=== PATIENT | female | born 1960 | race Two or more races ===

== ENCOUNTER 2020-05-30 09:39 | Outpatient (REF) | payer OTHER, SELFPAY | END 2020-05-30 09:40 | disposition home or self-care (01) | LOC: HO.LAB 09:39 | PROVIDERS: PCP Internal Medicine; Visit Provider Internal Medicine | DX: Z20.822 Contact with and (suspected) exposure to COVID-19 (principal) | CPT/HCPCS: 36415; C9803; U0003; U0005 ==

== ENCOUNTER 2020-06-13 09:24 | Outpatient (REF) | payer OTHER, SELFPAY | END 2020-06-13 09:25 | disposition home or self-care (01) | LOC: HO.LAB 09:24 | PROVIDERS: PCP Internal Medicine; Visit Provider Internal Medicine | DX: Z20.822 Contact with and (suspected) exposure to COVID-19 (principal) | CPT/HCPCS: 36415; C9803; U0003; U0005 ==

== ENCOUNTER 2020-07-06 11:38 | Outpatient (REF) | payer OTHER, SELFPAY ==
--- NOTE | ~2020-07-06 | MM_ITS ---
EXAMINATION: MM SCREENING DIGITAL BREAST TOMOSYNTHESIS, BILATERAL CLINICAL INFORMATION: Screening. Asymptomatic. The lifetime risk of breast cancer based on the Tyrer-Cuzick Model is 0.7%. COMPARISON: Mammography: December 30, 2019 and studies dating back to March 11, 2013 TECHNIQUE: Digital breast tomosynthesis is performed in both the craniocaudal and mediolateral oblique views along with computer-aided detection (CAD). Synthesized 2D images are generated from the tomosynthesis. FINDINGS: There are scattered areas of fibroglandular density (ACR BI-RADS breast composition Category b). There are no new significant masses, abnormal calcifications, or other abnormalities. There is again noted to be a prominent right axillary lymph node which is unchanged in size and appearance since study of June 22, 2019 but which did show significant increase in size prior to that. Recommend 6 month follow-up right breast mammogram for continued surveillance. MM/MM tomosynthesis screening BI IMPRESSION: There are no significant changes from prior study. ASSESSMENT: BI-RADS 3: Probably Benign RECOMMENDATION: Six-month follow-up right breast mammogram This patient's information was entered into a reminder system with a target due date for their next mammogram.
== END 2020-07-06 11:39 | disposition home or self-care (01) ==
LOC: HO.MAMMO 11:38
PROVIDERS: PCP Internal Medicine; Visit Provider Internal Medicine
DX: Z12.31 Encounter for screening mammogram for malignant neoplasm of breast (principal)
CPT/HCPCS: 77063; 77067

== ENCOUNTER → 2020-07-19 10:44 | Outpatient (BNVA) | payer OTHER, SELFPAY | PROVIDERS: PCP Internal Medicine; Visit Provider Advanced Practice Midwife ==

== ENCOUNTER → 2020-10-26 09:37 | Outpatient (BNVA) | payer OTHER, SELFPAY | PROVIDERS: PCP Internal Medicine; Visit Provider Internal Medicine Endocrinology, Diabetes & Metabolism | DX: E11.65 Type 2 diabetes mellitus with hyperglycemia (principal); E78.5 Hyperlipidemia, unspecified; E03.8 Other specified hypothyroidism; E06.3 Autoimmune thyroiditis; I10 Essential (primary) hypertension; Z79.4 Long term (current) use of insulin | CPT/HCPCS: 82947; 99212 ==

== ENCOUNTER 2020-10-26 10:40 | Outpatient (REF) | payer OTHER, SELFPAY ==
[2020-10-26 14:02] LABS: Hematocrit 45.1 % (37-47); Hemoglobin 14.7 g/dl (12.0-16.0); Mean Corpuscular HGB Conc 32.6 g/dl (31.0-35.0); Mean Corpuscular Hemoglobin 28.7 pg (27.0-33.0); Mean Corpuscular Volume 87.9 fL (80-98); Mean Platelet Volume 11.1 fL (9.4-12.3); Platelet Count 295 X10*3/uL (160-400); Red Blood Count 5.13 X10*6/uL (4.20-5.50); Red Cell Distribution Width 14.1 % (11.0-16.0)
[2020-10-26 14:12] LABS: Alanine Aminotransferase 47 U/L (0-31); Albumin Level 4.1 g/dL (3.5-5.0); Alkaline Phosphatase 133 U/L (39-117); Anion Gap 10 (12-20); Aspartate Amino Transferase 41 U/L (5-31); Bilirubin Total 0.3 mg/dL (0.0-1.0); Blood Urea Nitrogen 13 mg/dL (9-16); Calcium 9.5 mg/dL (8.4-10.2); Carbon Dioxide 30 mmol/L (22-29); Chloride 104 mmol/L (96-108); Cholesterol 132 mg/dL; Estimated Glomerular Filt Rate > 60; Glucose Fasting 236 mg/dL (60-99); HDL Cholesterol 39 mg/dL; LDL Cholesterol Calculated 74 mg/dl; Potassium 4.2 mmol/L (3.3-5.1); Sodium 140 mmol/L (135-145); Total Protein 7.4 g/dL (6.5-8.0); Triglycerides 98 mg/dL
[2020-10-26 14:23] LABS: Creatinine Urine 65.88 mg/dL; Microalbum/Creatinine Ratio Ur 39.4 ug/mg cr
[2020-10-26 14:23] LABS: Estimated Average Glucose 206 mg/dL; Hemoglobin A1c % 8.8 %
[2020-10-26 14:35] LABS: Free T4 (Free Thyroxine) 0.83 ng/dL (0.71-1.85); Thyroid Stimulating Hormone 3.27 uIU/mL (0.32-4.0)
[2020-10-26 14:43] LABS: Vitamin B12 444 pg/mL (200-900)
[2020-10-27 06:17] LABS: LDL Cholesterol Direct 75 mg/dL (<100)
[2020-10-31 13:11] LABS: Vitamin D 25-OH, D2 <4 ng/mL; Vitamin D 25-OH, D3 26 ng/mL; Vitamin D 25-OH, Total 26 ng/mL (30-100)
== END 2020-10-26 10:41 | disposition home or self-care (01) ==
LOC: HO.10HDL 10:40
PROVIDERS: Internal Medicine; Visit Provider Internal Medicine Endocrinology, Diabetes & Metabolism
DX: E11.65 Type 2 diabetes mellitus with hyperglycemia (principal); E03.9 Hypothyroidism, unspecified; E55.9 Vitamin D deficiency, unspecified; Z79.4 Long term (current) use of insulin
CPT/HCPCS: 36415; 80053; 80061; 82043; 82306; 82607; 83036; 83721; 84439; 84443; 85027

== ENCOUNTER 2020-11-21 06:25 | Outpatient (REF) | payer OTHER, SELFPAY ==
[2020-11-21 07:36] LABS: MANUAL DIFF FLAG NO
[2020-11-21 07:40] LABS: Basophils Absolute Auto 0.1 X10*3/uL (0.0-0.2); Basophils Percent Auto 0.7 % (0-2); Eosinophils Percent Auto 0.1 % (0-4); Hematocrit 43.4 % (37-47); Imm Gran Abs Auto 0.03 X10*3/uL (0.00-0.03); Imm Gran Pct Auto 0.4 % (0.0-0.4); Lymphocytes Absolute Auto 3.4 X10*3/uL (1.2-4.9); Lymphocytes Percent Auto 40.4 % (20-40); Mean Corpuscular HGB Conc 32.3 g/dl (31.0-35.0); Mean Corpuscular Hemoglobin 28.4 pg (27.0-33.0); Mean Platelet Volume 10.6 fL (9.4-12.3); Monocytes Absolute Auto 0.6 X10*3/uL (0.1-1.2); Monocytes Percent Auto 7.1 % (2-11); Neutrophils Absolute Auto 4.4 X10*3/uL (2.0-8.3); Neutrophils Percent Auto 51.3 % (45-73); Platelet Count 313 X10*3/uL (160-400); Red Blood Count 4.93 X10*6/uL (4.20-5.50); Red Cell Distribution Width 14.2 % (11.0-16.0); White Blood Count 8.5 X10*3/uL (4.8-10.8)
[2020-11-21 07:56] LABS: Cholesterol 137 mg/dL; HDL Cholesterol 39 mg/dL; LDL Cholesterol Calculated 82 mg/dl; Triglycerides 80 mg/dL
[2020-11-21 07:58] LABS: Alanine Aminotransferase 35 U/L (0-31); Albumin Level 3.9 g/dL (3.5-5.0); Alkaline Phosphatase 116 U/L (39-117); Anion Gap 12 (12-20); Aspartate Amino Transferase 29 U/L (5-31); Bilirubin Total 0.6 mg/dL (0.0-1.0); Blood Urea Nitrogen 12 mg/dL (9-16); Calcium 9.1 mg/dL (8.4-10.2); Carbon Dioxide 27 mmol/L (22-29); Chloride 109 mmol/L (96-108); Estimated Glomerular Filt Rate > 60; Glucose Fasting 150 mg/dL (60-99); Potassium 4.1 mmol/L (3.3-5.1); Sodium 144 mmol/L (135-145)
[2020-11-21 08:02] LABS: B Type Natriuretic Peptide < 10 pg/mL (<100)
[2020-11-21 08:17] LABS: TSH reflex Free T4 4.98 uIU/mL (0.32-4.0)
[2020-11-21 08:51] LABS: Free T4 (Free Thyroxine) 0.84 ng/dL (0.71-1.85)
[2020-11-21 09:30] LABS: Creatinine Urine 79.13 mg/dL; Microalbum/Creatinine Ratio Ur 12.6 ug/mg cr
== END 2020-11-21 06:26 | disposition home or self-care (01) ==
LOC: HO.LAB 06:25
PROVIDERS: PCP Internal Medicine; Visit Provider Internal Medicine
DX: E78.5 Hyperlipidemia, unspecified (principal); E78.00 Pure hypercholesterolemia, unspecified; E06.3 Autoimmune thyroiditis; E11.43 Type 2 diabetes mellitus with diabetic autonomic (poly)neuropathy; R06.02 Shortness of breath; Z79.4 Long term (current) use of insulin
CPT/HCPCS: 36415; 80053; 80061; 82043; 83880; 84439; 84443; 85025

== ENCOUNTER → 2021-02-08 09:11 | Outpatient (BNVA) | payer OTHER, SELFPAY | PROVIDERS: PCP Internal Medicine; Visit Provider Nurse Practitioner Gerontology | DX: E11.65 Type 2 diabetes mellitus with hyperglycemia (principal); E11.42 Type 2 diabetes mellitus with diabetic polyneuropathy; I10 Essential (primary) hypertension; E78.5 Hyperlipidemia, unspecified; E03.9 Hypothyroidism, unspecified; E06.3 Autoimmune thyroiditis; E55.9 Vitamin D deficiency, unspecified; E66.01 Morbid (severe) obesity due to excess calories; Z68.37 Body mass index [BMI] 37.0-37.9, adult; Z88.8 Allergy status to other drugs, medicaments and biological substances; Z79.4 Long term (current) use of insulin; Z79.84 Long term (current) use of oral hypoglycemic drugs; Z79.899 Other long term (current) drug therapy | CPT/HCPCS: 82947; 83036; 99212 ==

== ENCOUNTER 2021-02-08 10:30 | Outpatient (REF) | payer OTHER, SELFPAY ==
[2021-02-08 14:09] LABS: Free T4 (Free Thyroxine) 0.94 ng/dL (0.71-1.85); Thyroid Stimulating Hormone 2.53 uIU/mL (0.32-4.0); Vitamin D 25-OH Total 36.5 ng/mL (>30)
== END 2021-02-08 10:31 | disposition home or self-care (01) ==
LOC: HO.10HDL 10:30
PROVIDERS: Visit Provider Nurse Practitioner Gerontology
DX: E06.3 Autoimmune thyroiditis (principal); E55.9 Vitamin D deficiency, unspecified
CPT/HCPCS: 36415; 82306; 84439; 84443

== ENCOUNTER → 2021-06-09 10:04 | Outpatient (BNVA) | payer OTHER, SELFPAY | PROVIDERS: PCP Internal Medicine; Visit Provider Registered Nurse Diabetes Educator ==

== ENCOUNTER → 2021-07-21 08:04 | Outpatient (BNVA) | payer OTHER, SELFPAY | PROVIDERS: PCP Internal Medicine; Visit Provider Nurse Practitioner Gerontology | DX: E11.42 Type 2 diabetes mellitus with diabetic polyneuropathy (principal); Z79.899 Other long term (current) drug therapy; Z79.4 Long term (current) use of insulin; I10 Essential (primary) hypertension; E78.5 Hyperlipidemia, unspecified; E03.9 Hypothyroidism, unspecified ==

== ENCOUNTER 2021-08-24 10:29 | Outpatient (REF) | payer OTHER, SELFPAY ==
[2021-08-24 18:30] LABS: CT PCR NOT DETECTED (Not Detect.); NG PCR NOT DETECTED (Not Detect.)
[2021-08-25 13:08] LABS: BV Int Neg Control Negative (Negative); BV Int Pos Control Positive (Positive)
== END 2021-08-24 10:30 | disposition home or self-care (01) ==
LOC: HO.LAB 10:29
PROVIDERS: PCP Internal Medicine; Visit Provider Advanced Practice Midwife
DX: Z01.411 Encounter for gynecological examination (general) (routine) with abnormal findings (principal); N89.8 Other specified noninflammatory disorders of vagina; Z20.2 Contact with and (suspected) exposure to infections with a predominantly sexual mode of transmission
CPT/HCPCS: 87480; 87491; 87510; 87591; 87660

== ENCOUNTER → 2021-08-25 14:44 | Outpatient (BNVA) | payer OTHER, SELFPAY | PROVIDERS: PCP Internal Medicine; Referring Provider Internal Medicine; Visit Provider Nurse Practitioner Family | DX: K21.9 Gastro-esophageal reflux disease without esophagitis (principal); R13.10 Dysphagia, unspecified | CPT/HCPCS: 99202 ==

== ENCOUNTER 2021-08-30 | Outpatient (REF) | payer OTHER, SELFPAY | END 2021-08-30 00:01 | disposition home or self-care (01) | LOC: HO.LNP | PROVIDERS: Visit Provider Nurse Practitioner Family | DX: K21.9 Gastro-esophageal reflux disease without esophagitis (principal) | CPT/HCPCS: 87338 ==

== ENCOUNTER 2021-09-06 14:35 | Outpatient (REF) | payer OTHER, SELFPAY ==
--- NOTE | ~2021-09-06 | MM_ITS ---
EXAMINATION: MM SCREENING DIGITAL BREAST TOMOSYNTHESIS, BILATERAL CLINICAL INFORMATION: Screening. Asymptomatic. The lifetime risk of breast cancer based on the Tyrer-Cuzick Model is 5%. COMPARISON: Mammography: 07/06/2020, 12/30/2019, 06/22/2019, 05/06/2018; ultrasound right breast 06/25/2019 TECHNIQUE: Digital breast tomosynthesis is performed in both the craniocaudal and mediolateral oblique views along with computer-aided detection (CAD). Synthesized 2D images are generated from the tomosynthesis. FINDINGS: There are scattered areas of fibroglandular density (ACR BI-RADS breast composition Category b). Parenchymal pattern is similar to prior studies and there is no developing density or interval significant mass or architectural abnormality. There are no interval abnormal calcifications. The skin contours are smooth. MM/MM tomosynthesis screening BI IMPRESSION: No significant changes from prior exam. ASSESSMENT: BI-RADS 2: Benign RECOMMENDATION: Routine annual mammography screening. This patient's information was entered into a reminder system with a target due date for their next mammogram.
== END 2021-09-06 14:36 | disposition home or self-care (01) ==
LOC: HO.MAMMO 14:35
PROVIDERS: PCP Internal Medicine; Visit Provider Internal Medicine
DX: Z12.31 Encounter for screening mammogram for malignant neoplasm of breast (principal)
CPT/HCPCS: 77063; 77067

== ENCOUNTER 2021-09-08 09:27 | Outpatient (REF) | payer OTHER, SELFPAY ==
[2021-09-08 10:44] LABS: Alanine Aminotransferase 70 U/L (0-31); Albumin Level 3.9 g/dL (3.5-5.0); Alkaline Phosphatase 121 U/L (39-117); Anion Gap 11 (12-20); Aspartate Amino Transferase 68 U/L (5-31); Bilirubin Total 0.6 mg/dL (0.0-1.0); Blood Urea Nitrogen 12 mg/dL (9-16); Calcium 9.6 mg/dL (8.4-10.2); Carbon Dioxide 28 mmol/L (22-29); Chloride 105 mmol/L (96-108); Cholesterol 159 mg/dL; Estimated Average Glucose 214 mg/dL; Estimated Glomerular Filt Rate > 60; Glucose Fasting 161 mg/dL (60-99); HDL Cholesterol 39 mg/dL; Hemoglobin A1c % 9.1 %; LDL Cholesterol Calculated 100 mg/dl; Potassium 4.2 mmol/L (3.3-5.1); Sodium 140 mmol/L (135-145); Total Protein 7.5 g/dL (6.5-8.0); Triglycerides 102 mg/dL
[2021-09-08 11:03] LABS: Creatinine Urine 111.16 mg/dL; Microalbum/Creatinine Ratio Ur 20.6 ug/mg cr
[2021-09-08 11:07] LABS: Free T4 (Free Thyroxine) 0.81 ng/dL (0.71-1.85)
[2021-09-08 11:08] LABS: Thyroid Stimulating Hormone 5.15 uIU/mL (0.32-4.0); Vitamin D 25-OH Total 29.3 ng/mL (>30)
[2021-09-09 12:20] LABS: LDL Cholesterol Direct 99 mg/dL (<100)
== END 2021-09-08 09:28 | disposition home or self-care (01) ==
LOC: HO.LAB 09:27
PROVIDERS: Absent Provider Nurse Practitioner Gerontology; PCP Internal Medicine; Visit Provider Internal Medicine
DX: E11.42 Type 2 diabetes mellitus with diabetic polyneuropathy (principal); E78.5 Hyperlipidemia, unspecified; E55.9 Vitamin D deficiency, unspecified; E03.8 Other specified hypothyroidism; E06.3 Autoimmune thyroiditis; Z79.4 Long term (current) use of insulin
CPT/HCPCS: 36415; 80053; 80061; 82043; 82306; 83036; 83721; 84439; 84443

== ENCOUNTER → 2021-09-20 09:43 | Outpatient (BNVA) | payer OTHER, SELFPAY | PROVIDERS: PCP Internal Medicine; Visit Provider Registered Nurse Diabetes Educator | DX: E11.42 Type 2 diabetes mellitus with diabetic polyneuropathy (principal); Z79.4 Long term (current) use of insulin | CPT/HCPCS: 99211 ==

== ENCOUNTER 2021-09-29 09:09 | Outpatient (REF) | payer OTHER, SELFPAY ==
--- NOTE | ~2021-09-29 | FL_ITS ---
EXAMINATION: FL BARIUM SWALLOW CLINICAL INFORMATION: Dysphagia. COMPARISON: None TECHNIQUE: Barium swallow examination was performed using fluoroscopic evaluation in addition to multiple fluoroscopic spot views. The patient was imaged both upright and prone and using both thick and thin sulfate along with effervescent granules. Fluoroscopy time: 1.2 minutes DAP: 5.337 Gycm2 Images: 37 FINDINGS: There is normal apposition of the vocal cords while saying E . There is normal elevation of the soft palate while saying candy . The patient swallowed thin and thick barium and a 1/2 inch diameter barium tablet without difficulty. No nasopharyngeal reflux or tracheal aspiration. No Zenker's diverticulum or significant cricopharyngeal hypertrophy. There is normal esophageal motility. No persistent stricture or mucosal abnormalities appreciated. There is a very small hiatal hernia with a Schatzki's ring with spontaneous gastroesophageal reflux to the level of the beau which cleared slowly. FL/FL barium swallow IMPRESSION: Small hiatal hernia with gastroesophageal reflux to the level of the beau which clears slowly.
== END 2021-09-29 09:10 | disposition home or self-care (01) ==
LOC: HO.XRAY 09:09
PROVIDERS: PCP Internal Medicine; Visit Provider Internal Medicine
DX: R13.10 Dysphagia, unspecified (principal)
CPT/HCPCS: 74220

== ENCOUNTER → 2021-10-17 14:58 | Outpatient (BNVA) | payer OTHER, SELFPAY | PROVIDERS: PCP Internal Medicine; Visit Provider Nurse Practitioner Family | DX: K21.9 Gastro-esophageal reflux disease without esophagitis (principal); A04.8 Other specified bacterial intestinal infections; R13.10 Dysphagia, unspecified | CPT/HCPCS: 99212 ==

== ENCOUNTER → 2021-10-19 09:34 | Outpatient (BNVA) | payer OTHER, SELFPAY | PROVIDERS: PCP Internal Medicine; Visit Provider Nurse Practitioner Gerontology | DX: E11.65 Type 2 diabetes mellitus with hyperglycemia (principal); E11.42 Type 2 diabetes mellitus with diabetic polyneuropathy; I10 Essential (primary) hypertension; E78.5 Hyperlipidemia, unspecified; E03.8 Other specified hypothyroidism; E06.3 Autoimmune thyroiditis; E66.09 Other obesity due to excess calories; Z68.37 Body mass index [BMI] 37.0-37.9, adult; E55.9 Vitamin D deficiency, unspecified; Z79.4 Long term (current) use of insulin; Z79.899 Other long term (current) drug therapy | CPT/HCPCS: 82947; 99212 ==

== ENCOUNTER 2021-10-24 | Outpatient (REF) | payer OTHER, SELFPAY | END 2021-10-24 00:01 | disposition home or self-care (01) | LOC: HO.LNP | PROVIDERS: Visit Provider Nurse Practitioner Family | DX: K21.9 Gastro-esophageal reflux disease without esophagitis (principal) | CPT/HCPCS: 87338 ==

== ENCOUNTER → 2021-11-21 13:28 | Outpatient (BNVA) | payer OTHER, SELFPAY | PROVIDERS: PCP Internal Medicine; Visit Provider Nurse Practitioner Family | DX: A04.8 Other specified bacterial intestinal infections (principal); K21.9 Gastro-esophageal reflux disease without esophagitis | CPT/HCPCS: 99212 ==

== ENCOUNTER 2022-03-14 10:49 | Day surgery (SDC) | payer OTHER, SELFPAY ==
[2022-03-07 16:06] VITALS: BMI 37.7
--- NOTE | 2022-03-13 13:11 | P.CONAN_ITS ---
Documented by User: Avis Acosta NP 03/13/22 13:12 HPI - Anesthesia Eval Consult details Narrative: 62yo F for Upper Endoscopy PMFSH Active Problems Active Problems: All Active Problems (Updated 03/07/22 @ 16:01 by Maggy Chu RN) Encounter for annual routine gynecological examination (Acute) DM2 (diabetes mellitus, type 2) (Acute) Vaginal itching (Acute) Vaginal odor (Acute) Encounter for screening mammogram for malignant neoplasm of breast (Acute) Helicobacter pylori (H. pylori) (Acute) Severe obesity with body mass index (BMI) of 35.0 to 39.9 with comorbidity (Acute) Dysphagia (Acute) Right knee pain (Acute) Obesity due to excess calories (Acute) Mild depression (Acute) Hypothyroidism (Acute) Hypothyroidism (acquired) (Acute) emt intermediate (current) use of insulin (Acute) Diabetes type 2, uncontrolled (Acute) Hypovitaminosis D (Acute) GERD (gastroesophageal reflux disease) (Acute) Essential hypertension (Acute) Headache (Acute) Dyslipidemia (Acute) Type 2 diabetes mellitus, with long-term current use of insulin (Acute) Autoimmune thyroiditis (Acute) Past Medical History Medical History Autoimmune thyroiditis Chronic pain of both hips Chronic pain of both knees Depression Diabetes type 2, uncontrolled Dyslipidemia Dysphagia Essential hypertension GERD (gastroesophageal reflux disease) Headache Helicobacter pylori (H. pylori) Hypothyroidism Hypothyroidism (acquired) Hypovitaminosis D intermediate (current) use of insulin Mild depression Obesity due to excess calories Right knee pain Severe obesity with body mass index (BMI) of 35.0 to 39.9 with comorbidity Type 2 diabetes mellitus, with long-term current use of insulin Family History Family History Father Diabetes Mother Hypertension Maternal Grandmother Gynecologic cancer Family/Other FH: mental illness Maternal Uncle Chronic mental illness Surgical History Surgical History History of arthroscopy of right knee History of tubal ligation Hx of colonoscopy Social History Social History Housing: Apartment Alcohol intake: never Patient Tobacco Use Status: Never used Tobacco e-Cigarette/Vaping Use: Never Used Second Hand Smoke Exposure: No Advance Directives: No Advance Directives Information Provided: Yes service: No Current occupational status: disabled Cognitive needs: Yes Hearing needs: No Vision needs: No Meds Allergies Allergy/AdvReac Type Severity Reaction Status Date / Time metformin AdvReac Intermediate diarrhea Verified 03/07/22 15:52 Home Medications Medication Instructions Recorded Confirmed Last Taken Type doxepin 50 mg capsule 50 mg PO BEDTIME 05/10/20 03/07/22 Unknown History pen needle, diabetic 31 gauge x #1,200 ea 05/10/20 02/20/22 Unknown History 09/11 Exam Exam Date and Time: March 13, 2022 1311 Height,Weight and Vital Signs: Height 5 ft 3 in Weight 96.615 kg Pertinent Lab Results Pertinent Lab Results: Laboratory Tests 09/08/21 09:52 Sodium 140 Potassium 4.2 Chloride 105 Carbon Dioxide 28 BUN 12 Creatinine 0.82 Assessment and Plan Assessment Anesthesia Assessment: Chart Reviewed Documented by User: Mikayla Stanford MD 03/14/22 11:39 [facility] Past Medical History Medical History Autoimmune thyroiditis Chronic pain of both hips Chronic pain of both knees Depression Diabetes type 2, uncontrolled Dyslipidemia Dysphagia Essential hypertension GERD (gastroesophageal reflux disease) Headache Helicobacter pylori (H. pylori) Hypothyroidism Hypothyroidism (acquired) Hypovitaminosis D emt intermediate (current) use of insulin Mild depression Obesity due to excess calories Right knee pain Severe obesity with body mass index (BMI) of 35.0 to 39.9 with comorbidity Type 2 diabetes mellitus, with long-term current use of insulin Family History Family History Father Diabetes Mother Hypertension Maternal Grandmother Gynecologic cancer Family/Other FH: mental illness Maternal Uncle Chronic mental illness Surgical History Surgical History History of arthroscopy of right knee History of tubal ligation Hx of colonoscopy History of Problems with Anesthesia: No Social History Social History Housing: Apartment Alcohol intake: never Patient Tobacco Use Status: Never used Tobacco e-Cigarette/Vaping Use: Never Used Second Hand Smoke Exposure: No Advance Directives: No Advance Directives Information Provided: Yes service: No Current occupational status: disabled Cognitive needs: Yes Hearing needs: No Vision needs: No Meds Allergies Allergy/AdvReac Type Severity Reaction Status Date / Time metformin AdvReac Intermediate diarrhea Verified 03/07/22 15:52 Home Medications Medication Instructions Recorded Confirmed Last Taken Type doxepin 50 mg capsule 50 mg PO BEDTIME 05/10/20 03/07/22 Unknown History pen needle, diabetic 31 gauge x #1,200 ea 05/10/20 02/20/22 Unknown History 09/11 Exam Airway Mallampati Class: II (Edentulous) TM Dist: >3cm Loose/Missing/Broken Teeth: Yes, Upper and Lower Heart: RRR Lungs: CTA Assessment and Plan Assessment Anesthesia Assessment: Anesthesia Plan Discussed Final Anesthetic Review History of Problems with Anesthesia: No NPO: Yes ASA Class: II and III Final Preanesthetic Review: Meds/Allgs Chart Reviewed, Consent Obtained/Reviewed and Anes Risks/Benef Reviewed Patient Risk: Low Procedure Risk: Intermediate Anesthetic Plan Anesthetic Plan: MAC: Disposition: Standard PACU
--- NOTE | 2022-03-14 10:55 | MHC.SHP ---
Pre-Procedural Eval Section A Date of Service: 03/14/22 Section B Chief Complaint: bacterial intestinal infections,reflux disease Relevant Family History (Specify if Yes): No Relevant Social History: None Present Medications: see Short Stay Collaborative assessment Medical History: Significant History (Autoimmune thyroiditis Chronic pain of both hips Chronic pain of both knees Depression Diabetes type 2, uncontrolled Dyslipidemia Dysphagia Essential hypertension GERD (gastroesophageal reflux disease) Headache Helicobacter pylori (H. pylori) Hypothyroidism Hypothyroidism (acquired) Hypovitaminosis ) History of Previous Operations: Relevant previous surgery/procedure and date(s) (History of arthroscopy of right knee History of tubal ligation Hx of colonoscopy) Allergies: Allergies Allergy/AdvReac Type Severity Reaction Status Date / Time metformin AdvReac Intermediate diarrhea Verified 03/07/22 15:52 Review of Systems Sugical H&P ROS: Negative: Constitution, Cardiovascular, Respiratory, Neurological, Psychiatric, Hem-Onc, Allergic/Immunologic, Gastrointestinal, Genitourinary, Musculoskeletal, Integumentary, Endocrine and Eyes/Ears/Nose/Throat Exam Surgical H&P Exam: Normal: HEENT, Normal: Heart, Normal: Lungs, Normal: Extremities, Normal: Abdomen, Normal: Skin and Normal: Neurological Plan Diagnosis/Plan: Unchanged I have reviewed the history and physical and performed a pertinent physical examination on my patient. No changes have occurred unless specified.
[2022-03-14 11:28] VITALS: BP 122/69; PULSE 92; RESP 16; TEMP 36.6; O2SAT 97
[2022-03-14 11:42] LABS: Glucose, Whole Blood 185 mg/dL (60-115)
[2022-03-14] MEDS: Lactated Ringers 1,000 ML 100 ML IVCONT (11:44)
--- NOTE | 2022-03-14 12:07 | W.PM.OPN ---
Operative Note Operative Note Date of Service: 03/14/22 Narrative: Procedure Description: EGD Indication: recurrent h pylori infection Anesthesia: MAC FLEXIBLE TRANSORAL UPPER GASTROINTESTINAL ENDOSCOPY UPPER ENDOSCOPY Consent: Indications for the procedure and potential complications of bleeding, perforation, reaction to medications and missed diagnosis were discussed with the patient and informed consent was obtained. Instrument: Olympus GIF H 190 J mid size upper endoscope Monitoring: Vital signs and clinical assessment, continuous EKG monitoring, Pulse oximetry, Carbon Dioxide monitoring and blood pressure monitoring were done throughout the procedure. Procedure: The patient was placed in the left lateral decubitis position and pre-procedure medications were administered and a bite block was placed. The endoscope was inserted into the mouth and advanced under direct vision to the third part of duodenum. A careful inspection was made as the upper endoscope was withdrawn including a retroflexed examination of the proximal stomach; Findings and interventions are described below. Findings: Larynx:normal Esophagus: GE junction at 32 cm, diaphragm hiatus at 32 cm, irregular z line, possible short segment barretts with few islands of salmon pink tissue Stomach: Patchy gastric erythema. Biopsies were obtained for pathology and also for culture. Grade 3 flap valve on retroflexed examination of the cardia consistent with lax LES Duodenum: Normal bulb and descending duodenum, Intervention: Biopsies as noted above Impression/Findings: gastritis lax LES possible barretts PLAN: await cultures, if pos for h pylori then recommend checking and if pos treat both together
[2022-03-14 12:10] VITALS: BP 111/65; PULSE 91; RESP 18; TEMP 37.1; O2SAT 95
[2022-03-14 12:25] VITALS: BP 126/71; PULSE 83; RESP 18; TEMP 37; O2SAT 96
== END 2022-03-14 13:23 | disposition home or self-care (01) ==
PROVIDERS: PCP Internal Medicine; Visit Provider Internal Medicine Gastroenterology
PROC: 0DJ08ZZ Inspection of Upper Intestinal Tract, Via Natural or Artificial Opening Endoscopic (ICD-10-PCS; CPT 43235; principal; 2022-03-14 12:20)
DX: K29.50 Unspecified chronic gastritis without bleeding (principal); K21.9 Gastro-esophageal reflux disease without esophagitis; A04.8 Other specified bacterial intestinal infections; K22.4 Dyskinesia of esophagus; I10 Essential (primary) hypertension; E11.9 Type 2 diabetes mellitus without complications; Z79.4 Long term (current) use of insulin; E78.5 Hyperlipidemia, unspecified; E06.3 Autoimmune thyroiditis; E03.9 Hypothyroidism, unspecified; E55.9 Vitamin D deficiency, unspecified; F32.A Depression, unspecified; G89.29 Other chronic pain; M25.552 Pain in left hip; M25.551 Pain in right hip; M25.562 Pain in left knee; M25.561 Pain in right knee
CPT/HCPCS: 43239; 36415; 82947; 87081; 88305; 88342

== ENCOUNTER → 2022-03-28 10:14 | Outpatient (BNVA) | payer OTHER, SELFPAY | PROVIDERS: PCP Internal Medicine; Visit Provider Nurse Practitioner Family | DX: K21.9 Gastro-esophageal reflux disease without esophagitis (principal) | CPT/HCPCS: 99212 ==

== ENCOUNTER → 2022-06-19 10:25 | Outpatient (BNVA) | payer OTHER, SELFPAY | PROVIDERS: PCP Internal Medicine; Visit Provider Nurse Practitioner Family | DX: K21.9 Gastro-esophageal reflux disease without esophagitis (principal); Z79.899 Other long term (current) drug therapy | CPT/HCPCS: 99212 ==

== ENCOUNTER 2022-06-23 07:43 | Outpatient (REF) | payer OTHER, SELFPAY ==
[2022-06-23 09:54] LABS: Thyroid Stimulating Hormone 1.47 uIU/mL (0.32-4.0)
== END 2022-06-23 07:44 | disposition home or self-care (01) ==
LOC: HO.LAB 07:43
PROVIDERS: PCP Internal Medicine; Visit Provider Internal Medicine
DX: E03.9 Hypothyroidism, unspecified (principal)
CPT/HCPCS: 36415; 84443

== ENCOUNTER 2022-07-01 10:12 | Emergency (ER) | payer OTHER, SELFPAY ==
--- NOTE | ~2022-07-01 | XR_ITS ---
EXAMINATION: XR CHEST CLINICAL INFORMATION: SOB COMPARISON: Chest x-ray 01/19/2020 TECHNIQUE: Frontal view of the chest was obtained. FINDINGS: The lungs are well-expanded and clear of acute process. Heart size and and pulmonary vascularity is normal. There is mild spondylosis mid dorsal spine. Otherwise no gross bony abnormality. XR/XR chest 1V IMPRESSION: Unremarkable chest exam. No change from 01/19/2020
[2022-07-01 10:14] VITALS: BP 137/73; PULSE 81; RESP 18; TEMP 36.9; O2SAT 95; BMI 37.2
[2022-07-01 11:07] LABS: Influenza A PCR NEGATIVE (Negative); Influenza B PCR NEGATIVE (Negative); Resp Syncy Virus RNA Qual PCR NEGATIVE (Negative); SARS COV2 PCR INHOUSE NEGATIVE (Negative)
--- NOTE | 2022-07-01 11:35 | ED.GENADULT ---
HPI - General Adult General Chief complaint: General Medical Stated complaint: has cold, SOB, chest tightness Time Seen by Provider: 07/01/22 11:30 Source: patient Mode of arrival: ambulatory Limitations: no limitations History of Present Illness HPI narrative: 62-year-old female history of diabetes hypertension presents to the ED for 2 days of cough, body aches, fever, chills, and wheezing. Patient states yellow sputum when he coughs. patient denies any chest pain, swellng of lower extremities,pleurisy, dizziness, recent long travel, recent surgery, or estrogen hormonal use. Related Data Home Medications Medication Instructions Recorded Confirmed doxepin 50 mg capsule 50 mg PO BEDTIME 05/10/20 06/25/22 pen needle, diabetic 31 gauge x #1,200 ea 05/10/20 06/25/2209/11 Previous Rx's Medication Instructions Recorded blood-glucose meter (FreeStyle #1 ea 02/08/21 Lite Meter kit) alcohol swabs (BD Alcohol Swabs) 1 pad topical BID 30 days #100 caps 03/14/21 acetaminophen 500 mg tablet 500 mg PO Q6H PRN fever 30 days 04/04/21 #120 tabs escitalopram oxalate 20 mg tablet 20 mg PO DAILY 90 days #90 tabs 04/04/21 ezetimibe 10 mg tablet 10 mg PO DAILY 90 days #90 tabs 04/04/21 pen needle, diabetic 32 gauge x #100 ea 04/14/21 (BD Rona 2nd Gen Pen Needle) lancets 28 gauge #100 ea 09/07/21 blood sugar diagnostic (FreeStyle #100 ea 10/19/21 Test strips) cholecalciferol (vitamin D3) 50 50 mcg PO DAILY #90 caps 03/06/22 mcg (2,000 unit) capsule (Vitamin D3) enalapril maleate 5 mg tablet 5 mg PO DAILY 90 days #90 tabs 03/06/22 Shower Chair #1 ea 04/04/22 aspirin 81 mg tablet,delayed 81 mg PO DAILY 90 days #90 tabs 04/04/22 release atorvastatin 80 mg tablet 80 mg PO DAILY #90 tabs 04/04/22 blood pressure monitor #1 ea 04/04/22 levothyroxine 112 mcg tablet 112 mcg PO DAILY 90 days #90 tabs 04/10/22 famotidine 20 mg tablet (Pepcid) 20 mg PO BEDTIME #30 tabs 06/19/22 pantoprazole 40 mg tablet,delayed 40 mg PO DAILY #90 tabs 06/19/22 release hydroxyzine HCl 25 mg tablet 25 mg PO BID 30 days #60 tabs 06/22/22 Lantus Solostar U-100 Insulin 100 28 unit (0.28 mL) subcut BID 90 06/25/22 unit/mL (3 mL) subcutaneous pen days #50.4 mL (insulin glargine) dulaglutide 1.5 mg/0.5 mL 1.5 mg (0.5 mL) subcut QWEEK #2 mL 06/25/22 subcutaneous pen injector (Trulicity) empagliflozin 25 mg tablet 25 mg PO DAILY 90 days #90 tabs 06/25/22 (Jardiance) albuterol sulfate 90 mcg/actuation 2 puff inhalation Q4-6H PRN 07/01/22 aerosol inhaler shortness of breath or wheezing #8.5 grams azithromycin 250 mg tablet See Rx Instructions PO .COMPLEX #6 07/01/22 tabs benzonatate 200 mg capsule 200 mg PO TID PRN cough 5 days #15 07/01/22 caps Allergies Allergy/AdvReac Type Severity Reaction Status Date / Time metformin AdvReac Intermediate diarrhea Verified 06/25/22 07:41 Review of Systems Review of Systems: Coughing, wheezing, fever, chills, and bodyaches Yes all other systems are reviewed and are negative PMFSH Past Medical History Medical History Autoimmune thyroiditis Chronic pain of both hips Chronic pain of both knees Depression Diabetes type 2, uncontrolled Dyslipidemia Dysphagia Essential hypertension GERD (gastroesophageal reflux disease) Headache Helicobacter pylori (H. pylori) Hypothyroidism Hypothyroidism (acquired) Hypovitaminosis D [facility] (current) use of insulin Mild depression Obesity due to excess calories Right knee pain Severe obesity with body mass index (BMI) of 35.0 to 39.9 with comorbidity Type 2 diabetes mellitus, with long-term current use of insulin Surgical History History of arthroscopy of right knee History of esophagogastroduodenoscopy (EGD) History of tubal ligation Hx of colonoscopy Family History Family History Father Diabetes Mother Hypertension Maternal Grandmother Gynecologic cancer Family/Other FH: mental illness Maternal Uncle Chronic mental illness Social History Social History Housing: Apartment Alcohol intake: never Patient Tobacco Use Status: Never used Tobacco e-Cigarette/Vaping Use: Never Used Second Hand Smoke Exposure: No Advance Directives: No Advance Directives Information Provided: Yes service: No Current occupational status: disabled Cognitive needs: Yes Hearing needs: No Vision needs: No Physical Exam ED Vital Signs: Vital Signs - 24 hr 07/01/22 10:14 07/01/22 12:29 Temperature 98.5 F 98.2 F Pulse Rate 81 73 Respiratory Rate 18 16 Blood Pressure 137/73 116/68 Pulse Oximetry 95 98 Oxygen Delivery Method Room Air Room Air BMI result Body Mass Index 37.2 Const General: cooperative, healthy appearing, comfortable, no acute distress, well developed, alert, awake and Physically active Orientation/consciousness: oriented to person, oriented to place, oriented to time and patient oriented x3 HENMT Head: Yes normal to inspection, Yes No palpable skull fracture present, Yes normocephalic, Yes atraumatic and No abrasion Eyes General: appearance normal, both eyes and all related structures Neck Neck: Yes normal visual inspection, Yes full ROM, Yes no lymphadenopathy, Yes no meningeal signs, Yes trachea midline, Yes supple, No anterior neck swelling and No tender Chest Chest palpation & inspection: normal inspection of the chest and normal palpation of entire chest wall Resp Effort & Inspection: normal respiratory effort and able to speak in complete sentences Auscultation: wheezes expiratory wheezes (wheezing) Cardio Jugular venous distension: no JVD Heart sounds: S1 normal heart sound present and S2 normal heart sound present GI Inspection: Yes normal to inspection Palpation (GI): Soft to palpation, not firm, nontender, no guarding and not rigid General: No CVA tenderness and Yes no CVA tenderness Back/Spine/Pelvis Back: no CVA tenderness, No CVA tenderness and No back tenderness Skin General skin exam: no rashes or lesions noted and elasticity normal Neuro General: oriented to person, oriented to place, oriented to time, patient oriented x3, gait normal, tone normal, moves all extremities, Normal light touch and pain sensation, no meningeal signs, no focal motor deficits and CN's II-XI intact bilaterally Extrem Other: bilateral lower extremities negative for swelling, pitting edema, redness or calf tenderness. General: Yes normal to inspection and Yes full ROM Psych Appearance: grossly normal, well kempt and not disheveled Course Course Course Narrative: SARs and chest x-ray ordered. Reevaluation(s) Reevaluation #1: Chest x-ray normal. COVID RSV and influenza negative. Diagnosis bronchitis. Not suspecting CHF or any other cardiac etiology such as WI. not suspecting PE. Patient well-appearing. NO need for cardiac workup Time: 11:52 Medications Administered Discontinued Medications Generic Name Dose Route Start Last Admin Trade Name Freq PRN Reason Stop Dose Admin Albuterol Sulfate 2 puff 07/01/22 12:32 07/01/22 12:42 Albuterol Sulfate 90 Mcg 8 Gm Inhaler INHALE 07/01/22 12:33 2 puff ONCE ONE Administration Medical Decision Making Medical Decision Making [facility] Narrative: 62-year-old female with history of diabetes high blood pressure presents to ED for coughing, wheezing, coughing yellow sputum, fever, chills, body aches. Patient states her grandchildren have similar symptoms. Patient not in distress. Differential Diagnosis Differential Diagnoses: The differential diagnosis associated with the presentation includes (URI, pneumonia, bronchitis, Covid, RSV, influneza) Lab Data [facility] Lab Attestation statement: I reviewed the patient's lab results. Labs: Lab Results 07/01/22 Range/Units 10:26 Influenza Type A (PCR) NEGATIVE (Negative) Influenza Type B (PCR) NEGATIVE (Negative) RSV RNA Qual (PCR) NEGATIVE (Negative) SARS-CoV-2 RNA (RT-PCR) NEGATIVE (Negative) Independent Interpretation I performed an independent interpretation of an: Plain X-Ray Radiology Impression Discussion of test interpretation with radiology: I have reviewed the radiologist's reading. Prescription Management I considered prescription management with: Antibiotic and Other (Albuterol) Chronic Conditions Patient?s care impacted by: Diabetes and Hypertension Discharge Plan Discharge Clinical Impression: Bronchitis Patient Disposition: Home, Self-Care Instructions: How to Use a Metered-Dose Inhaler (ED), Acute Bronchitis (ED) Additional Instructions: La radiograf?a de t?rax result? normal. Los hisopos dieron negativo para influenza RSV y COVID. Regrese al servicio de urgencias de inmediato por cualquier hinchaz?n de las extremidades inferiores, dolor en el pecho, tos con chris, dolor en la pantorrilla, debilidad, mareos, dolor en el pecho/dificultad para respirar por el esfuerzo, fiebre intratable o cualquier otro s?ntoma preocupante. Por favor, deng un seguimiento con el proveedor de atenci?n primaria. Prescriptions: New azithromycin 250 mg tablet See Rx Instructions .ROUTE .COMPLEX Qty: 6 0RF Rx Instructions: For 250 mg dose pack: take 500 mg today (day 1), then 250 mg for 4 days (days 2-5) benzonatate 200 mg capsule 200 mg PO TID PRN (Reason: cough) 5 Days Qty: 15 0RF albuterol sulfate 90 mcg/actuation HFA aerosol inhaler 2 puff inhalation Q4-6H PRN (Reason: shortness of breath or wheezing) Qty: 8.5 0RF No Action alcohol swabs [BD Alcohol Swabs] Pads, Medicated 1 pad topical BID 30 Days Qty: 100 11RF (DME) pen needle, diabetic [BD Rona 2nd Gen Pen Needle] 32 gauge x 5/32 needle See Rx Instructions .MEDSUPPLY Qty: 100 11RF Rx Instructions: once a day (DME) lancets 28 gauge misc See Rx Instructions .ROUTE .MEDSUPPLY Qty: 100 11RF Rx Instructions: As directed cholecalciferol (vitamin D3) [Vitamin D3] 50 mcg (2,000 unit) capsule 50 mcg PO DAILY Qty: 90 1RF enalapril maleate 5 mg tablet 5 mg PO DAILY 90 Days Qty: 90 3RF aspirin 81 mg tablet,delayed release (DR/EC) 81 mg PO DAILY 90 Days Qty: 90 1RF atorvastatin 80 mg tablet 80 mg PO DAILY Qty: 90 3RF (DME) blood pressure monitor Kit See Rx Instructions .Route Qty: 1 0RF Rx Instructions: As directed (DME) Shower Chair Misc See Rx Instructions .Route Qty: 1 0RF Rx Instructions: As directed levothyroxine 112 mcg tablet 112 mcg PO DAILY 90 Days Qty: 90 0RF hydroxyzine HCl 25 mg tablet 25 mg PO BID 30 Days Qty: 60 0RF doxepin 50 mg capsule 50 mg PO BEDTIME (DME) pen needle, diabetic 31 gauge x 5/16 needle See Rx Instructions subcut DAILY Qty: 1200 Rx Instructions: As directed ezetimibe 10 mg tablet 10 mg PO DAILY 90 Days Qty: 90 3RF escitalopram oxalate 20 mg tablet 20 mg PO DAILY 90 Days Qty: 90 3RF acetaminophen 500 mg tablet 500 mg PO Q6H PRN (Reason: fever) 30 Days Qty: 120 6RF Trulicity 1.5 mg/0.5 mL pen injector 1.5 mg subcut QWEEK Qty: 2 6RF Jardiance 25 mg tablet 25 mg PO DAILY 90 Days Qty: 90 1RF insulin glargine [Lantus Solostar U-100 Insulin] 100 unit/mL (3 mL) insulin pen 28 unit subcut BID 90 Days Qty: 50.4 5RF (DME) blood-glucose meter [FreeStyle Lite Meter] Kit See Rx Instructions .ROUTE .MEDSUPPLY Qty: 1 0RF Rx Instructions: As directed (DME) FreeStyle Test Strip See Rx Instructions .ROUTE .MEDSUPPLY Qty: 100 11RF Rx Instructions: Use 1 test strip twice a day pantoprazole 40 mg tablet,delayed release (DR/EC) 40 mg PO DAILY Qty: 90 2RF famotidine [Pepcid] 20 mg tablet 20 mg PO BEDTIME Qty: 30 3RF Referrals: Payal Bolanos MD [Primary Care Provider] - (Bronchitis) Interventions: ED Discharge Assessment Last Done: 07/01/22 12:42 Discharge Date/Time: 07/01/22 12:43 Print Language: Vietnamese
[2022-07-01 12:29] VITALS: BP 116/68; PULSE 73; RESP 16; TEMP 36.8; O2SAT 98
[2022-07-01] MEDS: Albuterol Sulfate 90 MCG 8 GM INHALER 2 PUFF INHALE (12:42)
== END 2022-07-01 12:43 | disposition home or self-care (01) ==
PROVIDERS: Emergency Provider Emergency Medicine; PCP Internal Medicine
DX: J40 Bronchitis, not specified as acute or chronic (principal); R06.02 Shortness of breath; M79.10 Myalgia, unspecified site; R50.9 Fever, unspecified; Z20.822 Contact with and (suspected) exposure to COVID-19; Z20.828 Contact with and (suspected) exposure to other viral communicable diseases; Z79.899 Other long term (current) drug therapy
CPT/HCPCS: 0241U; 71045; 99282; 99283

== ENCOUNTER 2022-08-29 10:43 | Outpatient (REF) | payer OTHER, SELFPAY ==
[2022-08-30 10:53] LABS: BV Int Neg Control Negative (Negative); BV Int Pos Control Positive (Positive)
== END 2022-08-29 10:44 | disposition home or self-care (01) ==
LOC: HO.LAB 10:43
PROVIDERS: PCP Internal Medicine; Visit Provider Advanced Practice Midwife
DX: Z01.419 Encounter for gynecological examination (general) (routine) without abnormal findings (principal); N89.8 Other specified noninflammatory disorders of vagina
CPT/HCPCS: 87480; 87510; 87660

== ENCOUNTER → 2022-09-12 10:05 | Outpatient (BNVA) | payer OTHER, SELFPAY | PROVIDERS: PCP Internal Medicine; Visit Provider Nurse Practitioner Family | DX: K21.9 Gastro-esophageal reflux disease without esophagitis (principal); K59.01 Slow transit constipation | CPT/HCPCS: 99212 ==

== ENCOUNTER 2022-09-21 09:02 | Outpatient (REF) | payer OTHER, SELFPAY ==
--- NOTE | ~2022-09-21 | MM_ITS ---
EXAMINATION: MM SCREENING DIGITAL BREAST TOMOSYNTHESIS, BILATERAL CLINICAL INFORMATION: Screening. Asymptomatic. The lifetime risk of breast cancer based on the Tyrer-Cuzick Model is 3%. COMPARISON: Mammography: 09/06/2021, 07/06/2020, 12/30/2019, 07/21/2019; right breast ultrasound 06/25/2019 TECHNIQUE: Digital breast tomosynthesis is performed in both the craniocaudal and mediolateral oblique views along with computer-aided detection (CAD). Synthesized 2D images are generated from the tomosynthesis. FINDINGS: There are scattered areas of fibroglandular density (ACR BI-RADS breast composition Category b). Parenchymal pattern is similar to prior studies and there is no developing density, significant mass, or architectural abnormality. The axillary nodes are stable. There is a small circumscribed nodule anterior 9:00 left breast with coarse peripheral calcification consistent with degenerating fibroadenoma. Skin contours are smooth. No significant changes. MM/MM tomosynthesis screening BI IMPRESSION: No significant changes from prior exam. ASSESSMENT: BI-RADS 2: Benign RECOMMENDATION: Routine annual mammography screening. This patient's information was entered into a reminder system with a target due date for their next mammogram.
== END 2022-09-21 09:03 | disposition home or self-care (01) ==
LOC: HO.MAMMO 09:02
PROVIDERS: PCP Internal Medicine; Visit Provider Internal Medicine
DX: Z12.31 Encounter for screening mammogram for malignant neoplasm of breast (principal)
CPT/HCPCS: 77063; 77067

== ENCOUNTER 2022-10-02 07:18 | Outpatient (REF) | payer OTHER, SELFPAY ==
[2022-10-02 08:51] LABS: Alanine Aminotransferase 28 U/L (0-31); Albumin Level 3.9 g/dL (3.5-5.0); Alkaline Phosphatase 122 U/L (39-117); Anion Gap 12 (12-20); Aspartate Amino Transferase 19 U/L (5-31); Bilirubin Total 0.6 mg/dL (0.0-1.0); Blood Urea Nitrogen 15 mg/dL (9-16); Calcium 9.3 mg/dL (8.4-10.2); Carbon Dioxide 29 mmol/L (22-29); Chloride 105 mmol/L (96-108); Cholesterol 165 mg/dL; Estimated Glomerular Filt Rate > 60; Glucose Fasting 164 mg/dL (60-99); HDL Cholesterol 44 mg/dL; LDL Cholesterol Calculated 104 mg/dl; Potassium 4.2 mmol/L (3.3-5.1); Sodium 142 mmol/L (135-145); Total Protein 7.5 g/dL (6.5-8.0); Triglycerides 88 mg/dL
[2022-10-02 09:00] LABS: Creatinine Urine 109.82 mg/dL; Microalbum/Creatinine Ratio Ur 17.3 ug/mg cr
== END 2022-10-02 07:19 | disposition home or self-care (01) ==
LOC: HO.LAB 07:18
PROVIDERS: PCP Internal Medicine; Visit Provider Internal Medicine
DX: E11.42 Type 2 diabetes mellitus with diabetic polyneuropathy (principal); E78.5 Hyperlipidemia, unspecified; Z79.4 Long term (current) use of insulin
CPT/HCPCS: 36415; 80053; 80061; 82043

== ENCOUNTER 2023-02-04 07:50 | Outpatient (AMB) | payer MEDICARE, MEDICAID, SELFPAY ==
[2023-02-04 07:57] VITALS: BP 138/78; PULSE 75; BMI 37.2
--- NOTE | 2023-02-04 07:57 | MHC.PC.OV ---
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 Required: No Accompanied by: Daughter/ CLASSROOM PARAPROFESSIONAL Allergies metformin Adverse Reaction (Intermediate, Verified 02/04/23 08:05) diarrhea Medication List - Last Reconciled 02/04/23 by Payal Villanueva MD acetaminophen 500 mg PO Q6H PRN 30 days albuterol sulfate 90 mcg/actuation 2 puffs inhalation Q4-6H PRN alcohol swabs (BD Alcohol Swabs) 1 pad topical BID 30 days aspirin 81 mg PO DAILY 90 days atorvastatin 80 mg PO DAILY blood pressure monitor As directed blood sugar diagnostic (FreeStyle Test strips) Use 1 test strip twice a day blood-glucose meter (FreeStyle Lite Meter kit) As directed cholecalciferol (vitamin D3) (Vitamin D3) 50 mcg PO DAILY clotrimazole-betamethasone 1-0.05 % 1 appl topical BID PRN 7 days doxepin 50 mg PO BEDTIME dulaglutide (Trulicity) 1.5 mg (0.5 mL) subcut QWEEK empagliflozin (Jardiance) 25 mg PO DAILY 90 days enalapril maleate 5 mg PO DAILY 90 days escitalopram oxalate 20 mg PO DAILY 90 days ezetimibe 10 mg PO DAILY 90 days famotidine (Pepcid) 20 mg PO BEDTIME hydroxyzine HCl 25 mg PO BID 30 days lancets As directed Lantus Solostar U-100 Insulin (insulin glargine) 30 units (0.3 mL) subcut BID 90 days NS levothyroxine 112 mcg PO DAILY 90 days metronidazole 0.75%(37.5mg/5gram) 1 appful vaginal BEDTIME 5 days pen needle, diabetic As directed pen needle, diabetic (BD Rona 2nd Gen Pen Needle) once a day polyethylene glycol 3350 (Miralax) 17 grams PO DAILY Shower Chair As directed Tobacco use date assessed: 06/25/22 Fall risk assessment: No Falls in past year Last assessed Fall Risk: 02/04/23 Dental Screening Dental Screen Date: 02/04/23 Did you have a dental visit in the last 12 months?: Yes Did you have a dental problem in the last 6 months where you did not have access to dental care?: No Was dental information given to patient?: Patient has dentist HPI HPI Comments History of Present Illness Details This is a 63-year-old female with diabetes mellitus type 2 on long-term current use of insulin, hypertension, dyslipidemia, mild depression and autoimmune thyroiditis that comes accompanied by daughter which is her CLASSROOM PARAPROFESSIONAL complaining of difficulty maintaining a sleep that has been present for few months. She does feel severely dozed off when watching TV, writing as a passenger in a car for 1 hour without a break, lying down to rest in the afternoon and sitting quietly after lunch without alcohol with an [place] score Scale of 12 and home sleep study will be order. A1c elevated and I will increase insulin from 30 units to 33 units. Blood pressure stable. Last LDL was within goal. Mild depression stable with medications and this is follow by Psychiatry. Last TSH was normal. She lives with her in 1 bedroom apartment and and use CPAP machine which makes it difficult for her to sleep and rest. She will benefit from having a 2 bedroom apartment so that she can have her own bedroom. [facility] Medical History Daytime somnolence Chronic pain of both knees Chronic pain of both hips Helicobacter pylori (H. 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 (acquired) USP (current) use of insulin Diabetes type 2, uncontrolled Hypovitaminosis D Depression GERD (gastroesophageal reflux disease) Essential hypertension Headache Dyslipidemia Type 2 diabetes mellitus, with long-term current use of insulin Autoimmune thyroiditis Surgical History History of esophagogastroduodenoscopy (EGD) Hx of colonoscopy History of arthroscopy of right knee History of tubal ligation Family History Father Diabetes Mother Hypertension Maternal Grandmother Gynecologic cancer Family/Other FH: mental illness Maternal Uncle Chronic mental illness Social History Housing: Apartment Alcohol intake: never Patient Tobacco Use Status: Never used Tobacco e-Cigarette/Vaping Use: Never Used Second Hand Smoke Exposure: No service: No Current occupational status: disabled Cognitive needs: Yes Hearing needs: No Vision needs: No Questionnaire Thrive Questionnaire Date Thrive assessed: 06/25/22 FRANCISCO-7 AMB Questionnaire FRANCISCO-7 Date FRANCISCO - 7 assessed: 06/25/22 Source: Developed by Drs. Liang Gao, Joan Cruz, Chip Aldana and colleagues, with an educational mei from [employer]. Review of Systems Const All systems reviewed & are unremarkable except as noted in HPI and below Eyes Reports no additional complaints, Denies change in vision and Denies other visual disturbances Card Denies chest pain at rest, Denies chest pain with activity, Denies edema, Denies irregular heart rhythm, Denies claudication, Denies dyspnea, Denies dyspnea on exertion, Denies orthopnea, Denies paroxysmal nocturnal dyspnea and Denies slow heart rate Resp Denies cough, Denies dyspnea and Denies dyspnea on exertion GI Denies abdominal pain, Denies change in bowel habits, Denies excessive flatus, Denies nausea and Denies vomiting Denies urinary incontinence, Denies urinary hesitancy and Denies urinary urgency Musc Denies abnormal gait, Denies atrophy, Denies deformity and Denies limited range of motion Skin/Breast Denies bleeding lesions, Denies changing lesions and Denies rash Neuro Denies abnormal gait and Denies lack of coordination Physical exam (Primary Care) Vital Signs: Last Vital Signs Pulse 75 02/04/23 07:57 BP 138/78 02/04/23 07:57 BMI result Body Mass Index 37.2 Tobacco/Smoking Status: Tobacco use Status Tobacco use date assessed 06/25/22 02/04/23 08:00 Patient Tobacco Use Status Never used Tobacco 02/04/23 08:00 e-Cigarette/Vaping Use Never Used 02/04/23 08:00 Thrive Assessment: Date of Thrive Assessment Date Thrive assessed 06/25/22 02/04/23 08:00 Eyes General: appearance normal, both eyes and all related structures Eyelids: Yes eyelids normal Conjunctivae: conjunctivae normal Neck Neck: Yes normal visual inspection and Yes supple Resp Effort & Inspection: normal respiratory effort Auscultation: clear to auscultation bilaterally Cardio Jugular venous distension: no JVD Rate: regular rate Rhythm: regular rhythm Heart sounds: S1 normal heart sound present and S2 normal heart sound present Extrem General: Yes full ROM Office Procedures Flu Questionnaire Does the patient have a severe egg allergy?: No Does the patient have severe life threatening allergies?: No Does the patient have a fever or illness today?: No Has the patient ever had Guillain-[place] Syndrome?: No Has the patient ever had any past reaction to a flu shot?: No Results AMB Hemoglobin A1c AMB Hemoglobin A1c 8.9 % Last Edit by ALEXANDRA Chaves on 02/04/23 08:10 Immunizations flu vacc [id number] 6mos up(PF) 60 mcg(15 mcgx4)/0.5 mL IM syringe Performing Provider: Payal Villanueva MD [facility] Administered by: ALEXANDRA Chaves on 02/04/23 08:23 Dose Route Admin Location Dispensed Lot Number Expiration Date NDC Loading Manager 0.5 mL IM Left Deltoid 0.5 mL [id number] 10/27/23 [id number] [email or web address] VIS Given Date VIS Provided VIS Publication Date 02/04/23 Single Vaccine 20 Eligibility Eligibility Date Funding Source Not VF Eligible 02/04/23 Private Results Reviewed Results Reviewed: Laboratory Last Values Hgb A1c (Clinic) 8.9 % (4.0-6.0) H 02/04/23 07:53 Assessment and Plan Assessment & Plan (1) Daytime somnolence: Code(s): R40.0 - Somnolence Plan: Sleep study ordered. (2) DM2 (diabetes mellitus, type 2): Code(s): E11.9 - Type 2 diabetes mellitus without complications Qualifiers: Diabetes mellitus complication detail: with polyneuropathy Diabetes mellitus complication status: with neurologic complications Diabetes mellitus termite technician insulin use: with termite technician use Qualified Code(s): E11.42 - Type 2 diabetes mellitus with diabetic polyneuropathy; Z79.4 - USP (current) use of insulin Plan: Continue Trulicity. Increase Lantus from 30 units to 33 units once a day. A1c goal is equal or less than 7%. (3) Mild depression: Code(s): F32.0 - Major depressive disorder, single episode, mild Plan: Continue escitalopram. Follow-up with psychiatry. (4) Essential hypertension: Code(s): I10 - Essential (primary) hypertension Plan: Continue enalapril. Blood pressure goal is equal or less than 130/80. (5) Dyslipidemia: Code(s): E78.5 - Hyperlipidemia, unspecified Plan: Continue statins. LDL goal is less than 70. (6) Autoimmune thyroiditis: Code(s): E06.3 - Autoimmune thyroiditis Plan: Continue levothyroxine. Orders: Orders Influenza [id number] Immunization Today Z23 - Encounter for immunization Lipid Panel 4 Months E78.5 - Hyperlipidemia, unspecified Vitamin D 25-OH Total 4 Months E55.9 - Vitamin D deficiency, unspecified Thyroid Stimulating Hormone 4 Months E03.8 - Other specified hypothyroidism, E06.3 - Autoimmune thyroiditis AMB Hemoglobin A1c Today E11.9 - Type 2 diabetes mellitus without complications RT home sleep study Today R40.0 - Somnolence Microalbumin, Random (w Creat) 4 Months E11.9 - Type 2 diabetes mellitus without complications Comprehensive [place]. Panel Fast 4 Months E11.42 - Type 2 diabetes mellitus with diabetic polyneuropathy, Z79.4 - USP (current) use of insulin Medications: Changed From Lantus Solostar U-100 Insulin (insulin glargine) 30 units (0.3 mL) subcut BID 90 days 54 mL 5RF NS E11.9 - Type 2 diabetes mellitus without complications To Lantus Solostar U-100 Insulin (insulin glargine) 33 units (0.33 mL) subcut BID 90 days 59.4 mL 5RF NS E11.9 - Type 2 diabetes mellitus without complications Refilled acetaminophen 500 mg PO Q6H 30 days PRN 120 tabs 6RF fever R51.9 - Headache, unspecified Coding Level of Care Code Est Pt Level 4 (91805) Diagnoses Daytime somnolence R40.0 Type 2 diabetes mellitus with diabetic polyneuropathy, with long-term current use of insulin E11.42; Z79.4 Diabetes mellitus complication detail: with polyneuropathy Diabetes mellitus complication status: with neurologic complications Diabetes mellitus termite technician insulin use: with group home use Mild depression F32.0 Essential hypertension I10 Dyslipidemia E78.5 Autoimmune thyroiditis E06.3 Time Spent (min) 24
== END 2023-02-04 08:17 | disposition home or self-care (01) ==
PROVIDERS: PCP Internal Medicine; Visit Provider Internal Medicine
DX: E11.42 Type 2 diabetes mellitus with diabetic polyneuropathy (principal); Z79.4 Long term (current) use of insulin; F32.0 Major depressive disorder, single episode, mild; Z23 Encounter for immunization; I10 Essential (primary) hypertension; E78.5 Hyperlipidemia, unspecified; E06.3 Autoimmune thyroiditis
CPT/HCPCS: 83036; 90471; 90686; 99214

== ENCOUNTER 2023-03-15 09:55 | Outpatient (AMB) | payer OTHER, SELFPAY ==
--- NOTE | 2023-03-15 10:09 | A.OFFVIS_ITS ---
Intake Vital Signs 03/15/23 10:11 Height 5 ft 3 in Weight 205 lb BMI 36.3 BP 122/58 L Blood Pressure Location Lt brachial Position Sitting Pulse 73 Intake Visit Reasons: 6 month fu Intake Note: Patient 6 month follow up for acid reflex. Patient cc: acid reflex on and off, denies any other GI issues. 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 Discussed with patient avoiding dietary triggers and late night snacking. Staying upright for minimum 3 hours after meals discussed with patient Constipation Reports occasional constipation. Will start patient on MiraLax patient will call the office if she continues to be constipated. I will see her in 6 months, sooner on as needed basis. Patient is agreeable to this plan and verbalizes understanding of instructions. She was given the opportunity to ask questions and all questions answered. ? Thank you for allowing me to participate in her care Plan Medications New famotidine (Pepcid) 20 mg PO BEDTIME 90 tabs 3RF K21.9 - Gastro-esophageal reflux disease without esophagitis polyethylene glycol 3350 (Miralax) 17 grams PO DAILY 510 grams 2RF Discontinued pantoprazole Discontinued Reason: Patient no longer taking 40 mg PO DAILY 90 tabs 2RF K21.9 - Gastro-esophageal reflux disease without esophagitis TODAY'S VISIT: Patient is here today for follow-up. Patient is accompanied by her SPRINKLER INSTALLER. Patient reports to be doing better. Moves her bowels without any issues, uses MiraLax. Patient denies any melena, hematochezia, unintentional weight loss or ribbon like stools. Patient had colonoscopy in 1999 me recommendation was made for her to repeat colonoscopy in 10 years. Patient has no family history of colorectal cancer. The patient reports that her acid reflux is under control. Patient is taking famotidine at bedtime. Patient denies any dyspepsia, dysphagia or odynophagia. Reports to have good appetite. Denies any postprandial abdominal pain, bloating, cramping PFSH Medical History Daytime somnolence Chronic pain of both knees Chronic pain of both hips Helicobacter pylori (H. 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 Diabetes type 2, uncontrolled Hypovitaminosis D Depression GERD (gastroesophageal reflux disease) Essential hypertension Headache Dyslipidemia Type 2 diabetes mellitus, with long-term current use of insulin Autoimmune thyroiditis Surgical History History of esophagogastroduodenoscopy (EGD) Hx of colonoscopy History of arthroscopy of right knee History of tubal ligation Family History Father Diabetes Mother Hypertension Maternal Grandmother Gynecologic cancer Family/Other FH: mental illness Maternal Uncle Chronic mental illness Social History Housing: Apartment Alcohol intake: never Patient Tobacco Use Status: Never used Tobacco e-Cigarette/Vaping Use: Never Used Second Hand Smoke Exposure: No service: No Current occupational status: disabled Cognitive needs: Yes Hearing needs: No Vision needs: No Review of Systems Const Denies weight gain and Denies weight loss ENT Reports no additional complaints, Denies dysphagia and Denies odynophagia Card Reports no additional complaints Resp Reports no additional complaints GI Denies abdominal pain, Denies belching, Denies melena, Denies bloating, Denies change in bowel habits, Denies dysphagia, Denies excessive flatus, Denies dyspepsia, Denies heartburn, Denies diarrhea, Denies loose stools, Denies nausea, Denies odynophagia and Denies vomiting Musc Reports no additional complaints Neuro Reports no additional complaints Psych Reports no additional complaints Endo Reports no additional complaints Physical Exam Vital Signs: Last Vital Signs Pulse 73 03/15/23 10:11 BP 122/58 L 03/15/23 10:11 BMI result Body Mass Index 36.3 Const General: healthy appearing, no acute distress and well developed Nutritional Appearance: obese Orientation/consciousness: patient oriented x3 HEENT Head: Yes normal to inspection, Yes normocephalic and Yes atraumatic Face and sinus: Yes normal facial exam Mouth: Normal oral and palatal mucosa present Throat: Yes posterior oropharynx normal, Yes tonsils normal and Yes uvula midline Eyes General: appearance normal, both eyes and all related structures Neck Neck: Yes normal visual inspection, Yes full ROM and Yes trachea midline Thyroid: Thyroid normal Resp Effort & Inspection: normal respiratory effort, able to speak in complete sentences, no tracheal deviation and symmetric chest movement Auscultation: clear to auscultation bilaterally Cardio Rate: regular rate Heart sounds: S1 normal heart sound present and S2 normal heart sound present GI Inspection: Yes normal to inspection, No distended and Yes obesity Palpation (GI): Soft to palpation, not firm, nontender and No hepatosplenomegaly present Auscultation: normal bowel sounds General: Yes no CVA tenderness Back/Spine/Pelvis Back: no CVA tenderness Skin General skin exam: elasticity normal, turgor normal and dry skin Neuro General: patient oriented x3 Psych Appearance: grossly normal Mental Status: mental status grossly normal Assessment & Plan Assessment & Plan (1) GERD (gastroesophageal reflux disease): Code(s): K21.9 - Gastro-esophageal reflux disease without esophagitis Qualifiers: Esophagitis presence: esophagitis presence not specified Qualified Code(s): K21.9 - Gastro-esophageal reflux disease without esophagitis (2) Constipation: Code(s): K59.00 - Constipation, unspecified Qualifiers: Constipation type: slow transit constipation Qualified Code(s): K59.01 - Slow transit constipation Plan Patient can continue taking famotidine at bedtime. Discussed with patient avoiding dietary triggers and late night snacking. Staying upright for minimal 3 hours after meals discussed with patient. Patient can continue MiraLax. Encouraged to increase fluid intake and activity to promote better bowel motility. I will see her in 6 months, sooner on as needed basis. Patient is agreeable to this plan and verbalizes understanding of instructions. She was given the opportunity to ask questions and all questions answered. Thank you for allowing me to participate in her care Coding Level of Care Code Est Pt Level 3 (76990) Diagnoses Gastroesophageal reflux disease, unspecified whether esophagitis present K21.9 Esophagitis presence: esophagitis presence not specified Slow transit constipation K59.01 Constipation type: slow transit constipation Time Spent (min) 25 Comment 15 minutes spent with patient and additional 10 minutes spent reviewing her records
[2023-03-15 10:11] VITALS: BP 122/58; PULSE 73; BMI 36.3
== END 2023-03-15 10:31 | disposition home or self-care (01) ==
PROVIDERS: PCP Internal Medicine; Visit Provider Nurse Practitioner Family
DX: K21.9 Gastro-esophageal reflux disease without esophagitis (principal); K59.01 Slow transit constipation
CPT/HCPCS: 99213

== ENCOUNTER → 2023-03-15 09:55 | Outpatient (BNVA) | payer OTHER, SELFPAY | PROVIDERS: PCP Internal Medicine; Visit Provider Nurse Practitioner Family | DX: K21.9 Gastro-esophageal reflux disease without esophagitis (principal); K59.01 Slow transit constipation | CPT/HCPCS: 99212 ==

== ENCOUNTER → 2023-03-18 08:44 | Outpatient (REF) | payer OTHER, SELFPAY | LOC: HO.SL 08:44 | PROVIDERS: PCP Internal Medicine; Visit Provider Internal Medicine | DX: R40.0 Somnolence (principal); G47.33 Obstructive sleep apnea (adult) (pediatric) | CPT/HCPCS: 95806 ==

== ENCOUNTER → 2023-03-18 09:08 | Outpatient (BNV) | payer OTHER, SELFPAY | PROVIDERS: PCP Internal Medicine; Visit Provider Psychiatry & Neurology Neurology | DX: G47.33 Obstructive sleep apnea (adult) (pediatric) (principal) | CPT/HCPCS: 95806 ==

== ENCOUNTER 2023-06-10 10:45 | Outpatient (AMB) | payer OTHER, SELFPAY ==
--- NOTE | 2023-06-10 10:48 | A.OFFPC_ITS ---
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 Allergies metformin Adverse Reaction (Intermediate, Verified 06/10/23 11:12) diarrhea Medication List - Last Reconciled 06/10/23 by Payal Villanueva MD acetaminophen 500 mg PO Q6H PRN 30 days albuterol sulfate 90 mcg/actuation 2 puffs inhalation Q4-6H PRN alcohol swabs (BD Alcohol Swabs) 1 pad topical BID 30 days aspirin 81 mg PO DAILY 90 days atorvastatin 80 mg PO DAILY blood pressure monitor As directed blood sugar diagnostic (FreeStyle Test strips) Use 1 test strip twice a day blood-glucose meter (FreeStyle Lite Meter kit) As directed cholecalciferol (vitamin D3) (Vitamin D3) 50 mcg PO DAILY clotrimazole-betamethasone 1-0.05 % 1 appl topical BID PRN 7 days doxepin 50 mg PO BEDTIME dulaglutide (Trulicity) 1.5 mg (0.5 mL) subcut QWEEK empagliflozin (Jardiance) 25 mg PO DAILY 90 days enalapril maleate 5 mg PO DAILY 90 days escitalopram oxalate 20 mg PO DAILY 90 days ezetimibe 10 mg PO DAILY 90 days famotidine (Pepcid) 20 mg PO BEDTIME hydroxyzine HCl 25 mg PO BID 30 days lancets As directed Lantus Solostar U-100 Insulin (insulin glargine) 33 units (0.33 mL) subcut BID 90 days NS levothyroxine 112 mcg PO DAILY 90 days metronidazole 0.75%(37.5mg/5gram) 1 appful vaginal BEDTIME 5 days pen needle, diabetic As directed pen needle, diabetic (BD Rona 2nd Gen Pen Needle) once a day polyethylene glycol 3350 (Miralax) 17 grams PO DAILY Shower Chair As directed Tobacco use date assessed: 06/10/23 Fall risk assessment: 1 Fall in past year Last assessed Fall Risk: 06/10/23 Dental Screening Dental Screen Date: 06/10/23 Did you have a dental visit in the last 12 months?: No Did you have a dental problem in the last 6 months where you did not have access to dental care?: No Was dental information given to patient?: Patient has dentist HPI HPI Comments History of Present Illness Details This is a 63-year-old female with hypertension, autoimmune thyroiditis, diabetes mellitus type 2 on long-term current use of insulin, dyslipidemia, mild major depression and severe obesity with BMI of 37 that comes accompanied by daughter for follow-up on her conditions. Blood pressure stable. TSH and lipid panel will be order. A1c is elevated and she admits that was out of Trulicity for about a month. Depression stable with escitalopram and she follows with psychiatry. She declines weight loss surgery and was advised to do diet and exercise for her obesity. She is compliant with her medications. Complains about some memory loss and I will check vitamin B12 levels due to this matter. [facility] Medical History Daytime somnolence Chronic pain of both knees Chronic pain of both hips Helicobacter pylori (H. 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 Diabetes type 2, uncontrolled Hypovitaminosis D Depression GERD (gastroesophageal reflux disease) Essential hypertension Headache Dyslipidemia Type 2 diabetes mellitus, with long-term current use of insulin Autoimmune thyroiditis Surgical History History of esophagogastroduodenoscopy (EGD) Hx of colonoscopy History of arthroscopy of right knee History of tubal ligation Family History Father Diabetes Mother Hypertension Maternal Grandmother Gynecologic cancer Family/Other FH: mental illness Maternal Uncle Chronic mental illness Social History Housing: Apartment Alcohol intake: never Patient Tobacco Use Status: Never used Tobacco e-Cigarette/Vaping Use: Never Used Second Hand Smoke Exposure: No service: No Current occupational status: disabled Cognitive needs: Yes Hearing needs: No Vision needs: No Questionnaire PHQ-9 Over the last 2 weeks, how often have you been bothered by any of the following problems? 1. Little interest or pleasure in doing things: several days 2. Feeling down, depressed, or hopeless: several days 3. Trouble falling or staying asleep, or sleeping too much: not at all 4. Feeling tired or having little energy: several days 5. Poor appetite or overeating: several days 6. Feeling bad about yourself - or that you are a failure or have let yourself or your family down: not at all 7. Trouble concentrating on things, such as reading the newspaper or watching television: several days 8. Moving or speaking so slowly that other people could have noticed. Or the opposite - being so fidgety or restless that you have been moving around a lot more than usual: several days 9. Thoughts that you would be better off or of hurting yourself in some way: not at all Total score: 6 Depression Screening Interpretation: Positive Depression Screening Follow-up: Existing condition Depression Screening Done: Yes 18338 - PHQ-9 Billing: Yes Source: Developed by Drs. Liang Gao, Joan Cruz, Chip Aldana and colleagues, with an educational mei from [employer]. Thrive Questionnaire Date Thrive assessed: 06/10/23 I am a: Patient What is your living situation today?: I have a steady place to live Within the past 12 months, did the food you bought not last and you didn't have the money to get more?: Never true Within the past 12 months, did you worry whether your food would run out before you got money to buy more?: Never true Do you have trouble paying for medicines?: No Do you have trouble getting transportation to medical appointments?: No Do you have trouble paying your heating and electricity bill?: No Do you have trouble taking care of your child, family member or friend?: No Do you have trouble with day-to-day activities such as bathing, preparing meals, shopping, managing finances, etc.?: No Are you currently unemployed and looking for a job?: No Are you interested in more education?: No Please select the resources that you would like help with: None Currently or been in a relationship where the following occur: no concerns reported THRIVE Score: 0 AUDIT C Alcohol Use Questionnaire (AUDIT-C) 1. How often do you have a drink containing alcohol?: Never Total Score: 0 FRANCISCO-7 AMB Questionnaire FRANCISCO-7 Date FRANCISCO - 7 assessed: 06/10/23 Feeling nervous, anxious, or on edge: 1 = Several days Not being able to stop or control worryin = Not at all Worrying too much about different things: 1 = Several days Trouble relaxin = Not at all Being so restless that it is hard to sit still: 1 = Several days Becoming easily annoyed or irritable: 1 = Several days Feeling afraid as if something awful might happen: 0 = Not at all Total FRANCISCO-7 score (0-4 normal; 5-9 mild; 10-14 moderate; 15-21 severe): 4 Source: Developed by Drs. Liang Gao, Joan Cruz, Chip Aldana and colleagues, with an educational mei from [employer]. FRANCISCO-7 Assessment Billing FRANCISCO-7 Assessment Tool: FRANCISCO-7 Assessment 65505 Review of Systems Const All systems reviewed & are unremarkable except as noted in HPI and below Eyes Reports no additional complaints, Denies change in vision and Denies other visual disturbances Card Denies chest pain at rest, Denies chest pain with activity, Denies edema, Denies irregular heart rhythm, Denies claudication, Denies dyspnea, Denies dyspnea on exertion, Denies orthopnea, Denies paroxysmal nocturnal dyspnea and Denies slow heart rate Resp Denies cough, Denies dyspnea and Denies dyspnea on exertion GI Denies abdominal pain, Denies change in bowel habits, Denies excessive flatus, Denies nausea and Denies vomiting Denies urinary incontinence, Denies urinary hesitancy and Denies urinary urgency Musc Denies abnormal gait, Denies atrophy, Denies deformity and Denies limited range of motion Skin/Breast Denies bleeding lesions, Denies changing lesions and Denies rash Neuro Denies abnormal gait, Denies behavioral changes and Denies lack of coordination Psych Denies behavioral changes Physical exam (Primary Care) Vital Signs: Last Vital Signs BP 120/80 06/10/23 10:50 BMI result Body Mass Index 37.0 Tobacco/Smoking Status: Tobacco use Status Tobacco use date assessed 06/10/23 06/10/23 11:02 Patient Tobacco Use Status Never used Tobacco 06/10/23 10:48 e-Cigarette/Vaping Use Never Used 06/10/23 10:48 PHQ-9: PHQ-9 Score PHQ-9: Total score 6 06/10/23 11:02 Depression Screening Interpretation: Positive Depression Screening Follow-up: Existing condition Thrive Assessment: Date of Thrive Assessment Date Thrive assessed 06/10/23 06/10/23 11:02 Currently or been in a relationship where the following occur: no concerns reported Eyes General: appearance normal, both eyes and all related structures Eyelids: Yes eyelids normal Conjunctivae: conjunctivae normal Neck Neck: Yes normal visual inspection and Yes supple Resp Effort & Inspection: normal respiratory effort Auscultation: clear to auscultation bilaterally Cardio Jugular venous distension: no JVD Rate: regular rate Rhythm: regular rhythm Heart sounds: S1 normal heart sound present and S2 normal heart sound present Extrem General: Yes full ROM Psych Appearance: grossly normal Results AMB Hemoglobin A1c AMB Hemoglobin A1c 8.1 % Last Edit by ALEXANDRA Chaves on 06/10/23 11:0 3 Results Reviewed Results Reviewed: Laboratory Last Values Hgb A1c (Clinic) 8.1 % (4.0-6.0) H 06/10/23 10:49 Assessment and Plan Assessment & Plan (1) Type 2 diabetes mellitus, with long-term current use of insulin: Code(s): E11.9 - Type 2 diabetes mellitus without complications; Z79.4 - nursing home (current) use of insulin Qualifiers: Diabetes mellitus complication status: with hyperglycemia Qualified Code(s): E11.65 - Type 2 diabetes mellitus with hyperglycemia; Z79.4 - nursing home (current) use of insulin Plan: Continue Jardiance, Trulicity and insulin. Increase insulin from 33 units twice a day to 35 units twice a day. A1c goal is equal or less than 7%. (2) Autoimmune thyroiditis: Code(s): E06.3 - Autoimmune thyroiditis Plan: Continue levothyroxine. Monitor TSH. (3) Essential hypertension: Code(s): I10 - Essential (primary) hypertension Plan: Continue enalapril. Blood pressure goal is equal or less than 130/80. (4) Dyslipidemia: Code(s): E78.5 - Hyperlipidemia, unspecified Plan: Continue statins. Repeat lipid panel. LDL goal is less than 70. (5) Mild depression: Code(s): F32.0 - Major depressive disorder, single episode, mild Plan: Continue citalopram. Follow-up with psychiatry. (6) Severe obesity with body mass index (BMI) of 35.0 to 39.9 with comorbidity: Code(s): E66.01 - Morbid (severe) obesity due to excess calories Plan: Start diet and exercise. BMI goal is less than 30. 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 Panel Fast Today E11.9 - Type 2 diabetes mellitus without complications Microalbumin, Random (w Creat) Today E11.9 - Type 2 diabetes mellitus without complications Vitamin D 25-OH Total Today E55.9 - Vitamin D deficiency, unspecified Thyroid Stimulating Hormone Today E03.9 - Hypothyroidism, unspecified Vitamin B12 and Folate Today E53.8 - Deficiency of other specified B group vitamins Medications: Changed From Lantus Solostar U-100 Insulin (insulin glargine) 33 units (0.33 mL) subcut BID 90 days 59.4 mL 5RF NS E11.9 - Type 2 diabetes mellitus without complications To Lantus Solostar U-100 Insulin (insulin glargine) 35 units (0.35 mL) subcut BID 90 days 63 mL 5RF NS E11.9 - Type 2 diabetes mellitus without complications Coding Level of Care Code Est Pt Level 4 (80128) Diagnoses Type 2 diabetes mellitus with hyperglycemia, with long-term current use of insulin E11.65; Z79.4 Diabetes mellitus complication status: with hyperglycemia Autoimmune thyroiditis E06.3 Essential hypertension I10 Dyslipidemia E78.5 Mild depression F32.0 Severe obesity with body mass index (BMI) of 35.0 to 39.9 with comorbidity E66.01 Additional Codes FRANCISCO-7 Assessment Billing - FRANCISCO-7 Assessment Tool: FRANCISCO-7 Assessment [id number] ([id number]) Time Spent (min) 24
[2023-06-10 10:50] VITALS: BP 120/80; BMI 37.0
== END 2023-06-10 11:23 | disposition home or self-care (01) ==
PROVIDERS: PCP Internal Medicine; Visit Provider Internal Medicine
DX: E11.65 Type 2 diabetes mellitus with hyperglycemia (principal); Z79.4 Long term (current) use of insulin; E66.01 Morbid (severe) obesity due to excess calories; Z68.37 Body mass index [BMI] 37.0-37.9, adult; F32.0 Major depressive disorder, single episode, mild; E06.3 Autoimmune thyroiditis; I10 Essential (primary) hypertension; E78.5 Hyperlipidemia, unspecified
CPT/HCPCS: 83036; 99214

== ENCOUNTER 2023-07-31 07:59 | Outpatient (REF) | payer OTHER, SELFPAY ==
[2023-07-31 09:50] LABS: Alanine Aminotransferase 34 U/L (0-31); Alkaline Phosphatase 142 U/L (39-117); Anion Gap 15 (12-20); Aspartate Amino Transferase 24 U/L (5-31); Bilirubin Total 0.6 mg/dL (0.0-1.0); Blood Urea Nitrogen 17 mg/dL (9-16); Calcium 9.8 mg/dL (8.4-10.2); Carbon Dioxide 27 mmol/L (22-29); Chloride 103 mmol/L (96-108); Cholesterol 136 mg/dL (<200); Estimated Glomerular Filt Rate 57; Glucose Fasting 308 mg/dL (60-99); HDL Cholesterol 34 mg/dL (>40); LDL Cholesterol Calculated 60 mg/dL (<100); Potassium 3.9 mmol/L (3.3-5.1); Sodium 141 mmol/L (135-145); Total Protein 7.7 g/dL (6.5-8.0); Triglycerides 212 mg/dL (<150)
[2023-07-31 09:59] LABS: Thyroid Stimulating Hormone 7.58 uIU/mL (0.32-4.0)
[2023-07-31 11:29] LABS: Microalbum/Creatinine Ratio Ur 23.6 ug/mg cr (<30)
[2023-07-31 12:17] LABS: Folate 15.1 ng/mL (> or = 4.0); Vitamin B12 581 pg/mL (200-900)
== END 2023-07-31 08:00 | disposition home or self-care (01) ==
LOC: HO.LAB 07:59
PROVIDERS: PCP Internal Medicine; Visit Provider Internal Medicine
DX: E11.42 Type 2 diabetes mellitus with diabetic polyneuropathy (principal); E53.8 Deficiency of other specified B group vitamins; E11.65 Type 2 diabetes mellitus with hyperglycemia; E78.5 Hyperlipidemia, unspecified; E03.8 Other specified hypothyroidism; E06.3 Autoimmune thyroiditis; E03.9 Hypothyroidism, unspecified; E55.9 Vitamin D deficiency, unspecified; Z79.4 Long term (current) use of insulin
CPT/HCPCS: 36415; 80053; 80061; 82043; 82306; 82570; 82607; 82746; 84443

== ENCOUNTER 2023-09-06 09:23 | Outpatient (AMB) | payer OTHER, SELFPAY ==
[2023-09-06 09:30] VITALS: BP 116/64; BMI 37.4
--- NOTE | 2023-09-06 09:30 | A.OFFVIS_ITS ---
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 She is doing well with concerns: Admits to external itching, uses Vagisil powder, somewhat helpful, no pelvic pain, urine symptoms, or odors. Attempting to eat a healthy diet with calcium and vitamin D and stays active with exercise-walking. Currently not sexually active. STI testing offered; she declines. Last pap smear; 2019. Last mammogram; 2022. Colonoscopy is UTD. Denies any family history of breast, ovarian or colon cancer. [facility] Medical History Daytime somnolence Chronic pain of both knees Chronic pain of both hips Helicobacter pylori (H. 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 (acquired) retirement (current) use of insulin Diabetes type 2, uncontrolled Hypovitaminosis D Depression GERD (gastroesophageal reflux disease) Essential hypertension Headache Dyslipidemia Type 2 diabetes mellitus, with long-term current use of insulin Autoimmune thyroiditis Surgical History History of esophagogastroduodenoscopy (EGD) Hx of colonoscopy History of arthroscopy of right knee History of tubal ligation Family History Father Diabetes Mother Hypertension Maternal Grandmother Gynecologic cancer Family/Other FH: mental illness Maternal Uncle Chronic mental illness Social History Housing: Apartment Alcohol intake: never Patient Tobacco Use Status: Never used Tobacco e-Cigarette/Vaping Use: Never Used Second Hand Smoke Exposure: No service: No Current occupational status: disabled Cognitive needs: Yes Hearing needs: No Vision needs: No Female Reproductive History Menstrual control method: permanent sterilization Total pregnancies: 9 Full term: 9 Number of Living Children: 9 Date of last pap smear: 05/12/19 (negative) Date of Mammogram: 09/21/22 Review of Systems Const All systems reviewed & are unremarkable except as noted in HPI and below Reports as per HPI Eyes Reports no additional complaints ENT Reports no additional complaints Card Reports no additional complaints Resp Reports no additional complaints GI Reports as per HPI and Reports no additional complaints Reports as per HPI Musc Reports no additional complaints Skin/Breast Reports as per HPI Neuro Reports no additional complaints Psych Reports no additional complaints Endo Reports no additional complaints Vincent/Lymph Reports no additional complaints Aller/Immun Reports no additional complaints Physical Exam Vital Signs: Last Vital Signs BP 116/64 09/06/23 09:30 BMI result Body Mass Index 37.4 Const General: cooperative, healthy appearing, no acute distress, well developed and alert Orientation/consciousness: patient oriented x3 HEENT Head: Yes normal to inspection Eyes General: appearance normal, both eyes and all related structures Neck Neck: Yes normal visual inspection Thyroid: Thyroid normal Chest Chest palpation & inspection: normal inspection of the chest and other (no puckering, dimpling, peau de orange, retraction, discharge, masses) Breast/axilla inspection: normal inspection of the breasts Breast/axilla palpation: normal palpation of the breasts Resp Effort & Inspection: normal respiratory effort GI Inspection: Yes normal to inspection and Yes obesity Palpation (GI): Soft to palpation Rectal Exam - Female: deferred Other: Vulvar fungal rash extending to the perianal region General: Yes bladder normal to palpation External Female Exam: normal external appearance and normal appearance of the urethra Speculum Exam - Vagina: normal appearance of the vagina, normal palpation and normal vaginal discharge Speculum Exam - Cervix: normal appearance of the cervix and normal palpation Bimanual exam- vagina & uterus: normal bimanual exam, normal palpation, uterine size normal, bladder normal to palpation, normal palpation and non-tender Bimanual Exam- Adnexa, other: no masses Skin General skin exam: no rashes or lesions noted Rashes: no rashes Neuro General: patient oriented x3 Cognition (Neuro): normal cognition Extrem General: Yes normal to inspection Psych Attitude: cooperative Thought process: Normal thought process present Assessment & Plan Assessment & Plan (1) Encounter for well woman exam with routine gynecological exam: Code(s): Z01.419 - Encounter for gynecological examination (general) (routine) without abnormal findings Plan Discussed: Current recommendations for pap smears per ASCCP guidelines. Breast awareness, periodic self breast exams and yearly mammogram. Maintain a healthy lifestyle, well balanced diet including Calcium 1,200 mg and Vitamin D 600 IU daily, and routine exercise. BV panel obtained, initiate topical fungal cream. Instructions: Clean with warm water, no soaps, scented products. Wear loose, cotton underclothes, avoid tight outer clothing. Air when possible. Complete all medications as prescribed. Await final pending results for any changes in the plan of care. Call the office if there is no improvement in 24-48hrs., or if worsening symptoms. Contact the office with any postmenopausal bleeding. Patient verbalizes understanding and agrees to the plan of care. She was given opportunity to ask questions and all questions were answered to the best of my ability. RTO in 1 year for annual supervisor plate forming exam. This note is constructed using voice recognition software. While every effort has been made to ensure accuracy, chief human resources officer errors may have been included. Medications: New clotrimazole-betamethasone 1-0.05 % 1 appl topical BID 45 grams 1RF fungal rash 7 days Coding Level of Care Code Est Pt Prev Care >65y(77197) Diagnoses Encounter for well woman exam with routine gynecological exam Z01.419
== END 2023-09-06 09:59 | disposition home or self-care (01) ==
PROVIDERS: Visit Provider Advanced Practice Midwife
DX: Z01.419 Encounter for gynecological examination (general) (routine) without abnormal findings (principal)
CPT/HCPCS: 99397

== ENCOUNTER 2023-09-06 09:23 | Outpatient (REF) | payer OTHER, SELFPAY ==
[2023-09-07 14:34] LABS: BV Int Neg Control Negative (Negative); BV Int Pos Control Positive (Positive)
== END 2023-09-06 09:24 | disposition home or self-care (01) ==
LOC: HO.LNP 09:23
PROVIDERS: Visit Provider Advanced Practice Midwife
DX: N89.8 Other specified noninflammatory disorders of vagina (principal)
CPT/HCPCS: 87480; 87510; 87660

== ENCOUNTER 2023-09-13 09:48 | Outpatient (AMB) | payer OTHER, SELFPAY ==
--- NOTE | 2023-09-13 10:02 | MHC.OFFVIS ---
Vital Signs 09/13/23 10:07 Height 5 ft 3 in Weight 208 lb BMI 36.8 BP 116/83 Blood Pressure Location Lt brachial Position Sitting Pulse 83 Intake Visit Reasons: 6 month follow up Intake Note: Patient 6 month follow up for GERD. Patient cc: Abdominal pain with bloating, burping and gassy.Denies any other GI issues. Harness Brusher Required: No Harness Brusher [place]: [place] [facility] [place] Accompanied by: Daughter Allergies metformin Adverse Reaction (Intermediate, Verified 09/13/23 10:01) diarrhea HPI HPI 6 month follow up: Details: LAST VISIT GERD (gastroesophageal reflux disease) Constipation Plan Patient can continue taking famotidine at bedtime. Discussed with patient avoiding dietary triggers and late night snacking. Staying upright for minimal 3 hours after meals discussed with patient. Patient can continue MiraLax. Encouraged to increase fluid intake and activity to promote better bowel motility. I will see her in 6 months, sooner on as needed basis. Patient is agreeable to this plan and verbalizes understanding of instructions. She was given the opportunity to ask questions and all questions answered. TODAY'S VISIT Patient is here today for follow-up. 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 Patient reports postprandial abdominal bloating and epigastric discomfort. Patient states that she ran out of her famotidine about a week ago or so. Patient reports that she is moving her bowels well. Denies any constipation or diarrhea. One set day bowel movements sometimes she will skip a day. Patient states that she feels like she empty her bowels well. Denies any melena, hematochezia, unintentional weight loss or ribbon like stools. Patient reports occasional dyspepsia without dysphagia or odynophagia. Her symptoms of acid reflux are worse in the morning. Patient denies eating late at night. [facility] Medical History Daytime somnolence Chronic pain of both knees Chronic pain of both hips Helicobacter pylori (H. 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 Diabetes type 2, uncontrolled Hypovitaminosis D Depression GERD (gastroesophageal reflux disease) Essential hypertension Headache Dyslipidemia Type 2 diabetes mellitus, with long-term current use of insulin Autoimmune thyroiditis Surgical History History of esophagogastroduodenoscopy (EGD) Hx of colonoscopy History of arthroscopy of right knee History of tubal ligation Family History Father Diabetes Mother Hypertension Maternal Grandmother Gynecologic cancer Family/Other FH: mental illness Maternal Uncle Chronic mental illness Social History Housing: Apartment Alcohol intake: never Patient Tobacco Use Status: Never used Tobacco e-Cigarette/Vaping Use: Never Used Second Hand Smoke Exposure: No service: No Current occupational status: disabled Cognitive needs: Yes Hearing needs: No Vision needs: No Review of Systems Const Denies weight gain and Denies weight loss ENT Reports no additional complaints, Denies dysphagia and Denies odynophagia Card Reports no additional complaints Resp Reports no additional complaints GI Denies abdominal pain, Denies belching, Denies melena, Reports bloating, Denies change in bowel habits, Reports tenesmus, Denies dysphagia, Denies excessive flatus, Denies dyspepsia, Reports heartburn, Denies diarrhea, Denies loose stools, Denies nausea, Denies odynophagia and Denies vomiting Musc Reports no additional complaints Neuro Reports no additional complaints Psych Reports no additional complaints Endo Reports no additional complaints Physical Exam Vital Signs: Last Vital Signs Pulse 83 09/13/23 10:07 BP 116/83 09/13/23 10:07 BMI result Body Mass Index 36.8 Const General: healthy appearing, no acute distress and well developed Nutritional Appearance: obese Orientation/consciousness: patient oriented x3 Resp Effort & Inspection: normal respiratory effort, able to speak in complete sentences, no tracheal deviation and symmetric chest movement Auscultation: clear to auscultation bilaterally Cardio Rate: regular rate GI Inspection: Yes normal to inspection, No distended and Yes obesity Palpation (GI): Soft to palpation, not firm, nontender and No hepatosplenomegaly present Auscultation: normal bowel sounds General: Yes no CVA tenderness Back/Spine/Pelvis Back: no CVA tenderness Skin General skin exam: elasticity normal, turgor normal and dry skin Neuro General: patient oriented x3 Psych Appearance: grossly normal Mental Status: mental status grossly normal Assessment & Plan Assessment & Plan (1) GERD (gastroesophageal reflux disease): Code(s): K21.9 - Gastro-esophageal reflux disease without esophagitis Category: Medical Qualifiers: Esophagitis presence: esophagitis presence not specified Qualified Code(s): K21.9 - Gastro-esophageal reflux disease without esophagitis (2) Constipation: Code(s): K59.00 - Constipation, unspecified Qualifiers: Constipation type: slow transit constipation Qualified Code(s): K59.01 - Slow transit constipation Plan Continue famotidine at bedtime. Continue avoiding dietary triggers late night snacking. Discussed with patient avoiding late night snacking. Staying upright for minimum 3 hours after meals discussed with patient. Patient reports postprandial abdominal bloating. Low FODMAP diet discussed with patient. List of food recommended as well as list of food to avoid given to patient. Increase fluid intake and activity to promote better bowel motility. Follow-up in the office in 3 months, sooner on as needed basis. Patient is agreeable to this plan and verbalizes understanding of instructions she was given the opportunity to ask questions and all questions answered. Thank you for allowing me to participate in Medications: New simethicone (Gas Relief (simethicone)) 125 mg PO TID-QID PRN 120 caps 2RF abdominal distention R14.0 - Abdominal distension (gaseous) Refilled famotidine (Pepcid) 20 mg PO BEDTIME 90 tabs 3RF K21.9 - Gastro-esophageal reflux disease without esophagitis Coding Level of Care Code Est Pt Level 3 (06278) Diagnoses Gastroesophageal reflux disease, unspecified whether esophagitis present K21.9 Esophagitis presence: esophagitis presence not specified Slow transit constipation K59.01 Constipation type: slow transit constipation Time Spent (min) 30 Comment 20 minutes spent with patient and additional 10 minutes spent reviewing her records
[2023-09-13 10:07] VITALS: BP 116/83; PULSE 83; BMI 36.8
== END 2023-09-13 10:15 | disposition home or self-care (01) ==
PROVIDERS: PCP Internal Medicine; Visit Provider Nurse Practitioner Family
DX: K21.9 Gastro-esophageal reflux disease without esophagitis (principal); K59.01 Slow transit constipation
CPT/HCPCS: 99213

== ENCOUNTER → 2023-09-13 09:48 | Outpatient (BNVA) | payer OTHER, SELFPAY | PROVIDERS: PCP Internal Medicine; Visit Provider Nurse Practitioner Family | DX: K21.9 Gastro-esophageal reflux disease without esophagitis (principal); K59.01 Slow transit constipation | CPT/HCPCS: 99212 ==

== ENCOUNTER 2023-10-07 08:07 | Outpatient (AMB) | payer OTHER, SELFPAY ==
[2023-10-07 08:17] VITALS: BP 112/70; BMI 37.9
--- NOTE | 2023-10-07 08:17 | A.OFFPC_ITS ---
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: No Accompanied by: Spouse Allergies metformin Adverse Reaction (Intermediate, Verified 10/07/23 08:32) diarrhea Medication List - Last Reconciled 10/07/23 by Payal Villanueva MD acetaminophen 500 mg PO Q6H PRN 30 days albuterol sulfate 90 mcg/actuation 2 puffs inhalation Q4-6H PRN alcohol swabs (BD Alcohol Swabs) 1 pad topical BID 30 days aspirin 81 mg PO DAILY 90 days atorvastatin 80 mg PO DAILY blood pressure monitor As directed blood sugar diagnostic (FreeStyle Test strips) Use 1 test strip twice a day blood-glucose meter (FreeStyle Lite Meter kit) As directed cholecalciferol (vitamin D3) (Vitamin D3) 50 mcg PO DAILY clotrimazole-betamethasone 1-0.05 % 1 appl topical BID 7 days doxepin 50 mg PO BEDTIME dulaglutide (Trulicity) 1.5 mg (0.5 mL) subcut QWEEK empagliflozin (Jardiance) 25 mg PO DAILY 90 days enalapril maleate 5 mg PO DAILY 90 days escitalopram oxalate 20 mg PO DAILY 90 days ezetimibe 10 mg PO DAILY 90 days famotidine (Pepcid) 20 mg PO BEDTIME hydroxyzine HCl 25 mg PO BID 30 days lancets As directed Lantus Solostar U-100 Insulin (insulin glargine) 40 units (0.4 mL) subcut BID 90 days NS levothyroxine 125 mcg PO DAILY 90 days pen needle, diabetic As directed pen needle, diabetic (BD Rona 2nd Gen Pen Needle) once a day polyethylene glycol 3350 (Miralax) 17 grams PO DAILY Shower Chair As directed simethicone (Gas Relief (simethicone)) 125 mg PO TID-QID PRN Tobacco use date assessed: 06/10/23 Fall risk assessment: 1 Fall in past year Last assessed Fall Risk: 10/07/23 Dental Screening Dental Screen Date: 06/10/23 HPI HPI Comments History of Present Illness Details This is a 63-year-old female with diabetes mellitus type 2 with long- term current use of insulin and mild major depression that comes accompanied by for her physical exam. A1c not on goal and I will increase Lantus from 40 units once a day to 45 units once a day. I will replace Trulicity with Ozempic. LDL within goal. Last diabetic eye exam was 11/15/2022. Last colonoscopy was 2019. Has a mammogram scheduled for this month. No chest pain or shortness on breath. Complains low back pain and walks with a cane for gait stability. Mild major depression stable with medications and follow by Lawrence osman. COUNTS INCLUDE 234 BEDS AT THE [facility] Medical History (Updated 10/07/23 @ 08:52 by Payal Villanueva MD) DM2 (diabetes mellitus, type 2) Daytime somnolence Chronic pain of both knees Chronic pain of both hips Helicobacter pylori (H. 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 Diabetes type 2, uncontrolled Hypovitaminosis D Depression GERD (gastroesophageal reflux disease) Essential hypertension Headache Dyslipidemia Type 2 diabetes mellitus, with long-term current use of insulin Autoimmune thyroiditis Surgical History History of esophagogastroduodenoscopy (EGD) Hx of colonoscopy History of arthroscopy of right knee History of tubal ligation Family History Father Diabetes Mother Hypertension Maternal Grandmother Gynecologic cancer Family/Other FH: mental illness Maternal Uncle Chronic mental illness Social History Housing: Apartment Alcohol intake: never Patient Tobacco Use Status: Never used Tobacco e-Cigarette/Vaping Use: Never Used Second Hand Smoke Exposure: No service: No Current occupational status: disabled Cognitive needs: Yes Hearing needs: No Vision needs: No Questionnaire PHQ-9 Over the last 2 weeks, how often have you been bothered by any of the following problems? 1. Little interest or pleasure in doing things: several days 2. Feeling down, depressed, or hopeless: several days 3. Trouble falling or staying asleep, or sleeping too much: several days 4. Feeling tired or having little energy: several days 5. Poor appetite or overeating: several days 6. Feeling bad about yourself - or that you are a failure or have let yourself or your family down: not at all 7. Trouble concentrating on things, such as reading the newspaper or watching television: several days 8. Moving or speaking so slowly that other people could have noticed. Or the opposite - being so fidgety or restless that you have been moving around a lot more than usual: not at all 9. Thoughts that you would be better off or of hurting yourself in some way: not at all Total score: 6 Depression Screening Interpretation: Positive Depression Screening Follow-up: Existing condition, In treatment, Community Mental Health Worker F/U and Follow- up Visit Requested Depression Screening Done: Yes 32402 - PHQ-9 Billing: Yes Source: Developed by Drs. Liang Gao, Joan Cruz, Chip Aldana and colleagues, with an educational mei from [employer]. Thrive Questionnaire Date Thrive assessed: 06/10/23 Currently or been in a relationship where the following occur: no concerns reported THRIVE Score: 0 FRANCISCO-7 AMB Questionnaire FRANCISCO-7 Date FRANCISCO - 7 assessed: 06/10/23 Source: Developed by Drs. Liang Gao, Joan Cruz, Chip Aldana and colleagues, with an educational mei from [employer]. Review of Systems Const All systems reviewed & are unremarkable except as noted in HPI and below Card Denies chest pain at rest, Denies chest pain with activity, Denies edema, Denies irregular heart rhythm, Denies claudication, Denies dyspnea, Denies dyspnea on exertion, Denies orthopnea, Denies paroxysmal nocturnal dyspnea and Denies slow heart rate Resp Denies cough, Denies dyspnea and Denies dyspnea on exertion Reports urinary incontinence Musc Reports back pain Physical exam (Primary Care) Vital Signs: Last Vital Signs BP 112/70 10/07/23 08:17 BMI result Body Mass Index 37.9 BMI Assessment/Plan discussion: High BMI High, discussed plan: lifestyle, weight reduction, dietary and physical activity Tobacco/Smoking Status: Tobacco use Status Tobacco use date assessed 06/10/23 10/07/23 08:23 Patient Tobacco Use Status Never used Tobacco 10/07/23 08:23 e-Cigarette/Vaping Use Never Used 10/07/23 08:23 Depression Screening Interpretation: Positive Depression Screening Follow-up: Existing condition, In treatment, Community Mental Health Worker F/U and Follow- up Visit Requested Thrive Assessment: Date of Thrive Assessment Date Thrive assessed 06/10/23 10/07/23 08:23 Currently or been in a relationship where the following occur: no concerns reported Const General: cooperative and comfortable Orientation/consciousness: patient oriented x3 Limitations: ambulation with cane HENMT Head: Yes normal to inspection, Yes normocephalic and Yes atraumatic Ears: external ears normal Eyes General: appearance normal, both eyes and all related structures Eyelids: Yes eyelids normal Conjunctivae: conjunctivae normal Neck Neck: Yes normal visual inspection and Yes supple Resp Effort & Inspection: normal respiratory effort Auscultation: clear to auscultation bilaterally Cardio Jugular venous distension: no JVD Rate: regular rate Rhythm: regular rhythm Heart sounds: S1 normal heart sound present and S2 normal heart sound present GI Inspection: Yes normal to inspection Palpation (GI): Soft to palpation and nontender Auscultation: normal bowel sounds Skin General skin exam: no rashes or lesions noted Neuro General: patient oriented x3 and no focal motor deficits Extrem General: Yes full ROM Psych Appearance: grossly normal Results AMB Hemoglobin A1c AMB Hemoglobin A1c 10.3 % Last Edit by ALEXANDRA Chaves on 10/07/23 08: 31 Results Reviewed Results Reviewed: Laboratory Last Values Hgb A1c (Clinic) 10.3 % (4.0-6.0) H 10/07/23 08:17 Assessment and Plan Assessment & Plan (1) Physical exam: Code(s): Z00.00 - Encounter for general adult medical examination without abnormal findings Plan: Repeat in a year. (2) Mild depression: Code(s): F32.0 - Major depressive disorder, single episode, mild Plan: Continue escitalopram. Follow-up visit requested. 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 Continue Jardiance. Di scontinue Trulicity. Start Ozempic. A1c goal is equal or less than 7%. Continue diabetic yearly eye exam. Orders: Orders Thyroid Stimulating Hormone Today E03.8 - Other specified hypothyroidism, E06.3 - Autoimmune thyroiditis AMB Hemoglobin A1c Today E11.42 - Type 2 diabetes mellitus with diabetic polyneuropathy, Z79.4 - senior care (current) use of insulin XR DEXA axial skeleton Today N95.9 - Unspecified menopausal and perimenopausal disorder Medications: New incontinence pad, liner, disp Use 1 pad 6 times a day as needed 180 ea 11RF M51.36 - Other intervertebral disc degeneration, lumbar region, N39.41 - Urge incontinence semaglutide (Ozempic) for 4 weeks 0.25 mg (0.368 mL) subcut QWEEK 4 weeks 1.472 mL 0RF E11.42 - Type 2 diabetes mellitus with diabetic polyneuropathy, Z79.4 - senior care (current) use of insulin Changed From Lantus Solostar U-100 Insulin (insulin glargine) 40 units (0.4 mL) subcut BID 90 days 72 mL 5RF NS E11.9 - Type 2 diabetes mellitus without complications To Lantus Solostar U-100 Insulin (insulin glargine) 45 units (0.45 mL) subcut DAILY 90 days 40.5 mL 3RF NS E11.9 - Type 2 diabetes mellitus without complications Discontinued dulaglutide (Trulicity) Discontinued Reason: Patient Completed Course 1.5 mg (0.5 mL) subcut QWEEK 2 mL 6RF Coding Level of Care Code Est Pt Prev Care >65y(46211) Diagnoses Physical exam Z00.00 Mild depression F32.0 Type 2 diabetes mellitus with hyperglycemia, with long-term current use of insulin E11.65; Z79.4 Diabetes mellitus complication status: with hyperglycemia Time Spent (min) 35
== END 2023-10-07 08:47 | disposition home or self-care (01) ==
PROVIDERS: PCP Internal Medicine; Visit Provider Internal Medicine
DX: Z00.00 Encounter for general adult medical examination without abnormal findings (principal); F32.0 Major depressive disorder, single episode, mild; E11.65 Type 2 diabetes mellitus with hyperglycemia; Z79.4 Long term (current) use of insulin; E11.42 Type 2 diabetes mellitus with diabetic polyneuropathy
CPT/HCPCS: 83036; 99397

== ENCOUNTER 2023-10-07 08:57 | Outpatient (REF) | payer OTHER, SELFPAY ==
[2023-10-07 11:07] LABS: Alanine Aminotransferase 34 U/L (0-31); Albumin Level 3.9 g/dL (3.5-5.0); Alkaline Phosphatase 120 U/L (39-117); Anion Gap 18 (12-20); Aspartate Amino Transferase 22 U/L (5-31); Bilirubin Total 0.4 mg/dL (0.0-1.0); Blood Urea Nitrogen 13 mg/dL (9-16); Calcium 9.6 mg/dL (8.4-10.2); Carbon Dioxide 28 mmol/L (22-29); Chloride 100 mmol/L (96-108); Cholesterol 174 mg/dL (<200); Estimated Glomerular Filt Rate > 60; Glucose Fasting 281 mg/dL (60-99); HDL Cholesterol 40 mg/dL (>40); LDL Cholesterol Calculated 100 mg/dL (<100); Potassium 3.9 mmol/L (3.3-5.1); Sodium 142 mmol/L (135-145); Total Protein 7.3 g/dL (6.5-8.0); Triglycerides 171 mg/dL (<150)
[2023-10-07 11:08] LABS: Thyroid Stimulating Hormone 1.32 uIU/mL (0.32-4.0); Vitamin D 25-OH Total 32.5 ng/mL (>30)
[2023-10-07 12:14] LABS: Creatinine Urine 106.21 mg/dL; Microalbum/Creatinine Ratio Ur 40.4 ug/mg cr (<30)
== END 2023-10-07 08:58 | disposition home or self-care (01) ==
LOC: HO.LAB 08:57
PROVIDERS: PCP Internal Medicine; Visit Provider Internal Medicine
DX: E55.9 Vitamin D deficiency, unspecified (principal); E78.5 Hyperlipidemia, unspecified; E11.9 Type 2 diabetes mellitus without complications; E03.8 Other specified hypothyroidism; E06.3 Autoimmune thyroiditis
CPT/HCPCS: 36415; 80053; 80061; 82043; 82306; 82570; 84443

== ENCOUNTER 2023-11-13 08:51 | Outpatient (REF) | payer OTHER, SELFPAY ==
--- NOTE | ~2023-11-13 | MM_ITS ---
EXAMINATION: BONE DENSITOMETRY CLINICAL INDICATION: Unspecified menopausal and perimenopausal disorder. COMPARISON: This is the patient's baseline examination. TECHNIQUE: Using a [employer] DXA System (software version: 13.1) manufactured by [employer], dual-energy x-ray absorptiometry was performed of the lumbar spine and left hip. The images are of good technical quality. Summary results are attached. FINDINGS: LEFT FEMUR, NECK: BMD 0.813 g/cm2, Z-score -0.8, T-score -1.6, osteopenia. LEFT FEMUR, TOTAL: BMD 0.979 g/cm2, Z-score 0.3, T-score -0.2, normal. AP SPINE L1-L4: BMD 1.291 g/cm2, Z-score 1.5, T-score 0.9, normal. IDENTIFIED RISK FACTORS: Menopause, recurrent falls. HISTORY OF FRACTURE: None listed. MEDICATIONS: Calcium supplements or multivitamin, vitamin D. MM/XR DEXA axial skeleton IMPRESSION: 1. DIAGNOSIS: Osteopenia based on the lowest T-score value of -1.6 in the femoral neck applying World Health Organization criteria. 2. 10-YEAR FRACTURE RISK PREDICTION, FRAX: Major osteoporotic fracture (clinical spine, forearm, hip or shoulder) 4.8%. Hip fracture 0.5%. 3. Treatment Recommendations: NOF guidelines recommend consideration for treatment in postmenopausal women and men age 50 and older presenting with the following: -A hip or vertebral (clinical or morphometric) fracture. -T-score less than or equal to -2.5 at the femoral neck or spine after appropriate evaluation to exclude secondary causes. -Low bone mass at the hip or spine and a 10-year fracture probability by FRAX of greater than or equal to 3% for hip fracture or greater than or equal to 20% for major osteoporotic fracture based on the [place] adapted WHO algorithm. 4. Other Recommendations: All treatment decisions require clinical judgment and consideration of individual patient factors, including patient preferences, comorbidities, previous drug use, risk factors not captured in the FRAX model (e.g. frailty, falls, vitamin D deficiency, increased bone turnover, interval significant decline in bone density) and possible under or overestimation of fracture risk by FRAX. Additional medical evaluation for secondary cause of low bone mineral density may be appropriate. FUTURE SCAN RECOMMENDATION: People with diagnosed cases of osteoporosis or at high risk for fracture should have regular bone mineral density tests. For patients eligible for Medicare, routine testing is allowed once every 2 years. The testing frequency can be increased to one year for patients who have rapidly progressing disease, those who are receiving or discontinuing medical therapy to restore bone mass, or have additional risk factors.
== END 2023-11-13 08:52 | disposition home or self-care (01) ==
LOC: HO.MAMMO 08:51
PROVIDERS: PCP Internal Medicine; Visit Provider Internal Medicine
DX: Z12.31 Encounter for screening mammogram for malignant neoplasm of breast (principal); Z13.820 Encounter for screening for osteoporosis; Z78.0 Asymptomatic menopausal state
CPT/HCPCS: 77063; 77067; 77080

== ENCOUNTER → 2023-11-13 10:30 | Outpatient (BNV) | payer OTHER, SELFPAY | PROVIDERS: PCP Internal Medicine; Visit Provider Radiology Diagnostic Radiology | DX: Z12.31 Encounter for screening mammogram for malignant neoplasm of breast (principal) | CPT/HCPCS: 77063; 77067 ==

== ENCOUNTER 2023-12-20 09:55 | Outpatient (AMB) | payer OTHER, SELFPAY ==
--- NOTE | 2023-12-20 10:10 | MHC.OFFVIS ---
Vital Signs 12/20/23 10:20 Height 5 ft 3 in Weight 209 lb 3.499 oz BMI 37.1 BP 110/60 Blood Pressure Location Rt brachial Position Sitting Pulse 91 Pulse Source Pulse Oximeter Intake Visit Reasons: DM/CONFIRMED Intake Note: New patient present today for Diabetes Mellitus Management. Last Diabetic Eye exam: Due for Exam Last Podiatry Visit: Does not see a Nuclear Medicine Medical Director, requesting referral. Random Glucose: 348 mg/dl HgA1C: 10.3% 10/07/2023 Clinical Nursing Assistant Required: Yes Clinical Nursing Assistant Language: Weatherstrip Machine Operator Services: Clinical Nursing Assistant Present Clinical Nursing Assistant Name: Donavon [id number] Information Interpreted: non-clinical & clinical Accompanied by: Self / Same As Patient Allergies metformin Adverse Reaction (Intermediate, Verified 12/20/23 10:22) diarrhea Medication List - Last Reconciled 12/20/23 by DEBORAH Hodges acetaminophen 500 mg PO Q6H PRN 30 days albuterol sulfate 90 mcg/actuation 2 puffs inhalation Q4-6H PRN alcohol swabs (BD Alcohol Swabs) 1 pad topical BID 30 days aspirin 81 mg PO DAILY 90 days atorvastatin 80 mg PO DAILY blood pressure monitor As directed blood sugar diagnostic (FreeStyle Test strips) Use 1 test strip twice a day blood-glucose meter (FreeStyle Lite Meter kit) As directed blood-glucose meter,continuous (FreeStyle Severino 3 [place]) as directed blood-glucose sensor (FreeStyle Severino 3 Sensor device) apply new sensor every 14 days as directed cholecalciferol (vitamin D3) (Vitamin D3) 50 mcg PO DAILY clotrimazole-betamethasone 1-0.05 % 1 appl topical BID 7 days doxepin 50 mg PO BEDTIME empagliflozin (Jardiance) 25 mg PO DAILY 90 days enalapril maleate 5 mg PO DAILY 90 days escitalopram oxalate 20 mg PO DAILY 90 days ezetimibe 10 mg PO DAILY 90 days famotidine (Pepcid) 20 mg PO BEDTIME hydroxyzine HCl 25 mg PO BID 30 days incontinence pad, liner, disp Use 1 pad 6 times a day as needed insulin glargine (Lantus Solostar U-100 Insulin) 25 units subcut DAILY lancets As directed levothyroxine 125 mcg PO DAILY 90 days pen needle, diabetic As directed pen needle, diabetic (BD Rona 2nd Gen Pen Needle) once a day polyethylene glycol 3350 (Miralax) 17 grams PO DAILY semaglutide (Ozempic) 0.5 mg (0.736 mL) subcut QWEEK Shower Chair As directed simethicone (Gas Relief (simethicone)) 125 mg PO TID-QID PRN HPI Comments Details: This is a 63-year-old Sami speaking female with a past medical history type 2 diabetes, hypothyroidism, dyslipidemia, hypertension, depression and GERD presenting for diabetic management. She was last seen in the endocrinology department on 10/19/2021. She reports feeling like she is choking sometimes when she eats or swallows saliva. If she drinks water it alleviates symptoms. The symptoms started 3 weeks ago. Her next follow up with primary care is in February. She says she tried to call, but she was told the next appointment is available in March. I will reach out to her PCP office on her behalf for appointment request. Hemoglobin a1c 10.3% 10/07/2023. POC 348. She ate sandwich with ham and coffee with milk and sugar before the appointment. Denies symptoms of hyperglycemia today. She checks her blood sugar in the afternoon so she does not have her meter with her today. They have been running in the 200s then. Current medication regimen: Lantus instructed to take 45 units, but she says she is taking 20 units, Jardiance 25 mg and Ozempic 0.25 mg. Intolerant to metformin which caused diarrhea. Her CLINICAL NURSING ASSISTANT administers her Lantus so she called her to check the dose. She is administering 25 mg daily. Diet: Breakfast-sandwich, coffee with cream and sugar Lunch-yogurt Dinner-rice, beef, fish, beans Snacks/desserts: apple, strawberry No alcohol Nonsmoker Hypoglycemia symptoms: Denies Hyperglycemia symptoms: sometimes polyuria, polydipsia, blurry vision Eye exam: 1 year ago, and she has be contacted to schedule by her eye doctor. Microvascular complications: neuropathy in her toes, nephropathy (microalbumin) Macrovascular complications: None Hypertension: treated with Enalapril 5 mg. Hyperlipidemia: treated with Zetia 10 mg and Atorvastatin 80 mg. LDL at goal <100. ROS: Eyes: No vision changes, blurry vision, double vision Respiratory: No shortness of breath Cardiovascular: No chest pain Gastrointestinal: No anorexia, nausea, vomiting or diarrhea. No abdominal pain Neurologic: No headache, dizziness, syncope Endocrine: No cold or heat intolerance. No polyuria or polydipsia. Physical exam: Constitutional: Alert, in no distress. Eyes: Pupils are equal, round and reactive to light. Extraocular muscles intact. Neck: Supple, Full range of motion. No lymphadenopathy. Mouth: no lesions or erythema Abdomen: soft, nontender, no rebound or guarding, no palpable masses, bowel sounds normal in 4 quadrants Respiratory: Clear to auscultation. Cardiovascular: S1 S2 regular. No murmurs Neurologic: No focal neurological deficits. Right foot: Warm and well perfused. No clubbing, cyanosis or edema. DP pulse 2+. Decreased vibratory sensation. Intact sensation to monofilament. Left foot: Warm and well perfused. No clubbing, cyanosis or edema. DP pulse 2+ Decreased vibratory sensation. Intact sensation to monofilament. [facility] Medical History (Updated 10/07/23 @ 08:52 by Payal Villanueva MD) DM2 (diabetes mellitus, type 2) Daytime somnolence Chronic pain of both knees Chronic pain of both hips Helicobacter pylori (H. 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 (acquired) assisted (current) use of insulin Diabetes type 2, uncontrolled Hypovitaminosis D Depression GERD (gastroesophageal reflux disease) Essential hypertension Headache Dyslipidemia Type 2 diabetes mellitus, with long-term current use of insulin Autoimmune thyroiditis Surgical History History of esophagogastroduodenoscopy (EGD) Hx of colonoscopy History of arthroscopy of right knee History of tubal ligation Family History Father Diabetes Mother Hypertension Maternal Grandmother Gynecologic cancer Family/Other FH: mental illness Maternal Uncle Chronic mental illness Social History Housing: Apartment Alcohol intake: never Patient Tobacco Use Status: Never used Tobacco e-Cigarette/Vaping Use: Never Used Second Hand Smoke Exposure: No service: No Current occupational status: disabled Cognitive needs: Yes Hearing needs: No Vision needs: No Physical Exam Vital Signs: Last Vital Signs Pulse 91 12/20/23 10:20 BP 110/60 12/20/23 10:20 BMI result Body Mass Index 37.1 Results Reviewed Results Reviewed: Laboratory Last Values Glucose (Clinic) 348 mg/dL (60-115) H 12/20/23 10:28 Laboratory Tests 10/07/23 10/07/23 10/07/23 08:17 09:10 09:13 Creatinine 0.78 Estimated GFR > 60 Hgb A1c (Clinic) 10.3 H Triglycerides 171 H Cholesterol 174 LDL Cholesterol, Calc 100 H HDL Cholesterol 40 L TSH 1.32 Urine Creatinine 106.21 Urine Microalbumin 43.0 Microalb/Creat Ratio 40.4 H Assessment & Plan Assessment & Plan (1) Type 2 diabetes mellitus, with long-term current use of insulin: Code(s): E11.9 - Type 2 diabetes mellitus without complications; Z79.4 - assisted (current) use of insulin Category: Medical Qualifiers: Diabetes mellitus complication status: with hyperglycemia Qualified Code(s): E11.65 - Type 2 diabetes mellitus with hyperglycemia; Z79.4 - assisted (current) use of insulin Plan In summary this is a 63-year-old female with poorly controlled type 2 diabetes. She will increase her dose of Ozempic to 0.5 mg once weekly. Side effects reviewed. If her blood sugars are still over 200 after 2 weeks on this dosage she will increase Lantus to 30 units. Written instructions reviewed with middleware engineer conducting the visit. Continue Jardiance 25 mg daily. Prescribed freestyle Severino 3. Refer to visual educator. Lifestyle modifications reviewed. A1c goal 7 or less. Reviewed complications of uncontrolled diabetes. Reviewed treatment of hypo/hyperglycemia. Follow up in 6 weeks for diabetes. Orders: Referrals Diabetes Education Referral E11.65 - Type 2 diabetes mellitus with hyperglycemia, Z79.4 - terminal supervisor (current) use of insulin Medications: New semaglutide (Ozempic) 0.5 mg (0.736 mL) subcut QWEEK 3 mL 3RF glucose (Dex4 Glucose) until symptoms of low blood sugar are controlled 16 grams (4 x 4 gram) PO Q15M PRN 60 tabs 1RF hypoglycemia blood-glucose sensor (FreeStyle Severino 3 Sensor device) apply new sensor every 14 days as directed 2 ea 11RF blood-glucose meter,continuous (AutoVirtStyle Severino 3 [place]) as directed 1 ea 0RF Discontinued semaglutide (Ozempic) for 4 weeks Discontinued Reason: Doctor's Order 0.25 mg (0.368 mL) subcut QWEEK 4 weeks 1.472 mL 0RF E11.42 - Type 2 diabetes mellitus with diabetic polyneuropathy, Z79.4 - terminal supervisor (current) use of insulin Patient Instructions: Aumente Ozempic de 0.25 mg a 0.5 mg magalie vez por semana. Si las lecturas de glucosa siguen siendo superiores a 200 despu?s de 2 semanas, aumente Lantus de 25 unidades a 30 unidades diarias. Si experimenta un nivel bajo de az?car en la chris, tr?telo bebiendo 4 onzas (1/2 taza) de jugo de frutas (no diet?kenny), 1 cucharada de miel o 4 tabletas de glucosa. If you experience low blood sugar, treat this by drinking 4 ounces (1/2 cup) of fruit juice (not diet), 1 tablespoon of honey or 4 glucose tablets. If your blood sugar is under 50, take double the amount of one of the above. Recheck your blood sugar in 15 minutes. Coding Level of Care Code Est Pt Level 5 (49833) Complex EM visit Add On G2211 Diagnoses Type 2 diabetes mellitus with hyperglycemia, with long-term current use of insulin E11.65; Z79.4 Diabetes mellitus complication status: with hyperglycemia Time Spent (min) 45 Comment Reviewing chart/labs, direct patient care, completing documentation
[2023-12-20 10:20] VITALS: BP 110/60; PULSE 91; BMI 37.1
[2023-12-20 10:32] LABS: Glucose, Whole Blood 348 mg/dL (60-115)
== END 2023-12-20 11:17 | disposition home or self-care (01) ==
PROVIDERS: PCP Internal Medicine; Visit Provider Physician Assistant Medical
DX: E11.65 Type 2 diabetes mellitus with hyperglycemia (principal); Z79.4 Long term (current) use of insulin
CPT/HCPCS: 99215; G2211

== ENCOUNTER → 2023-12-20 09:55 | Outpatient (BNVA) | payer OTHER, SELFPAY | PROVIDERS: PCP Internal Medicine; Visit Provider Physician Assistant Medical | DX: E11.65 Type 2 diabetes mellitus with hyperglycemia (principal); E03.9 Hypothyroidism, unspecified; E78.5 Hyperlipidemia, unspecified; Z79.4 Long term (current) use of insulin | CPT/HCPCS: 82947; 99212 ==

== ENCOUNTER 2024-01-01 08:46 | Outpatient (AMB) | payer OTHER, SELFPAY ==
[2024-01-01 08:49] VITALS: BP 138/90; PULSE 77; O2SAT 97; BMI 36.7
--- NOTE | 2024-01-01 08:49 | A.OFFPC_ITS ---
Vital Signs 01/01/24 08:49 Height 5 ft 3 in Weight 207 lb BMI 36.7 BP 138/90 H Blood Pressure Location Lt brachial Position Sitting Pulse 77 Pulse Source Pulse Oximeter Pulse Oximetry (%) 97 Oxygen Delivery Method Room Air Intake Visit Reasons: difficulty swallowing Intake Note: pt c/o due to difficulty swallowing X2 weeks Slide Fastener Repairer Required: No Accompanied by: Self / Same As Patient Allergies metformin Adverse Reaction (Intermediate, Verified 01/01/24 09:01) diarrhea Medication List - Last Reconciled 01/01/24 by Payal Villanueva MD acetaminophen 500 mg PO Q6H PRN 30 days albuterol sulfate 90 mcg/actuation 2 puffs inhalation Q4-6H PRN alcohol swabs (BD Alcohol Swabs) 1 pad topical BID 30 days aspirin 81 mg PO DAILY 90 days atorvastatin 80 mg PO DAILY blood pressure monitor As directed blood sugar diagnostic (FreeStyle Test strips) Use 1 test strip twice a day blood-glucose meter (FreeStyle Lite Meter kit) As directed blood-glucose meter,continuous (FreeStyle Severino 3 [place]) as directed blood-glucose sensor (FreeStyle Severino 3 Sensor device) apply new sensor every 14 days as directed cholecalciferol (vitamin D3) (Vitamin D3) 50 mcg PO DAILY clotrimazole-betamethasone 1-0.05 % 1 appl topical BID 7 days doxepin 50 mg PO BEDTIME empagliflozin (Jardiance) 25 mg PO DAILY 90 days enalapril maleate 5 mg PO DAILY 90 days escitalopram oxalate 20 mg PO DAILY 90 days ezetimibe 10 mg PO DAILY 90 days famotidine (Pepcid) 20 mg PO BEDTIME glucose (Dex4 Glucose) 16 grams (4 x 4 gram) PO Q15M PRN hydroxyzine HCl 25 mg PO BID 30 days incontinence pad, liner, disp Use 1 pad 6 times a day as needed insulin glargine (Lantus Solostar U-100 Insulin) 25 units subcut DAILY lancets As directed levothyroxine 125 mcg PO DAILY 90 days pen needle, diabetic As directed pen needle, diabetic (BD Rona 2nd Gen Pen Needle) once a day polyethylene glycol 3350 (Miralax) 17 grams PO DAILY semaglutide (Ozempic) 0.5 mg (0.736 mL) subcut QWEEK Shower Chair As directed simethicone (Gas Relief (simethicone)) 125 mg PO TID-QID PRN Tobacco use date assessed: 06/10/23 Fall risk assessment: No Falls in past year Last assessed Fall Risk: 01/01/24 Dental Screening Dental Screen Date: 06/10/23 HPI HPI Comments History of Present Illness Details This is a 63-year-old female with diabetes mellitus type 2 on long-term current use of insulin, hypertension, dyslipidemia and mild major depression that comes accompanied by daughter complaining of difficulty swallowing saliva that happened about a week ago. She has had dysphagia for few years on and off. Had an episode in 2021 in which had a barium swallow study and an endoscopy showing no significant abnormality. I will reorder a barium swallow study. Last A1c was not on goal and she is complaining that Ozempic gives her dizziness therefore I will discontinue it. I will increase Lantus from 25 units to 28 units. She will see endocrinology soon for this matter. Blood pressure borderline normal to elevated. LDL was also not on goal and lipid panel will be repeated. Dietary changes were advised. Mild major depression stable with escitalopram. [facility] Medical History (Updated 01/01/24 @ 09:07 by Payal Villanueva MD) DM2 (diabetes mellitus, type 2) Daytime somnolence Chronic pain of both knees Chronic pain of both hips Helicobacter pylori (H. 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 (acquired) USP (current) use of insulin Diabetes type 2, uncontrolled Hypovitaminosis D Depression GERD (gastroesophageal reflux disease) Essential hypertension Headache Dyslipidemia Type 2 diabetes mellitus, with long-term current use of insulin Autoimmune thyroiditis Surgical History History of esophagogastroduodenoscopy (EGD) Hx of colonoscopy History of arthroscopy of right knee History of tubal ligation Family History Father Diabetes Mother Hypertension Maternal Grandmother Gynecologic cancer Family/Other FH: mental illness Maternal Uncle Chronic mental illness Social History Housing: Apartment Alcohol intake: never Patient Tobacco Use Status: Never used Tobacco e-Cigarette/Vaping Use: Never Used Second Hand Smoke Exposure: No service: No Current occupational status: disabled Cognitive needs: Yes Hearing needs: No Vision needs: No Questionnaire Thrive Questionnaire Date Thrive assessed: 06/10/23 AUDIT C Alcohol Use Questionnaire (AUDIT-C) 1. How often do you have a drink containing alcohol?: Never Total Score: 0 Score Reviewed/Action Taken: No FRANCISCO-7 AMB Questionnaire FRANCISCO-7 Date FRANCISCO - 7 assessed: 06/10/23 Source: Developed by Drs. Liang Gao, Joan Cruz, Chip Aldana and colleagues, with an educational mei from [email or web address]. Review of Systems Const All systems reviewed & are unremarkable except as noted in HPI and below ENT Reports dysphagia Card Denies chest pain at rest, Denies chest pain with activity, Denies edema, Denies irregular heart rhythm, Denies claudication, Denies dyspnea, Denies dyspnea on exertion, Denies orthopnea, Denies paroxysmal nocturnal dyspnea and Denies slow heart rate Resp Denies cough, Denies dyspnea and Denies dyspnea on exertion GI Denies abdominal pain, Denies change in bowel habits, Reports dysphagia, Denies excessive flatus, Denies nausea and Denies vomiting Denies urinary incontinence, Denies urinary hesitancy and Denies urinary urgency Musc Denies atrophy, Denies deformity and Denies limited range of motion Physical exam (Primary Care) Vital Signs: Last Vital Signs Pulse 77 01/01/24 08:49 BP 138/90 H 01/01/24 08:49 Pulse Ox 97 01/01/24 08:49 Oxygen Delivery Method Room Air 01/01/24 08:49 BMI result Body Mass Index 36.7 BMI Assessment/Plan discussion: High BMI High, discussed plan: lifestyle, weight reduction, dietary and physical activity Tobacco/Smoking Status: Tobacco use Status Tobacco use date assessed 06/10/23 01/01/24 08:49 Patient Tobacco Use Status Never used Tobacco 01/01/24 08:49 e-Cigarette/Vaping Use Never Used 01/01/24 08:49 Thrive Assessment: Date of Thrive Assessment Date Thrive assessed 06/10/23 01/01/24 08:49 Resp Effort & Inspection: normal respiratory effort Auscultation: clear to auscultation bilaterally Cardio Jugular venous distension: no JVD Rate: regular rate Rhythm: regular rhythm Heart sounds: S1 normal heart sound present and S2 normal heart sound present Extrem General: Yes full ROM Assessment and Plan Assessment & Plan (1) Dysphagia: Code(s): R13.10 - Dysphagia, unspecified Plan: Barium swallow ordered. (2) Mild depression: Code(s): F32.0 - Major depressive disorder, single episode, mild Plan: Continue escitalopram. (3) Essential hypertension: Code(s): I10 - Essential (primary) hypertension Plan: Continue enalapril. Blood pressure goal is equal or less than 130/80. (4) Type 2 diabetes mellitus, with long-term current use of insulin: Code(s): E11.9 - Type 2 diabetes mellitus without complications; Z79.4 - USP (current) use of insulin Qualifiers: Diabetes mellitus complication status: with hyperglycemia Qualified Code(s): E11.65 - Type 2 diabetes mellitus with hyperglycemia; Z79.4 - USP (current) use of insulin Plan: Continue Jardiance. Increase insulin from 25 units to 28 units. A1c goal is equal or less than 7%. Follow-up with endocrinology. (5) Dyslipidemia: Code(s): E78.5 - Hyperlipidemia, unspecified Plan: Continue statins. LDL goal is less than 70. Start low-cholesterol diet. Orders: Orders Vitamin B12 and Folate Today E53.8 - Deficiency of other specified B group vitamins Comprehensive [place]. Panel Fast Today I10 - Essential (primary) hypertension [place] barium swallow Today R13.10 - Dysphagia, unspecified Lipid Panel Today E78.5 - Hyperlipidemia, unspecified Vitamin D 25-OH Total Today E55.9 - Vitamin D deficiency, unspecified Thyroid Stimulating Hormone Today E03.9 - Hypothyroidism, unspecified Medications: New guaifenesin ER (Mucinex) 600 mg PO Q12H PRN 10 tabs 0RF congestion 5 days Changed From insulin glargine (Lantus Solostar U-100 Insulin) 25 units subcut DAILY E11.9 - Type 2 diabetes mellitus without complications To insulin glargine (Lantus Solostar U-100 Insulin) 28 units (0.28 mL) subcut DAILY 25.2 mL 1RF 90 days E11.9 - Type 2 diabetes mellitus without complications Discontinued semaglutide (Ozempic) Discontinued Reason: Patient Refused 0.5 mg (0.736 mL) subcut QWEEK 3 mL 3RF Coding Level of Care Code Est Pt Level 4 (96839) Complex EM visit Add On G2211 Diagnoses Dysphagia R13.10 Mild depression F32.0 Essential hypertension I10 Type 2 diabetes mellitus with hyperglycemia, with long-term current use of insulin E11.65; Z79.4 Diabetes mellitus complication status: with hyperglycemia Dyslipidemia E78.5 Time Spent (min) 23
== END 2024-01-01 09:13 | disposition home or self-care (01) ==
PROVIDERS: PCP Internal Medicine; Visit Provider Internal Medicine
DX: R13.10 Dysphagia, unspecified (principal); F32.0 Major depressive disorder, single episode, mild; E11.65 Type 2 diabetes mellitus with hyperglycemia; Z79.4 Long term (current) use of insulin; I10 Essential (primary) hypertension; E78.5 Hyperlipidemia, unspecified
CPT/HCPCS: 99214; G2211

== ENCOUNTER 2024-01-09 10:43 | Outpatient (AMB) | payer OTHER, SELFPAY ==
--- NOTE | 2024-01-09 11:08 | A.OFFVIS_ITS ---
Intake Intake Visit Reasons: DM/CONFIRMED Alcohol Still Operator Required: Yes Alcohol Still Operator Name: Paulina Yara Accompanied by: Daughter Allergies metformin Adverse Reaction (Intermediate, Verified 01/01/24 09:01) diarrhea HPI Comprehensive Diabetes Asmnt Most Recent Diabetes Results: Microalb/Creat Ratio 40.4 ug/mg cr (<30) H 10/07/23 Cholesterol 174 mg/dL (<200) 10/07/23 HDL Cholesterol 40 mg/dL (>40) L 10/07/23 Triglycerides 171 mg/dL (<150) H 10/07/23 Creatinine 0.78 mg/dL (0.5-1.4) 10/07/23 Blood Urea Nitrogen 13 mg/dL (9-16) 10/07/23 Sodium 142 mmol/L (135-145) 10/07/23 Potassium 3.9 mmol/L (3.3-5.1) 10/07/23 Chloride 100 mmol/L (96-108) 10/07/23 Carbon Dioxide 28 mmol/L (22-29) 10/07/23 Calcium 9.6 mg/dL (8.4-10.2) 10/07/23 AST 22 U/L (5-31) 10/07/23 ALT 34 U/L (0-31) H 10/07/23 Total Protein 7.3 g/dL (6.5-8.0) 10/07/23 Albumin 3.9 g/dL (3.5-5.0) 10/07/23 [facility] Medical History (Updated 01/01/24 @ 09:07 by Payal Villanueva MD) DM2 (diabetes mellitus, type 2) Daytime somnolence Chronic pain of both knees Chronic pain of both hips Helicobacter pylori (H. 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 (acquired) shelter (current) use of insulin Diabetes type 2, uncontrolled Hypovitaminosis D Depression GERD (gastroesophageal reflux disease) Essential hypertension Headache Dyslipidemia Type 2 diabetes mellitus, with long-term current use of insulin Autoimmune thyroiditis Surgical History History of esophagogastroduodenoscopy (EGD) Hx of colonoscopy History of arthroscopy of right knee History of tubal ligation Family History Father Diabetes Mother Hypertension Maternal Grandmother Gynecologic cancer Family/Other FH: mental illness Maternal Uncle Chronic mental illness Social History Housing: Apartment Alcohol intake: never Patient Tobacco Use Status: Never used Tobacco e-Cigarette/Vaping Use: Never Used Second Hand Smoke Exposure: No service: No Current occupational status: disabled Cognitive needs: Yes Hearing needs: No Vision needs: No Assessment & Plan Assessment & Plan (1) Type 2 diabetes mellitus, with long-term current use of insulin: Code(s): E11.9 - Type 2 diabetes mellitus without complications; Z79.4 - shelter (current) use of insulin Qualifiers: Diabetes mellitus complication status: with hyperglycemia Qualified Code(s): E11.65 - Type 2 diabetes mellitus with hyperglycemia; Z79.4 - terminal supervisor (current) use of insulin Plan: Diabetes self-management education and support participation record Assessment/scale: 1= needs instructed? 2= needs review? 3= comprehend keep point? 4= demonstrates understanding/ competent? NC= Not Covered Topics Learning Objective: Initial visit Initial or post srvc Initial or post srvc Initial or post srvc Initial or post srvc Initial or post srvc Post srvc Comments Pre Edu-assessment/plan Outcome or reassess Outcome or reassess Outcome or reassess Outcome or reassess Outcome or reassess Outcome or reassess Diabetes pathophysiology 1 Healthy eating 2 Being active 1 Taking medication 1 Monitoring glucose 1 Acute complication 1 Chronic complicated 1 Lifestyle and healthy coping 1 Diabetes distress in support 1 ?Diabetes pathophysiology: ?Defined diabetes med identify own type of diabetes; list 3 options for treating diabetes Healthy eating: ?Described effect of type, amount and ?timing of food on blood glucose; list 3 methods for planning meal Being active: ?State effect of exercise on blood glucose level Taking medication: ?State effect of diabetes medications on diabetes; name diabetes medications taking, action and side effects Monitoring glucose: ?Identify recommended blood glucose targets and personal target Acute complication: ?List symptoms and treatment of hyper and hypoglycemia, DKA, sick day guidelines and guidelines for severe weather or situations of crisis and diabetes supply manage Chronic complication: ?To find the relationship of blood glucose levels to long- term complications of diabetes in screening and preventative measures Lifestyle and healthy coping: ?Described lifestyle and healthy coping strategies to rule out diabetes self-management Diabetes to stress and support: ?Recognize Diabetes to stress and be able to identified support options Learning objectives: The patient was provided with verbal and written education on the following topics as outlined below. The patient met all learning objectives and was able to verbalize understanding and provide teach back of education topics discussed . The patient was provided with the opportunity to ask questions and all questions were answered. Patient Assessment Assess patient education level/literacy/barriers, patient could identify foods from carb list that she is currently doing Patient questions/concerns, patient's A1c 10.3% on September 2023. Patient was diagnosed in 2010, reports she has had Diabetes Education but could not recall when stated it could has been a long time since. Patient is currently taking Lantus 40 units daily Jardiance 25 daily Patient states that she does frequently forgets to take medication What is Diabetes? Pathophysiology How the body produces and uses insulin Identify type of DM Risk factors Signs of Diabetes Brief overview of Diabetes Management Monitoring blood sugar Following a meal plan Regular exercise Maintaining a healthy weight Taking medication as needed Members of the care team (PCP, RN, MA, RD, CDE, manufacturing technician) Blood glucose monitoring When/how often to test Target blood sugar ranges Patient brought meter to today's visit, only 3 readings in the last 14 days. Average glucose on meter 190 mg/dL Patient has been prescribed Severino 3 but has been unable to pick it up for pharmacy, PA for Severino 3 submitted today Introduction to Nutrition Importance of healthy diet in managing DM Diet is personalized to individual preference Review patient?s regular diet/food preferences Who prepares meals/does food shopping/ Dining out?/ Barriers? How diet effects glucose Eating 3 balanced meals a day with small, healthy snacks between meals Review food groups Carbohydrates: What is a carbohydrate/Which food/food groups are considered carbohydrates Effect of carbohydrates on blood glucose Portion sizes Reading food labels Basic carb counting (if applicable per nursing assessment) Plate method Meal planning Recommendations: Follow plate method, consistent carbs and read nutritional labels. Smart Goal: Patient will identify foods that she is currently eating that contain carbohydrates before next visit Educational Materials: The patient was provided with the following written educational materials: Planning Healthy Meals Handout Patient Response to instructions: Comprehension of Instructions: Fair Readiness to make changes: Contemplation How confident they feel about making changes: Fair Portions of this note were created using voice recognition software, please excuse any words or phrases that may have been misinterpreted. Patient Instructions: Incluir actividad diaria regular. ADA recomienda 30 minutos de ejercicio 5 d?as a la semana. P?rdida de peso, hable con el PCP o el cardi?logo antes de comenzar un nuevo plan. Mida el nivel de az?car en la chris seg?n las indicaciones; Ayuno y comida m?s graham de 2hpp. Observe las tendencias en los resultados. Utilice los resultados y eval?e c?mo los alimentos, la actividad f?perry y los medicamentos afectan los resultados de az?car en la chris. Lleve el gluc?metro o CGM a la pr?xima visita. Conocer los medicamentos para la diabetes, guevara acci?n, los efectos secundarios, la eficacia, la toxicidad, la dosis prescrita, el momento y la frecuencia de administraci?n apropiados, el efecto de las dosis olvidadas y retrasadas y las instrucciones de almacenamiento, viaje y seguridad. T?cnicas de resoluci?n de problemas para el seguimiento de episodios de hipo/hiperglucemia y tratamientos. Reducir los comportamientos de reducci?n de riesgos, dejar de fumar, ex?menes regulares de ojos, pies y dentales. Coding Level of Care Code Est Pt Level 1 (61017) Diagnoses Type 2 diabetes mellitus with hyperglycemia, with long-term current use of insulin E11.65; Z79.4 Diabetes mellitus complication status: with hyperglycemia
== END 2024-01-09 11:35 | disposition home or self-care (01) ==
PROVIDERS: PCP Internal Medicine; Visit Provider Registered Nurse Diabetes Educator
DX: E11.65 Type 2 diabetes mellitus with hyperglycemia (principal); Z79.4 Long term (current) use of insulin

== ENCOUNTER → 2024-01-09 10:43 | Outpatient (BNVA) | payer OTHER, SELFPAY | PROVIDERS: PCP Internal Medicine; Visit Provider Registered Nurse Diabetes Educator | DX: E11.65 Type 2 diabetes mellitus with hyperglycemia (principal); Z79.4 Long term (current) use of insulin | CPT/HCPCS: 99211 ==

== ENCOUNTER 2024-02-11 08:54 | Outpatient (AMB) | payer OTHER, SELFPAY ==
[2024-02-11 08:56] VITALS: BP 120/62; PULSE 83; O2SAT 96; BMI 36.2
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
== END 2024-02-11 10:01 | disposition home or self-care (01) ==
PROVIDERS: PCP Internal Medicine; Visit Provider Internal Medicine
DX: Z09 Encounter for follow-up examination after completed treatment for conditions other than malignant neoplasm (principal); I60.9 Nontraumatic subarachnoid hemorrhage, unspecified; S49.91XA Unspecified injury of right shoulder and upper arm, initial encounter; S89.91XA Unspecified injury of right lower leg, initial encounter; S69.91XA Unspecified injury of right wrist, hand and finger(s), initial encounter; S59.901A Unspecified injury of right elbow, initial encounter

== ENCOUNTER → 2024-02-11 08:54 | Outpatient (BNVA) | payer OTHER, SELFPAY | PROVIDERS: PCP Internal Medicine; Visit Provider Internal Medicine ==

== ENCOUNTER 2024-02-18 13:08 | Outpatient (AMB) | payer OTHER, SELFPAY ==
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
[2024-02-18 13:12] VITALS: BP 116/72; PULSE 67; BMI 35.9
[2024-02-18 13:23] LABS: Glucose, Whole Blood 167 mg/dL (60-115)
== END 2024-02-18 13:58 | disposition home or self-care (01) ==
PROVIDERS: PCP Internal Medicine; Visit Provider Physician Assistant Medical
DX: E11.65 Type 2 diabetes mellitus with hyperglycemia (principal); Z79.4 Long term (current) use of insulin

== ENCOUNTER → 2024-02-18 13:08 | Outpatient (BNVA) | payer OTHER, SELFPAY | PROVIDERS: PCP Internal Medicine; Visit Provider Physician Assistant Medical | DX: E11.65 Type 2 diabetes mellitus with hyperglycemia (principal); I10 Essential (primary) hypertension; E78.5 Hyperlipidemia, unspecified; Z79.4 Long term (current) use of insulin; Z79.84 Long term (current) use of oral hypoglycemic drugs | CPT/HCPCS: 82947; 83036; 99212 ==

== ENCOUNTER 2024-02-24 08:00 | Outpatient (REF) | payer OTHER, SELFPAY ==
--- NOTE | ~2024-02-24 | XR_ITS ---
EXAMINATION: XR SHOULDER, RIGHT CLINICAL INFORMATION: Pain COMPARISON: None available. TECHNIQUE: AP external rotation, Grashey, scapular Y, and axillary views of the right shoulder. FINDINGS: Degenerative changes in the acromioclavicular joint and glenohumeral joint. Joint space narrowing. No acute cortical disruption or malalignment. No lytic or blastic lesions. Multilevel thoracic spondylosis. XR/XR shoulder RT min 2V IMPRESSION: Osteoarthrosis without acute fracture or dislocation. Electronically signed by: Jonah Dobson MD 03/03/2024 09:30 AM ABBIE
--- NOTE | ~2024-02-24 | XR_ITS ---
EXAMINATION: XR HAND, RIGHT CLINICAL INFORMATION: Pain COMPARISON: None available. TECHNIQUE: PA, lateral, and oblique views of the right hand. FINDINGS: No acute cortical disruption or malalignment. Joint space narrowing, radiocarpal and first and second carpometacarpal joints. No lytic or blastic lesions. XR/XR hand RT 2V IMPRESSION: Osteoarthrosis without acute fracture or dislocation. Electronically signed by: Jonah Dobson MD 03/03/2024 09:32 AM ABBIE
--- NOTE | ~2024-02-24 | XR_ITS ---
EXAMINATION: XR ELBOW, RIGHT CLINICAL INFORMATION: Pain COMPARISON: None available. TECHNIQUE: AP, lateral, and oblique views of the right elbow. FINDINGS: No acute cortical disruption or malalignment. Small focal exostosis and the medial epicondyles. No joint effusion. No metallic or radiopaque foreign body. No lytic or blastic lesions. XR/XR elbow RT 2V IMPRESSION: No acute fracture or dislocation. Electronically signed by: Jonah Dobson MD 03/03/2024 09:29 AM ABBIE NEELY
--- NOTE | ~2024-02-24 | XR_ITS ---
EXAMINATION: XR KNEE, RIGHT CLINICAL INFORMATION: Pain COMPARISON: None available. TECHNIQUE: Four views of the right knee. FINDINGS: Joint space narrowing involving the medial and lateral compartment with marginal osteophyte formation in the femoral condyles and tibial plateau. No acute cortical disruption or malalignment. Osteopenia versus osteoporosis. Exostosis of the patella tendon and quadriceps tendon insertion. No lytic or blastic lesions. No joint effusion, suprapatellar bursa. XR/XR knee RT 2V IMPRESSION: Tricompartmental osteoarthrosis without acute fracture or dislocation. Electronically signed by: Jonah Dobson MD 03/03/2024 09:34 AM EST
[2024-02-24 08:11] LABS: MANUAL DIFF FLAG NO
[2024-02-24 08:43] LABS: Basophils Absolute Auto 0.1 X10*3/uL (0.0-0.2); Basophils Percent Auto 0.7 % (0-2); Eosinophils Percent Auto 0.2 % (0-4); Hematocrit 45.6 % (37.0-47.0); Hemoglobin 14.7 g/dl (12.0-16.0); Imm Gran Abs Auto 0.05 X10*3/uL (0.00-0.03); Imm Gran Pct Auto 0.5 % (0.0-0.4); Lymphocytes Absolute Auto 3.2 X10*3/uL (1.2-4.9); Mean Corpuscular HGB Conc 32.2 g/dl (31.0-35.0); Mean Corpuscular Hemoglobin 28.8 pg (27.0-33.0); Mean Corpuscular Volume 89.2 fL (80.0-98.0); Mean Platelet Volume 10.9 fL (9.4-12.3); Monocytes Absolute Auto 0.6 X10*3/uL (0.1-1.2); Monocytes Percent Auto 6.5 % (2-11); Neutrophils Absolute Auto 5.5 x10*3/uL (2.0-8.3); Neutrophils Percent Auto 58.1 % (45-73); Platelet Count 312 X10*3/uL (160-400); Red Blood Count 5.11 X10*6/uL (4.20-5.50); Red Cell Distribution Width 13.5 % (11.0-16.0); White Blood Count 9.4 X10*3/uL (4.8-10.8)
[2024-02-24 08:57] LABS: Microalbum/Creatinine Ratio Ur 38.8 ug/mg cr (<30)
[2024-02-24 09:03] LABS: Alanine Aminotransferase 26 U/L (0-31); Albumin Level 4.1 g/dL (3.5-5.0); Alkaline Phosphatase 119 U/L (39-117); Anion Gap 10 (12-20); Aspartate Amino Transferase 28 U/L (5-31); Bilirubin Total 0.5 mg/dL (0.0-1.0); Blood Urea Nitrogen 12 mg/dL (9-16); Calcium 9.5 mg/dL (8.4-10.2); Carbon Dioxide 30 mmol/L (22-29); Chloride 105 mmol/L (96-108); Cholesterol 127 mg/dL (<200); Estimated Glomerular Filt Rate > 60; Glucose Fasting 209 mg/dL (60-99); HDL Cholesterol 46 mg/dL (>40); Iron 64 mcg/dL (30-160); LDL Cholesterol Calculated 67 mg/dL (<100); Percent Iron Saturation 23 % (15-50); Potassium 4.1 mmol/L (3.3-5.1); Sodium 141 mmol/L (135-145); Total Iron Binding Capacity 277 mcg/dL (228-428); Total Protein 7.5 g/dL (6.5-8.0); Triglycerides 74 mg/dL (<150); Unsaturated Iron Binding 213 ug/dL
[2024-02-24 09:18] LABS: Thyroid Stimulating Hormone 6.63 uIU/mL (0.32-4.0); Vitamin D 25-OH Total 37.1 ng/mL (>30)
[2024-02-24 09:33] LABS: Folate 15.7 ng/mL (> or = 4.0); Vitamin B12 555 pg/mL (200-900)
== END 2024-02-24 08:01 | disposition home or self-care (01) ==
LOC: HO.XRAY 08:00
PROVIDERS: PCP Internal Medicine; Visit Provider Internal Medicine
DX: E11.65 Type 2 diabetes mellitus with hyperglycemia (principal); M17.11 Unilateral primary osteoarthritis, right knee; M19.041 Primary osteoarthritis, right hand; M24.111 Other articular cartilage disorders, right shoulder; M25.521 Pain in right elbow; D64.9 Anemia, unspecified; E78.5 Hyperlipidemia, unspecified; E03.8 Other specified hypothyroidism; E06.3 Autoimmune thyroiditis; E53.8 Deficiency of other specified B group vitamins; E55.9 Vitamin D deficiency, unspecified
CPT/HCPCS: 36415; 73030; 73070; 73120; 73560; 80053; 80061; 82043; 82306; 82570; 82607; 82746; 83540; 84443; 85025

== ENCOUNTER → 2024-02-24 13:27 | Outpatient (BNV) | payer OTHER, SELFPAY | PROVIDERS: PCP Internal Medicine; Visit Provider Radiology Diagnostic Radiology | DX: M25.511 Pain in right shoulder (principal); M25.561 Pain in right knee; M25.521 Pain in right elbow; M79.641 Pain in right hand | CPT/HCPCS: 73030; 73070; 73120; 73560 ==

== ENCOUNTER 2024-02-26 08:48 | Outpatient (AMB) | payer OTHER, SELFPAY ==
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
[2024-02-26 08:53] VITALS: BMI 35.8
== END 2024-02-26 09:25 | disposition home or self-care (01) ==
LOC: HO.HOS 08:49
PROVIDERS: PCP Internal Medicine
DX: M75.101 Unspecified rotator cuff tear or rupture of right shoulder, not specified as traumatic (principal)
CPT/HCPCS: 99203

== ENCOUNTER → 2024-02-26 08:48 | Outpatient (BNVA) | payer OTHER, SELFPAY | PROVIDERS: PCP Internal Medicine | DX: E11.65 Type 2 diabetes mellitus with hyperglycemia (principal); Z79.4 Long term (current) use of insulin; M75.101 Unspecified rotator cuff tear or rupture of right shoulder, not specified as traumatic | CPT/HCPCS: 99211 ==

== ENCOUNTER 2024-02-26 10:53 | Outpatient (AMB) | payer OTHER, SELFPAY ==
--- NOTE | 2024-02-26 11:07 | A.OFFVIS_ITS ---
Intake Intake Visit Reasons: 60 min-lvm Automatic Lathe Operator Required: Yes Automatic Lathe Operator Name: John [facility] Information Interpreted: non-clinical & clinical Accompanied by: Self / Same As Patient Allergies metformin Adverse Reaction (Intermediate, Verified 02/26/24 08:59) diarrhea HPI Comprehensive Diabetes Asmnt Most Recent Diabetes Results: Microalb/Creat Ratio 38.8 ug/mg cr (<30) H 02/24/24 Cholesterol 127 mg/dL (<200) 02/24/24 HDL Cholesterol 46 mg/dL (>40) 02/24/24 Triglycerides 74 mg/dL (<150) 02/24/24 Creatinine 0.76 mg/dL (0.5-1.4) 02/24/24 Blood Urea Nitrogen 12 mg/dL (9-16) 02/24/24 Sodium 141 mmol/L (135-145) 02/24/24 Potassium 4.1 mmol/L (3.3-5.1) 02/24/24 Chloride 105 mmol/L (96-108) 02/24/24 Carbon Dioxide 30 mmol/L (22-29) H 02/24/24 Calcium 9.5 mg/dL (8.4-10.2) 02/24/24 AST 28 U/L (5-31) 02/24/24 ALT 26 U/L (0-31) 02/24/24 Total Protein 7.5 g/dL (6.5-8.0) 02/24/24 Albumin 4.1 g/dL (3.5-5.0) 02/24/24 [facility] Medical History DM2 (diabetes mellitus, type 2) Daytime somnolence Chronic pain of both knees Chronic pain of both hips Helicobacter pylori (H. 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 Diabetes type 2, uncontrolled Hypovitaminosis D Depression GERD (gastroesophageal reflux disease) Essential hypertension Headache Dyslipidemia Type 2 diabetes mellitus, with long-term current use of insulin Autoimmune thyroiditis Surgical History History of esophagogastroduodenoscopy (EGD) Hx of colonoscopy History of arthroscopy of right knee History of tubal ligation Family History Father Diabetes Mother Hypertension Maternal Grandmother Gynecologic cancer Family/Other FH: mental illness Maternal Uncle Chronic mental illness Social History (Updated 02/26/24 @ 08:54 by ALEXANDRA Hua) Housing: Apartment Alcohol intake: never Patient Tobacco Use Status: Never used Tobacco e-Cigarette/Vaping Use: Never Used Second Hand Smoke Exposure: No service: No Current occupational status: disabled Current occupation: rt handed Cognitive needs: Yes Hearing needs: No Vision needs: No Assessment & Plan Assessment & Plan (1) Type 2 diabetes mellitus, with long-term current use of insulin: Code(s): E11.9 - Type 2 diabetes mellitus without complications; Z79.4 - assisted (current) use of insulin Qualifiers: Diabetes mellitus complication status: with hyperglycemia Qualified Code(s): E11.65 - Type 2 diabetes mellitus with hyperglycemia; Z79.4 - assisted (current) use of insulin Plan: Diabetes self-management education and support participation record Assessment/scale: 1= needs instructed? 2= needs review? 3= comprehend keep point? 4= demonstrates understanding/ competent? NC= Not Covered Topics Learning Objective: Initial visit Initial or post srvc Initial or post srvc Initial or post srvc Initial or post srvc Initial or post srvc Post srvc Comments Pre Edu-assessment/plan Outcome or reassess Outcome or reassess Outcome or reassess Outcome or reassess Outcome or reassess Outcome or reassess Diabetes pathophysiology 1 3 Healthy eating 2 3 A Being active 1 3 Taking medication 1 3 Monitoring glucose 1 A Acute complication 1 Chronic complicated 1 3 Lifestyle and healthy coping 1 Diabetes distress in support 1 ?Diabetes pathophysiology: ?Defined diabetes med identify own type of diabetes; list 3 options for treating diabetes Healthy eating: ?Described effect of type, amount and ?timing of food on blood glucose; list 3 methods for planning meal Being active: ?State effect of exercise on blood glucose level Taking medication: ?State effect of diabetes medications on diabetes; name diabetes medications taking, action and side effects Monitoring glucose: ?Identify recommended blood glucose targets and personal target Acute complication: ?List symptoms and treatment of hyper and hypoglycemia, DKA, sick day guidelines and guidelines for severe weather or situations of crisis and diabetes supply manage Chronic complication: ?To find the relationship of blood glucose levels to long- term complications of diabetes in screening and preventative measures Lifestyle and healthy coping: ?Described lifestyle and healthy coping strategies to rule out diabetes self-management Diabetes to stress and support: ?Recognize Diabetes to stress and be able to identified support options Learning objectives: The patient was provided with verbal and written education on the following topics as outlined below. Patient questions/concerns Patient has started on Mounjaro 2.5 mg weekly, patient denies GI symptoms or nausea Patient is also taking Jardiance 25 mg daily Lantus 48 units daily, patient denies missing any medication doses Patient has not received Severino 3 sensors from pharmacy, recommended to patient she continued to contact pharmacy several times a week until they are back in stock Instructed patient to make appointment for Severino 3 setup The patient met all learning objectives and was able to verbalize understanding and provide teach back of education topics discussed . The patient was provided with the opportunity to ask questions and all questions were answered. Topics covered in today?s session included: Medications (If applicable) * Name of medication? * Dosing/administration instructions? * Mechanism of action? * Potential side effects? * Potential adverse reaction and appropriate treatment? * Review onset, peak, duration Assess for concerns re: insurance coverage, cost, barriers to compliance Insulin/Injectables (If applicable) * Storage/care of insulin?? * Injection sites? * Site rotation? * Onset, peak, duration * Drawing up insulin? * Injecting insulin/other injectables? * Sharps disposal Continuous blood glucose monitoring (if applicable) Hypoglycemia and Hyperglycemia * Signs and symptoms? * Causes?? * Treatment? * Preventing hypoglycemia? * When to seek medical attention Target Goals: * Blood glucose targets and how you feel when your blood glucose is in and out of your target ranges. * Monitoring and knowing your A1C. * What can make blood glucose go up and down and preventing high and low blood glucose. * Review of blood sugar targets in expected goal range and outside of expected goal range. * Problem solving and preventing hyper/hypoglycemia. * Sick day management of diabetes. * Using blood sugar results in decision making process in managing diabetes. ?Patient was receptive to information provided and participated in the discussion. Asked?appropriate questions and demonstrated good understanding of the topics discussed.? ? Educational Materials: The patient was provided with the following written educational materials: Target Goal handout Smart Goal Assessment:? Patient will identify foods that she is currently eating that contain carbohydrates by today's visit. Pt met goal 50% New Smart Goal: Patient will increase testing of glucose levels to once a day Patient Response to instructions: Comprehension of Instructions: fair Readiness to make changes:? Contemplation How confident they feel about making changes: Fair Portions of this note were created using voice recognition software, please excuse any words or phrases that may have been misinterpreted. Patient Instructions: Contact special education paraeducator when you receive [employer] 3 sensors and reader for training appointment Follow-up with special education paraeducator in 1 month Coding Level of Care Code Est Pt Level 1 (40295) Diagnoses Type 2 diabetes mellitus with hyperglycemia, with long-term current use of insulin E11.65; Z79.4 Diabetes mellitus complication status: with hyperglycemia
== END 2024-02-26 11:43 | disposition home or self-care (01) ==
LOC: HO.ENCR 10:53
PROVIDERS: PCP Internal Medicine; Visit Provider Registered Nurse Diabetes Educator
DX: E11.65 Type 2 diabetes mellitus with hyperglycemia (principal); Z79.4 Long term (current) use of insulin

== ENCOUNTER 2024-03-03 07:45 | Outpatient (AMB) | payer OTHER, SELFPAY ==
[2024-03-03 08:07] VITALS: BP 130/82; BMI 35.6
--- NOTE | 2024-03-03 08:07 | MHC.PC.OV ---
Vital Signs 03/03/24 08:07 Height 5 ft 3 in Weight 201 lb BMI 35.6 BP 130/82 Blood Pressure Location Lt brachial Position Sitting Intake Visit Reasons: DM Intake Note: Patient here for a follow up DM Weight Calculator Required: No Accompanied by: Daughter Allergies metformin Adverse Reaction (Intermediate, Verified 03/03/24 08:36) diarrhea Medication List - Last Reconciled 03/03/24 by Payal Villanueva MD acetaminophen 500 mg PO Q6H PRN 30 days albuterol sulfate 90 mcg/actuation 2 puffs inhalation Q4-6H PRN alcohol swabs (BD Alcohol Swabs) 1 pad topical BID 30 days aspirin 81 mg PO DAILY 90 days atorvastatin 80 mg PO DAILY blood pressure monitor As directed blood sugar diagnostic (FreeStyle Test strips) Use 1 test strip twice a day blood-glucose meter (FreeStyle Lite Meter kit) As directed blood-glucose meter,continuous (FreeStyle Severino 3 [place]) Use daily to monitor blood glucose continuously blood-glucose sensor (FreeStyle Severino 3 Sensor device) apply new sensor every 14 days to monitor blood glucose continuously cholecalciferol (vitamin D3) (Vitamin D3) 50 mcg PO DAILY clotrimazole-betamethasone 1-0.05 % 1 appl topical BID 7 days doxepin 50 mg PO BEDTIME empagliflozin (Jardiance) 25 mg PO DAILY 90 days enalapril maleate 5 mg PO DAILY 90 days escitalopram oxalate 20 mg PO DAILY 90 days ezetimibe 10 mg PO DAILY 90 days famotidine (Pepcid) 20 mg PO BEDTIME glucose (Dex4 Glucose) 16 grams (4 x 4 gram) PO Q15M PRN hydroxyzine HCl 25 mg PO BID 30 days incontinence pad, liner, disp Use 1 pad 6 times a day as needed insulin glargine (Lantus Solostar U-100 Insulin) 40 units subcut DAILY lancets As directed levothyroxine 125 mcg PO DAILY 90 days pen needle, diabetic As directed pen needle, diabetic (BD Rona 2nd Gen Pen Needle) once a day polyethylene glycol 3350 (Miralax) 17 grams PO DAILY [right arm sling As directed] Shower Chair As directed simethicone (Gas Relief (simethicone)) 125 mg PO TID-QID PRN tirzepatide (Mounjaro) 2.5 mg (0.5 mL) subcut QWEEK walker rollator walker- use as directed Tobacco use date assessed: 06/10/23 Fall risk assessment: No Falls in past year Last assessed Fall Risk: 03/03/24 Dental Screening Dental Screen Date: 03/03/24 Did you have a dental visit in the last 12 months?: No Did you have a dental problem in the last 6 months where you did not have access to dental care?: No Was dental information given to patient?: Patient has dentist HPI HPI Comments History of Present Illness Details This is a 64-year-old female with diabetes mellitus type 2 on long-term current use of insulin, hypertension, dyslipidemia, hypothyroidism and microalbuminuria that comes today accompanied by daughter for follow-up on her conditions. Last A1c was elevated and this is follow by Endocrinology which added Marimar recently. Blood pressure stable. LDL within goal. TSH elevated and I will increase levothyroxine from 125 mcg to 137 mcg and thyroid function test will be repeated in 6 weeks. Has elevated microalbumin and will be referred to Nephrology for that matter. She is obese with a BMI of 35.6 and was advised to do diet and exercise to reach BMI goal less than 30. Walks with a walker for gait stability. Patient has mild major depression stable with escitalopram. [facility] Medical History (Updated 03/03/24 @ 08:42 by Payal Villanueva MD) DM2 (diabetes mellitus, type 2) Daytime somnolence Chronic pain of both knees Chronic pain of both hips Helicobacter pylori (H. 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 Diabetes type 2, uncontrolled Hypovitaminosis D Depression GERD (gastroesophageal reflux disease) Essential hypertension Headache Dyslipidemia Type 2 diabetes mellitus, with long-term current use of insulin Autoimmune thyroiditis Surgical History History of esophagogastroduodenoscopy (EGD) Hx of colonoscopy History of arthroscopy of right knee History of tubal ligation Family History Father Diabetes Mother Hypertension Maternal Grandmother Gynecologic cancer Family/Other FH: mental illness Maternal Uncle Chronic mental illness Social History Housing: Apartment Alcohol intake: never Patient Tobacco Use Status: Never used Tobacco e-Cigarette/Vaping Use: Never Used Second Hand Smoke Exposure: No service: No Current occupational status: disabled Current occupation: rt handed Cognitive needs: Yes Hearing needs: No Vision needs: No Questionnaire Thrive Questionnaire Date Thrive assessed: 06/10/23 Are you currently unemployed and looking for a job?: No FRANCISCO-7 AMB Questionnaire FRANCISCO-7 Date FRANCISCO - 7 assessed: 06/10/23 Source: Developed by Drs. Liang Gao, Joan Cruz, Chip Aldana and colleagues, with an educational mei from [employer]. Review of Systems Const All systems reviewed & are unremarkable except as noted in HPI and below Card Denies chest pain at rest, Denies chest pain with activity, Denies edema, Denies irregular heart rhythm, Denies claudication, Denies dyspnea, Denies dyspnea on exertion, Denies orthopnea, Denies paroxysmal nocturnal dyspnea and Denies slow heart rate Resp Denies cough, Denies dyspnea and Denies dyspnea on exertion GI Denies abdominal pain, Denies change in bowel habits, Denies excessive flatus, Denies nausea and Denies vomiting Denies urinary incontinence, Denies urinary hesitancy and Denies urinary urgency Musc Reports limited range of motion Neuro Denies behavioral changes and Denies lack of coordination Psych Denies behavioral changes Physical exam (Primary Care) Vital Signs: Last Vital Signs BP 130/82 03/03/24 08:07 BMI result Body Mass Index 35.6 BMI Assessment/Plan discussion: High BMI High, discussed plan: lifestyle, weight reduction, dietary and physical activity Tobacco/Smoking Status: Tobacco use Status Tobacco use date assessed 06/10/23 03/03/24 08:07 Patient Tobacco Use Status Never used Tobacco 03/03/24 08:07 e-Cigarette/Vaping Use Never Used 03/03/24 08:07 Thrive Assessment: Date of Thrive Assessment Date Thrive assessed 06/10/23 03/03/24 08:07 Const Nutritional Appearance: obese Orientation/consciousness: patient oriented x3 Limitations: ambulation with walker Resp Effort & Inspection: normal respiratory effort Auscultation: clear to auscultation bilaterally Cardio Jugular venous distension: no JVD Rate: regular rate Rhythm: regular rhythm Heart sounds: S1 normal heart sound present and S2 normal heart sound present Neuro General: patient oriented x3 and no focal motor deficits Office Procedures Flu Questionnaire Does the patient have a severe egg allergy?: No Does the patient have severe life threatening allergies?: No Does the patient have a fever or illness today?: No Has the patient ever had Guillain-Fertile Syndrome?: No Has the patient ever had any past reaction to a flu shot?: No Immunizations Fluarix Triv [id number] (PF) 45 mcg (15 mcg x 3)/0.5 mL IM syringe Performing Provider: Payal Villanueva MD [facility] Administered by: ALEXANDRA Chaves on 03/03/24 08:51 Dose Route Admin Location Dispensed Lot Number Expiration Date NDC Veneer Drier Tailer 0.5 mL IM Left Deltoid 0.5 mL [id number] 10/26/24 [id number] LTG Federal VIS Given Date VIS Provided VIS Publication Date 03/03/24 Single Vaccine 20 Eligibility Eligibility Date Funding Source Not [facility] Eligible 03/03/24 Private Coding Level of Care Code Est Pt Level 4 (82312) Complex EM visit Add On G2211 Diagnoses Microalbuminuria R80.9 Mild depression F32.0 Type 2 diabetes mellitus with hyperglycemia, with long-term current use of insulin E11.65; Z79.4 Diabetes mellitus complication status: with hyperglycemia Essential hypertension I10 Dyslipidemia E78.5 Hypothyroidism (acquired) E03.9 Time Spent (min) 24 Assessment & Plan Assessment & Plan (1) Microalbuminuria: Code(s): R80.9 - Proteinuria, unspecified Category: Medical Plan: Referred to nephrology. (2) Mild depression: Code(s): F32.0 - Major depressive disorder, single episode, mild Category: Medical Plan: Continue escitalopram. (3) Type 2 diabetes mellitus, with long-term current use of insulin: Code(s): E11.9 - Type 2 diabetes mellitus without complications; Z79.4 - nursing home (current) use of insulin Category: Medical Qualifiers: Diabetes mellitus complication status: with hyperglycemia Qualified Code(s): E11.65 - Type 2 diabetes mellitus with hyperglycemia; Z79.4 - long term care phlebotomist (current) use of insulin Plan: Continue insulin, Jardiance and Mounjaro. A1c goal is equal or less than 7%. Follow-up with endocrinology. (4) Essential hypertension: Code(s): I10 - Essential (primary) hypertension Category: Medical Plan: Continue enalapril. Blood pressure goal is equal or less than 130/80. (5) Dyslipidemia: Code(s): E78.5 - Hyperlipidemia, unspecified Category: Medical Plan: Continue statins. LDL goal is less than 70. (6) Hypothyroidism (acquired): Code(s): E03.9 - Hypothyroidism, unspecified Category: Medical Plan: Increase levothyroxine to 137 mcg. Repeat nonfasting thyroid function test in 6 weeks. Orders: Orders Thyroid Stimulating Hormone 6 Weeks E03.9 - Hypothyroidism, unspecified Influenza [id number] Immunization Today Z23 - Encounter for immunization Referrals Nephrology Referral R80.9 - Proteinuria, unspecified Medications: New levothyroxine 137 mcg PO DAILY 90 tabs 0RF 90 days Discontinued levothyroxine Discontinued Reason: Patient Completed Course 125 mcg PO DAILY 90 days 90 tabs 0RF
== END 2024-03-03 08:49 | disposition home or self-care (01) ==
LOC: HO.HMCH 07:46
PROVIDERS: PCP Internal Medicine; Visit Provider Internal Medicine
DX: R80.9 Proteinuria, unspecified (principal); F32.0 Major depressive disorder, single episode, mild; E11.65 Type 2 diabetes mellitus with hyperglycemia; Z79.4 Long term (current) use of insulin; I10 Essential (primary) hypertension; E78.5 Hyperlipidemia, unspecified; E03.9 Hypothyroidism, unspecified; Z23 Encounter for immunization

== ENCOUNTER → 2024-03-03 07:45 | Outpatient (BNVA) | payer OTHER, SELFPAY | PROVIDERS: PCP Internal Medicine; Visit Provider Internal Medicine | DX: Z23 Encounter for immunization (principal); R80.9 Proteinuria, unspecified; F32.0 Major depressive disorder, single episode, mild; E11.65 Type 2 diabetes mellitus with hyperglycemia; Z79.4 Long term (current) use of insulin; I10 Essential (primary) hypertension; E78.5 Hyperlipidemia, unspecified; E03.9 Hypothyroidism, unspecified | CPT/HCPCS: 90471; 90656; 99212 ==

== ENCOUNTER 2024-03-12 08:14 | Outpatient (REF) | payer OTHER, SELFPAY ==
--- NOTE | ~2024-03-12 | FL_ITS ---
EXAMINATION: XR FLUOROSCOPY UPPER GI WITH AIR CLINICAL INFORMATION: Dysphagia COMPARISON: None TECHNIQUE: Fluoroscopic air contrast upper GI examination was performed utilizing standard techniques with thin and thick barium and effervescent granules. Numerous spot images were obtained. FINDINGS: Lateral cine images of the oropharynx and hypopharynx demonstrate normal swallow mechanism with normal epiglottic inversion and soft palate elevation. There is trace laryngeal penetration with thick barium. No tracheal penetration, glottic or subglottic aspiration identified. No nasopharyngeal reflux present. Hypopharyngeal structures appear normal without evidence of mass or diverticulum. There was no significant cricopharyngeal achalasia. There is mild posterior compression of the cervical esophagus due to an anterior bridging osteophyte at C5-C6. Dual and single contrast images of the esophagus demonstrate normal caliber, contour, and mucosal pattern. No evidence of stricture, mass, or ulcerations identified. Esophageal peristalsis is mildly disorganized. A small type I hiatal hernia is present. No significant gastroesophageal reflux was seen during the course of the examination and on reflux views. Dual contrast and single contrast images of the stomach demonstrated a normal contour. There are multiple small foci of contrast pooling throughout the stomach that likely represent small mucosal ulcerations. No masses are present. Contrast freely passed into the gastric antrum and duodenal bulb without delay. Single and air-contrast images of the duodenal bulb demonstrate no abnormality. The duodenal sweep has a normal appearance, course, and mucosal fold appearance. The imaged proximal jejunum has a normal fold pattern and caliber. FLUOROSCOPY TIME: 5 minutes 6 seconds Number of Spot Images: 8 Number of Cine: 17 DOSE AREA PRODUCT: 3724 uGy-m2 (microgray-meter squared) FL/FL barium swallow IMPRESSION: 1. Trace laryngeal penetration with thick barium. 2. Mild posterior compression of the cervical esophagus due to anterior bridging osteophyte at C5-C6. 3. Mildly disorganized esophageal peristalsis. 4. Small type I hiatal hernia. 5. Multiple small foci of contrast pooling throughout the stomach that likely represent small mucosal ulcerations. Recommend correlation with EGD. This procedure was performed by Vik Damon PA-C, and supervised by Dr. Carrington Electronically signed by: Cesario Carrignton MD 03/12/2024 04:47 PM [facility] [place]
== END 2024-03-12 08:15 | disposition home or self-care (01) ==
LOC: HO.XRAY 08:14
PROVIDERS: PCP Internal Medicine; Visit Provider Internal Medicine
DX: R13.10 Dysphagia, unspecified (principal)
CPT/HCPCS: 74220

== ENCOUNTER → 2024-03-12 08:15 | Outpatient (BNV) | payer OTHER, SELFPAY | PROVIDERS: PCP Internal Medicine; Visit Provider Physician Assistant Surgical | DX: R13.10 Dysphagia, unspecified (principal) | CPT/HCPCS: 74246 ==

== ENCOUNTER 2024-03-17 12:38 | Outpatient (AMB) | payer OTHER, SELFPAY ==
--- NOTE | 2024-03-17 12:47 | A.OFFVIS_ITS ---
Vital Signs 03/17/24 12:52 Height 5 ft 3 in Weight 203 lb 0.732 oz BMI 36.0 BP 126/62 Blood Pressure Location Lt brachial Position Sitting Pulse 82 Pulse Source Pulse Oximeter Intake Visit Reasons: review CGM and Mounjaro/LVM Intake Note: Patient present today to follow up on Type 2 Diabetes Mellitus. Last Diabetic Eye exam: Due, has an upcoming appt this month Last Podiatry Visit: Does not see a Monument Installer Random Glucose: 153 mg/dl HgA1C: 10.3% 02/18/2024 Digital Content Coordinator Required: Yes Digital Content Coordinator Language: Special Projects Coordinator Services: Digital Content Coordinator Present Digital Content Coordinator Name: Hailey Information Interpreted: non-clinical & clinical Accompanied by: Self / Same As Patient Allergies metformin Adverse Reaction (Intermediate, Verified 03/17/24 12:53) diarrhea HPI Comments Details: This is a 64-year-old Syriac speaking female with a past medical history type 2 diabetes, hypothyroidism, dyslipidemia, hypertension, depression and GERD presenting for diabetic management. Hemoglobin a1c 10.3% 02/18/24. She forgot her glucometer today. 130-150 AM fasting readings reported by patient. 160-180s later in the day. Denies glucose >200 since starting Mounjaro. Denies hypoglycemia. Current medication regimen: Lantus 40 units daily and Jardiance 25 mg daily and Mounjaro 2.5 mg weekly. Ozempic stopped in December due to dizziness reported by the patient. Intolerant to metformin which caused diarrhea. Severino 3 was approved, and we confirmed that she can pick it up with the pharmacy tomorrow. Diet: Breakfast-sandwich, coffee with cream and sugar Lunch-yogurt Dinner-rice, beef, fish, beans Snacks/desserts: apple, strawberry No alcohol Nonsmoker Hypoglycemia symptoms: Denies. Hyperglycemia symptoms: none Eye exam: Overdue, she has an appointment this month Microvascular complications: neuropathy in her toes and fingers, nephropathy (microalbumin) Macrovascular complications: None Hypertension: treated with Enalapril 5 mg. Hyperlipidemia: treated with Zetia 10 mg and Atorvastatin 80 mg. LDL at goal <100. ROS: Eyes: No vision changes, blurry vision, double vision Respiratory: No shortness of breath Cardiovascular: No chest pain Gastrointestinal: No anorexia, nausea, vomiting or diarrhea. No abdominal pain Endocrine: No cold or heat intolerance. No polyuria or polydipsia. Physical exam: Constitutional: Alert, in no distress. Neck: Supple, Full range of motion. No lymphadenopathy. Respiratory: Clear to auscultation. Cardiovascular: S1 S2 regular. No murmurs PFSH Medical History DM2 (diabetes mellitus, type 2) Daytime somnolence Chronic pain of both knees Chronic pain of both hips Helicobacter pylori (H. 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 Diabetes type 2, uncontrolled Hypovitaminosis D Depression GERD (gastroesophageal reflux disease) Essential hypertension Headache Dyslipidemia Type 2 diabetes mellitus, with long-term current use of insulin Autoimmune thyroiditis Surgical History History of esophagogastroduodenoscopy (EGD) Hx of colonoscopy History of arthroscopy of right knee History of tubal ligation Family History Father Diabetes Mother Hypertension Maternal Grandmother Gynecologic cancer Family/Other FH: mental illness Maternal Uncle Chronic mental illness Social History Housing: Apartment Alcohol intake: never Patient Tobacco Use Status: Never used Tobacco e-Cigarette/Vaping Use: Never Used Second Hand Smoke Exposure: No service: No Current occupational status: disabled Current occupation: rt handed Cognitive needs: Yes Hearing needs: No Vision needs: No Physical Exam Vital Signs: Last Vital Signs Pulse 82 03/17/24 12:52 BP 126/62 03/17/24 12:52 BMI result Body Mass Index 36.0 Results Reviewed Results Reviewed: Laboratory Tests 10/07/23 10/07/23 10/07/23 08:17 09:10 09:13 Creatinine 0.78 Estimated GFR > 60 Hgb A1c (Clinic) 10.3 H Triglycerides 171 H Cholesterol 174 LDL Cholesterol, Calc 100 H HDL Cholesterol 40 L TSH 1.32 Urine Creatinine 106.21 Urine Microalbumin 43.0 Microalb/Creat Ratio 40.4 H Assessment & Plan Assessment & Plan (1) Type 2 diabetes mellitus, with long-term current use of insulin: Code(s): E11.9 - Type 2 diabetes mellitus without complications; Z79.4 - terminologist (current) use of insulin Category: Medical Qualifiers: Diabetes mellitus complication status: with hyperglycemia Qualified Code(s): E11.65 - Type 2 diabetes mellitus with hyperglycemia; Z79.4 - terminologist (current) use of insulin Plan In summary this is a 63-year-old female with uncontrolled type 2 diabetes with microvascular complications. I reviewed the importance of checking blood glucose consistently so we can review data at the appointments and make adjustments to her medication plan. The pharmacy confirmed she can supervisor opening and picking Severino 3 tomorrow, and she will contact us when she has it to set up an appointment for placement/Education. Added BNP to lab orders per ADA guidelines. Increase Mounjaro to 5 mg weekly. Continue Lantus 40 units daily. Continue Jardiance 25 mg daily. Follow up in 4 weeks for type 2 diabetes. Orders: Orders B Type Natriuretic Peptide Today E11.9 - Type 2 diabetes mellitus without complications Medications: New blood-glucose sensor (FreeStyle Severino 3 Plus Sensor device) Apply 1 new sensor every 14 days as directed to monitor blood glucose continuously. 2 ea 11RF blood-glucose sensor (FreeStyle Severino 3 Plus Sensor device) Apply 1 new sensor every 14 days as directed to monitor blood glucose continuously. 2 ea 11RF tirzepatide (Mounjaro) 5 mg (0.5 mL) subcut QWEEK 2 mL 0RF Discontinued tirzepatide (Mounjaro) for 4 weeks Discontinued Reason: Doctor's Order 2.5 mg (0.5 mL) subcut QWEEK 2 mL 0RF Coding Level of Care Code Est Pt Level 4 (18422) Complex EM visit Add On G2211 Diagnoses Type 2 diabetes mellitus with hyperglycemia, with long-term current use of insulin E11.65; Z79.4 Diabetes mellitus complication status: with hyperglycemia
[2024-03-17 12:52] VITALS: BP 126/62; PULSE 82; BMI 36.0
[2024-03-17 13:04] LABS: Glucose, Whole Blood 153 mg/dL (60-115)
== END 2024-03-17 13:22 | disposition home or self-care (01) ==
PROVIDERS: PCP Internal Medicine; Visit Provider Physician Assistant Medical
DX: E11.65 Type 2 diabetes mellitus with hyperglycemia (principal); Z79.4 Long term (current) use of insulin

== ENCOUNTER → 2024-03-17 12:38 | Outpatient (BNVA) | payer OTHER, SELFPAY | PROVIDERS: PCP Internal Medicine; Visit Provider Physician Assistant Medical | DX: E11.65 Type 2 diabetes mellitus with hyperglycemia (principal); Z79.4 Long term (current) use of insulin | CPT/HCPCS: 82947; 99212 ==

== ENCOUNTER 2024-03-20 10:51 | Outpatient (AMB) | payer OTHER, SELFPAY ==
--- NOTE | 2024-03-20 10:59 | HO.NEPHOV ---
Vital Signs 03/20/24 11:02 Height 5 ft 3 in Weight 201 lb BMI 35.6 BP 100/70 Blood Pressure Location Rt brachial Position Sitting Pulse 75 Pulse Source Pulse Oximeter Pulse Oximetry (%) 98 Oxygen Delivery Method Room Air Intake Visit Reasons: Proteinuria/ Conf Industrial Engineering Technician Required: Yes Industrial Engineering Technician Language: Planisher Services: Industrial Engineering Technician Present Industrial Engineering Technician Name: Anurdaha [id number] Accompanied by: Daughter Allergies metformin Adverse Reaction (Intermediate, Verified 03/20/24 11:01) diarrhea HPI Comments Details: I had the pleasure of seeing Cara in consultation for proteinuria. She is 64 years of age with DM and hypertension among other medical issues. Her blood sugars are controlled with her last A1c over 10.0. She denies retinopathy, neuropathy, PAD, LISA, carotid stenosis, CHF, CAD but had SAH. She has high BMI. She denies bone pain, high calcium, edema, any bisphosphonate intake, epistaxis, new skin rashes, photosensitivity, hematuria, renal calculus. Her renal functions are normal. She does not take excess NSAID's. She denies any new systemic complaints. [facility] Medical History DM2 (diabetes mellitus, type 2) Daytime somnolence Chronic pain of both knees Chronic pain of both hips Helicobacter pylori (H. 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 (acquired) care home (current) use of insulin Diabetes type 2, uncontrolled Hypovitaminosis D Depression GERD (gastroesophageal reflux disease) Essential hypertension Headache Dyslipidemia Type 2 diabetes mellitus, with long-term current use of insulin Autoimmune thyroiditis Surgical History History of esophagogastroduodenoscopy (EGD) Hx of colonoscopy History of arthroscopy of right knee History of tubal ligation Family History Father Diabetes Mother Hypertension Maternal Grandmother Gynecologic cancer Family/Other FH: mental illness Maternal Uncle Chronic mental illness Social History Housing: Apartment Alcohol intake: never Patient Tobacco Use Status: Never used Tobacco e-Cigarette/Vaping Use: Never Used Second Hand Smoke Exposure: No service: No Current occupational status: disabled Current occupation: rt handed Cognitive needs: Yes Hearing needs: No Vision needs: No Physical Exam Vital Signs: Last Vital Signs Pulse 75 03/20/24 11:02 BP 100/70 03/20/24 11:02 Pulse Ox 98 03/20/24 11:02 Oxygen Delivery Method Room Air 03/20/24 11:02 BMI result Body Mass Index 35.6 Const General: comfortable and no acute distress Orientation/consciousness: patient oriented x3 HEENT Head: Yes normocephalic Mouth: Normal oral and palatal mucosa present Eyes EOM: EOMs intact bilaterally Neck Neck: Yes supple Resp Auscultation: clear to auscultation bilaterally Cardio Jugular venous distension: no JVD Rate: regular rate GI Palpation (GI): Soft to palpation Auscultation: normal bowel sounds General: Yes no CVA tenderness Back/Spine/Pelvis Back: no CVA tenderness Skin General skin exam: no rashes or lesions noted Neuro General: patient oriented x3 and moves all extremities Extrem General: Yes no pedal edema Results Reviewed Nephrology Results: No Data to Display Assessment & Plan Assessment & Plan (1) Diabetic nephropathy associated with type 2 diabetes mellitus: Code(s): E11.21 - Type 2 diabetes mellitus with diabetic nephropathy Category: Medical Plan Cara has proteinuria likely from Diabetic nephropathy. She has high BMI. She is on ACEI as well as Jardiance. She avoids NSAID's. Her renal functions are normal. I ordered W/U. There is no indication for renal biopsy now. I shall continue to work her up & optimize her medications based on evolving data. She should lose weight and minimize NSAID's. Answered all questions Orders: Orders Protein Creatinine Ratio, Ur 2 Months R80.9 - Proteinuria, unspecified Immunofixation, Random Urine 2 Months R80.9 - Proteinuria, unspecified Immunofixation Pnl, Serum 2 Months R80.9 - Proteinuria, unspecified Coding Level of Care Code New Pt Level 4 (22125) Diagnoses Diabetic nephropathy associated with type 2 diabetes mellitus E11.21
[2024-03-20 11:02] VITALS: BP 100/70; PULSE 75; O2SAT 98; BMI 35.6
== END 2024-03-20 11:33 | disposition home or self-care (01) ==
PROVIDERS: PCP Internal Medicine; Referring Provider Internal Medicine; Visit Provider Internal Medicine Nephrology
DX: E11.21 Type 2 diabetes mellitus with diabetic nephropathy (principal)
CPT/HCPCS: 99204

== ENCOUNTER → 2024-03-20 10:51 | Outpatient (BNVA) | payer OTHER, SELFPAY | PROVIDERS: PCP Internal Medicine; Referring Provider Internal Medicine; Visit Provider Internal Medicine Nephrology | DX: E11.21 Type 2 diabetes mellitus with diabetic nephropathy (principal) | CPT/HCPCS: 99202 ==

== ENCOUNTER 2024-03-21 08:53 | Outpatient (REF) | payer OTHER, SELFPAY ==
--- NOTE | ~2024-03-21 | MR_ITS ---
EXAMINATION: MR BRAIN WITHOUT CONTRAST CLINICAL INFORMATION: Concussion with loss of consciousness. COMPARISON: None available. TECHNIQUE: MRI of the brain was obtained using routine sequences without contrast. FINDINGS: No focal restricted diffusion is demonstrated to suggest acute or subacute cerebral ischemia. No evidence of acute or chronic hemorrhagic products on heme-sensitive imaging. Scattered periventricular and deep white matter T2 FLAIR hyperintensities consistent with mild underlying microangiopathy. Proportional prominence of the ventricles and sulcal spaces without evidence of obstructive hydrocephalus. No abnormal mass effect. No midline shift. Normal appearance of the pituitary gland. Normal positioning of the cerebellar tonsils. Normal arterial and venous vascular flow voids are present. Normal, homogeneous marrow signal. Mild mucosal thickening of the paranasal sinuses. No signal abnormalities within the mastoids. The patient is edentulous. MR/MR head/brain wo con IMPRESSION: 1. No acute intracranial abnormalities. 2. Mild underlying microangiopathy and generalized cerebral volume loss. Electronically signed by: Rickie Hughes DO 04/08/2024 01:24 PM ABBIE
== END 2024-03-21 08:54 | disposition home or self-care (01) ==
LOC: HO.MRI 08:53
PROVIDERS: PCP Internal Medicine; Visit Provider Internal Medicine
DX: I60.9 Nontraumatic subarachnoid hemorrhage, unspecified (principal); R51.9 Headache, unspecified
CPT/HCPCS: 70551

== ENCOUNTER 2024-03-30 09:10 | Outpatient (AMB) | payer OTHER, SELFPAY ==
[2024-03-30 09:18] VITALS: BP 132/60; PULSE 80; O2SAT 97; BMI 36.0
--- NOTE | 2024-03-30 09:18 | A.OFFVIS_ITS ---
Vital Signs 03/30/24 09:18 Height 5 ft 3 in Weight 203 lb 4.259 oz BMI 36.0 BP 132/60 Blood Pressure Location Lt brachial Position Sitting Pulse 80 Pulse Source Pulse Oximeter Pulse Oximetry (%) 97 Oxygen Delivery Method Room Air Intake Visit Reasons: 3 month follow up Constipation PT N/S last appt Intake Note: simethicone 125 mg capsule (Gas Relief (simethicone)) 125 mg PO TID-QID PRN 120 caps 2RF Derrick,Janae D 09/13/23 10:11 (Transmitted) famotidine 20 mg tablet (Pepcid) 20 mg PO BEDTIME 90 tabs 3RF Derrick,Janae D 09/13/23 10:11 (Transmitted) Relevant Flags or Indicators ? Requires Certified Pesticide Applicator? Katarina Marroquin presents in office today for a scheduled 6 mos FUV. CC; No recent labs, diagnostics. Pt reports that she had an MRI performed since last visit. Relevant GI Sx as reported per pt? ?Abdominal Pain - B/L LQ Pain. ?Hx of any recent surgeries? None Pt would like clarification on previous dx of ulceration? Certified Pesticide Applicator Required: Yes Certified Pesticide Applicator Services: Certified Pesticide Applicator Present Certified Pesticide Applicator Name: [id number] - Delia Information Interpreted: non-clinical & clinical Accompanied by: Family/Other Allergies metformin Adverse Reaction (Intermediate, Verified 03/30/24 09:19) diarrhea HPI HPI 3 month follow up Constipation PT N/S last appt: Details: LAST VISIT: GERD (gastroesophageal reflux disease) Constipation Plan Continue famotidine at bedtime. Continue avoiding dietary triggers late night snacking. Discussed with patient avoiding late night snacking. Staying upright for minimum 3 hours after meals discussed with patient. Patient reports postprandial abdominal bloating. Low FODMAP diet discussed with patient. List of food recommended as well as list of food to avoid given to patient. Increase fluid intake and activity to promote better bowel motility. Follow-up in the office in 3 months, sooner on as needed basis. Patient is agreeable to this plan and verbalizes understanding of instructions she was given the opportunity to ask questions and all questions answered. ? Thank you for allowing me to participate in Medications New simethicone (Gas Relief (simethicone)) 125 mg PO TID-QID PRN 120 caps 2RF abdominal distention R14.0 Refilled famotidine (Pepcid) 20 mg PO BEDTIME 90 tabs 3RF K21.9 TODAY'S VISIT: Patient is here today for follow-up. Patient is accompanied by her SENIOR HR GENERALIST who is also her daughter. meter tester polyphase used during the visit. Patient reports left lower quadrant pain occasionally. Patient does not feel like she is constipated. She feels like she moves her bowels. Does report significant blo ating. Her left lower quadrant pain feels like cramping. Patient denies any diarrhea. Denies melena, hematochezia, unintentional weight loss or ribbon like stools. Patient had colonoscopy in 2019 that showed no polyps, however suboptimal prep to right side of her colon. Mild diverticulosis in sigmoid colon seen at that time. Currently patient is not taking any additional fiber. Her diet for the most part is consistent with [place] food, rice and beans, not much vegetables in her diet. Patient is not drinking enough water. Patient denies any dyspepsia, dysphagia or odynophagia. Denies any acid reflux. Currently patient is taking famotidine at bedtime. [facility] Medical History DM2 (diabetes mellitus, type 2) Daytime somnolence Chronic pain of both knees Chronic pain of both hips Helicobacter pylori (H. 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 Diabetes type 2, uncontrolled Hypovitaminosis D Depression GERD (gastroesophageal reflux disease) Essential hypertension Headache Dyslipidemia Type 2 diabetes mellitus, with long-term current use of insulin Autoimmune thyroiditis Surgical History History of esophagogastroduodenoscopy (EGD) Hx of colonoscopy History of arthroscopy of right knee History of tubal ligation Family History Father Diabetes Mother Hypertension Maternal Grandmother Gynecologic cancer Family/Other FH: mental illness Maternal Uncle Chronic mental illness Social History Housing: Apartment Alcohol intake: never Patient Tobacco Use Status: Never used Tobacco e-Cigarette/Vaping Use: Never Used Second Hand Smoke Exposure: No service: No Current occupational status: disabled Current occupation: rt handed Cognitive needs: Yes Hearing needs: No Vision needs: No Review of Systems Const Denies weight gain and Denies weight loss ENT Reports no additional complaints, Denies dysphagia and Denies odynophagia Card Reports no additional complaints Resp Reports no additional complaints GI Reports abdominal pain (LLQ), Denies belching, Denies melena, Reports bloating, Denies change in bowel habits, Denies dysphagia, Denies excessive flatus, Denies dyspepsia, Denies heartburn, Denies diarrhea, Denies loose stools, Denies nausea, Denies odynophagia and Denies vomiting Reports no additional complaints Musc Reports no additional complaints Neuro Reports no additional complaints Psych Reports no additional complaints Endo Reports no additional complaints Physical Exam Vital Signs: Last Vital Signs Pulse 80 03/30/24 09:18 BP 132/60 03/30/24 09:18 Pulse Ox 97 03/30/24 09:18 Oxygen Delivery Method Room Air 03/30/24 09:18 BMI result Body Mass Index 36.0 Const General: healthy appearing, no acute distress and well developed Nutritional Appearance: obese Orientation/consciousness: patient oriented x3 Resp Effort & Inspection: normal respiratory effort, able to speak in complete sentences, no tracheal deviation and symmetric chest movement Auscultation: clear to auscultation bilaterally Cardio Rate: regular rate GI Inspection: Yes normal to inspection, No distended and Yes obesity Palpation (GI): Soft to palpation, not firm, nontender and No hepatosplenomegaly present Auscultation: normal bowel sounds General: Yes no CVA tenderness Back/Spine/Pelvis Back: no CVA tenderness Skin General skin exam: elasticity normal, turgor normal and dry skin Neuro General: patient oriented x3 Psych Appearance: grossly normal Mental Status: mental status grossly normal Assessment & Plan Assessment & Plan (1) GERD (gastroesophageal reflux disease): Code(s): K21.9 - Gastro-esophageal reflux disease without esophagitis Category: Medical Qualifiers: Esophagitis presence: esophagitis presence not specified Qualified Code(s): K21.9 - Gastro-esophageal reflux disease without esophagitis (2) Constipation: Code(s): K59.00 - Constipation, unspecified Qualifiers: Constipation type: slow transit constipation Qualified Code(s): K59.01 - Slow transit constipation Plan Patient will continue taking famotidine at bedtime. Avoid dietary triggers and late night snacking. Staying upright for minimum 3 hours after meals discussed with patient. Patient will increase fluid intake and activity to promote better bowel motility. Increase fiber intake. Patient will start taking Senokot daily. Left lower quadrant pain most likely related to her constipation mild diverticulosis seen on colonoscopy in 2019. If patient continues to have pain we will send her for colonoscopy earlier. Continue simethicone on as needed basis. Patient denies any melena, hematochezia, unintentional weight loss or ribbon like stools. Patient denies any family history of CRC. Follow-up in 4 months, sooner on as needed basis. She is agreeable to this plan and verbalizes understanding of instructions. She was given the opportunity to ask questions and all questions answered. Thank you for allowing me to participate in her care Medications: New sennosides (Natural Senna Laxative) 17.2 mg (2 x 8.6 mg) PO BEDTIME 60 tabs 3RF constipation K59.00 - Constipation, unspecified Coding Level of Care Code Est Pt Level 3 (02673) Diagnoses Gastroesophageal reflux disease, unspecified whether esophagitis present K21.9 Esophagitis presence: esophagitis presence not specified Slow transit constipation K59.01 Constipation type: slow transit constipation Time Spent (min) 30 Comment 20 minutes spent with patient and additional 10 minutes spent reviewing her records
== END 2024-03-30 10:03 | disposition home or self-care (01) ==
PROVIDERS: PCP Internal Medicine; Visit Provider Nurse Practitioner Family
DX: K21.9 Gastro-esophageal reflux disease without esophagitis (principal); K59.01 Slow transit constipation
CPT/HCPCS: 99213

== ENCOUNTER → 2024-03-30 09:10 | Outpatient (BNVA) | payer OTHER, SELFPAY | PROVIDERS: PCP Internal Medicine; Visit Provider Nurse Practitioner Family | DX: E11.65 Type 2 diabetes mellitus with hyperglycemia (principal); K21.9 Gastro-esophageal reflux disease without esophagitis; K59.01 Slow transit constipation; Z79.4 Long term (current) use of insulin | CPT/HCPCS: 99211; 99212 ==

== ENCOUNTER 2024-03-30 10:50 | Outpatient (AMB) | payer OTHER, SELFPAY ==
--- NOTE | 2024-03-30 11:49 | MHC.AMDMED ---
Intake Intake Visit Reasons: 60 min Allergies metformin Adverse Reaction (Intermediate, Verified 03/30/24 09:19) diarrhea HPI Comprehensive Diabetes Asmnt Most Recent Diabetes Results: Microalb/Creat Ratio 38.8 ug/mg cr (<30) H 02/24/24 Cholesterol 127 mg/dL (<200) 02/24/24 HDL Cholesterol 46 mg/dL (>40) 02/24/24 Triglycerides 74 mg/dL (<150) 02/24/24 Creatinine 0.76 mg/dL (0.5-1.4) 02/24/24 Blood Urea Nitrogen 12 mg/dL (9-16) 02/24/24 Sodium 141 mmol/L (135-145) 02/24/24 Potassium 4.1 mmol/L (3.3-5.1) 02/24/24 Chloride 105 mmol/L (96-108) 02/24/24 Carbon Dioxide 30 mmol/L (22-29) H 02/24/24 Calcium 9.5 mg/dL (8.4-10.2) 02/24/24 AST 28 U/L (5-31) 02/24/24 ALT 26 U/L (0-31) 02/24/24 Total Protein 7.5 g/dL (6.5-8.0) 02/24/24 Albumin 4.1 g/dL (3.5-5.0) 02/24/24 [facility] Medical History DM2 (diabetes mellitus, type 2) Daytime somnolence Chronic pain of both knees Chronic pain of both hips Helicobacter pylori (H. 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 (acquired) FDC (current) use of insulin Diabetes type 2, uncontrolled Hypovitaminosis D Depression GERD (gastroesophageal reflux disease) Essential hypertension Headache Dyslipidemia Type 2 diabetes mellitus, with long-term current use of insulin Autoimmune thyroiditis Surgical History History of esophagogastroduodenoscopy (EGD) Hx of colonoscopy History of arthroscopy of right knee History of tubal ligation Family History Father Diabetes Mother Hypertension Maternal Grandmother Gynecologic cancer Family/Other FH: mental illness Maternal Uncle Chronic mental illness Social History Housing: Apartment Alcohol intake: never Patient Tobacco Use Status: Never used Tobacco e-Cigarette/Vaping Use: Never Used Second Hand Smoke Exposure: No service: No Current occupational status: disabled Current occupation: rt handed Cognitive needs: Yes Hearing needs: No Vision needs: No Assessment & Plan Assessment & Plan (1) Type 2 diabetes mellitus, with long-term current use of insulin: Code(s): E11.9 - Type 2 diabetes mellitus without complications; Z79.4 - FDC (current) use of insulin Qualifiers: Diabetes mellitus complication status: with hyperglycemia Qualified Code(s): E11.65 - Type 2 diabetes mellitus with hyperglycemia; Z79.4 - FDC (current) use of insulin Plan: Patient at visit to set up an insert Severino 3 sensor Instructed patient sensors water proof you can shower, or swim do not submerge sensor in water for over 30 minutes Is sensor falls off cannot put back in you need to replace sensor, customer service number given to patient for sensor replacement Sensor placed on the back of left arm Patient left visit with sensor in warmup Severino 3 timoteo setup on Pt's Smart phone Reviewed how to interpret trend arrows Reminded patient that to check finger sticks if symptoms do not match sensor reading. Discussed lag time between finger stick and sensor data.? Instructed patient she should always keep blood glucometer for backup testing if needed Reviewed delay of CGM from fingersticks Reminded pt that if symptoms do not match sensor still needs to check fingersticks. Portions of this note were created using voice recognition software, please excuse any words or phrases that may have been misinterpreted. Patient Instructions: Instrucciones para el paciente: CGM proporciona informaci?n sobre el control de la glucosa en chris a lo yanira del d?a, incluidas la hiperglucemia y la hipoglucemia. Contin?e controlando la glucosa en chris seg?n las instrucciones. Siga las pautas de nutrici?n proporcionadas. Informe cualquier molestia de inmediato al proveedor de atenci?n m?dica. Mantente alma hidratado. Puede ba?arse, ducharse, nadar y hacer ejercicio mientras usa el sensor de glucosa. No sumerja el sensor de glucosa en agua maynor m?s de 30 minutos. Retire el sensor para magalie resonancia magn?chris o magalie tomograf?a computarizada. Evite la m?quina de angel X en los aeropuertos: retire el sensor o solicite la varita Coding Level of Care Code Est Pt Level 1 (02744) Diagnoses Type 2 diabetes mellitus with hyperglycemia, with long-term current use of insulin E11.65; Z79.4 Diabetes mellitus complication status: with hyperglycemia
== END 2024-03-30 11:51 | disposition home or self-care (01) ==
PROVIDERS: PCP Internal Medicine; Visit Provider Registered Nurse Diabetes Educator
DX: E11.65 Type 2 diabetes mellitus with hyperglycemia (principal); Z79.4 Long term (current) use of insulin

== ENCOUNTER 2024-04-24 08:40 | Outpatient (AMB) | payer OTHER, SELFPAY ==
[2024-04-24 08:49] VITALS: BMI 36.0
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
== END 2024-04-24 09:16 | disposition home or self-care (01) ==
PROVIDERS: PCP Internal Medicine
DX: M75.101 Unspecified rotator cuff tear or rupture of right shoulder, not specified as traumatic (principal)
CPT/HCPCS: 99213

== ENCOUNTER → 2024-04-24 08:40 | Outpatient (BNVA) | payer OTHER, SELFPAY | PROVIDERS: PCP Internal Medicine | DX: E11.65 Type 2 diabetes mellitus with hyperglycemia (principal); E11.29 Type 2 diabetes mellitus with other diabetic kidney complication; R80.9 Proteinuria, unspecified; I10 Essential (primary) hypertension; E78.5 Hyperlipidemia, unspecified; Z79.84 Long term (current) use of oral hypoglycemic drugs; Z79.4 Long term (current) use of insulin; M75.101 Unspecified rotator cuff tear or rupture of right shoulder, not specified as traumatic | CPT/HCPCS: 82947; 99212 ==

== ENCOUNTER 2024-04-24 12:44 | Outpatient (AMB) | payer OTHER, SELFPAY ==
[2024-04-24 12:46] VITALS: BP 110/76; PULSE 79; BMI 36.0
--- NOTE | 2024-04-24 12:46 | MHC.OFFVIS ---
Vital Signs 04/24/24 12:46 Height 5 ft 3 in Weight 203 lb BMI 36.0 BP 110/76 Blood Pressure Location Lt brachial Position Sitting Pulse 79 Pulse Source Pulse Oximeter Intake Visit Reasons: T2DM Intake Note: Patient present today to follow up on Type 2 Diabetes Mellitus. Last Diabetic Eye exam: 03/23/24 Last Podiatry Visit: Does not see a Commissions Coordinator Random Glucose: 167 mg/dl HgA1C: 10.3% 02/18/2024 Tube Machine Operator Required: Yes Tube Machine Operator Language: Accounts Receivable Administrator Services: Tube Machine Operator Present Tube Machine Operator Name: Surjit Information Interpreted: non-clinical & clinical Accompanied by: Daughter Allergies metformin Adverse Reaction (Intermediate, Verified 04/24/24 12:51) diarrhea HPI Comments Details: This is a 64-year-old Armenian speaking female with a past medical history type 2 diabetes, hypothyroidism, dyslipidemia, hypertension, depression and GERD presenting for diabetic management. convalescent sitter present for visit. Hemoglobin a1c 10.3% 02/18/24. Severino 3 download reviewed from April 11 2024 through 04/24/2024: CGM active 72% Average glucose 170 GMI 7.4% Glucose variability 21% 0% very high 39% high 61% target range 0% hypoglycemia She has hyperglycemia between 8 and 11:00 and later in the evening between 9 p.m. and 00:00. Current medication regimen: Lantus 40 units daily and Jardiance 25 mg daily and Mounjaro 5 mg weekly. Ozempic stopped in December due to dizziness reported by the patient. Intolerant to metformin which caused diarrhea. Diet: Breakfast-sandwich, coffee with cream and sugar Lunch-yogurt Dinner-rice, beef, fish, beans Snacks/desserts: apple, strawberry No alcohol Nonsmoker Hypoglycemia symptoms: Denies. Hyperglycemia symptoms: none Eye exam: 03/23/24 Microvascular complications: neuropathy in her toes and fingers, nephropathy (microalbumin) Macrovascular complications: None Hypertension: treated with Enalapril 5 mg. Hyperlipidemia: treated with Zetia 10 mg and Atorvastatin 80 mg. LDL at goal <100. ROS: Eyes: No vision changes, blurry vision, double vision Respiratory: No shortness of breath Cardiovascular: No chest pain Gastrointestinal: No anorexia, nausea, vomiting or diarrhea. No abdominal pain Endocrine: No cold or heat intolerance. No polyuria or polydipsia. Physical exam: Constitutional: Alert, in no distress. Neck: Supple, Full range of motion. No lymphadenopathy. Respiratory: Clear to auscultation. Cardiovascular: S1 S2 regular. No murmurs Feet: dry skin and calluses on the plantar surface of the great toes, no open wonds [facility] Medical History DM2 (diabetes mellitus, type 2) Daytime somnolence Chronic pain of both knees Chronic pain of both hips Helicobacter pylori (H. 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 Diabetes type 2, uncontrolled Hypovitaminosis D Depression GERD (gastroesophageal reflux disease) Essential hypertension Headache Dyslipidemia Type 2 diabetes mellitus, with long-term current use of insulin Autoimmune thyroiditis Surgical History History of esophagogastroduodenoscopy (EGD) Hx of colonoscopy History of arthroscopy of right knee History of tubal ligation Family History Father Diabetes Mother Hypertension Maternal Grandmother Gynecologic cancer Family/Other FH: mental illness Maternal Uncle Chronic mental illness Social History Housing: Apartment Alcohol intake: never Patient Tobacco Use Status: Never used Tobacco e-Cigarette/Vaping Use: Never Used Second Hand Smoke Exposure: No service: No Current occupational status: disabled Current occupation: rt handed Cognitive needs: Yes Hearing needs: No Vision needs: No Physical Exam Vital Signs: Last Vital Signs Pulse 79 04/24/24 12:46 BP 110/76 04/24/24 12:46 BMI result Body Mass Index 36.0 Office Procedures Glucose Monitoring Details Details: see [facility] [address] - Glucose monitoring, continuous-physician I&R Procedure code (CPT) selection complete Results Reviewed Results Reviewed: Laboratory Last Values Glucose (Clinic) 167 mg/dL (60-115) H 04/24/24 12:53 Laboratory Tests 10/07/23 10/07/23 10/07/23 08:17 09:10 09:13 Creatinine 0.78 Estimated GFR > 60 Hgb A1c (Clinic) 10.3 H Triglycerides 171 H Cholesterol 174 LDL Cholesterol, Calc 100 H HDL Cholesterol 40 L TSH 1.32 Urine Creatinine 106.21 Urine Microalbumin 43.0 Microalb/Creat Ratio 40.4 H Assessment & Plan Assessment & Plan (1) Type 2 diabetes mellitus, with long-term current use of insulin: Code(s): E11.9 - Type 2 diabetes mellitus without complications; Z79.4 - retirement (current) use of insulin Category: Medical Qualifiers: Diabetes mellitus complication status: with hyperglycemia Qualified Code(s): E11.65 - Type 2 diabetes mellitus with hyperglycemia; Z79.4 - retirement (current) use of insulin Plan In summary this is a 63-year-old female with uncontrolled type 2 diabetes with microvascular complications with improving glycemic control. Complications of type 2 diabetes and dietary modifications reviewed with the patient. Increase Mounjaro to 7.5 mg weekly. Continue Lantus 40 units daily. Continue Jardiance 25 mg daily. Referred to podiatry. Follow up in 6 weeks for type 2 diabetes. Orders: Orders AMB Glucose Monitoring Today E11.9 - Type 2 diabetes mellitus without complications Referrals Podiatry Referral E11.42 - Type 2 diabetes mellitus with diabetic polyneuropathy, Z91.89 - Other specified personal risk factors, not elsewhere classified Medications: New tirzepatide (Mounjaro) 7.5 mg (0.5 mL) subcut QWEEK 2 mL 1RF Discontinued tirzepatide (Mounjaro) Discontinued Reason: Doctor's Order 5 mg (0.5 mL) subcut QWEEK 2 mL 0RF Coding Level of Care Code Est Pt Level 4 (48800) Diagnoses Type 2 diabetes mellitus with hyperglycemia, with long-term current use of insulin E11.65; Z79.4 Diabetes mellitus complication status: with hyperglycemia CPT Codes Details - CPT: 96290 - Glucose monitoring, continuous-physician I&R ([id number])
[2024-04-24 12:56] LABS: Glucose, Whole Blood 167 mg/dL (60-115)
== END 2024-04-24 13:17 | disposition home or self-care (01) ==
PROVIDERS: PCP Internal Medicine; Visit Provider Physician Assistant Medical
DX: E11.65 Type 2 diabetes mellitus with hyperglycemia (principal); Z79.4 Long term (current) use of insulin

== ENCOUNTER 2024-05-04 13:10 | Outpatient (AMB) | payer OTHER, SELFPAY ==
--- NOTE | 2024-05-04 13:38 | HO.NEPHOV_ITS ---
Vital Signs 05/04/24 13:40 Height 5 ft 3 in Weight 201 lb 8 oz BMI 35.7 BP 100/54 L Blood Pressure Location Rt brachial Position Sitting Pulse 80 Pulse Source Pulse Oximeter Pulse Oximetry (%) 96 Oxygen Delivery Method Room Air Intake Visit Reasons: Proteinuria/ Conf Film Coater Required: Yes Film Coater Language: Electrical Maintenance Supervisor Services: Film Coater Present Film Coater Name: Jacquelin [id number] Accompanied by: Daughter Allergies metformin Adverse Reaction (Intermediate, Verified 05/04/24 13:39) diarrhea HPI Comments Details: Cara was seen today in follow up for proteinuria. She is 64 years of age with DM and hypertension among other medical issues. Her blood sugars are controlled with her last A1c over 10.0. She denies retinopathy, neuropathy, PAD, LISA, carotid stenosis, CHF, CAD but had SAH. She has high BMI. She denies bone pain, high calcium, edema, any bisphosphonate intake, epistaxis, new skin rashes, photosensitivity, hematuria, renal calculus. Her renal functions are normal. She does not take excess NSAID's. She denies any new systemic complaints [facility] Medical History (Updated 04/24/24 @ 13:19 by DEBORAH Hodges) Diabetic polyneuropathy DM2 (diabetes mellitus, type 2) Daytime somnolence Chronic pain of both knees Chronic pain of both hips Helicobacter pylori (H. 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 (acquired) correction (current) use of insulin Diabetes type 2, uncontrolled Hypovitaminosis D Depression GERD (gastroesophageal reflux disease) Essential hypertension Headache Dyslipidemia Type 2 diabetes mellitus, with long-term current use of insulin Autoimmune thyroiditis Surgical History History of esophagogastroduodenoscopy (EGD) Hx of colonoscopy History of arthroscopy of right knee History of tubal ligation Family History Father Diabetes Mother Hypertension Maternal Grandmother Gynecologic cancer Family/Other FH: mental illness Maternal Uncle Chronic mental illness Social History Housing: Apartment Alcohol intake: never Patient Tobacco Use Status: Never used Tobacco e-Cigarette/Vaping Use: Never Used Second Hand Smoke Exposure: No service: No Current occupational status: disabled Current occupation: rt handed Cognitive needs: Yes Hearing needs: No Vision needs: No Review of Systems Const All systems reviewed & are unremarkable except as noted in HPI and below Physical Exam Const General: comfortable and no acute distress Orientation/consciousness: patient oriented x3 HEENT Head: Yes normocephalic Mouth: Normal oral and palatal mucosa present Eyes EOM: EOMs intact bilaterally Neck Neck: Yes supple Resp Auscultation: clear to auscultation bilaterally Cardio Jugular venous distension: no JVD Rate: regular rate GI Palpation (GI): Soft to palpation Auscultation: normal bowel sounds General: Yes no CVA tenderness Back/Spine/Pelvis Back: no CVA tenderness Skin General skin exam: no rashes or lesions noted Neuro General: patient oriented x3 and moves all extremities Extrem General: Yes no pedal edema Results Reviewed Nephrology Results: Sodium 140 mmol/L (135-145) 04/23/24 Potassium 3.6 mmol/L (3.3-5.1) 04/23/24 Chloride 107 mmol/L (96-108) 04/23/24 Carbon Dioxide 26 mmol/L (22-29) 04/23/24 BUN 11 mg/dL (9-16) 04/23/24 Creatinine 0.63 mg/dL (0.5-1.4) 04/23/24 Calcium 9.1 mg/dL (8.4-10.2) 04/23/24 Urine Creatinine 87.02 mg/dL 04/23/24 Protein/Creatinin Ratio 0.13 (<0.2) 04/23/24 Assessment & Plan Assessment & Plan (1) Microalbuminuria: Code(s): R80.9 - Proteinuria, unspecified Category: Medical (2) Essential hypertension: Code(s): I10 - Essential (primary) hypertension Category: Medical Plan Cara had proteinuria likely from Diabetic nephropathy. She has high BMI. She is on ACEI as well as Jardiance. She has high IgA levels. She avoids NSAID's. Her renal functions are normal.There is no indic ation for renal biopsy now. I shall F/U IgA levels. She should lose weight and minimize NSAID's. Answered all questions Orders: Orders Creatinine 6 Months I10 - Essential (primary) hypertension, R80.9 - Proteinuria, unspecified Blood Urea Nitrogen 6 Months I10 - Essential (primary) hypertension, R80.9 - Proteinuria, unspecified Electrolytes 6 Months I10 - Essential (primary) hypertension, R80.9 - Proteinuria, unspecified Protein Creatinine Ratio, Ur 6 Months I10 - Essential (primary) hypertension, R80.9 - Proteinuria, unspecified Coding Level of Care Code Est Pt Level 4 (71464) Diagnoses Microalbuminuria R80.9 Essential hypertension I10
[2024-05-04 13:40] VITALS: BP 100/54; PULSE 80; O2SAT 96; BMI 35.7
== END 2024-05-04 13:51 | disposition home or self-care (01) ==
PROVIDERS: PCP Internal Medicine; Visit Provider Internal Medicine Nephrology
DX: R80.9 Proteinuria, unspecified (principal); I10 Essential (primary) hypertension
CPT/HCPCS: 99214

== ENCOUNTER → 2024-05-04 13:10 | Outpatient (BNVA) | payer OTHER, SELFPAY | PROVIDERS: PCP Internal Medicine; Visit Provider Internal Medicine Nephrology | DX: R80.9 Proteinuria, unspecified (principal); I10 Essential (primary) hypertension | CPT/HCPCS: 99212 ==

== ENCOUNTER 2024-05-22 10:35 | Outpatient (AMB) | payer OTHER, SELFPAY ==
[2024-05-22 10:40] VITALS: BMI 34.8
--- NOTE | 2024-05-22 10:40 | A.OFFVIS_ITS ---
Vital Signs 05/22/24 10:40 05/22/24 11:26 Height 5 ft 3 in Weight 196 lb 3.382 oz BMI 34.8 BP 112/78 Blood Pressure Location Rt brachial Position Sitting Pulse Source Pulse Oximeter Intake Visit Reasons: Type II diabetes Intake Note: Patient presents today for a follow-up on Type 2 Diabetes Mellitus: Last Diabetic eye exam was on: 03/23/2024 Last Podiatry exam was on: Patient does not see a Plastics Patternmaker Most recent HbA1c: 7.7, 05/22/2024 Random Glucose- 128 mg/dL, Today Business Analytics Faculty Member Required: Yes Business Analytics Faculty Member Language: Touch Up Painter Services: Business Analytics Faculty Member Present Accompanied by: Self / Same As Patient Allergies metformin Adverse Reaction (Intermediate, Verified 05/22/24 10:42) diarrhea HPI Comments Details: This is a 64-year-old Uzbek speaking female with a past medical history type 2 diabetes, hypothyroidism, dyslipidemia, hypertension, depression and GERD presenting for diabetic management. Uzbek video american sign language interpreter Allen [id number]. Hemoglobin a1c 7.7% 05/22/24 down from 10.3% 02/18/24. Reviewed Severino 3 download dated May 01 to 05/14/2024 She does not have a sensor on this week because she is having an MRI. CGM active 96% Average glucose 169 G VT 7.4% Glucose variability 19.1 High 34% Very high 1% Target range 65% 0% hypoglycemia She has some hyperglycemia throughout the day with postprandial spikes. Current medication regimen: Lantus 40 units daily and Jardiance 25 mg daily and Mounjaro 7.5 mg weekly. Ozempic stopped in December due to dizziness reported by the patient. Intolerant to metformin which caused diarrhea.r Hypoglycemia symptoms: Denies. Hyperglycemia symptoms: none Eye exam: 03/23/24 Microvascular complications: neuropathy in her toes and fingers, nephropathy (microalbumin, followed by Nephrology) Macrovascular complications: None Hypertension: treated with Enalapril 5 mg. Hyperlipidemia: treated with Zetia 10 mg and Atorvastatin 80 mg. ROS: Eyes: No vision changes, blurry vision, double vision Respiratory: No shortness of breath Cardiovascular: No chest pain Gastrointestinal: No anorexia, nausea, vomiting or diarrhea. No abdominal pain Endocrine: No cold or heat intolerance. No polyuria or polydipsia. Physical exam: Constitutional: Alert, in no distress. Neck: Supple, Full range of motion. No lymphadenopathy. Respiratory: Clear to auscultation. Cardiovascular: S1 S2 regular. No murmurs PFSH Medical History Diabetic polyneuropathy DM2 (diabetes mellitus, type 2) Daytime somnolence Chronic pain of both knees Chronic pain of both hips Helicobacter pylori (H. 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 Diabetes type 2, uncontrolled Hypovitaminosis D Depression GERD (gastroesophageal reflux disease) Essential hypertension Headache Dyslipidemia Type 2 diabetes mellitus, with long-term current use of insulin Autoimmune thyroiditis Surgical History History of esophagogastroduodenoscopy (EGD) Hx of colonoscopy History of arthroscopy of right knee History of tubal ligation Family History Father Diabetes Mother Hypertension Maternal Grandmother Gynecologic cancer Family/Other FH: mental illness Maternal Uncle Chronic mental illness Social History Housing: Apartment Alcohol intake: never Patient Tobacco Use Status: Never used Tobacco e-Cigarette/Vaping Use: Never Used Second Hand Smoke Exposure: No service: No Current occupational status: disabled Current occupation: rt handed Cognitive needs: Yes Hearing needs: No Vision needs: No Physical Exam Vital Signs: BMI result Body Mass Index 34.8 Office Procedures Glucose Monitoring Details Details: See [facility] [address] - Glucose monitoring, continuous-physician I&R Procedure code (CPT) selection complete Results AMB Hemoglobin A1c AMB Hemoglobin A1c 7.7 % Last Edit by ALEXANDRA Bhagat on 05/22/24 11:02 Results Reviewed Results Reviewed: Laboratory Last Values Glucose (Clinic) 128 mg/dL (60-115) H 05/22/24 10:51 Laboratory Tests 10/07/23 10/07/23 10/07/23 08:17 09:10 09:13 Creatinine 0.78 Estimated GFR > 60 Hgb A1c (Clinic) 10.3 H Triglycerides 171 H Cholesterol 174 LDL Cholesterol, Calc 100 H HDL Cholesterol 40 L TSH 1.32 Urine Creatinine 106.21 Urine Microalbumin 43.0 Microalb/Creat Ratio 40.4 H Laboratory Tests 04/23/24 04/23/24 05/22/24 08:17 08:25 10:53 Creatinine 0.63 Estimated GFR > 60 Hgb A1c (Clinic) 7.7 H Triglycerides 116 Cholesterol 165 LDL Cholesterol, Calc 99 HDL Cholesterol 43 TSH 0.48 Urine Microalbumin 17.0 Microalb/Creat Ratio 19.7 Protein/Creatinin Ratio 0.13 Assessment & Plan Assessment & Plan (1) Type 2 diabetes mellitus, with long-term current use of insulin: Code(s): E11.9 - Type 2 diabetes mellitus without complications; Z79.4 - 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 Complications of type 2 diabetes and dietary modifications reviewed with the patient. Increase Mounjaro to 10 mg weekly. Continue Lantus 40 units daily. Continue Jardiance 25 mg daily. Follow up in 4 weeks for type 2 diabetes. Orders: Orders AMB Hemoglobin A1c Today E11.21 - Type 2 diabetes mellitus with diabetic nephropathy AMB Glucose Monitoring Today E11.9 - Type 2 diabetes mellitus without complications Medications: New tirzepatide (Mounjaro) 10 mg (0.5 mL) subcut QWEEK 2 mL 2RF Discontinued tirzepatide (Mounjaro) Discontinued Reason: Doctor's Order 7.5 mg (0.5 mL) subcut QWEEK 2 mL 1RF Patient Instructions: [phone] [facility] Coding Level of Care Code Est Pt Level 4 (63241) Diagnoses Type 2 diabetes mellitus with hyperglycemia, with long-term current use of insulin E11.65; Z79.4 Diabetes mellitus complication status: with hyperglycemia CPT Codes Details - CPT: 97991 - Glucose monitoring, continuous-physician I&R ([id number])
[2024-05-22 10:55] LABS: Glucose, Whole Blood 128 mg/dL (60-115)
[2024-05-22 11:26] VITALS: BP 112/78
--- OUTSIDE RECORDS SUMMARY | 2024-05-22 12:01 | XMS_ITS | Clinical Summary ---
Author Organization [employer] Address [address] [facility] [address] [place] [address] Care Team Providers Care Cellophane Bath Mixer Name Role Phone Unavailable Primary Care Provider Unavailabl e Social History Tobacco Use Types Packs/Day Years Used Date Smoking Tobacco: Never Assessed Comments Unknown Sex and Gender Information Value Date Recorded Sex Assigned at Female 05/08/2022 4:09 PM EST Legal Sex Female 3:27 PM EST Gender Identity Female 05/08/2022 4:09 PM EST Sexual Orientation Not on file Plan of Treatment Health Maintenance Due Date Last Done Comments CT Colonography 1958 Colonoscopy 1958 Colorectal Cancer Screening 1958 Depression Screening 1958 FIT DNA/Cologuard 1958 FIT 1958 FOBT 1958 Sigmoidoscopy 1958 Alcohol/Substance Use Screening 1970 Tobacco Screening 1970 Mammogram 1998 Zoster Vaccines (2 of 2) 04/20/2022 02/23/2022 Pneumococcal Vaccine: 65+ Years (2 of 2 - PCV) 2023 03/08/2016 COVID-19 Vaccine ( season) 2023 03/02/2022, 02/28/2022, 09/12/2021, Additional history exists Influenza Vaccine (#1) 2023 2, 04/04/2021, 03/08/2016 DTaP/Tdap/Td Vaccines (2 - Td or Tdap) 03/08/2026 03/08/2016 RSV Patients and Patients Aged 60 years or older (1 - 1-dose 75+ series) 2033 HIB Vaccines Aged Out No longer eligi ble based on patient's age to complete this topic HPV Vaccines Aged Out No longer eligi ble based on patient's age to complete this topic Hepatitis A Vaccines Aged Out No long er eligible based on patient's age to complete this topic Hepatitis B Vaccines Aged Out No long er eligible based on patient's age to complete this topic IPV Vaccines Aged Out No longer eligi ble based on patient's age to complete this topic Meningococcal Vaccine Aged Out No idalia ra eligible based on patient's age to complete this topic RSV under 20 months Aged Out No longe r eligible based on patient's age to complete this topic Rotavirus Vaccines Aged Out No longer eligible based on patient's age to complete this topic
--- OUTSIDE RECORDS SUMMARY | 2024-05-22 12:01 | XMS_ITS | Encounter Summary ---
Author Organization [employer] Address [address] [facility] [address] [place] [address] Care Team Providers Care Shank Cementer Hand Name Role Phone Unavailable Primary Care Provider Unavailabl e Encounter Details Date Type Department Care Team (Late st Contact Info) Description 05/04/2022 Abstract [facility] MEDICINE [address] [place] [address] Katelynn Toth, AnnieD [address] [place] [address] Social History Tobacco Use Types Packs/Day Years Used Date Smoking Tobacco: Never Assessed Comments Unknown Sex and Gender Information Value Date Recorded Sex Assigned at Female 05/08/2022 4:09 PM EST Legal Sex Female 3:27 PM EST Gender Identity Female 05/08/2022 4:09 PM EST Sexual Orientation Not on file COVID-19 Exposure Response Date Recorded In the last 10 days, have yo u been in contact with someone who was confirmed or suspected to have Coronavirus/COVID-19? No / Unsure 05/04/2022 10:08 AM EST documented as of this encounter Plan of Treatment Not on file documented as of this encounter Visit Diagnoses Not on filedocumented in this encounter
== END 2024-05-22 11:23 | disposition home or self-care (01) ==
PROVIDERS: PCP Internal Medicine; Visit Provider Physician Assistant Medical
DX: E11.65 Type 2 diabetes mellitus with hyperglycemia (principal); Z79.4 Long term (current) use of insulin; E11.21 Type 2 diabetes mellitus with diabetic nephropathy

== ENCOUNTER → 2024-05-22 10:35 | Outpatient (BNVA) | payer OTHER, SELFPAY | PROVIDERS: PCP Internal Medicine; Visit Provider Physician Assistant Medical | DX: E11.65 Type 2 diabetes mellitus with hyperglycemia (principal); Z79.4 Long term (current) use of insulin | CPT/HCPCS: 82947; 83036 ==

== ENCOUNTER 2024-05-23 09:50 | Outpatient (REF) | payer OTHER, SELFPAY ==
--- NOTE | ~2024-05-23 | MR_ITS ---
EXAMINATION: MRI RIGHT SHOULDER WITHOUT CONTRAST HISTORY: M77.8 - Other enthesopathies, not elsewhere classified COMPARISON: Correlation is made with plain films of the right shoulder dated 02/24/2024. TECHNIQUE: Coronal T1, T2, and fat suppressed T2, axial fat suppressed proton density, and sagittal T2 weighted MR images of the right shoulder were obtained. FINDINGS: There is mild bone marrow edema in the humeral head which may indicate a bone contusion. Bone marrow signal intensity is otherwise normal. There is a small joint effusion. There is moderate osteoarthritis of the AC joint with cartilage loss and osteophyte formation. The glenohumeral joint is maintained. There is a complete rupture of the supraspinatus tendon with retraction of the tendon to the level of the AC joint. There is moderate atrophy of the supraspinatus muscle. There is also a large full-thickness tear involving the infraspinatus tendon. There is moderate atrophy of the infraspinatus muscle. The subscapularis and teres minor tendons are intact. There is fluid in the subdeltoid/subacromial bursa. The biceps tendon is normally located. The glenoid labrum is grossly unremarkable in appearance. MR/MR shoulder RT wo con IMPRESSION: 1. Probable bone contusion of the humeral head. Small joint effusion. 2. Moderate osteoarthritis of the AC joint. 3. Complete rupture of the supraspinatus tendon with tendon retraction and muscle atrophy. 4. Large full-thickness tear of the infraspinatus tendon with muscle atrophy. Electronically signed by: Liang Chery MD 05/25/2024 10:50 AM EST
== END 2024-05-23 09:51 | disposition home or self-care (01) ==
LOC: HO.MRI 09:50
PROVIDERS: PCP Internal Medicine
DX: M77.8 Other enthesopathies, not elsewhere classified (principal)
CPT/HCPCS: 73221

== ENCOUNTER → 2024-05-23 09:57 | Outpatient (BNV) | payer OTHER, SELFPAY | PROVIDERS: PCP Internal Medicine; Visit Provider Radiology Diagnostic Radiology | DX: M19.011 Primary osteoarthritis, right shoulder (principal); M75.121 Complete rotator cuff tear or rupture of right shoulder, not specified as traumatic | CPT/HCPCS: 73221 ==

== ENCOUNTER 2024-06-16 11:24 | Outpatient (AMB) | payer OTHER, SELFPAY ==
--- NOTE | 2024-06-16 11:28 | MHC.OFFVIS ---
Intake Visit Reasons: OV - Right Shoulder MRI Review Intake Note: Cara is a 64 year old right hand dominant South African speaking female who presents today for a follow up visit to review her right shoulder MRI. Federal Aid Coordinator Name: JESENIA KIRKLAND Allergies metformin Adverse Reaction (Intermediate, Verified 05/22/24 10:42) diarrhea HPI HPI OV - Right Shoulder MRI Review: Details: Cara is a 64 year old right hand dominant South African speaking female who presents today for a follow up visit to review her right shoulder MRI. The patient states that the pain she was experiencing in her right shoulder at last visit has improved, although it does still bother her particularly at night and when it was cold outside. Patient denies any numbness or tingling in the right upper extremity. No other acute complaints or concerns at this time. [facility] Medical History Diabetic polyneuropathy DM2 (diabetes mellitus, type 2) Daytime somnolence Chronic pain of both knees Chronic pain of both hips Helicobacter pylori (H. 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 Diabetes type 2, uncontrolled Hypovitaminosis D Depression GERD (gastroesophageal reflux disease) Essential hypertension Headache Dyslipidemia Type 2 diabetes mellitus, with long-term current use of insulin Autoimmune thyroiditis Surgical History History of esophagogastroduodenoscopy (EGD) Hx of colonoscopy History of arthroscopy of right knee History of tubal ligation Family History Father Diabetes Mother Hypertension Maternal Grandmother Gynecologic cancer Family/Other FH: mental illness Maternal Uncle Chronic mental illness Social History Housing: Apartment Alcohol intake: never Patient Tobacco Use Status: Never used Tobacco e-Cigarette/Vaping Use: Never Used Second Hand Smoke Exposure: No service: No Current occupational status: disabled Current occupation: rt handed Cognitive needs: Yes Hearing needs: No Vision needs: No Review of Systems Const All systems reviewed & are unremarkable except as noted in HPI and below Physical Exam Extrem Other: On inspection there is no visible deformity of the patient's right shoulder No erythema, edema, ecchymosis noted No lacerations abrasions, or open areas No evidence of infection Patient reports diffuse tenderness to palpation about the right shoulder, worst over the greater tuberosity of the humerus in the AC joint Patient is able to forward flex bilateral shoulders to 90 degrees Patient is able to externally rotate bilateral shoulders to approximately 60 degrees 4/5 strength bilaterally on empty can 5/5 strength on belly press Positive Shaffer Results Reviewed Results Reviewed: MR/MR shoulder RT wo con IMPRESSION: 1. Probable bone contusion of the humeral head. Small joint effusion. 2. Moderate osteoarthritis of the AC joint. 3. Complete rupture of the supraspinatus tendon with tendon retraction and muscle atrophy. 4. Large full-thickness tear of the infraspinatus tendon with muscle atrophy. Electronically signed by: Liang Chery MD 05/25/2024 10:50 AM EST Assessment & Plan Assessment & Plan (1) Painful arc syndrome of right shoulder: Code(s): M75.101 - Unspecified rotator cuff tear or rupture of right shoulder, not specified as traumatic Category: Medical (2) Contusion of right upper arm: Code(s): S40.021A - Contusion of right upper arm, initial encounter Category: Medical (3) Traumatic tear of supraspinatus tendon of right shoulder: Code(s): S46.811A - Strain of other muscles, fascia and tendons at shoulder and upper arm level, right arm, initial encounter Category: Medical (4) Rupture of infraspinatus tendon: Code(s): S46.019A - Strain of muscle(s) and tendon(s) of the rotator cuff of unspecified shoulder, initial encounter Category: Medical Plan 1. Painful arc syndrome of right shoulder Significant improvement with physical therapy At this time, I explained to the patient that her MRI consistent much more chronic injuries of the rotator cuff, and are nonsurgical at this time, especially given her medical comorbidities Patient is advised that she should continue with physical therapy, as this appears to be helping in combination with time Patient was educated on bony contusions and the typical recovery course Patient may follow-up as needed with any acute concerns Coding Level of Care Code Est Pt Level 3 (84802) Diagnoses Painful arc syndrome of right shoulder M75.101 Contusion of right upper arm S40.021A Traumatic tear of supraspinatus tendon of right shoulder S46.811A Rupture of infraspinatus tendon S46.019A
--- OUTSIDE RECORDS SUMMARY | 2024-06-16 12:41 | XMS_ITS | Encounter Summary ---
Author Organization [employer] Address [address] [facility] [address] [place] [address] Care Team Providers Care Microbiology Soil Scientist Name Role Phone Unavailable Primary Care Provider Unavailabl e Encounter Details Date Type Department Care Team (Late st Contact Info) Description 05/04/2022 Abstract [facility] MEDICINE [address] [place] [address] Katelynn Toth, AnnieD [address] [place] [address] Social History Tobacco Use Types Packs/Day Years [...]
--- OUTSIDE RECORDS SUMMARY | 2024-06-16 12:41 | XMS_ITS | Clinical Summary ---
Author Organization [address] [facility] Address [address] [place] [address] Phone Care Team Providers Care Children'S Service Supervisor Name Role Phone Payal Villanueva MD Primary Care Provider Social History Tobacco Use Types Packs/Day Years Used Date Smoking Tobacco: Never Assessed Comments Unknown Sex and Gender Information Value Date Recorded Sex Assigned at Not on file Legal Sex Female 2:35 PM EST Gender Identity Not on file Sexual Orientation Not on file Plan of Treatment Upcoming Encounters Date Type Department Care Team ([facility] Contact Info) Description 07/30/2024 9:00 AM EDT Consult Orthopedic Surgery - [place] [address] [phone] Darrell Rockwell, DPM [address] [address] Health Maintenance Due Date Last Done Comments Breast Cancer Screening 1958 Diabetes: Annual GFR (Glomer ular Filtration Rate) 1958 Diabetes: Annual Foot Exam 02/01/1968 Diabetes: Annual Retina Eye Exam 02/01/1968 DTaP,Tdap,and Td Vaccines (1 - Tdap) 1977 Pneumococcal Vaccine: 50+ Ye ars (1 of 2 - PCV) 1977 Zoster Vaccines (1 of 2) 02/01/2008 RSV Immunization Patients 60 + Years Old (1 - Risk 60-74 years 1-dose series) 2018 COVID-19 Vaccine ( - 2023-2 5 season) 2023 Influenza Vaccine (#1) 2023 Cholesterol Screening (Lipid Panel) 05/23/2024 Colorectal Cancer Screening: Colonoscopy 05/23/2024 Depression Screening 05/23/2024 Diabetes: Annual Urine Albumin-Creatinine Ratio (uACR) 05/23/2024 Diabetes: Blood Sugar Contro l Test (HGBA1C) 05/23/2024 Falls Risk Assessment 05/23/2024 Hepatitis C Screening 05/23/2024 Medicare Annual Wellness Visit 05/23/2024 Osteoporosis Screening (Bone Density Screening) 05/23/2024 Social Influencers of Health Screening 05/23/2024 HIB Vaccines Aged Out No longer eligi [...] on patient's age to complete this topic MMR Vaccines Aged Out No longer eligi ble based on patient's age to complete this topic Meningococcal ACWY Vaccine Aged Out N o longer eligible based on patient's age to complete this topic Meningococcal B Vacine Aged Out No lo nger eligible based on patient's age to complete this topic RSV Immunization Patients Un sammy 20 months Aged Out No longer eligible b ased on patient's age to complete this topic Varicella Vaccines Aged Out No longer eligible based on patient's age to complete this topic Insurance [facility] MEDICARE Member Subscriber Plan / Payer (Ef fective 2023-Present) Name:Cara Ballard Relation to Subscriber:Self Name:Cara Ballard Payer ID:[id number] Group ID:[id number] Type:Not on file Address: [place] [address] [address] [id number] Care Teams Children'S Service Supervisor Relationship Specialty Start Date End Date Payal Villanueva MD [address] [place] [address] , [address] [facility] Physician Associ D/B/A: Halina Buenrostro In Internal Medicine LIZ Meade PCP - General Internal Medicine 05/22/24
--- OUTSIDE RECORDS SUMMARY | 2024-06-16 12:41 | XMS_ITS | Clinical Summary ---
Author Organization [employer] Address [address] [facility] 7t [place] [address] Care Team Providers Care Supervisor Dock Name Role Phone Unavailable Primary Care Provider [...] Screening 1970 Tobacco Screening 1970 Mammogram 1998 Pneumococcal Vaccine: 50+ Years (2 of 2 - PCV) 03/08/2017 03/08/2016 Zoster Vaccines (2 of 2) 04/20/2022 02/23/2022 COVID-19 Vaccine ( season) 2023 03/02/2022, 02/28/2022, [...]
== END 2024-06-16 11:41 | disposition home or self-care (01) ==
PROVIDERS: PCP Internal Medicine
DX: M75.101 Unspecified rotator cuff tear or rupture of right shoulder, not specified as traumatic (principal); S40.021A Contusion of right upper arm, initial encounter; S46.811A Strain of other muscles, fascia and tendons at shoulder and upper arm level, right arm, initial encounter
CPT/HCPCS: 99213

== ENCOUNTER → 2024-06-16 11:24 | Outpatient (BNVA) | payer OTHER, SELFPAY | PROVIDERS: PCP Internal Medicine ==

== ENCOUNTER 2024-06-19 10:29 | Outpatient (AMB) | payer OTHER, SELFPAY ==
--- NOTE | 2024-06-19 10:48 | A.OFFVIS_ITS ---
Vital Signs 06/19/24 10:49 Height 5 ft 3 in Weight 196 lb 3.382 oz BMI 34.8 BP 100/60 Blood Pressure Location Rt brachial Position Sitting Pulse 86 Pulse Source Pulse Oximeter Pulse Oximetry (%) 97 Oxygen Delivery Method Room Air Intake Visit Reasons: Type II diabetes Intake Note: Patient presents today for a follow-up on Type 2 Diabetes Mellitus: Last Diabetic eye exam was on: 03/23/2024 Last Podiatry exam was on: Patient does not see a Retail Service Specialist Most recent HbA1c: 7.7, 05/22/2024 Random Glucose- 153 mg/dL, Today Reed Worker Required: Yes Reed Worker Language: Car Sweeper Services: Reed Worker Present Reed Worker Name: ALEXANDRA Bhagat/JOSEMANUEL AMAYA Information Interpreted: non-clinical & clinical Accompanied by: Self / Same As Patient Allergies metformin Adverse Reaction (Intermediate, Verified 05/22/24 10:42) diarrhea Medication List - Last Reconciled 06/19/24 by DEBORAH Hodges acetaminophen 500 mg PO Q6H PRN 30 days albuterol sulfate 90 mcg/actuation 2 puffs inhalation Q4-6H PRN alcohol swabs (BD Alcohol Swabs) 1 pad topical BID 30 days aspirin 81 mg PO DAILY 90 days atorvastatin 80 mg PO DAILY blood pressure monitor As directed blood sugar diagnostic (FreeStyle Test strips) Use 1 test strip twice a day blood-glucose meter (FreeStyle Lite Meter kit) As directed blood-glucose meter,continuous (FreeStyle Severino 3 [place]) Use daily to monitor blood glucose continuously blood-glucose sensor (FreeStyle Severino 3 Sensor device) apply new sensor every 14 days to monitor blood glucose continuously blood-glucose sensor (FreeStyle Severino 3 Plus Sensor device) Apply 1 new sensor every 14 days as directed to monitor blood glucose continuously. cholecalciferol (vitamin D3) (Vitamin D3) 50 mcg PO DAILY clotrimazole-betamethasone 1-0.05 % 1 appl topical BID 7 days dextrose (TRUEplus Glucose) 15 grams (32 mL) PO Q15M PRN doxepin 50 mg PO BEDTIME empagliflozin (Jardiance) 25 mg PO DAILY 90 days enalapril maleate 5 mg PO DAILY 90 days escitalopram oxalate 20 mg PO DAILY 90 days ezetimibe 10 mg PO DAILY 90 days famotidine (Pepcid) 20 mg PO BEDTIME hydroxyzine HCl 25 mg PO BID 30 days incontinence pad, liner, disp Use 1 pad 6 times a day as needed insulin glargine (Lantus Solostar U-100 Insulin) 40 units subcut DAILY lancets As directed levothyroxine 137 mcg PO DAILY 90 days pen needle, diabetic As directed pen needle, diabetic (BD Rona 2nd Gen Pen Needle) once a day polyethylene glycol 3350 (Miralax) 17 grams PO DAILY [right arm sling As directed] sennosides (Natural Senna Laxative) 17.2 mg (2 x 8.6 mg) PO BEDTIME Shower Chair As directed simethicone (Gas Relief (simethicone)) 125 mg PO TID-QID PRN tirzepatide (Mounjaro) 10 mg (0.5 mL) subcut QWEEK walker rollator walker- use as directed HPI Comments Details: This is a 64-year-old Maori speaking female with a past medical history type 2 diabetes, hypothyroidism, dyslipidemia, hypertension, depression and GERD presenting for diabetic management. 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 Hemoglobin a1c 7.7% 05/22/24 down from 10.3% 02/18/24. Reviewed Severino 3 download CGM active 96% Average glucose 143 GMI 6.7% Glucose variability 16.2% Very high 0% High 8% Target range 92% 0% low Her 24 hour pattern shows normal blood glucose readings the majority of the day. Current medication regimen: Lantus 40 units daily and Jardiance 25 mg daily and Mounjaro 10 mg weekly. Past medications: Ozempic stopped in December due to dizziness reported by the patient. Intolerant to metformin which caused diarrhea. Hypoglycemia symptoms: 1 episode, glucose 69, felt dizzy. It had been a long time since eating. She ate lunch, and this resolved. Hyperglycemia symptoms: none Eye exam: 03/23/24 Microvascular complications: neuropathy in her toes and fingers, nephropathy (microalbumin, followed by Nephrology) Macrovascular complications: None Hypertension: treated with Enalapril 5 mg. Hyperlipidemia: treated with Zetia 10 mg and Atorvastatin 80 mg. Fib4 value 1.07. ROS: Constitutional: No unexplained weight loss, fever, chills or night sweats. She been a little fatigued the last few days after going out in the cold Eyes: No vision changes. ENT: No sneezing, congestion, runny nose or sore throat. Respiratory: No shortness of breath, cough or sputum production. Cardiovascular: No chest pain Gastrointestinal: No anorexia, nausea, vomiting or diarrhea. No abdominal pain Neurologic: No headache, dizziness, syncope Physical exam: Constitutional: Alert, in no distress. Neck: Supple, Full range of motion. No lymphadenopathy. Respiratory: Clear to auscultation. Cardiovascular: S1 S2 regular. No murmurs PFSH Medical History Diabetic polyneuropathy DM2 (diabetes mellitus, type 2) Daytime somnolence Chronic pain of both knees Chronic pain of both hips Helicobacter pylori (H. 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 (acquired) MCFP (current) use of insulin Diabetes type 2, uncontrolled Hypovitaminosis D Depression GERD (gastroesophageal reflux disease) Essential hypertension Headache Dyslipidemia Type 2 diabetes mellitus, with long-term current use of insulin Autoimmune thyroiditis Surgical History History of esophagogastroduodenoscopy (EGD) Hx of colonoscopy History of arthroscopy of right knee History of tubal ligation Family History Father Diabetes Mother Hypertension Maternal Grandmother Gynecologic cancer Family/Other FH: mental illness Maternal Uncle Chronic mental illness Social History Housing: Apartment Alcohol intake: never Patient Tobacco Use Status: Never used Tobacco e-Cigarette/Vaping Use: Never Used Second Hand Smoke Exposure: No service: No Current occupational status: disabled Current occupation: rt handed Cognitive needs: Yes Hearing needs: No Vision needs: No Physical Exam Vital Signs: Last Vital Signs Pulse 86 06/19/24 10:49 BP 100/60 06/19/24 10:49 Pulse Ox 97 06/19/24 10:49 Oxygen Delivery Method Room Air 06/19/24 10:49 BMI result Body Mass Index 34.8 Office Procedures Glucose Monitoring Details Details: See HPI 88454 - Glucose monitoring, continuous-physician I&R Procedure code (CPT) selection complete Results Reviewed Results Reviewed: Laboratory Tests 11/21/20 02/24/24 04/23/24 06:35 08:10 08:17 Plt Count 312 Creatinine Estimated GFR AST ALT B-Natriuretic Peptide < 10 Triglycerides Cholesterol LDL Cholesterol, Calc HDL Cholesterol Vitamin B12 TSH Urine Creatinine 85.98 Urine Microalbumin 17.0 Microalb/Creat Ratio 19.7 04/23/24 08:25 Plt Count Creatinine 0.63 Estimated GFR > 60 AST 22 ALT 19 B-Natriuretic Peptide Triglycerides 116 Cholesterol 165 LDL Cholesterol, Calc 99 HDL Cholesterol 43 Vitamin B12 516 TSH 0.48 Urine Creatinine Urine Microalbumin Microalb/Creat Ratio Assessment & Plan Assessment & Plan (1) Type 2 diabetes mellitus, with long-term current use of insulin: Code(s): E11.9 - Type 2 diabetes mellitus without complications; Z79.4 - MCFP (current) use of insulin Category: Medical Qualifiers: Diabetes mellitus complication status: with hyperglycemia Qualified Code(s): E11.65 - Type 2 diabetes mellitus with hyperglycemia; Z79.4 - MCFP (current) use of insulin Plan In summary this is a 63-year-old female with controlled type 2 diabetes per sensor data with microvascular complications. Complications of type 2 diabetes and diabetic diet reviewed. Continue Mounjaro to 10 mg weekly. Continue Lantus 40 units daily. Continue Jardiance 25 mg daily. If you experience low blood sugar (<70), treat this by eating a chewable fruit candy like skittles or jelly beans (about 8 pieces), 4 ounces (1/2 cup) of fruit juice (not diet), 1 tablespoon of honey or 4 glucose tablets or 1 packet of glucose gel. If your blood sugar is under 55, take double the amount of one of the above. Recheck your blood sugar in 15 minutes. Si experimenta un nivel bajo de az?car en la chris (<70), tr?telo comiendo un ruddy de fruta masticable christopher bolos o gominolas (aproximadamente 8 piezas), 4 onzas (1/2 taza) de jugo de fruta (no diet?kenny), 1 cucharada de miel o 4 tabletas de glucosa o 1 paquete de gel de glucosa. Si guevara nivel de az?car en chris es inferior a 55, tome el doble de tyrell de los anteriores. Vuelva a controlar guevara nivel de az?car en la chris en 15 minutos. Follow up in 3 months for type 2 diabetes. Orders: Orders AMB Glucose Monitoring Today E11.9 - Type 2 diabetes mellitus without complications Medications: New dextrose (TRUEplus Glucose) until symptoms of low blood sugar are controlled and blood sugar is over 70 15 grams (32 mL) PO Q15M PRN 128 mL 3RF hypoglycemia Refilled tirzepatide (Mounjaro) 10 mg (0.5 mL) subcut QWEEK 2 mL 5RF Discontinued glucose (Dex4 Glucose) until symptoms of low blood sugar are controlled Discontinued Reason: Doctor's Order 16 grams (4 x 4 gram) PO Q15M PRN 60 tabs 1RF hypoglycemia Patient Instructions: If you experience low blood sugar (<70), treat this by eating a chewable fruit candy like skittles or jelly beans (about 8 pieces), 4 ounces (1/2 cup) of fruit juice (not diet), 1 tablespoon of honey or 4 glucose tablets or 1 packet of glucose gel. If your blood sugar is under 55, take double the amount of one of the above. Recheck your blood sugar in 15 minutes. Si experimenta un nivel bajo de az?car en la chris (<70), tr?telo comiendo un ruddy de fruta masticable christopher bolos o gominolas (aproximadamente 8 piezas), 4 onzas (1/2 taza) de jugo de fruta (no diet?kenny), 1 cucharada de miel o 4 tabletas de glucosa o 1 paquete de gel de glucosa. Si guevara nivel de az?car en chris es inferior a 55, tome el doble de tyrell de los anteriores. Vuelva a controlar guevara nivel de az?car en la chris en 15 minutos. Coding Level of Care Code Est Pt Level 4 (84957) Diagnoses Type 2 diabetes mellitus with hyperglycemia, with long-term current use of insulin E11.65; Z79.4 Diabetes mellitus complication status: with hyperglycemia CPT Codes Details - CPT: 83731 - Glucose monitoring, continuous-physician I&R ([id number])
[2024-06-19 10:49] VITALS: BP 100/60; PULSE 86; O2SAT 97; BMI 34.8
[2024-06-19 10:58] LABS: Glucose, Whole Blood 153 mg/dL (60-115)
--- OUTSIDE RECORDS SUMMARY | 2024-06-19 11:25 | XMS_ITS | Encounter Summary ---
Author Organization [facility] Address [address] [facility] [address] [place] [address] Care Team Providers Care Face Painter Name Role Phone Unavailable Primary Care Provider Unavailabl e Encounter Details Date Type Department Care Team (Late st Contact Info) Description 05/04/2022 Abstract [facility] [address] [place] [address] Katelynn Toth, AnnieD [address] [place] [address] Social History Tobacco Use Types Packs/Day Years [...]
--- OUTSIDE RECORDS SUMMARY | 2024-06-19 11:25 | XMS_ITS | Clinical Summary ---
Author Organization [employer] Address [address] [facility] [address] [place] [address] Care Team Providers Care Zipper Trimmer Hand Name Role Phone Unavailable Primary Care [...]
--- OUTSIDE RECORDS SUMMARY | 2024-06-19 11:25 | XMS_ITS | Clinical Summary ---
Author Organization [address] [facility] Address [address] [place] [address] Phone Care Team Providers Care Student Finance Specialist Name Role Phone Payal Villanueva MD Primary Care Provider [phone] Social History Tobacco Use Types Packs/Day Years Used Date Smoking Tobacco: Never Assessed Comments Unknown Sex and Gender Information Value Date Recorded Sex Assigned at Not on file Legal Sex Female 2:35 PM EST Gender Identity Not on file Sexual Orientation Not on file Plan of Treatment Upcoming Encounters Date Type Department Care Team ([facility] Contact Info) Description 07/30/2024 9:00 AM EDT Consult Orthopedic Surgery - [place] [id number] [id number] Darrell Rockwell, DPM [address] [address] Health Maintenance Due Date Last Done Comments [...] patient's age to complete this topic Insurance [facility] MEDICARE Member Subscriber Plan / Payer (Ef fective 2023-Present) Name:Cara Ballard Relation to Subscriber:Self Name:Cara Ballard Payer ID:[id number] Group ID:[id number] Type:Not on file Address: [place] [address] [address] [id number] Care Teams Student Finance Specialist Relationship Specialty Start Date End Date Payal Villanueva MD [address] [place] [address] , [address] [facility] D/B/A: Halina Buenrostro In Internal Medicine LIZ Meade PCP - General Internal Medicine 05/22/24
== END 2024-06-19 11:13 | disposition home or self-care (01) ==
PROVIDERS: PCP Internal Medicine; Visit Provider Physician Assistant Medical
DX: E11.65 Type 2 diabetes mellitus with hyperglycemia (principal); Z79.4 Long term (current) use of insulin

== ENCOUNTER → 2024-06-19 10:29 | Outpatient (BNVA) | payer OTHER, SELFPAY | PROVIDERS: PCP Internal Medicine; Visit Provider Physician Assistant Medical | DX: E11.65 Type 2 diabetes mellitus with hyperglycemia (principal); Z79.4 Long term (current) use of insulin | CPT/HCPCS: 82947 ==

== ENCOUNTER 2024-07-13 10:35 | Outpatient (AMB) | payer OTHER, SELFPAY ==
--- NOTE | 2024-07-13 10:53 | A.OFFPC_ITS ---
Vital Signs 07/13/24 10:57 Height 5 ft 3 in Weight 197 lb BMI 34.9 BP 132/80 Blood Pressure Location Lt brachial Position Sitting Intake Visit Reasons: dm Intake Note: Patient here for a follow up DM, MRI Crimper Assembler Required: Yes Crimper Assembler Language: Hydro Generation Manager Name: Payal Villanueva MD Information Interpreted: non-clinical & clinical Accompanied by: SWITCH OPERATOR Allergies metformin Adverse Reaction (Intermediate, Verified 07/13/24 11:17) diarrhea Medication List - Last Reconciled 07/13/24 by Payal Villanueva MD acetaminophen 500 mg PO Q6H PRN 30 days albuterol sulfate 90 mcg/actuation 2 puffs inhalation Q4-6H PRN alcohol swabs (BD Alcohol Swabs) 1 pad topical BID 30 days aspirin 81 mg PO DAILY 90 days atorvastatin 80 mg PO DAILY blood pressure monitor As directed blood sugar diagnostic (FreeStyle Test strips) Use 1 test strip twice a day blood-glucose meter (FreeStyle Lite Meter kit) As directed blood-glucose meter,continuous (FreeStyle Severino 3 Pomerene) Use daily to monitor blood glucose continuously blood-glucose sensor (FreeStyle Severino 3 Sensor device) apply new sensor every 14 days to monitor blood glucose continuously blood-glucose sensor (FreeStyle Severino 3 Plus Sensor device) Apply 1 new sensor every 14 days as directed to monitor blood glucose continuously. cholecalciferol (vitamin D3) (Vitamin D3) 50 mcg PO DAILY clotrimazole-betamethasone 1-0.05 % 1 appl topical BID 7 days dextrose (TRUEplus Glucose) 15 grams (32 mL) PO Q15M PRN doxepin 50 mg PO BEDTIME empagliflozin (Jardiance) 25 mg PO DAILY 90 days enalapril maleate 5 mg PO DAILY 90 days escitalopram oxalate 20 mg PO DAILY 90 days ezetimibe 10 mg PO DAILY 90 days famotidine (Pepcid) 20 mg PO BEDTIME hydroxyzine HCl 25 mg PO BID 30 days incontinence pad, liner, disp Use 1 pad 6 times a day as needed insulin glargine (Lantus Solostar U-100 Insulin) 40 units subcut DAILY lancets As directed levothyroxine 137 mcg PO DAILY 90 days pen needle, diabetic As directed pen needle, diabetic (BD Rona 2nd Gen Pen Needle) once a day polyethylene glycol 3350 (Miralax) 17 grams PO DAILY [right arm sling As directed] sennosides (Natural Senna Laxative) 17.2 mg (2 x 8.6 mg) PO BEDTIME Shower Chair As directed simethicone (Gas Relief (simethicone)) 125 mg PO TID-QID PRN tirzepatide (Mounjaro) 10 mg (0.5 mL) subcut QWEEK walker rollator walker- use as directed Tobacco use date assessed: 07/13/24 Fall risk assessment: No Falls in past year Last assessed Fall Risk: 07/13/24 Dental Screening Dental Screen Date: 07/13/24 Did you have a dental visit in the last 12 months?: No Did you have a dental problem in the last 6 months where you did not have access to dental care?: No Was dental information given to patient?: No HPI HPI Comments 2 History of Present Illness Details The patient is a 64-year-old female presenting with issues related to osteoarthritis of the shoulder, diabetes management, and mental health concerns. She has a history of moderate shoulder osteoarthritis confirmed by an MRI, with findings of tendon ruptures and muscle atrophy following an accident last year. The shoulder pain is persistent, worsens at night, and affects her mobility. Previous orthopedic consultations have not satisfied the patient's expectations for care, and non-surgical options like injections have been declined due to her diabetes. She has been managing type 2 diabetes, with an A1c level previously recorded at 7.7. Diabetes mellitus complicated by polyneuropathy and nephropathy. Medication management includes several prescriptions such as Atorvastatin and Levothyroxine. Her diabetes management has been complicated by allergies to Metformin. Alongside physical challenges, the patient reports depressive symptoms, worsened by ongoing pain. Previously engaged in physical therapy, she is now seeking re-evaluation for shoulder and other orthopedic care while everardo castro therapy for mental health. FORMERLY [facility], [facility] Medical History (Updated 07/13/24 @ 12:00 by Payal Villanueva MD) Subarachnoid hemorrhage Diabetic polyneuropathy DM2 (diabetes mellitus, type 2) Daytime somnolence Chronic pain of both knees Chronic pain of both hips Helicobacter pylori (H. 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 Diabetes type 2, uncontrolled Hypovitaminosis D Depression GERD (gastroesophageal reflux disease) Essential hypertension Headache Dyslipidemia Type 2 diabetes mellitus, with long-term current use of insulin Autoimmune thyroiditis Surgical History History of esophagogastroduodenoscopy (EGD) Hx of colonoscopy History of arthroscopy of right knee History of tubal ligation Family History Father Diabetes Mother Hypertension Maternal Grandmother Gynecologic cancer Family/Other FH: mental illness Maternal Uncle Chronic mental illness Social History Housing: Apartment Alcohol intake: never Patient Tobacco Use Status: Never used Tobacco e-Cigarette/Vaping Use: Never Used Second Hand Smoke Exposure: No service: No Current occupational status: disabled Current occupation: rt handed Cognitive needs: Yes Hearing needs: No Vision needs: No Questionnaire PHQ-9 Over the last 2 weeks, how often have you been bothered by any of the following problems? 1. Little interest or pleasure in doing things: several days 2. Feeling down, depressed, or hopeless: several days 3. Trouble falling or staying asleep, or sleeping too much: several days 4. Feeling tired or having little energy: several days 5. Poor appetite or overeating: not at all 6. Feeling bad about yourself - or that you are a failure or have let yourself or your family down: not at all 7. Trouble concentrating on things, such as reading the newspaper or watching television: not at all 8. Moving or speaking so slowly that other people could have noticed. Or the opposite - being so fidgety or restless that you have been moving around a lot more than usual: not at all 9. Thoughts that you would be better off or of hurting yourself in some way: not at all Total score: 4 Depression Screening Interpretation: Positive Depression Screening Follow-up: Existing condition, In treatment, Community Mental Health Worker F/U and Follow- up Visit Requested Depression Screening Done: Yes 05321 - PHQ-9 Billing: Yes Source: Developed by Drs. Liang Gao, Joan Cruz, Chip Aldana and colleagues, with an educational mei from [employer]. Thrive Questionnaire Date Thrive assessed: 07/13/24 I am a: Patient What is your living situation today?: I have a steady place to live Within the past 12 months, did the food you bought not last and you didn't have the money to get more?: Never true Within the past 12 months, did you worry whether your food would run out before you got money to buy more?: Never true Do you have trouble paying for medicines?: No Do you have trouble getting transportation to medical appointments?: No Do you have trouble paying your heating and electricity bill?: No Do you have trouble taking care of your child, family member or friend?: No Do you have trouble with day-to-day activities such as bathing, preparing meals, shopping, managing finances, etc.?: No Are you currently unemployed and looking for a job?: No Are you interested in more education?: No Please select the resources that you would like help with: None Currently or been in a relationship where the following occur: No concerns reported THRIVE Score: 0 AUDIT C Alcohol Use Questionnaire (AUDIT-C) 1. How often do you have a drink containing alcohol?: Never Total Score: 0 Score Reviewed/Action Taken: No FRANCISCO-7 AMB Questionnaire FRANCISCO-7 Date FRANCISCO - 7 assessed: 07/13/24 Feeling nervous, anxious, or on edge: 1 = Several days Not being able to stop or control worryin = Not at all Worrying too much about different things: 1 = Several days Trouble relaxin = Not at all Being so restless that it is hard to sit still: 0 = Not at all Becoming easily annoyed or irritable: 1 = Several days Feeling afraid as if something awful might happen: 0 = Not at all Total FRANCISCO-7 score (0-4 normal; 5-9 mild; 10-14 moderate; 15-21 severe): 3 Source: Developed by Drs. Liang Gao, Joan Cruz, Chip Aldana and colleagues, with an educational mei from [employer]. FRANCISCO-7 Assessment Billing FRANCISCO-7 Assessment Tool: FRANCISCO-7 Assessment 06276 Review of Systems Const All systems reviewed & are unremarkable except as noted in HPI and below Card Denies chest pain at rest, Denies chest pain with activity, Denies edema, Denies irregular heart rhythm, Denies claudication, Denies dyspnea, Denies dyspnea on exertion, Denies orthopnea, Denies paroxysmal nocturnal dyspnea and Denies slow heart rate Resp Denies cough, Denies dyspnea and Denies dyspnea on exertion GI Denies abdominal pain, Denies change in bowel habits, Denies excessive flatus, Denies nausea and Denies vomiting Denies urinary incontinence, Denies urinary hesitancy and Denies urinary urgency Musc Denies atrophy, Denies deformity, Reports arthralgias and Reports limited range of motion Skin/Breast Denies bleeding lesions, Denies changing lesions and Denies rash Physical exam (Primary Care) Vital Signs: Last Vital Signs BP 132/80 07/13/24 10:57 BMI result Body Mass Index 34.9 BMI Assessment/Plan discussion: High BMI High, discussed plan: lifestyle, weight reduction, dietary and physical activity Tobacco/Smoking Status: Tobacco use Status Tobacco use date assessed 07/13/24 07/13/24 10:59 Patient Tobacco Use Status Never used Tobacco 07/13/24 10:59 e-Cigarette/Vaping Use Never Used 07/13/24 10:59 PHQ-9: PHQ-9 Score PHQ-9: Total score 4 07/13/24 11:21 Depression Screening Interpretation: Positive Depression Screening Follow-up: Existing condition, In treatment, Community Mental Health Worker F/U and Follow- up Visit Requested Thrive Assessment: Date of Thrive Assessment Date Thrive assessed 07/13/24 07/13/24 10:59 Currently or been in a relationship where the following occur: No concerns reported Resp Effort & Inspection: normal respiratory effort Auscultation: clear to auscultation bilaterally Cardio Jugular venous distension: no JVD Rate: regular rate Rhythm: regular rhythm Heart sounds: S1 normal heart sound present and S2 normal heart sound present Extrem Right upper extremity: shoulder/upper arm Details: tenderness and abnormal ROM Details: pain with active ROM Details: in ABduction and in extension Coding Level of Care Code Est Pt Level 4 (41576) Complex EM visit Add On G2211 Diagnoses Diabetic polyneuropathy associated with type 2 diabetes mellitus E11.42 Diabetes mellitus type: type 2 Diabetic nephropathy associated with type 2 diabetes mellitus E11.21 Rupture of infraspinatus tendon S46.019A Traumatic rupture of supraspinatus tendon of right shoulder, subsequent encounter S46.811D Encounter type: subsequent encounter Mild depression F32.0 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 E03.8; E06.3 Hypothyroidism type: due to Damion's thyroiditis Essential hypertension I10 Type 2 diabetes mellitus with hyperglycemia, with long-term current use of insulin E11.65; Z79.4 Diabetes mellitus complication status: with hyperglycemia Dyslipidemia E78.5 Additional Codes FRANCISCO-7 Assessment Billing - FRANCISCO-7 Assessment Tool: FRANCISCO-7 Assessment 48289 ([id number]) PHQ-9 - 35438 - PHQ-9 Billing: Yes ([id number]) Time Spent (min) 23 Assessment & Plan Assessment & Plan (1) Diabetic polyneuropathy: Code(s): E11.42 - Type 2 diabetes mellitus with diabetic polyneuropathy Category: Medical Qualifiers: Diabetes mellitus type: type 2 Qualified Code(s): E11.42 - Type 2 diabetes mellitus with diabetic polyneuropathy (2) Diabetic nephropathy associated with type 2 diabetes mellitus: Code(s): E11.21 - Type 2 diabetes mellitus with diabetic nephropathy Category: Medical (3) Rupture of infraspinatus tendon: Code(s): S46.019A - Strain of muscle(s) and tendon(s) of the rotator cuff of unspecified shoulder, initial encounter Category: Medical (4) Traumatic tear of supraspinatus tendon of right shoulder: Code(s): S46.811A - Strain of other muscles, fascia and tendons at shoulder and upper arm level, right arm, initial encounter Category: Medical Qualifiers: Encounter type: subsequent encounter Qualified Code(s): S46.811D - Strain of other muscles, fascia and tendons at shoulder and upper arm level, right arm, subsequent encounter (5) Mild depression: Code(s): F32.0 - Major depressive disorder, single episode, mild Category: Medical (6) Hypothyroidism: Code(s): E03.9 - Hypothyroidism, unspecified Category: Medical Qualifiers: Hypothyroidism type: due to Damion's thyroiditis Qualified Code(s): E03.8 - Other specified hypothyroidism; E06.3 - Autoimmune thyroiditis (7) Essential hypertension: Code(s): I10 - Essential (primary) hypertension Category: Medical (8) Type 2 diabetes mellitus, with long-term current use of insulin: Code(s): E11.9 - Type 2 diabetes mellitus without complications; Z79.4 - detention (current) use of insulin Category: Medical Qualifiers: Diabetes mellitus complication status: with hyperglycemia Qualified Code(s): E11.65 - Type 2 diabetes mellitus with hyperglycemia; Z79.4 - detention (current) use of insulin (9) Dyslipidemia: Code(s): E78.5 - Hyperlipidemia, unspecified Category: Medical Plan I'll refer her to a different commodity specialist to address dissatisfaction with the previous evaluation, and physical therapy will be reintroduced for shoulder rehabilitation. For type 2 diabetes, we'll monitor blood glucose, adjust medications, and continue her dietary and lifestyle adjustments. Her depression treatment will continue with psychiatric support. We need to reassess her thyroid status regularly and conduct lab tests prior to her September visit to reassess her progress. Patient was informed and verbally consented to the use of an ambient scribe for clinic note documentation during this visit. During the consultation, I discussed with the patient the importance of re- evaluating her shoulder condition with a different commodity specialist to possibly refine her management approach. We addressed her concerns regarding prior consultations and the impact of injections on her blood pressure. I explained the necessity of adhering to her designed diabetes treatment plan and discussed periodic evaluations to monitor her progress. For her depression, we reviewed the integrative care approach with psychiatric support. We scheduled her lab work for September and discussed the regular follow-up and reassessment of her thyroid status. All management plans were explained in detail, emphasizing the need for compliance and addressing her concerns regarding current treatments. Orders: Orders PT Evaluation and Treatment Today S40.021A - Contusion of right upper arm, initial encounter, S46.019A - Strain of muscle(s) and tendon(s) of the rotator cuff of unspecified shoulder, initial encounter, S46.811A - Strain of other muscles, fascia and tendons at shoulder and upper arm level, right arm, initial encounter Lipid Panel Today E78.5 - Hyperlipidemia, unspecified Microalbumin, Random (w Creat) Today R80.9 - Proteinuria, unspecified Vitamin D 25-OH Total Today E55.9 - Vitamin D deficiency, unspecified Vitamin B12 and Folate Today E53.8 - Deficiency of other specified B group vitamins Comprehensive [place]. Panel Fast Today E11.42 - Type 2 diabetes mellitus with diabetic polyneuropathy Thyroid Stimulating Hormone Today E03.8 - Other specified hypothyroidism, E06.3 - Autoimmune thyroiditis Referrals Orthopedics Referral S40.021A - Contusion of right upper arm, initial encounter, S46.019A - Strain of muscle(s) and tendon(s) of the rotator cuff of unspecified shoulder, initial encounter, S46.811A - Strain of other muscles, fascia and tendons at shoulder and upper arm level, right arm, initial encounter Patient Instructions: - Continue with prescribed medications, ensuring consistent adherence. - Attend scheduled appointments with the commodity specialist and physical therapy. - Monitor blood glucose levels regularly and record readings. - Maintain a balanced diet and engage in physician-approved physical activities. - Be attentive to any changes or worsening of symptoms, and seek immediate care if necessary. - Return for lab tests and follow-up consultation in September.
[2024-07-13 10:57] VITALS: BP 132/80; BMI 34.9
--- OUTSIDE RECORDS SUMMARY | 2024-07-13 11:59 | XMS_ITS | Continuity of Care Document ---
Author Organization [facility] [employer], [place] in - [facility] Address [address] [place] [phone] Care Team Providers Care Logistics Team Lead Name Role Phone HIM CCA OTHER Assessment No assessment recorded. Plan of Treatment Reminders Order Date Submit Date Provider Last Modified By Organization Details Last Modified Time Details Appointments None recorded. Lab rapid SARS CoV 2 Ag, QL IA, respiratory specimen 2024 025 [facility], [address] [place] [address], [phone], 13:10:36 rapid flu (A+B) 2024 025 [facility], [address] [place] [address], [phone], 16:02:22 rapid strep group A, throat 2024 025 [facility], [address] [place] [address], [phone], 13:10:56 Referral None recorded. Procedures None recorded. Surgeries None recorded. Imaging None recorded. Medication Orders None recorded. Patient TargetsNo targets recorded. Patient InstructionsNo instructions recorded. Reason for Referral None Reported. Results Created Date Observation Date Name Description Value Unit Range Abnormal Flag Note LastModifiedBy Organization Detail LastModifiedTime 06/23/1906/23/2024 rapid flu (A+B) Flu negati ve Not Available [address], [phone], 06/23/2024 12:15:51 06/23/19 25 06/23/2024 rapid strep group A, throa t Strep negati ve Not Available [address] [place], [address], 06/23/2024 12:16:01 06/23/19 25 06/23/2024 rapid SARS CoV 2 Ag, QL IA, respi rator y speci men rapid SARS CoV 2 Ag, QL IA, respiratory specimen negati ve Not Available Main - [facility] ed [address] [place] [address], [phone], 06/23/2024 12:15:51 Result Notes None recorded. Medical Equipment None Reported. Allergies No known drug allergies Medications Name Sig Start Date Stop Date Status Note LastModified by Organization Details LastModified Time doxepin 50 mg capsule TOME 1 C PSULA POR V A ORAL TODOS LOS D AL ACOSTARSE active Not Available Not Available No t Available levothyroxin e 137 mcg tablet TOME LUIS ANTONIO TABLETA POR V A ORAL TODOS LOS D active Not Available Not Available No t Available atorvastatin 80 mg tablet TOME 1 TABLETA POR V A ORAL TODOS LOS D active Not Available Not Available No t Available enalapril maleate 5 mg tablet TOME 1 TABLETA POR V A ORAL TODOS LOS D active Not Available Not Available No t Available fluconazole 150 mg tablet TOME LUIS ANTONIO TABLETA POR V A ORAL DAILY FOR 1 DOSE ADMINISTER ON DAY 1 OF THERAPY active Not Available Not Available No t Available senna 8.6 mg tablet TOME DOS TABLETAS POR V A ORAL AL ACOSTARSE PARA EL ESTRE IMIENTO active Not Available Not Available No t Available aspirin 81 mg tablet,delay ed release TOME 1 TABLETA POR V A ORAL TODOS LOS D active Not Available Not Available No t Available acetaminophe n 500 mg tablet active Not Available Not Available Not Available famotidine 20 mg tablet TOME 1 TABLETA POR V A ORAL TODOS LOS D AL ACOSTARSE active Not Available Not Available No t Available levothyroxin e 125 mcg tablet active Not Available Not Available Not Available clotrimazole -betamethaso ne 1 %-0.05 % topical cream APPLY TOPICALLY 2 TIMES A DAY FOR FUNGAL RASH FOR 7 DAYS active Not Available Not Available No t Available Gas Relief Extra Strength 125 mg capsule TAKE 1 CAP (125 MG) ORALLY 3 TO 4 TIMES A DAY NEEDED FOR ABDOMINAL DISTENTION active Not Available Not Available N ot Available hydroxyzine HCl 25 mg tablet TOME 1 TABLETA POR V A ORAL DOS VECES AL D A CUANDO SEA NECESARIO active Not Available Not Available No t Available escitalopram 20 mg tablet TOME 1 TABLETA POR V A ORAL TODOS LOS D active Not Available Not Available No t Available ezetimibe 10 mg tablet TOME 1 TABLETA POR V A ORAL TODOS LOS D active Not Available Not Available No t Available FreeStyle Lite Strips active Not Available Not Available Not Available Lantus Solostar U-100 Insulin 100 unit/mL (3 mL) subcutaneous pen INJECT 40 UNITS (0.4ML) SUBCUTANEOU SLY 2 TIMES A DAY active Not Available Not Available No t Available Mucus Relief ER 600 mg tablet, extended release TOME 1 TABLETA POR V A ORAL CADA 12 HORAS CUANDO SEA NECESARIO FOR CONGESTION POR 5 D active Not Available Not Available N ot Available BD Ultra-Fine Rona Pen Needle 32 gauge x active Not Available Not Available Not Available Vitamin D3 50 mcg (2,000 unit) capsule active Not Available Not Available Not Available TRUEplus Lancets 28 gauge active Not Available Not Available Not Available Jardiance 25 mg tablet TOME 1 TABLETA POR V A ORAL TODOS LOS D active Not Available Not Available No t Available Trulicity 1.5 mg/0.5 mL subcutaneous pen injector active Not Available Not Available Not Available Mounjaro 7.5 mg/0.5 mL subcutaneous pen injector INJECT 7.5MG UNDER THE SKIN EVERY WEEK active Not Available Not Available N ot Available Mounjaro 10 mg/0.5 mL subcutaneous pen injector INJECT 10 MG (0.5 ML) SUBCUTANEOU SLY EVERY WEEK active Not Available Not Available No t Available Mounjaro 2.5 mg/0.5 mL subcutaneous pen injector INJECT 2.5 MG (0.5 ML) SUBCUTANEOU SLY EVERY WEEK FOR 4 WEEKS active Not Available Not Available No t Available Ozempic 0.25 mg or 0.5 mg (2 mg/3 mL) subcutaneous pen injector INJECT 0.25 MG (0.368 ML) SUBCUTANEOU SLY EVERY WEEK FOR 4 WEEKS active Not Available Not Available No t Available FreeStyle Severino 3 Lerna USE DAILY TO MONITOR BLOOD GLUCOSE CONTINUOUSL Y active Not Available Not Available No t Available FreeStyle Severino 3 Plus Sensor device APPLY 1 NEW SENSOR EVERY 14 DAYS DIRECTED TO MONITOR BLOOD GLUCOSE CONTINUOUSL Y. active Not Available Not Available No t Available Vitals Date Recorded Respiratory rate Oxygen saturation Oxygen saturation in Arterial blood by Pulse oximetry Heart rate Body height Body weight Body temperature Systolic blood pressure Diastolic blood pressure Provider Name and Address Organization Details Last Updated DateTime 5 18 /min 95 % 95 % 94 /min 160.02 cm 72034.0 32 g 99.8 [degF] 115 mm[Hg] 74 mm[Hg] Not Available [facility] - production 5 11:51:15 Social History None recorded. Functional Status None recorded. Mental Status None recorded. Family History Nothing Reported. Medical History No medical history recorded. Gynecological HistoryNo gynecological history recorded. Obstetrics History GPAL:G 0 P 0 0 0 0 Past Encounters Encounter ID Performer Location Encounter Start Date Encounter Closed Date Diagnosis/Indication Diagnosis SNOMED-CT Code Diagnosis ICD10 Code Diagnosis Note [id number] Clare Zarate MD Main - [address] [address] 06/23/2024 11:51:12 06/24/2024 12:16:20 Viral upper respiratory tract infection 334074068 J06.9 As noted, we were called to see this patient regarding concerns of URI. Evaluation in the field was performed by my web press roll tender colleague, as noted above, I provided real-time direction and supervisio n for this visit. The evaluation revealed 64 yo woman who starting yesterday has symptoms of cough, rhinnorhea , head congestion , body aches and chills.She is otherwise eating and drinking well without dyspnea. She is taking tylenol with good effect.Her exam is benign.She is flu, COVID and Strep (-) Impression :URI Plan:verena nue tylenol for body aches; discussed using antihistam lakisha and nasal saline or steroid for congestion . Dispositio n: We discussed the diagnostic uncertaint y of home visits and the risk associated with this. In this case, the patient and I felt this to be an acceptable and reasonable amount of risk given the benefit of avoiding an ED visit. We discussed the need to seek care urgently/e mergently in the setting of any new or worsening serious symptoms, particular ly changes to consciousn ess, chest pain, dyspnea Health Concerns Section Related Observation LastModified by Organization Detai ls LastModified Time None Recorded Concern Status LastModified by Organization Details LastModified Time None Recorded Payers Encounter Date Sequence Insurance Name Policy Number Policy Darnell Covered Member ID Darnell Member ID Guarantor Name 06/23/2024 1 [facility] - DOS ON OR AFTER 2022 - DUAL ELIGIBLE - SKILLED NURSING OPTIONS AND ONE CARE (MEDICARE REPLACEMENT/AD VANTAGE - HMO) Cara Banegas [id number] Cara Banegas Notes Date Note Type Note Provider Name and Address Organization Details Recorded Time 06/23/2024 text/html [facility] Nurse Triage Notes (Lacy Forbes - RN): Reason For Request: Patient has stomach pain and a cough. Denies: Increased work of breathing/labored ? with or without fever Unable to speak in full sentences without distress Discoloration of skin -cyanosis Needs to sleep sitting up, can? t catch breath Shortness of breath in setting of confusion Chief Complaints: Sore Throat PMH Reviewed at 06/23/2024 - :30 Allergies Reviewed at 06/23/2024 - :30 Comments: Patient woke up this morning with facial swelling, sore throat and suspected fever. Patient had the chills with increased thirst. Does not have a thermometer in the home to check temp. Has not taken at OTC medications. Unable to get up from the bed. Patient's spouse has body aches and nasal congestion. Denies cough or shortness of breath. [place] denies PMH. Education provided on the response time and the member was advised to monitor reported s/s and seek emergency treatment if needed. Window [employer] Organization Information for [facility] Business Legal Name: [employer] Address: [address] [place] [id number], It Application Development Manager: Ronak Brady MD CLIA No.: [id number] [employer] POC Test Results from [facility] Rapid COVID antigen (11:50:30) COVID: - Rapid influenza antigen (11:50:31) Flu: - Rapid strep test (11:50:32) Strep: - .................. .................. .................. .................. .................. .................. .................. ............... [employer] Note From Savannah Elmore: Sent to a call for a pt complaining of URI symptoms. SC8 arrives on scene, pt is alert and oriented, airway is patent. Pt complains of nye, bilateral sinus pain, runny nose with white mucus, sore throat, feeling feverish, chills, and worsening body pain( pt has chronic body pain due to arthritis) x 2 days. Pt denies dizziness, cough, cp, sob, n/v/d, abd pain, or loc. Pt has been taking Tylenol for pain. Pt has been eating/drinking normally. BP:115/74, P:94, RR:18, SpO2:95% RA, T:99.8; Head: unremarkable; Lung sounds: clear bilaterally; Abdomen: soft, non-tender, no distention; Back: unremarkable; Extremities: unremarkable; Skin: pink, warm, dry; Rapid covid/flu test: neg; Rapid strep test: neg; [facility] consulted, pt is advised to continue symptomatic treatment. Red flags discussed. Pt has no further questions. [facility] Lab Orders: rapid SARS CoV 2 Ag, QL IA, respiratory specimen: Performed rapid flu (A+B): Performed rapid strep group A, throat: Performed .................. .................. .................. .................. .................. .................. .................. ............... [facility] Consulted: Clare Zarate .................. .................. .................. .................. .................. .................. .................. ............... Disposition: Fulfilled Clare Zarate MD [address] [facility] [facility], [place], [address], LIZ TargAnoxDAISY MACDONALD 06/23/2024 13:54:06 OBGyn Episode No OBEpisode recorded.
--- OUTSIDE RECORDS SUMMARY | 2024-07-13 11:59 | XMS_ITS | Encounter Summary ---
Author Organization [employer] Address [address] [facility] [address] [place] [address] Care Team Providers Care Studio Grip Name Role Phone Unavailable Primary Care Provider Unavailabl e Encounter Details Date Type Department Care Team (Late st Contact Info) Description 05/04/2022 Abstract [facility] [address] [place] [address] Katelynn Toth, AnnieD [address] [place] [address] Social History Tobacco Use Types Packs/Day Years [...]
--- OUTSIDE RECORDS SUMMARY | 2024-07-13 11:59 | XMS_ITS | Clinical Summary ---
Author Organization [address] [facility] Address [address] [place] [address] Phone Care Team Providers Care Manager Crisis Name Role Phone Payal Villanueva MD Primary Care Provider [phone] Social History Tobacco Use Types Packs/Day Years Used Date Smoking Tobacco: Never Assessed Comments Unknown Sex and Gender Information Value Date Recorded Sex Assigned at Not on file Legal Sex Female 2:35 PM EST Gender Identity Not on file Sexual Orientation Not on file Plan of Treatment Upcoming Encounters Date Type Department Care Team ([facility] Contact Info) Description 07/30/2024 9:00 AM EDT Consult Orthopedic Surgery - [place] [id number] [phone] Darrell Rockwell, DPM [address] [address] Health Maintenance Due Date Last Done Comments [...] patient's age to complete this topic Insurance [facility] MEDICARE Member Subscriber Plan / Payer (Ef fective 2023-Present) Name:Cara Ballard Relation to Subscriber:Self Name:Cara Ballard Payer ID:[id number] Group ID:[id number] Type:Not on file Address: [place] [address] [address] [address] Care Teams Manager Crisis Relationship Specialty Start Date End Date Payal Villanueva MD [address] [place] [address] , [address] [facility] D/B/A: Halina Buenrostro In Internal Medicine LIZ Meade PCP - General Internal Medicine 05/22/24
--- OUTSIDE RECORDS SUMMARY | 2024-07-13 11:59 | XMS_ITS | Clinical Summary ---
Author Organization [employer] Address [address] [facility] [address] [place] [address] Care Team Providers Care Credentialing Analyst Name Role Phone Unavailable Primary Care Provider [...]
--- OUTSIDE RECORDS SUMMARY | 2024-07-13 11:59 | XMS_ITS | Data Portability ---
Author Organization [facility] [employer] [place], [place] in [facility] Address [address] [place] [phone] Care Team Providers Care Thermospray Operator Name Role Phone HIM CCA OTHER Assessment No assessment recorded. Plan of Treatment Reminders Order Date Submit Date Provider Last Modified By Organization Details Last Modified Time Details Appointments None recorded. Lab rapid SARS CoV 2 Ag, QL IA, respiratory specimen 2024 025 [facility], [address] [place] [address], [phone], 13:10:36 rapid flu (A+B) 2024 025 [facility], [address] [place] [address], [phone], 5 16:02:22 rapid strep group A, throat 2024 025 [facility], [address] [place] [address], [phone], 13:10:56 Referral None recorded. Procedures None recorded. Surgeries None recorded. Imaging None recorded. Medication Orders None recorded. Patient TargetsNo targets recorded. Patient InstructionsNo instructions recorded. Reason for Referral None Reported. Results Created Date Observation Date Name Description Value Unit Range Abnormal Flag Note LastModifiedBy Organization Detail LastModifiedTime 06/23/1906/23/2024 rapid flu (A+B) Flu negati ve Not Available [address], [address], 06/23/2024 12:15:51 06/23/19 25 06/23/2024 rapid strep group A, throa t Strep negati ve Not Available [address], [address], 06/23/2024 12:16:01 06/23/19 25 06/23/2024 rapid SARS CoV 2 Ag, QL IA, respi rator y speci men rapid SARS CoV 2 Ag, QL IA, respiratory specimen negati ve Not Available [facility] ed [address] [place] [address], [phone], 06/23/2024 12:15:51 Result Notes None recorded. Medical [...] Ultra-Fine Rona Pen Needle 32 gauge x /32 active Not Available Not Available Not Available [...] Available No t Available FreeStyle Severino 3 Pickrell USE DAILY TO MONITOR BLOOD GLUCOSE CONTINUOUSL [...] % 95 % 94 /min 160.02 cm 97853.0 32 g 99.8 [degF] 115 mm[Hg] 74 [...] SNOMED-CT Code Diagnosis ICD10 Code Diagnosis Note [id number] Clare Zarate MD Main - [address] [address] 06/23/2024 11:51:12 06/24/2024 12:16:20 Viral upper respiratory tract infection [id number] J06.9 As noted, we were called to see this patient regarding concerns of URI. Evaluation in the field was performed by my electrician powerhouse colleague, as noted above, I provided real-time [...] by Organization Details LastModified Time None Recorded Advance Directives Directive None Recorded Payers Encounter Date Sequence Insurance Name Policy Number Policy Darnell Covered Member ID Darnell Member ID Guarantor Name 06/23/2024 1 [facility] - DOS ON OR AFTER 2022 - DUAL ELIGIBLE - [facility] OPTIONS AND ONE CARE (MEDICARE REPLACEMENT/AD VANTAGE - HMO) Cara Banegas [id number] Cara Banegas Notes Date Note Type Note [...] s/s and seek emergency treatment if needed. Felt Machine Mechanic Organization Information for [facility] Business Legal Name: [employer] Address: [address] [place] [address], [place] [address], Carport Erector: Ronak Brady MD CLIA No.: [id number] [employer]elt Machine Mechan[employer] POC Test Results from [facility] Rapid COVID antigen (11:50:30) COVID: - Rapid influenza antigen (11:50:31) Flu: - Rapid strep test (11:50:32) Strep: - .................. .................. .................. .................. .................. .................. .................. ............... Felt Machine Mechanic Note From Savannah Elmore: Sent to a [...] covid/flu test: neg; Rapid strep test: neg; [facility] [place], pt is advised to continue symptomatic treatment. Red flags discussed. Pt has no further questions. [facility] Lab Orders: rapid SARS CoV 2 Ag, QL IA, respiratory specimen: Performed rapid flu (A+B): Performed rapid strep group A, throat: Performed .................. .................. .................. .................. .................. .................. .................. ............... [facility] Consulted: Clare Zarate .................. .................. .................. .................. .................. .................. .................. ............... Disposition: Fulfilled Clare Zarate MD [address] [facility],[address], [place], [address], [employer] 06/23/2024 13:54:06 OBGyn Episode No OBEpisode recorded.
== END 2024-07-13 11:27 | disposition home or self-care (01) ==
LOC: HO.HMCH 10:36
PROVIDERS: PCP Internal Medicine; Visit Provider Internal Medicine
DX: E11.42 Type 2 diabetes mellitus with diabetic polyneuropathy (principal); E11.21 Type 2 diabetes mellitus with diabetic nephropathy; F32.0 Major depressive disorder, single episode, mild; E11.65 Type 2 diabetes mellitus with hyperglycemia; Z79.4 Long term (current) use of insulin; S46.019A Strain of muscle(s) and tendon(s) of the rotator cuff of unspecified shoulder, initial encounter; S46.811D Strain of other muscles, fascia and tendons at shoulder and upper arm level, right arm, subsequent encounter; E03.8 Other specified hypothyroidism; E06.3 Autoimmune thyroiditis; I10 Essential (primary) hypertension; E78.5 Hyperlipidemia, unspecified

== ENCOUNTER → 2024-07-13 10:35 | Outpatient (BNVA) | payer OTHER, SELFPAY | PROVIDERS: PCP Internal Medicine; Visit Provider Internal Medicine | DX: E11.42 Type 2 diabetes mellitus with diabetic polyneuropathy (principal); E11.21 Type 2 diabetes mellitus with diabetic nephropathy; S46.019D Strain of muscle(s) and tendon(s) of the rotator cuff of unspecified shoulder, subsequent encounter; S46.811D Strain of other muscles, fascia and tendons at shoulder and upper arm level, right arm, subsequent encounter; F32.0 Major depressive disorder, single episode, mild; E03.8 Other specified hypothyroidism; E06.3 Autoimmune thyroiditis; I10 Essential (primary) hypertension; E11.65 Type 2 diabetes mellitus with hyperglycemia; Z79.4 Long term (current) use of insulin; E78.5 Hyperlipidemia, unspecified | CPT/HCPCS: 96127; 99212 ==

== ENCOUNTER 2024-07-20 10:30 | Outpatient (AMB) | payer OTHER, SELFPAY ==
--- NOTE | 2024-07-20 11:23 | MHC.AMDMED ---
Intake Intake Visit Reasons: 60 min Block Press Operator Required: Yes Block Press Operator Name: [id number] Accompanied by: Other Relationship Allergies metformin Adverse Reaction (Intermediate, Verified 07/13/24 11:17) diarrhea HPI Comprehensive Diabetes Asmnt Most Recent Diabetes Results: Microalb/Creat Ratio 19.7 ug/mg cr (<30) 04/23/24 Cholesterol 165 mg/dL (<200) 04/23/24 HDL Cholesterol 43 mg/dL (>40) 04/23/24 Triglycerides 116 mg/dL (<150) 04/23/24 Creatinine 0.63 mg/dL (0.5-1.4) 04/23/24 Blood Urea Nitrogen 11 mg/dL (9-16) 04/23/24 Sodium 140 mmol/L (135-145) 04/23/24 Potassium 3.6 mmol/L (3.3-5.1) 04/23/24 Chloride 107 mmol/L (96-108) 04/23/24 Carbon Dioxide 26 mmol/L (22-29) 04/23/24 Calcium 9.1 mg/dL (8.4-10.2) 04/23/24 AST 22 U/L (5-31) 04/23/24 ALT 19 U/L (0-31) 04/23/24 Total Protein 7.5 g/dL (6.5-8.0) 04/23/24 Albumin 3.9 g/dL (3.5-5.0) 04/23/24 [facility] Medical History (Updated 07/13/24 @ 12:00 by Payal Villanueva MD) Subarachnoid hemorrhage Diabetic polyneuropathy DM2 (diabetes mellitus, type 2) Daytime somnolence Chronic pain of both knees Chronic pain of both hips Helicobacter pylori (H. 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 (acquired) correction (current) use of insulin Diabetes type 2, uncontrolled Hypovitaminosis D Depression GERD (gastroesophageal reflux disease) Essential hypertension Headache Dyslipidemia Type 2 diabetes mellitus, with long-term current use of insulin Autoimmune thyroiditis Surgical History History of esophagogastroduodenoscopy (EGD) Hx of colonoscopy History of arthroscopy of right knee History of tubal ligation Family History Father Diabetes Mother Hypertension Maternal Grandmother Gynecologic cancer Family/Other FH: mental illness Maternal Uncle Chronic mental illness Social History Housing: Apartment Alcohol intake: never Patient Tobacco Use Status: Never used Tobacco e-Cigarette/Vaping Use: Never Used Second Hand Smoke Exposure: No service: No Current occupational status: disabled Current occupation: rt handed Cognitive needs: Yes Hearing needs: No Vision needs: No Assessment & Plan Assessment & Plan (1) Type 2 diabetes mellitus, with long-term current use of insulin: Code(s): E11.9 - Type 2 diabetes mellitus without complications; Z79.4 - extermination inspector (current) use of insulin Qualifiers: Diabetes mellitus complication status: with hyperglycemia Qualified Code(s): E11.65 - Type 2 diabetes mellitus with hyperglycemia; Z79.4 - correction (current) use of insulin Plan: Diabetes self-management education and support participation record Assessment/scale: 1= needs instructed? 2= needs review? 3= comprehend keep point? 4= demonstrates understanding/ competent? NC= Not Covered Topics Learning Objective: Initial visit Initial or post srvc Initial or post srvc Initial or post srvc Initial or post srvc Initial or post srvc Post srvc Comments Pre Edu-assessment/plan Outcome or reassess Outcome or reassess Outcome or reassess Outcome or reassess Outcome or reassess Outcome or reassess Diabetes pathophysiology 1 3 Healthy eating 2 3 Being active 1 3 Taking medication 1 3 Monitoring glucose 1 3 Acute complication 1 3 Chronic complicated 1 3 Lifestyle and healthy coping 1 3 Diabetes distress in support 1 3 ?Diabetes pathophysiology: ?Defined diabetes med identify own type of diabetes; list 3 options for treating diabetes Healthy eating: ?Described effect of type, amount and ?timing of food on blood glucose; list 3 methods for planning meal Being active: ?State effect of exercise on blood glucose level Taking medication: ?State effect of diabetes medications on diabetes; name diabetes medications taking, action and side effects Monitoring glucose: ?Identify recommended blood glucose targets and personal target Acute complication: ?List symptoms and treatment of hyper and hypoglycemia, DKA, sick day guidelines and guidelines for severe weather or situations of crisis and diabetes supply manage Chronic complication: ?To find the relationship of blood glucose levels to long-term complications of diabetes in screening and preventative measures Lifestyle and healthy coping: ?Described lifestyle and healthy coping strategies to rule out diabetes self-management Diabetes to stress and support: ?Recognize Diabetes to stress and be able to identified support optionsLearning objectives: The patient was provided with verbal and written education on the following topics as outlined below. The patient met all learning objectives and was able to verbalize understanding and provide teach back of education topics discussed . The patient was provided with the opportunity to ask questions and all questions were answered. Patient Assessment Assess patient education level/literacy/barriers, Last A1c 7.7 05/22/24 [employer] 3 with phone timoteo Above target 12% At target 88% Below target 0% Patient is a PA approximately 3 weeks go Mounjaro increased from 7.5 mg to 10 mg patient's glucose has improved since visit Exercise Medical clearance Effect of exercise on blood sugar Start slowly and gradually increase pace/duration over time Goal amount of exercise Checking blood glucose/have a source of carbs with you Diabetes Complications: ?Nephropathy :Kidney Disease ?diabetes can damage the kidneys, which is not only can cause them to fail but can make them lose their ability to filter waste from the blood? ?Retinopathy: Eye complications ?Retinopathy? is the commonest long-term complication of diabetes. It is leading cause of blindness Besides, Retinopathy-People with diabetes? are also prone to cataract and Glaucoma. ?Neuropathy: Nerve damage -It involves temporary or permanent damage to nerve tissue. Nerve tissue gets injured mainly due to decreased blood flow and rise in blood glucose levels. This damage can lead to pain , or loss of sensation it can also include sexual dysfunction in both men and women ? Infections poor healing: People with diabetes? have increased susceptibility to various infections, such as? pneumonias, pyelonephritis, carbuncles and diabetic ulcers. This may be due to poor blood supply, reduced cellular immunity or hyperglycemia. ?Heart Disease And Stroke: People with diabetes are four times more prone to develop Heart disease than those who do not have diabetes ?Depression: Feeling down once in awhile is normal, but some people feel sadness that just won't go away. Life for them seems hopeless. Feeling this way most of the day for two weeks or more is a sign of serious depression ?Gum Disease: People get gum disease when plaque destroys the gums and bone around the teeth. People with diabetes can get gum disease from having high blood glucose levels for a long time Lifestyle Work Travel Stress management Problem solving Know your goals A1C Blood sugar targets Blood pressure Cholesterol/LDL Urine microalbumin Smart Goal Assessment:Patient will increase testing of glucose levels to once a day Pt met goal 100% Educational Materials: The patient was provided with the following written educational materials: ADCES 7 Healthy Behaviors Reducing Risks handout Patient Response to instructions: Comprehension of Instructions: Good Readiness to make changes: action How confident they feel about making changes: Positive Letter of completion of diabetes Education program will be sent to referring provider Portions of this note were created using voice recognition software, please excuse any words or phrases that may have been misinterpreted. Patient Instructions: Incluir actividad diaria regular. ADA recomienda 30 minutos de ejercicio 5 d?as a la semana. P?rdida de peso, hable con el PCP o el cardi?logo antes de comenzar un nuevo plan. Mida el nivel de az?car en la chris seg?n las indicaciones; Ayuno y comida m?s graham de 2hpp. Observe las tendencias en los resultados. Utilice los resultados y eval?e c?mo los alimentos, la actividad f?perry y los medicamentos afectan los resultados de az?car en la chris. Lleve el gluc?metro o CGM a la pr?xima visita. Conocer los medicamentos para la diabetes, guevara acci?n, los efectos secundarios, la eficacia, la toxicidad, la dosis prescrita, el momento y la frecuencia de administraci?n apropiados, el efecto de las dosis olvidadas y retrasadas y las instrucciones de almacenamiento, viaje y seguridad. T?cnicas de resoluci?n de problemas para el seguimiento de episodios de hipo/hiperglucemia y tratamientos. Reducir los comportamientos de reducci?n de riesgos, dejar de fumar, ex?menes regulares de ojos, pies y dentales. Coding Level of Care Code Est Pt Level 1 (19542) Diagnoses Type 2 diabetes mellitus with hyperglycemia, with long-term current use of insulin E11.65; Z79.4 Diabetes mellitus complication status: with hyperglycemia
== END 2024-07-20 11:26 | disposition home or self-care (01) ==
LOC: HO.ENCR 10:30
PROVIDERS: PCP Internal Medicine; Visit Provider Registered Nurse Diabetes Educator
DX: E11.65 Type 2 diabetes mellitus with hyperglycemia (principal); Z79.4 Long term (current) use of insulin

== ENCOUNTER → 2024-07-20 10:30 | Outpatient (BNVA) | payer OTHER, SELFPAY | PROVIDERS: PCP Internal Medicine; Visit Provider Registered Nurse Diabetes Educator | DX: E11.65 Type 2 diabetes mellitus with hyperglycemia (principal); Z79.4 Long term (current) use of insulin | CPT/HCPCS: 99211 ==

== ENCOUNTER 2024-07-29 08:56 | Outpatient (AMB) | payer OTHER, SELFPAY ==
--- NOTE | 2024-07-29 09:02 | MHC.OFFVIS ---
Vital Signs 07/29/24 09:04 Height 5 ft 3 in Weight 198 lb 13.711 oz BMI 35.2 BP 110/56 L Blood Pressure Location Rt brachial Position Sitting Pulse 86 Pulse Source Pulse Oximeter Pulse Oximetry (%) 93 Oxygen Delivery Method Room Air Intake Visit Reasons: 4 f/u follow up Intake Note: ESTABLISHED PATIENT for GERD, constipation LLQ pain mgmt. Chief Complaint; Pt denies any GI concerns at this time. Reports sx well controlled. Denies need for any refills at this time. Test Deck Supervisor Required: Yes Test Deck Supervisor Services: Test Deck Supervisor Present Test Deck Supervisor Name: Jluis [id number] + [facility] Information Interpreted: clinical only Accompanied by: Daughter Allergies metformin Adverse Reaction (Intermediate, Verified 07/29/24 09:03) diarrhea HPI HPI 4 f/u follow up: Details: LAST VISIT GERD (gastroesophageal reflux disease) Constipation Plan Patient will continue taking famotidine at bedtime. Avoid dietary triggers and late night snacking. Staying upright for minimum 3 hours after meals discussed with patient. Patient will increase fluid intake and activity to promote better bowel motility. Increase fiber intake. Patient will start taking Senokot daily. Left lower quadrant pain most likely related to her constipation mild diverticulosis seen on colonoscopy in 2019. If patient continues to have pain we will send her for colonoscopy earlier. Continue simethicone on as needed basis. Patient denies any melena, hematochezia, unintentional weight loss or ribbon like stools. Patient denies any family history of CRC. Follow-up in 4 months, sooner on as needed basis. She is agreeable to this plan and verbalizes understanding of instructions. She was given the opportunity to ask questions and all questions answered. ? Thank you for allowing me to participate in her care Medications New sennosides (Natural Senna Laxative) 17.2 mg (2 x 8.6 mg) PO BEDTIME 60 tabs 3RF constipation K59.00 TODAY'S VISIT Patient is here today for follow-up. Patient is accompanied by her HOTEL DINING ROOM CASHIER. Patient denies any GI concerning symptoms except for occasional abdominal bloating depending on what she eats. Patient reports that this usually happens when she eats rice and beans. Currently patient is taking famotidine and bedtime and is doing well. Symptoms of acid reflux are suppressed. Patient denies any dyspepsia, dysphagia or odynophagia. Denies any melena, hematochezia, unintentional weight loss or ribbon like stools. Patient reports that since she started taking Senokot, she no longer experiencing right lower quadrant cholesterol quadrant pain. Patient reports to be feeling fairly well. Good appetite. Denies any nausea or vomiting. Denies any diarrhea or mucus in her stool. [facility] Medical History Subarachnoid hemorrhage Diabetic polyneuropathy DM2 (diabetes mellitus, type 2) Daytime somnolence Chronic pain of both knees Chronic pain of both hips Helicobacter pylori (H. 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 insulin Diabetes type 2, uncontrolled Hypovitaminosis D Depression GERD (gastroesophageal reflux disease) Essential hypertension Headache Dyslipidemia Type 2 diabetes mellitus, with long-term current use of insulin Autoimmune thyroiditis Surgical History History of esophagogastroduodenoscopy (EGD) Hx of colonoscopy History of arthroscopy of right knee History of tubal ligation Family History Father Diabetes Mother Hypertension Maternal Grandmother Gynecologic cancer Family/Other FH: mental illness Maternal Uncle Chronic mental illness Social History Housing: Apartment Alcohol intake: never Patient Tobacco Use Status: Never used Tobacco e-Cigarette/Vaping Use: Never Used Second Hand Smoke Exposure: No service: No Current occupational status: disabled Current occupation: rt handed Cognitive needs: Yes Hearing needs: No Vision needs: No Review of Systems Const Denies weight gain and Denies weight loss ENT Reports no additional complaints, Denies dysphagia and Denies odynophagia Card Reports no additional complaints Resp Reports no additional complaints GI Denies abdominal pain, Denies belching, Denies melena, Reports bloating (Occasional), Denies change in bowel habits, Denies dysphagia, Denies excessive flatus, Denies dyspepsia, Denies heartburn, Denies diarrhea, Denies loose stools, Denies nausea, Denies odynophagia and Denies vomiting Reports no additional complaints Musc Reports no additional complaints Neuro Reports no additional complaints Psych Reports no additional complaints Endo Reports no additional complaints Physical Exam Vital Signs: Last Vital Signs Pulse 86 07/29/24 09:04 BP 110/56 L 07/29/24 09:04 Pulse Ox 93 07/29/24 09:04 Oxygen Delivery Method Room Air 07/29/24 09:04 BMI result Body Mass Index 35.2 Const General: healthy appearing, no acute distress and well developed Nutritional Appearance: obese Orientation/consciousness: patient oriented x3 Resp Effort & Inspection: normal respiratory effort, able to speak in complete sentences, no tracheal deviation and symmetric chest movement Auscultation: clear to auscultation bilaterally Cardio Rate: regular rate GI Inspection: Yes normal to inspection, No distended and Yes obesity Palpation (GI): Soft to palpation, not firm, nontender and No hepatosplenomegaly present Auscultation: normal bowel sounds General: Yes no CVA tenderness Back/Spine/Pelvis Back: no CVA tenderness Skin General skin exam: elasticity normal, turgor normal and dry skin Neuro General: patient oriented x3 Psych Appearance: grossly normal Mental Status: mental status grossly normal Assessment & Plan Assessment & Plan (1) GERD (gastroesophageal reflux disease): Code(s): K21.9 - Gastro-esophageal reflux disease without esophagitis Category: Medical Qualifiers: Esophagitis presence: esophagitis presence not specified Qualified Code(s): K21.9 - Gastro-esophageal reflux disease without esophagitis (2) Constipation: Code(s): K59.00 - Constipation, unspecified Qualifiers: Constipation type: slow transit constipation Qualified Code(s): K59.01 - Slow transit constipation Plan Patient was encouraged to try to have big meal no later than 4 p.m.? Eating smaller meals and more often encouraged.? Avoid dietary triggers and late night snacking.? Staying upright for minimum 3 hours after meals discussed with patient. Continue famotidine at bedtime. Continue senna daily. Increase fluid intake and activity to promote better bowel motility per minute follow-up in 6 months we will discuss going for colonoscopy and upper endoscopy. Patient is due to go in May of 2025. Both patient and her HOTEL DINING ROOM CASHIER are agreeable to plan of care and verbalizes understanding of instructions. They were given the opportunity to ask questions and all questions answered. Thank you for allowing me to participate in her care Coding Level of Care Code Est Pt Level 3 (85764) Diagnoses Gastroesophageal reflux disease, unspecified whether esophagitis present K21.9 Esophagitis presence: esophagitis presence not specified Slow transit constipation K59.01 Constipation type: slow transit constipation Time Spent (min) 25 Comment 15 minutes spent with patient and additional 10 minutes spent reviewing her records
[2024-07-29 09:04] VITALS: BP 110/56; PULSE 86; O2SAT 93; BMI 35.2
--- OUTSIDE RECORDS SUMMARY | 2024-07-29 09:39 | XMS_ITS | Clinical Summary ---
Author Organization [employer] Address [address] [facility] [address] [place] [address] Care Team Providers Care Film Tests Checker Name Role Phone Unavailable Primary Care Provider [...]
--- OUTSIDE RECORDS SUMMARY | 2024-07-29 09:39 | XMS_ITS | Encounter Summary ---
Author Organization [employer] Address [address] [facility] [address] [place] [address] Care Team Providers Care Patrol Captain Name Role Phone Unavailable Primary Care Provider Unavailabl e Encounter Details Date Type Department Care Team (Late st Contact Info) Description 05/04/2022 Abstract [facility] [address] [place] [address] Katelynn Toth, AnnieD [address] [place] [address] Social History Tobacco Use Types Packs/Day Years [...]
--- OUTSIDE RECORDS SUMMARY | 2024-07-29 09:39 | XMS_ITS | Clinical Summary ---
Author Organization [address] [facility] Address [address] [place] [address] Phone Care Team Providers Care Certified Master Safe Technician Name Role Phone Payal Villanueva MD Primary Care Provider Social History Tobacco Use Types Packs/Day Years Used Date Smoking Tobacco: Never Assessed Comments Unknown Sex and Gender Information Value Date Recorded Sex Assigned at Not on file Legal Sex Female 2:35 PM EST Gender Identity Not on file Sexual Orientation Not on file Plan of Treatment Upcoming Encounters Date Type Department Care Team ([facility] Contact Info) Description 07/30/2024 9:00 AM EDT Consult Orthopedic Surgery - [place] [id number] [phone] Darrell Rockwell, DPM [address] [address] Health Maintenance Due Date Last Done Comments Breast Cancer Screening 1960 Diabetes: Annual GFR (Glomer ular Filtration Rate) 1960 Diabetes: Annual Foot Exam 02/01/1968 Diabetes: Annual Retina Eye Exam 02/01/1968 DTaP,Tdap,and Td Vaccines (1 - Tdap) 1977 Pneumococcal Vaccine: 50+ Ye ars (1 of 2 - PCV) 1977 Zoster Vaccines (1 of 2) 02/01/2008 RSV Immunization Adult Patie nts (1 - Risk 60-74 years 1-dose series) [...] patient's age to complete this topic Insurance [facility] MEDICARE Member Subscriber Plan / Payer (Ef fective 2023-Present) Name:Cara Ballard Relation to Subscriber:Self Name:Cara Ballard Payer ID:[id number] Group ID:[id number] Type:Not on file Address: [place] [address] [address] [phone] Care Teams Certified Master Safe Technician Relationship Specialty Start Date End Date Paayl Villanueva MD [address] [place] [address] , [address] [facility] Physician Associ D/B/A: Halina Buenrostro In Internal Medicine LIZ Meade PCP - General Internal Medicine 05/22/24
--- OUTSIDE RECORDS SUMMARY | 2024-07-29 09:40 | XMS_ITS | Data Portability ---
Author Organization [facility] [place], [place] in [facility] Address [address] [place] [phone] Care Team Providers Care Car Mover Name Role Phone HIM CCA OTHER Assessment No assessment recorded. Plan of Treatment Reminders Order Date Submit Date Provider Last Modified By Organization Details Last Modified Time Details Appointments None recorded. Lab rapid SARS CoV 2 Ag, QL IA, respiratory specimen 2024 025 [facility], [address] [place] [address], [phone], 13:10:36 rapid flu (A+B) 2024 025 [facility], [address] [place] [address], [phone], 5 16:02:22 rapid strep group A, throat 2024 025 [facility], [address] [place] [address], [phone], 13:10:56 Referral None recorded. Procedures None recorded. Surgeries None recorded. Imaging None recorded. Medication Orders None recorded. Patient TargetsNo targets recorded. Patient InstructionsNo instructions recorded. Reason for Referral None Reported. Results Created Date Observation Date Name Description Value Unit Range Abnormal Flag Note LastModifiedBy Organization Detail LastModifiedTime 06/23/1906/23/2024 rapid flu (A+B) Flu negati ve Not Available [address], [phone], 06/23/2024 12:15:51 06/23/19 25 06/23/2024 rapid strep group A, throa t Strep negati ve Not Available [address], [phone], 06/23/2024 12:16:01 06/23/19 25 06/23/2024 rapid SARS CoV 2 Ag, QL IA, respi rator y speci men rapid SARS CoV 2 Ag, QL IA, respiratory specimen negati ve Not Available [facility] ed [address] [place] [address], [phone], 06/23/2024 12:15:51 Result Notes None recorded. Medical [...] Available No t Available [employer] Sever[place] 3 [place] USE DAILY TO MONITOR BLOOD GLUCOSE CONTINUOUSL [...] % 95 % 94 /min 160.02 cm 61727.0 32 g 99.8 [degF] 115 mm[Hg] 74 [...] SNOMED-CT Code Diagnosis ICD10 Code Diagnosis Note [id number] Clare Zarate MD Main - [address] [phone] 06/23/2024 11:51:12 06/24/2024 12:16:20 Viral upper respiratory tract infection [id number] J06.9 As noted, we were called to see this patient regarding concerns of URI. Evaluation in the field was performed by my instructor traffic safety colleague, as noted above, I provided real-time [...] Darnell Member ID Guarantor Name 06/23/2024 1 [facility] - DOS ON OR AFTER 2022 - DUAL ELIGIBLE - FDC OPTIONS AND ONE CARE (MEDICARE REPLACEMENT/AD VANTAGE - HMO) Cara Banegas [id number] Cara Banegas Notes Date Note Type Note [...] s/s and seek emergency treatment if needed. Mortgage Field Inspector Organization Information for [facility] [employer] Legal Name: [employer] [employer] Address: [address] [place] [address], [place] [address], Char Conveyor Tender Cellar: Ronak Brady MD CLIA No.: [id number] Mortgage Field Inspector POC Test Results from [facility] Rapid COVID antigen (11:50:30) COVID: - Rapid influenza antigen (11:50:31) Flu: - Rapid strep test (11:50:32) Strep: - .................. .................. .................. .................. .................. .................. .................. ............... Mortgage Field Inspector Note From [place]: Sent to a [...] covid/flu test: neg; Rapid strep test: neg; [facility] consulted, pt is advised to continue symptomatic treatment. Red flags discussed. Pt has no further questions. [facility] Lab Orders: rapid SARS CoV 2 Ag, QL IA, respiratory specimen: Performed rapid flu (A+B): Performed rapid strep group A, throat: Performed .................. .................. .................. .................. .................. .................. .................. ............... [facility] Consulted: Clare Zarate .................. .................. .................. .................. .................. .................. .................. ............... Disposition: Fulfilled Clare Zarate MD [address] [facility],[address], [place], [phone], Familiar [employer] 06/23/2024 13:54:06 OBGyn Episode No OBEpisode recorded.
== END 2024-07-29 09:31 | disposition home or self-care (01) ==
LOC: HO.HGI 08:56
PROVIDERS: PCP Internal Medicine; Visit Provider Nurse Practitioner Family
DX: K21.9 Gastro-esophageal reflux disease without esophagitis (principal); K59.01 Slow transit constipation
CPT/HCPCS: 99213

== ENCOUNTER → 2024-07-29 08:56 | Outpatient (BNVA) | payer OTHER, SELFPAY | PROVIDERS: PCP Internal Medicine; Visit Provider Nurse Practitioner Family | DX: K21.9 Gastro-esophageal reflux disease without esophagitis (principal); K59.01 Slow transit constipation | CPT/HCPCS: 99212 ==

== ENCOUNTER 2024-09-15 10:21 | Outpatient (AMB) | payer OTHER, SELFPAY ==
--- NOTE | 2024-09-15 10:27 | MHC.OFFVIS ---
Vital Signs 09/15/24 10:30 Height 5 ft 3 in Weight 207 lb 0.225 oz BMI 36.7 BP 98/58 L Blood Pressure Location Rt brachial Position Sitting Pulse 76 Pulse Source Pulse Oximeter Pulse Oximetry (%) 96 Oxygen Delivery Method Room Air Intake Visit Reasons: T2DM Intake Note: Patient present today to follow up on Type 2 Diabetes Mellitus. Last Diabetic Eye exam: 03/23/24 Last Podiatry Visit: Does not see a Security Control Assessor Random Glucose: 233 mg/dl HgA1C: 8.2% 09/15/2024 Sample Examiner Required: Yes Sample Examiner Language: Hims Clerk Services: Sample Examiner Present Sample Examiner Name: Trent [id number] Information Interpreted: non-clinical & clinical Accompanied by: Daughter- WOOD FILLER Allergies metformin Adverse Reaction (Intermediate, Verified 09/15/24 10:31) diarrhea HPI Comments Details: This is a 64-year-old Frisian speaking female with a past medical history of type 2 diabetes, hypothyroidism, dyslipidemia, hypertension, depression and GERD presenting for diabetic management. She is accompanied by her daughter who is her WOOD FILLER. battery parts assembler ID: [id number] Jens Hemoglobin A1c 8.2% today increased from 7.7% in April 2024. Reviewed Severino 3 report CGM active 88% Average glucose 228 GMI 8.8% Glucose variability 20.2% Very high 32% High 52% Target range 16% 0% hypoglycemia Patient has hyperglycemia throughout 24 hours with worsening glucose spikes in the evening, overnight and late morning. Current medication regimen: Lantus 40 units daily and Jardiance 25 mg daily and Mounjaro 10 mg weekly. Compliance: She ran out of Mounjaro a month ago. Past medications: Ozempic stopped in December due to dizziness reported by the patient. States Mounjaro was causing nausea and gas, and she wants to try a different medication. Intolerant to metformin which caused diarrhea. Hypoglycemia symptoms: None Hyperglycemia symptoms: fatigue and polydipsia Eye exam: up to date Microvascular complications: neuropathy in her toes and fingers, nephropathy (microalbumin, followed by Nephrology) Macrovascular complications: None Hypertension: treated with Enalapril 5 mg. Her blood pressure is soft today. She has not had anything to eat or drink today. She denies dizziness. She is going to monitor her blood pressure at home with her cuff and call if BP is less than 100/55. Hyperlipidemia: treated with Zetia 10 mg and Atorvastatin 80 mg. Fib4 value 1.07 as of 06/19/2024. ROS: Constitutional: No unexplained weight loss, fever, chills, fatigue or night sweats. Eyes: No vision changes Respiratory: No shortness of breath Cardiovascular: No chest pain Gastrointestinal: No anorexia, nausea, vomiting or diarrhea. No abdominal pain. Neurologic: No headache, dizziness, syncope, + tingling in her toes. Endocrine: No cold or heat intolerance. See HPI. Physical exam: Constitutional: Alert, in no distress. Neck: Supple, Full range of motion. No lymphadenopathy. Respiratory: Clear to auscultation. Cardiovascular: S1 S2 regular. No murmurs. Right foot: Warm and well perfused. No clubbing, cyanosis or edema. Intact DP pulse. Decreased vibratory sensation. Intact sensation to monofilament. No open wounds. Left foot: Warm and well perfused. No clubbing, cyanosis or edema. Intact DP pulse. Decreased vibratory sensation. Intact sensation to monofilament. No open wounds. [facility] Medical History (Reviewed 07/29/24 @ 09:09 by Eduardo Kent [facility]) Subarachnoid hemorrhage Diabetic polyneuropathy DM2 (diabetes mellitus, type 2) Daytime somnolence Chronic pain of both knees Chronic pain of both hips Helicobacter pylori (H. 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 (acquired) MCC (current) use of insulin Diabetes type 2, uncontrolled Hypovitaminosis D Depression GERD (gastroesophageal reflux disease) Essential hypertension Headache Dyslipidemia Type 2 diabetes mellitus, with long-term current use of insulin Autoimmune thyroiditis Surgical History History of esophagogastroduodenoscopy (EGD) Hx of colonoscopy History of arthroscopy of right knee History of tubal ligation Family History Father Diabetes Mother Hypertension Maternal Grandmother Gynecologic cancer Family/Other FH: mental illness Maternal Uncle Chronic mental illness Social History Housing: Apartment Alcohol intake: never Patient Tobacco Use Status: Never used Tobacco e-Cigarette/Vaping Use: Never Used Second Hand Smoke Exposure: No service: No Current occupational status: disabled Current occupation: rt handed Cognitive needs: Yes Hearing needs: No Vision needs: No Physical Exam Vital Signs: Last Vital Signs Pulse 76 09/15/24 10:30 BP 98/58 L 09/15/24 10:30 Pulse Ox 96 09/15/24 10:30 Oxygen Delivery Method Room Air 09/15/24 10:30 BMI result Body Mass Index 36.7 Office Procedures Glucose Monitoring Details Details: See HPI 52520 - Glucose monitoring, continuous-physician I&R Procedure code (CPT) selection complete Results AMB Hemoglobin A1c AMB Hemoglobin A1c 8.2 % Last Edit by ALEXANDRA Cano on 09/15/24 10:47 Results Reviewed Results Reviewed: Laboratory Last Values Glucose (Clinic) 233 mg/dL (60-115) H 09/15/24 10:36 Hgb A1c (Clinic) 8.2 % (4.0-6.0) H 09/15/24 10:42 Laboratory Tests 11/21/20 09/08/21 02/24/24 06:35 09:52 08:10 Plt Count 312 Creatinine Estimated GFR Hgb A1c (Clinic) AST ALT B-Natriuretic Peptide < 10 Triglycerides LDL Cholesterol Direct 99 Cholesterol LDL Cholesterol, Calc HDL Cholesterol Vitamin B12 TSH Urine Creatinine Urine Microalbumin Microalb/Creat Ratio 04/23/24 04/23/24 09/15/24 08:17 08:25 10:42 Plt Count Creatinine 0.63 Estimated GFR > 60 Hgb A1c (Clinic) 8.2 H AST 22 ALT 19 B-Natriuretic Peptide Triglycerides 116 LDL Cholesterol Direct Cholesterol 165 LDL Cholesterol, Calc 99 HDL Cholesterol 43 Vitamin B12 516 TSH 0.48 Urine Creatinine 85.98 Urine Microalbumin 17.0 Microalb/Creat Ratio 19.7 Assessment & Plan Assessment & Plan (1) Type 2 diabetes mellitus, with long-term current use of insulin: Code(s): E11.9 - Type 2 diabetes mellitus without complications; Z79.4 - MCC (current) use of insulin Category: Medical Qualifiers: Diabetes mellitus complication status: with hyperglycemia Qualified Code(s): E11.65 - Type 2 diabetes mellitus with hyperglycemia; Z79.4 - rat exterminator (current) use of insulin Plan In summary this is a 64-year-old female with uncontrolled type 2 diabetes with microvascular complications. Complications of type 2 diabetes and diabetic diet reviewed. Remain off Mounjaro. Start Trulicity 0.75 mg weekly. Potential side effects reviewed. Continue Lantus 40 units daily. Continue Jardiance 25 mg daily. If you experience low blood sugar (<70), treat this by eating a chewable fruit candy like skittles or jelly beans (about 8 pieces), 4 ounces (1/2 cup) of fruit juice (not diet), 1 tablespoon of honey or 4 glucose tablets or 1 packet of glucose gel. If your blood sugar is under 55, take double the amount of one of the above. Recheck your blood sugar in 15 minutes. Follow up in 1 month for type 2 diabetes. Orders: Orders Creatinine Today E11.9 - Type 2 diabetes mellitus without complications AMB Glucose Monitoring Today E11.9 - Type 2 diabetes mellitus without complications AMB Hemoglobin A1c Today E11.42 - Type 2 diabetes mellitus with diabetic polyneuropathy Vitamin B12 Today Z91.89 - Other specified personal risk factors, not elsewhere classified Medications: New dulaglutide (Trulicity) Replaces Mounjaro. 0.75 mg (0.5 mL) subcut QWEEK 2 mL 0RF Discontinued tirzepatide (Mounjaro) Discontinued Reason: Doctor's Order 10 mg (0.5 mL) subcut QWEEK 2 mL 3RF Coding Level of Care Code Est Pt Level 4 (54892) Diagnoses Type 2 diabetes mellitus with hyperglycemia, with long-term current use of insulin E11.65; Z79.4 Diabetes mellitus complication status: with hyperglycemia CPT Codes Details - CPT: 24415 - Glucose monitoring, continuous-physician I&R ([id number])
[2024-09-15 10:30] VITALS: BP 98/58; PULSE 76; O2SAT 96; BMI 36.7
[2024-09-15 10:41] LABS: Glucose, Whole Blood 233 mg/dL (60-115)
--- OUTSIDE RECORDS SUMMARY | 2024-09-15 11:34 | XMS_ITS | Clinical Summary ---
Author Organization [employer] Address [address] [facility] [address] [place] [address] Care Team Providers Care Grain Packer Name Role Phone Unavailable Primary Care Provider [...] age to complete this topic Meningococcal B Vaccine Aged Out No l onger eligible based on patient's age to complete [...]
--- OUTSIDE RECORDS SUMMARY | 2024-09-15 11:34 | XMS_ITS | Encounter Summary ---
Author Organization [employer] Address [address] [facility] [address] [place] [address] Care Team Providers Care Instrument Technician Helper Name Role Phone Unavailable Primary Care Provider Unavailabl e Encounter Details Date Type Department Care Team (Late st Contact Info) Description 05/04/2022 Abstract [facility] [address] [place] [address] Katelynn Toth, AnnieD [address] [place] [address] Social History Tobacco Use Types Packs/Day Years [...]
--- OUTSIDE RECORDS SUMMARY | 2024-09-15 11:34 | XMS_ITS | Clinical Summary ---
Author Organization [address] [facility] Address [address] [place] [address] Phone Care Team Providers Care Employment Evaluator/Case Manager Name Role Phone Payal Villanueva MD Primary Care Provider [phone] Allergies No known active allergies Medications No known medications Encounters Date Type Department Care Team Description 07/30/2024 9:00 AM EDT Consult Orthopedic Surgery [facility] [address] [place] [phone] Darrell Rockwell DPM Dermatophytosis of nail (Primary Dx); Type 2 diabetes mellitus with diabetic polyneuropathy ([facility] V24, [facility] V28); Other specified personal risk factors, not elsewhere classified; Pain in toe of right foot; Pain in toe of left foot; Corns and callosities; Diabetic mononeuropathy simplex ([facility] V24, [facility] V28); Type II diabetes mellitus with peripheral circulatory disorder ([facility] V24, [facility] V28); Metatarsalgia of both feet; Hammer toe of left foot; Acquired hammer toe of right foot from Last 3 Months Social History Tobacco Use Types Packs/Day Years Used Date Smoking Tobacco: Never Assessed Comments Unknown Sex and Gender Information Value Date Recorded Sex Assigned at Not on file Legal Sex Female 2:35 PM EST Gender Identity Not on file Sexual Orientation Not on file Last Filed Vital Signs Vital Sign Reading Time Taken Comments Blood Pressure - - Pulse - - Temperature - - Respiratory Rate - - Oxygen Saturation - - Inhaled Oxygen Concentration - - Weight 88.9 kg (196 lb) 07/30/2024 8:51 AM EDT Height 160 cm (5' 3 ) 07/30/2024 8:51 AM EDT Body Mass Index 34.72 07/30/2024 8:51 AM EDT Plan of Treatment Upcoming Encounters Date Type Department Care Team (Late st Contact Info) Description 11/03/2024 10:00 AM EDT Office Visit Orthopedic Surgery - [place] [address] [phone] Darrell Rockwell, DPM [address] [phone] Health Maintenance Due Date Last Done Comments Breast Cancer Screening 1960 Diabetes: Annual GFR (Glomerular Filtration Rate) 1960 Diabetes: Annual Foot Exam 02/01/1968 Diabetes: Annual Retina Eye Exam 02/01/1968 Pneumococcal Vaccine: 50+ Years (2 of 2 - PCV) 03/08/2017 03/08/2016 COVID-19 Vaccine ( season) 2023 03/02/2022, 02/28/2022, 09/12/2021, Additional history exists Cholesterol Screening (Lipid Panel) 05/23/2024 Colorectal Cancer Screening: Colonoscopy 05/23/2024 Depression Screening 05/23/2024 Diabetes: Annual Urine Albumin-Creatinine Ratio (uACR) 05/23/2024 Diabetes: Blood Sugar Control Test (HGBA1C) 05/23/2024 Falls Risk Assessment 05/23/2024 Hepatitis C Screening 05/23/2024 Medicare Annual Wellness Visit 05/23/2024 Osteoporosis Screening (Bone Density Screening) 05/23/2024 Social Influencers of Health Screening 05/23/2024 DTaP,Tdap,and Td Vaccines (2 - Td or Tdap) 03/08/2026 03/08/2016 Zoster Vaccines Completed 05/04/2022, 02/23/2022 RSV Immunization Adult Patients Completed 03/02/2024 Influenza Vaccine Completed 03/03/2024, , 02/23/2022, Additional history exists HIB Vaccines Aged Out No longer eligi [...] to complete this topic RSV Immunization Patients Under 20 months Aged Out No longer eligible based on patient's age to complete this topic Varicella Vaccines Aged Out No longer eligible based on patient's age to complete this topic Insurance [place]Z [id number] [employer] MEDICARE Member Subscriber Plan / Payer (Ef fective 2023-Present) Name:Cara Ballard Relation to Subscriber:Self Name:Caar Ballard Payer ID:[id number] Group ID:[id number] Type:Not on file Address: [place] [address] [address] [phone] Care Teams Employment Evaluator/Case Manager Relationship Specialty Start Date End Date Payal Villanueva MD [address] [place] [address] , [address] [facility] D[facility]A: [facility] [place], [place] PCP - General Internal Medicine 05/22/24
--- OUTSIDE RECORDS SUMMARY | 2024-09-15 11:34 | XMS_ITS | Data Portability ---
Author Organization [facility] [place] - [facility] Address [address] [place] [phone] Care Team Providers Care Air Valve Mechanic Name Role Phone HIM [facility] OTHER Assessment No assessment recorded. Plan of Treatment Reminders Order Date Submit Date Provider Last Modified By Organization Details Last Modified Time Details Appointments None recorded. Lab rapid SARS CoV 2 Ag, QL IA, respiratory specimen [address], [phone] 5 13:10:36 rapid flu (A+B) [address] [place] [address], [phone] 5 16:02:22 rapid strep group A, throat [address], [address] [place] [address] 13:10:56 Referral None recorded. Procedures None recorded. Surgeries None recorded. Imaging None recorded. Medication Orders None recorded. Patient TargetsNo targets recorded. Patient InstructionsNo instructions recorded. Reason for Referral None Reported. Results Created Date Observation Date Name Description Value Unit Range Abnormal Flag Note LastModifiedBy Organization Detail LastModifiedTime 06/23/1906/23/2024 rapid flu (A+B) Flu negati ve Not Available [facility] ed [address] [place] [address], [address] [place] [address] 06/23/2024 12:15:51 06/23/1906/23/2024 rapid strep group A, throa t Strep negati ve Not Available [facility] ed [address] [place] [address], [phone] 06/23/2024 12:16:01 06/23/19 25 06/23/2024 rapid SARS CoV 2 Ag, QL IA, respi rator y speci men rapid SARS CoV 2 Ag, QL IA, respiratory specimen negati ve Not Available Main - [facility] ed [address] [place] [address], [phone] 06/23/2024 12:15:51 Result Notes None recorded. Medical [...] Available No t Available FreeStyle Severino 3 Dolph USE DAILY TO MONITOR BLOOD GLUCOSE CONTINUOUSL [...] % 95 % 94 /min 160.02 cm 43293.0 32 g 99.8 [degF] 115 mm[Hg] 74 [...] SNOMED-CT Code Diagnosis ICD10 Code Diagnosis Note [id number] Clare Zarate MD Main - [facility] [address] [place] [phone] 06/23/2024 11:51:12 06/24/2024 12:16:20 Viral upper respiratory tract infection [id number] J06.9 As noted, we were called to see this patient regarding concerns of URI. Evaluation in the field was performed by my financial administrator colleague, as noted above, I provided real-time [...] Recorded Advance Directives Directive None Recorded Payers Insurance Date Sequence Insurance Name Policy Number Policy Darnell Covered Member ID Darnell Member ID Guarantor Name 06/24/2024 1 [facility] - DOS ON OR AFTER 2022 - DUAL ELIGIBLE - RETIREMENT OPTIONS AND ONE CARE (MEDICARE REPLACEMENT/AD VANTAGE - HMO) Cara Banegas [id number] Cara Banegas Notes Date Note Type Note [...] s/s and seek emergency treatment if needed. Mercerizer Machine Operator Organization Information for [facility] [employer] Legal Name: [employer] Address: [address] [place] [address], Bingo Checker: Ronak Brady MD CLIA No.: [id number] Mercerizer Machine Operator POC Test Results from [facility] Rapid COVID antigen (11:50:30) COVID: - Rapid influenza antigen (11:50:31) Flu: - Rapid strep test (11:50:32) Strep: - .................. .................. .................. .................. .................. .................. .................. ............... Mercerizer Machine Operator Note From Zuhair Elmorea: Sent to a call for a pt [...] covid/flu test: neg; Rapid strep test: neg; [facility] consulted, pt is advised to continue symptomatic treatment. Red flags discussed. Pt has no further questions. [facility] Lab Orders: rapid SARS CoV 2 Ag, QL IA, respiratory specimen: Performed rapid flu (A+B): Performed rapid strep group A, throat: Performed .................. .................. .................. .................. .................. .................. .................. ............... [facility] Consulted: Clare Zarate .................. .................. .................. .................. .................. .................. .................. ............... Disposition: Fulfilled Clare Zarate MD [address] [facility],[address], [place], [phone], LIZ - Intent MediaDAISY MACDONALD 06/23/2024 13:54:06 OBGyn Episode No OBEpisode recorded.
== END 2024-09-15 11:14 | disposition home or self-care (01) ==
LOC: HO.ENCR 10:22
PROVIDERS: PCP Internal Medicine; Visit Provider Physician Assistant Medical
DX: E11.65 Type 2 diabetes mellitus with hyperglycemia (principal); Z79.4 Long term (current) use of insulin; E11.42 Type 2 diabetes mellitus with diabetic polyneuropathy

== ENCOUNTER → 2024-09-15 10:21 | Outpatient (BNVA) | payer OTHER, SELFPAY | PROVIDERS: PCP Internal Medicine; Visit Provider Physician Assistant Medical | DX: E11.65 Type 2 diabetes mellitus with hyperglycemia (principal); E11.42 Type 2 diabetes mellitus with diabetic polyneuropathy; Z79.4 Long term (current) use of insulin; Z91.89 Other specified personal risk factors, not elsewhere classified | CPT/HCPCS: 82947; 83036; 99212 ==

== ENCOUNTER 2024-10-12 07:25 | Outpatient (REF) | payer OTHER, SELFPAY ==
--- NOTE | ~2024-10-12 | XR_ITS ---
CLINICAL HISTORY: M51.369 - Other intervertebral disc degeneration, lumbar region without ... 3 views lumbar spine Comparison: None Findings: There is mild spondylolisthesis at the L4-5 level. Facet arthropathy is noted. No acute fractures or dislocation. There is mild multilevel degenerative disc disease most severe at the L5-S1 level. IMPRESSION: 1. There is mild multilevel degenerative disc disease most severe at the L5-S1 level. 2. There is mild spondylolisthesis at the L4-5 level. Facet arthropathy is noted. This document has been electronically signed by: Bowen Melendez MD on 10/12/2024 11:22:46
[2024-10-12 10:09] LABS: Alanine Aminotransferase 24 U/L (0-31); Albumin Level 3.9 g/dL (3.5-5.0); Alkaline Phosphatase 114 U/L (39-117); Anion Gap 11 (12-20); Aspartate Amino Transferase 20 U/L (5-31); Bilirubin Total 0.4 mg/dL (0.0-1.0); Blood Urea Nitrogen 12 mg/dL (9-16); Calcium 9.1 mg/dL (8.4-10.2); Carbon Dioxide 30 mmol/L (22-29); Chloride 105 mmol/L (96-108); Cholesterol 162 mg/dL (<200); Estimated Glomerular Filt Rate > 60; Glucose Fasting 154 mg/dL (60-99); HDL Cholesterol 52 mg/dL (>40); LDL Cholesterol Calculated 96 mg/dL (<100); Potassium 4.1 mmol/L (3.3-5.1); Sodium 142 mmol/L (135-145); Total Protein 7.1 g/dL (6.5-8.0); Triglycerides 73 mg/dL (<150)
[2024-10-12 10:26] LABS: Creatinine Urine 91.92 mg/dL; Microalbum/Creatinine Ratio Ur 35.9 ug/mg cr (<30)
[2024-10-12 10:26] LABS: Thyroid Stimulating Hormone 1.35 uIU/mL (0.32-4.0); Vitamin D 25-OH Total 32.5 ng/mL (>30)
[2024-10-12 10:40] LABS: Folate 13.3 ng/mL (> or = 4.0); Vitamin B12 584 pg/mL (200-900)
== END 2024-10-12 07:26 | disposition home or self-care (01) ==
LOC: HO.XRAY 07:25
PROVIDERS: PCP Internal Medicine; Visit Provider Internal Medicine
DX: Z00.00 Encounter for general adult medical examination without abnormal findings (principal); Z23 Encounter for immunization; M51.369 Other intervertebral disc degeneration, lumbar region without mention of lumbar back pain or lower extremity pain; F32.0 Major depressive disorder, single episode, mild; E11.65 Type 2 diabetes mellitus with hyperglycemia; E11.21 Type 2 diabetes mellitus with diabetic nephropathy; E78.5 Hyperlipidemia, unspecified; R80.9 Proteinuria, unspecified; E55.9 Vitamin D deficiency, unspecified; E03.8 Other specified hypothyroidism; E06.3 Autoimmune thyroiditis; E53.8 Deficiency of other specified B group vitamins; Z79.4 Long term (current) use of insulin
CPT/HCPCS: 36415; 72100; 80053; 80061; 82043; 82306; 82570; 82607; 82746; 84443; 90471; 90677; 96127; 99212; 99397

== ENCOUNTER 2024-10-12 07:25 | Outpatient (AMB) | payer OTHER, SELFPAY ==
--- NOTE | 2024-10-12 07:44 | A.OFFPC_ITS ---
Vital Signs 10/12/24 07:46 Height 5 ft 3 in Weight 205 lb BMI 36.3 BP 118/72 Blood Pressure Location Lt brachial Position Sitting Intake Visit Reasons: PE Intake Note: Patient here for a physical exam Insole And Outsole Splitter Required: No Accompanied by: Self / Same As Patient Allergies metformin Adverse Reaction (Intermediate, Verified 10/12/24 08:35) diarrhea Medication List - Last Reconciled 10/12/24 by Payal Villanueva MD acetaminophen 500 mg PO Q6H PRN 30 days albuterol sulfate 90 mcg/actuation 2 puffs inhalation Q4-6H PRN alcohol swabs (BD Alcohol Swabs) 1 pad topical BID 30 days aspirin 81 mg PO DAILY 90 days atorvastatin 80 mg PO DAILY blood pressure monitor As directed blood sugar diagnostic (FreeStyle Test strips) Use 1 test strip twice a day blood-glucose meter (FreeStyle Lite Meter kit) As directed blood-glucose sensor (Transaction WirelessStyle Severino 3 Plus Sensor device) Apply 1 new sensor every 14 days as directed to monitor blood glucose continuously. blood-glucose,bone grinder,cont (FreeStyle Severino 3 [place]) Use daily to monitor blood glucose continuously cholecalciferol (vitamin D3) (Vitamin D3) 50 mcg PO DAILY clotrimazole-betamethasone 1-0.05 % 1 appl topical BID 7 days dextrose (TRUEplus Glucose) 15 grams (32 mL) PO Q15M PRN doxepin 50 mg PO BEDTIME dulaglutide (Trulicity) 0.75 mg (0.5 mL) subcut QWEEK empagliflozin (Jardiance) 25 mg PO DAILY 90 days enalapril maleate 5 mg PO DAILY 90 days escitalopram oxalate 20 mg PO DAILY 90 days ezetimibe 10 mg PO DAILY 90 days famotidine 20 mg PO BEDTIME hydroxyzine HCl 25 mg PO BID 30 days incontinence pad, liner, disp Use 1 pad 6 times a day as needed insulin glargine (Lantus Solostar U-100 Insulin) 40 units subcut DAILY lancets As directed levothyroxine 137 mcg PO DAILY 90 days pen needle, diabetic (BD Rona 2nd Gen Pen Needle) once a day polyethylene glycol 3350 (Miralax) 17 grams PO DAILY [right arm sling As directed] sennosides (Natural Senna Laxative) 17.2 mg (2 x 8.6 mg) PO BEDTIME Shower Chair As directed simethicone (Gas Relief (simethicone)) 125 mg PO TID-QID PRN walker rollator walker- use as directed Tobacco use date assessed: 07/13/24 Fall risk assessment: No Falls in past year Last assessed Fall Risk: 10/12/24 Dental Screening Dental Screen Date: 07/13/24 HPI HPI Comments History of Present Illness Details The patient is a 64-year-old female presenting for a physical examination and management of chronic conditions. The patient has a history of osteopenia, identified during a bone density scan last year with a T-score of -1.6 at the femoral neck. The next DEXA scan is scheduled for 2025. She also reports experiencing depression, with a PHQ-9 score of 13 indicating mild to moderate recurrent depression. She is currently under psychiatric care. The patient experiences knee pain and lower back pain, which affects her mobility, occasionally requiring the use of a walker. She has not yet seen a automatic paint sprayer operator for these issues. Preventative care measures include a mammogram scheduled for next month, a colonoscopy last performed in 2018 with the next due in 2028, and vaccinations including Tdap and pneumonia. - Mammogram scheduled for next month - Colonoscopy last performed in 2018, ne xt due in 2028 - Tdap vaccination last done in 2015, ne xt due in 2025 - Pneumonia vaccination booster needed COUNT INCLUDES [facility] Medical History Subarachnoid hemorrhage Diabetic polyneuropathy DM2 (diabetes mellitus, type 2) Daytime somnolence Chronic pain of both knees Chronic pain of both hips Helicobacter pylori (H. 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 (acquired) penitentiary (current) use of insulin Diabetes type 2, uncontrolled Hypovitaminosis D Depression GERD (gastroesophageal reflux disease) Essential hypertension Headache Dyslipidemia Type 2 diabetes mellitus, with long-term current use of insulin Autoimmune thyroiditis Surgical History History of esophagogastroduodenoscopy (EGD) Hx of colonoscopy History of arthroscopy of right knee History of tubal ligation Family History Father Diabetes Mother Hypertension Maternal Grandmother Gynecologic cancer Family/Other FH: mental illness Maternal Uncle Chronic mental illness Social History Housing: Apartment Alcohol intake: never Patient Tobacco Use Status: Never used Tobacco e-Cigarette/Vaping Use: Never Used Second Hand Smoke Exposure: No service: No Current occupational status: disabled Current occupation: rt handed Cognitive needs: Yes Hearing needs: No Vision needs: No Questionnaire PHQ-9 Over the last 2 weeks, how often have you been bothered by any of the following problems? 1. Little interest or pleasure in doing things: more than half the days 2. Feeling down, depressed, or hopeless: more than half the days 3. Trouble falling or staying asleep, or sleeping too much: more than half the days 4. Feeling tired or having little energy: more than half the days 5. Poor appetite or overeating: more than half the days 6. Feeling bad about yourself - or that you are a failure or have let yourself or your family down: several days 7. Trouble concentrating on things, such as reading the newspaper or watching television: several days 8. Moving or speaking so slowly that other people could have noticed. Or the opposite - being so fidgety or restless that you have been moving around a lot more than usual: several days 9. Thoughts that you would be better off or of hurting yourself in some way: not at all Total score: 13 Depression Screening Interpretation: Positive Depression Screening Follow-up: Existing condition, In treatment, Community Mental Health Worker F/U and Follow- up Visit Requested Depression Screening Done: Yes 15709 - PHQ-9 Billing: Yes Source: Developed by Drs. Liang Gao, Joan Cruz, Chip Aldana and colleagues, with an educational mei from [employer]. Thrive Questionnaire Date Thrive assessed: 07/13/24 I am a: Patient What is your living situation today?: I have a steady place to live Within the past 12 months, did the food you bought not last and you didn't have the money to get more?: Sometimes True Within the past 12 months, did you worry whether your food would run out before you got money to buy more?: Sometimes True Do you have trouble paying for medicines?: Yes Do you have trouble getting transportation to medical appointments?: No Do you have trouble paying your heating and electricity bill?: I choose not to answer this question Do you have trouble taking care of your child, family member or friend?: No Do you have trouble with day-to-day activities such as bathing, preparing meals, shopping, managing finances, etc.?: Yes Are you currently unemployed and looking for a job?: No Are you interested in more education?: No Please select the resources that you would like help with: Housing/Half-Way and Food Currently or been in a relationship where the following occur: No concerns reported THRIVE Score: 2 AUDIT C Alcohol Use Questionnaire (AUDIT-C) 1. How often do you have a drink containing alcohol?: Never Total Score: 0 Score Reviewed/Action Taken: No FRANCISCO-7 AMB Questionnaire FRANCISCO-7 Date FRANCISCO - 7 assessed: 07/13/24 Feeling nervous, anxious, or on edge: 1 = Several days Not being able to stop or control worryin = Several days Worrying too much about different things: 1 = Several days Trouble relaxin = Several days Being so restless that it is hard to sit still: 0 = Not at all Becoming easily annoyed or irritable: 2 = More than half the days Feeling afraid as if something awful might happen: 2 = More than half the days Total FRANCISCO-7 score (0-4 normal; 5-9 mild; 10-14 moderate; 15-21 severe): 8 Source: Developed by Drs. Liang Gao, Joan Cruz, Chip Aldana and colleagues, with an educational mei from [employer]. FRANCISCO-7 Assessment Billing FRANCISCO-7 Assessment Tool: FRANCISCO-7 Assessment 25891 Review of Systems Const All systems reviewed & are unremarkable except as noted in HPI and below Card Denies chest pain at rest, Denies chest pain with activity, Denies edema, Denies irregular heart rhythm, Denies claudication, Denies dyspnea, Denies dyspnea on exertion, Denies orthopnea, Denies paroxysmal nocturnal dyspnea and Denies slow heart rate Resp Denies cough, Denies dyspnea and Denies dyspnea on exertion GI Denies abdominal pain, Denies change in bowel habits, Denies excessive flatus, Denies nausea and Denies vomiting Denies urinary incontinence, Denies urinary hesitancy and Denies urinary urgency Musc Reports back pain Neuro Denies behavioral changes, Denies confusion and Denies lack of coordination Psych Reports anxiety, Denies behavioral changes, Denies confusion and Reports depression Endo Denies cold intolerance Physical exam (Primary Care) Vital Signs: Last Vital Signs BP 118/72 10/12/24 07:46 BMI result Body Mass Index 36.3 BMI Assessment/Plan discussion: High BMI High, discussed plan: lifestyle, weight reduction, dietary and physical activity Tobacco/Smoking Status: Tobacco use Status Tobacco use date assessed 07/13/24 10/12/24 07:52 Patient Tobacco Use Status Never used Tobacco 10/12/24 07:52 e-Cigarette/Vaping Use Never Used 10/12/24 07:52 PHQ-9: PHQ-9 Score PHQ-9: Total score 13 10/12/24 08:47 Depression Screening Interpretation: Positive Depression Screening Follow-up: Existing condition, In treatment, Community Mental Health Worker F/U and Follow- up Visit Requested Thrive Assessment: Date of Thrive Assessment Date Thrive assessed 07/13/24 10/12/24 07:52 Currently or been in a relationship where the following occur: No concerns reported Const General: No confusion Orientation/consciousness: patient oriented x3 and No confusion Limitations: ambulation with walker HENMT Head: Yes normal to inspection, Yes normocephalic and Yes atraumatic Ears: external ears normal Eyes General: appearance normal, both eyes and all related structures Eyelids: Yes eyelids normal Conjunctivae: conjunctivae normal Neck Neck: Yes normal visual inspection and Yes supple Resp Effort & Inspection: normal respiratory effort Auscultation: clear to auscultation bilaterally Cardio Jugular venous distension: no JVD Rate: regular rate Rhythm: regular rhythm Heart sounds: S1 normal heart sound present and S2 normal heart sound present GI Inspection: Yes normal to inspection Palpation (GI): Soft to palpation and nontender Auscultation: normal bowel sounds Skin General skin exam: no rashes or lesions noted Neuro General: patient oriented x3, no focal motor deficits and No confusion Extrem General: Yes full ROM Psych Appearance: grossly normal Immunizations pneumoc 20-rubens conj-dip cr(PF) 0.5 mL IM syringe Performing Provider: Payal Villanueva MD [facility] Administered by: ALEXANDRA Chaves on 10/12/24 08:52 Dose Route Admin Location Dispensed Lot Number Expiration Date [facility] Beating Machine Operator 0.5 mL IM Right Deltoid 0.5 mL [id number] 09/27/25 [id number] [employer] VIS Given Date VIS Provided VIS Publication Date 10/12/24 Single Vaccine 22 Eligibility Eligibility Date Funding Source Not [facility] Eligible 10/12/24 Private Coding Level of Care Code Est Pt Level 3 (32684) Est Pt Prev Care >65y(79973) Diagnoses Physical exam Z00.00 Lumbar degenerative disc disease M51.369 Mild depression F32.0 Type 2 diabetes mellitus with hyperglycemia, with long-term current use of insulin E11.65; Z79.4 Diabetes mellitus complication status: with hyperglycemia Additional Codes FRANCISCO-7 Assessment Billing - FRANCISCO-7 Assessment Tool: FRANCISCO-7 Assessment 07532 ([id number]) PHQ-9 - 46602 - PHQ-9 Billing: Yes ([id number]) Time Spent (min) 32 Assessment & Plan Assessment & Plan (1) Physical exam: Code(s): Z00.00 - Encounter for general adult medical examination without abnormal findings Category: Medical (2) Lumbar degenerative disc disease: Code(s): M51.369 - Other intervertebral disc degeneration, lumbar region without mention of lumbar back pain or lower extremity pain Category: Medical (3) Mild depression: Code(s): F32.0 - Major depressive disorder, single episode, mild Category: Medical (4) Type 2 diabetes mellitus, with long-term current use of insulin: Code(s): E11.9 - Type 2 diabetes mellitus without complications; Z79.4 - penitentiary (current) use of insulin Category: Medical Qualifiers: Diabetes mellitus complication status: with hyperglycemia Qualified Code(s): E11.65 - Type 2 diabetes mellitus with hyperglycemia; Z79.4 - penitentiary (current) use of insulin Plan The patient will continue with her current psychiatric care for depression, with monitoring of her PHQ-9 scores to assess treatment efficacy. She is advised to follow up with a automatic paint sprayer operator for her knee and lower back pain to explore potential interventions. Preventative care includes scheduling a mammogram for next month and ensuring vaccinations are up to date, including a pneumonia booster. The patient is also scheduled for a colonoscopy in 2028 and a DEXA scan in 2025 to monitor her osteopenia. Patient was informed and verbally consented to the use of an ambient scribe for clinic note documentation during this visit. I discussed with the patient the importance of continuing her psychiatric care and monitoring her depression symptoms. We also talked about the need for a pain management consultation to address her musculoskeletal pain. Preventative measures were emphasized, including scheduling her mammogram and ensuring her vaccinations are current. Orders: Orders Comprehensive [place]. Panel Fast Today E11.21 - Type 2 diabetes mellitus with diabetic nephropathy Pneumococcal 20 Immunization Today Z23 - Encounter for immunization Lipid Panel Today E78.5 - Hyperlipidemia, unspecified Microalbumin, Random (w Creat) Today R80.9 - Proteinuria, unspecified Vitamin D 25-OH Total Today E55.9 - Vitamin D deficiency, unspecified Thyroid Stimulating Hormone Today E03.8 - Other specified hypothyroidism, E06.3 - Autoimmune thyroiditis XR lumbar spine 2-3V Today M51.369 - Other intervertebral disc degeneration, lumbar region without mention of lumbar back pain or lower extremity pain Referrals Pain Management Referral M51.369 - Other intervertebral disc degeneration, lumbar region without mention of lumbar back pain or lower extremity pain Patient Instructions: - Continue psychiatric care and monitor depression symptoms. - Schedule an appointment with a automatic paint sprayer operator. - Ensure vaccinations are up to date, including pneumonia booster. - Attend scheduled mammogram and follow-up appointments.
[2024-10-12 07:46] VITALS: BP 118/72; BMI 36.3
== END 2024-10-12 08:53 | disposition home or self-care (01) ==
LOC: HO.HMCH 07:25
PROVIDERS: PCP Internal Medicine; Visit Provider Internal Medicine
DX: Z00.00 Encounter for general adult medical examination without abnormal findings (principal); E11.65 Type 2 diabetes mellitus with hyperglycemia; Z79.4 Long term (current) use of insulin; M51.369 Other intervertebral disc degeneration, lumbar region without mention of lumbar back pain or lower extremity pain; F32.0 Major depressive disorder, single episode, mild; Z23 Encounter for immunization

== ENCOUNTER → 2024-10-12 09:14 | Outpatient (BNV) | payer OTHER, SELFPAY | PROVIDERS: PCP Internal Medicine; Visit Provider Radiology Diagnostic Radiology | DX: M51.369 Other intervertebral disc degeneration, lumbar region without mention of lumbar back pain or lower extremity pain (principal) | CPT/HCPCS: 72100 ==

== ENCOUNTER 2024-10-13 10:28 | Outpatient (AMB) | payer OTHER, SELFPAY ==
--- NOTE | 2024-10-13 10:30 | A.OFFVIS_ITS ---
Vital Signs 10/13/24 10:32 Height 5 ft 3 in Weight 207 lb 14.334 oz BMI 36.8 BP 116/68 Blood Pressure Location Rt brachial Position Sitting Pulse 84 Pulse Source Pulse Oximeter Pulse Oximetry (%) 98 Oxygen Delivery Method Room Air Intake Visit Reasons: T2DM Intake Note: Patient present today to follow up on Type 2 Diabetes Mellitus. Last Diabetic Eye exam: 03/23/24 Last Podiatry Visit: Does not see a Shift Manager Random Glucose: 187 mg/dl HgA1C: 8.2% 09/15/2024 Rf Test Engineer Required: Yes Rf Test Engineer Language: Ornamental Metalwork Designer Services: Rf Test Engineer Present Rf Test Engineer Name: Anastasia [id number] Information Interpreted: non-clinical & clinical Accompanied by: Daughter, Grandchild Allergies metformin Adverse Reaction (Intermediate, Verified 10/13/24 10:33) diarrhea Medication List - Last Reconciled 10/13/24 by DEBORAH Hodges acetaminophen 500 mg PO Q6H PRN 30 days albuterol sulfate 90 mcg/actuation 2 puffs inhalation Q4-6H PRN alcohol swabs (BD Alcohol Swabs) 1 pad topical BID 30 days aspirin 81 mg PO DAILY 90 days atorvastatin 80 mg PO DAILY blood pressure monitor As directed blood sugar diagnostic (FreeStyle Test strips) Use 1 test strip twice a day blood-glucose meter (FreeStyle Lite Meter kit) As directed blood-glucose sensor (FreeStyle Severino 3 Plus Sensor device) Apply 1 new sensor every 14 days as directed to monitor blood glucose continuously. blood-glucose,director music,cont (FreeStyle Severino 3 Savannah) Use daily to monitor blood glucose continuously cholecalciferol (vitamin D3) (Vitamin D3) 50 mcg PO DAILY clotrimazole-betamethasone 1-0.05 % 1 appl topical BID 7 days dextrose (TRUEplus Glucose) 15 grams (32 mL) PO Q15M PRN doxepin 50 mg PO BEDTIME dulaglutide (Trulicity) 1.5 mg (0.5 mL) subcut QWEEK empagliflozin (Jardiance) 25 mg PO DAILY 90 days enalapril maleate 5 mg PO DAILY 90 days escitalopram oxalate 20 mg PO DAILY 90 days ezetimibe 10 mg PO DAILY 90 days famotidine 20 mg PO BEDTIME hydroxyzine HCl 25 mg PO BID 30 days incontinence pad, liner, disp Use 1 pad 6 times a day as needed insulin glargine (Lantus Solostar U-100 Insulin) 44 units subcut DAILY lancets As directed levothyroxine 137 mcg PO DAILY 90 days pen needle, diabetic (BD Rona 2nd Gen Pen Needle) once a day polyethylene glycol 3350 (Miralax) 17 grams PO DAILY [right arm sling As directed] sennosides (Natural Senna Laxative) 17.2 mg (2 x 8.6 mg) PO BEDTIME Shower Chair As directed simethicone (Gas Relief (simethicone)) 125 mg PO TID-QID PRN walker rollator walker- use as directed HPI Comments Details: This is a 64-year-old Frisian speaking female with a past medical history of type 2 diabetes, hypothyroidism, dyslipidemia, hypertension, depression and GERD presenting for diabetic management. She is accompanied by her daughter who is her SUPERINTENDENT TERMINAL. Hemoglobin A1c 8.2% 09/15/24. Reviewed Severino 3 dated September 28 to October 11 CGM active 95% Average glucose 244 G AZ 9.1% Glucose variability 25.4% Very high 43% High 39% Target range 18% 0% hypoglycemia She has a pattern of hyperglycemia throughout 24 hours. She received a cortisone injection 2-3 weeks ago. She has been eating a lot of bread and rice. Notes increased appetite. Current medication regimen: Lantus 40 units daily and Jardiance 25 mg daily and Trulicity 0.75 mg weekly. Past medications: Ozempic stopped in December due to dizziness reported by the patient. Mounjaro caused nausea and gas. Intolerant to metformin which caused diarrhea. Hypoglycemia symptoms: None Hyperglycemia symptoms: fatigue and polydipsia Eye exam: up to date Microvascular complications: neuropathy in her toes and fingers, nephropathy (microalbumin, followed by Nephrology) Macrovascular complications: None Hypertension: treated with Enalapril 5 mg. Hyperlipidemia: treated with Zetia 10 mg and Atorvastatin 80 mg. Fib4 value 1.07 as of 06/19/2024. ROS: Constitutional: No unexplained weight loss, fever, chills, fatigue or night sweats. Eyes: No vision changes Respiratory: No shortness of breath Cardiovascular: No chest pain Gastrointestinal: No anorexia, nausea, vomiting or diarrhea. No abdominal pain. Neurologic: No headache, dizziness, syncope, + tingling in her toes. Endocrine: No cold or heat intolerance. See HPI. Physical exam: Constitutional: Alert, in no distress. Neck: Supple, Full range of motion. No lymphadenopathy. Respiratory: Clear to auscultation. Cardiovascular: S1 S2 regular. No murmurs. [facility] Medical History Subarachnoid hemorrhage Diabetic polyneuropathy DM2 (diabetes mellitus, type 2) Daytime somnolence Chronic pain of both knees Chronic pain of both hips Helicobacter pylori (H. 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 (acquired) assisted (current) use of insulin Diabetes type 2, uncontrolled Hypovitaminosis D Depression GERD (gastroesophageal reflux disease) Essential hypertension Headache Dyslipidemia Type 2 diabetes mellitus, with long-term current use of insulin Autoimmune thyroiditis Surgical History History of esophagogastroduodenoscopy (EGD) Hx of colonoscopy History of arthroscopy of right knee History of tubal ligation Family History Father Diabetes Mother Hypertension Maternal Grandmother Gynecologic cancer Family/Other FH: mental illness Maternal Uncle Chronic mental illness Social History Housing: Apartment Alcohol intake: never Patient Tobacco Use Status: Never used Tobacco e-Cigarette/Vaping Use: Never Used Second Hand Smoke Exposure: No service: No Current occupational status: disabled Current occupation: rt handed Cognitive needs: Yes Hearing needs: No Vision needs: No Physical Exam Vital Signs: BMI result Body Mass Index 36.8 Results Reviewed Results Reviewed: Laboratory Tests 10/12/24 10/12/24 09:07 09:10 Creatinine 0.61 Estimated GFR > 60 AST 20 ALT 24 Triglycerides 73 Cholesterol 162 LDL Cholesterol, Calc 96 HDL Cholesterol 52 Vitamin B12 584 25-OH Vitamin D Total 32.5 TSH 1.35 Urine Creatinine 91.92 Urine Microalbumin 33.0 Microalb/Creat Ratio 35.9 H Assessment & Plan Assessment & Plan (1) Type 2 diabetes mellitus, with long-term current use of insulin: Code(s): E11.9 - Type 2 diabetes mellitus without complications; Z79.4 - tank terminal gauger (current) use of insulin Category: Medical Qualifiers: Diabetes mellitus complication status: with hyperglycemia Qualified Code(s): E11.65 - Type 2 diabetes mellitus with hyperglycemia; Z79.4 - tank terminal gauger (current) use of insulin Plan In summary this is a 64-year-old female with uncontrolled type 2 diabetes with microvascular complications. Complications of type 2 diabetes and diabetic diet reviewed. Referred to supervisor metal placing. Increase Trulicity to 1.5 mg weekly. Increase Lantus to 44 units every morning. Continue Jardiance 25 mg daily. If you experience low blood sugar (<70), treat this by eating a chewable fruit candy like skittles or jelly beans (about 8 pieces), 4 ounces (1/2 cup) of fruit juice (not diet), 1 tablespoon of honey or 4 glucose tablets or 1 packet of glucose gel. If your blood sugar is under 55, take double the amount of one of the above. Recheck your blood sugar in 15 minutes. Follow up in 6 weeks for type 2 diabetes. Orders: Orders AMB Glucose Monitoring Today E11.9 - Type 2 diabetes mellitus without complications Referrals Associate Professor Of Art Nutrition Referral E11.65 - Type 2 diabetes mellitus with hyperglycemia Medications: New dulaglutide (Trulicity) 1.5 mg (0.5 mL) subcut QWEEK 2 mL 1RF Discontinued dulaglutide (Trulicity) Replaces Mounjaro. Discontinued Reason: Doctor's Order 0.75 mg (0.5 mL) subcut QWEEK 2 mL 0RF Patient Instructions: Increase Lantus to 44 units every morning Continue Jardiance 25 mg daily Increase Trulicity 1.5 mg weekly I will place the referral to the supervisor metal placing. If you experience low blood sugar, treat this by eating a chewable fruit candy like skittles or jelly beans (about 8 pieces), 4 ounces (1/2 cup) of fruit juice (not diet), 1 tablespoon of honey or 4 glucose tablets. If your blood sugar is under 55, take double the amount of one of the above. Recheck your blood sugar in 15 minutes. Aumente la dosis de Lantus a 44 unidades cada ma?payal. Contin?e con Jardiance 25 mg al d?a. Aumente la dosis de Trulicity 1.5 mg a la semana. Le recomendar? al nutricionista. Si experimenta niveles bajos de az?car en la chris, tr?telo con un caramelo masticable de fruta christopher Skittles o Jelly Beans (aproximadamente 8 piezas), 113 ml (1/2 taza) de jugo de fruta (no diet?kenny), 1 cucharada de miel o 4 tabletas de glucosa. Si guevara nivel de az?car en la chris es inferior a 55, tome el doble de la dosis de ytrell de los medicamentos mencionados. Vuelva a medir guevara nivel de az?car en la chris en 15 minutos. Coding Level of Care Code Est Pt Level 4 (13750) Diagnoses Type 2 diabetes mellitus with hyperglycemia, with long-term current use of insulin E11.65; Z79.4 Diabetes mellitus complication status: with hyperglycemia
[2024-10-13 10:32] VITALS: BP 116/68; PULSE 84; O2SAT 98; BMI 36.8
[2024-10-13 10:42] LABS: Glucose, Whole Blood 187 mg/dL (60-115)
--- OUTSIDE RECORDS SUMMARY | 2024-10-13 11:59 | XMS_ITS | Clinical Summary ---
Author Organization 175 [facility] Address [address] [place] [address] Phone Care Team Providers Care Baking Powder Mixer Name Role Phone Payal Villanueva MD Primary Care Provider [phone] Allergies No known active allergies Medications No known medications Encounters Date Type Department Care Team Description 07/30/2024 9:00 AM EDT Consult Orthopedic Surgery [facility] [address] [place] [phone] Darrell Rockwell DPM Dermatophytosis of nail (Primary Dx); Type 2 diabetes mellitus with diabetic polyneuropathy ([facility] V24, [facility] V28); Other specified personal risk factors, not elsewhere classified; Pain in toe of right foot; Pain in toe of left foot; Corns and callosities; Diabetic mononeuropathy simplex ([facility] V24, [facility] V28); Type II diabetes mellitus with peripheral circulatory disorder ([facility] V24, [facility] V28); Metatarsalgia of both feet; Hammer toe [...] AM EDT Office Visit Orthopedic Surgery - [place] [address] [phone] Darrell Rockwell, DPM [address] [address] Health Maintenance Due Date Last Done Comments [...] to complete this topic Insurance LIZ COBB [id number] [employer] MEDICARE Member Subscriber Plan / Payer (Ef fective 2023-Present) Name:Cara Ballard Relation to Subscriber:Self Name:Cara Ballard Payer ID:[id number] Group ID:[id number] Type:Not on file Address: [place] [address] [place] [id number] Care Teams Baking Powder Mixer Relationship Specialty Start Date End Date Payal Villanueva MD [address] [place] [address] , [address] [facility]: [facility] [place], [place] PCP - General Internal Medicine 05/22/24
== END 2024-10-13 11:01 | disposition home or self-care (01) ==
LOC: HO.ENCR 10:28
PROVIDERS: PCP Internal Medicine; Visit Provider Physician Assistant Medical
DX: E11.65 Type 2 diabetes mellitus with hyperglycemia (principal); Z79.4 Long term (current) use of insulin

== ENCOUNTER → 2024-10-13 10:28 | Outpatient (BNVA) | payer OTHER, SELFPAY | PROVIDERS: PCP Internal Medicine; Visit Provider Physician Assistant Medical | DX: E11.9 Type 2 diabetes mellitus without complications (principal); Z79.4 Long term (current) use of insulin | CPT/HCPCS: 82947; 99212 ==

== ENCOUNTER 2024-11-03 06:38 | Outpatient (REF) | payer OTHER, SELFPAY ==
[2024-11-03 08:06] LABS: Anion Gap 12 (12-20); Blood Urea Nitrogen 13 mg/dL (9-16); Carbon Dioxide 29 mmol/L (22-29); Chloride 105 mmol/L (96-108); Estimated Glomerular Filt Rate > 60; Potassium 3.9 mmol/L (3.3-5.1); Sodium 142 mmol/L (135-145)
[2024-11-03 08:33] LABS: Protein/Creatinine Ratio, Ur 0.11 (<0.2); Total Protein Urine Random 13 mg/dL (<12)
== END 2024-11-03 06:39 | disposition home or self-care (01) ==
LOC: HO.LAB 06:38
PROVIDERS: PCP Internal Medicine; Visit Provider Internal Medicine Nephrology
DX: I10 Essential (primary) hypertension (principal); R80.9 Proteinuria, unspecified
CPT/HCPCS: 36415; 80051; 82565; 82570; 84156; 84520

== ENCOUNTER 2024-11-04 10:46 | Outpatient (AMB) | payer OTHER, SELFPAY ==
--- NOTE | 2024-11-04 10:51 | MHC.OFFVIS ---
Vital Signs 11/04/24 10:54 Height 5 ft 3 in Weight 205 lb BMI 36.3 BP 118/59 L Blood Pressure Location Lt brachial Position Sitting Pulse 69 Intake Visit Reasons: Discuss Coyote & Upper endos. Intake Note: suze presents in the office to discuss EGD and COLO. CC: She states that she is not having any concerns today. Tool And Die Manager Required: Yes Tool And Die Manager Name: Mihir [id number] Allergies metformin Adverse Reaction (Intermediate, Verified 11/04/24 13:44) diarrhea HPI HPI Discuss Coyote & Upper endos.: Details: LAST VISIT: GERD (gastroesophageal reflux disease) Constipation Plan Patient was encouraged to try to have big meal no later than 4 p.m.? Eating smaller meals and more often encouraged.? Avoid dietary triggers and late night snacking.? Staying upright for minimum 3 hours after meals discussed with patient. Continue famotidine at bedtime. Continue senna daily. Increase fluid intake and activity to promote better bowel motility per minute follow-up in 6 months we will discuss going for colonoscopy and upper endoscopy. Patient is due to go in May of 2025. Both patient and her PLA[employer] POLICE OFFICER are agreeable to plan of care and verbalizes understanding of instructions. They were given the opportunity to ask questions and all questions answered. ? TODAY'S VISIT: Patient is here today for follow-up and to discuss going for upper endoscopy and colonoscopy. Patient reports that the for the most part she has been doing well. Takes famotidine at bedtime. Denies eating late at night. Patient denies melena, hematochezia, unintentional weight loss or ribbon like stools. Patient is due to go for colonoscopy in May of 2025. Patient reports that she a moving her bowels well. Takes Senokot as needed. Patient denies any issues with anesthesia in the past. No history of sleep apnea. If she of H pylori in the past. Patient denies dyspepsia, dysphagia or odynophagia. She is on Trulicity and Lantus. Patient reports occasional postprandial abdominal bloating uses Senokot as needed with fair effect. Patient denies any cardiac or respiratory symptoms. [facility] Medical History Subarachnoid hemorrhage Diabetic polyneuropathy DM2 (diabetes mellitus, type 2) Daytime somnolence Chronic pain of both knees Chronic pain of both hips Helicobacter pylori (H. 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 (acquired) joint terminal attack controller (current) use of insulin Diabetes type 2, uncontrolled Hypovitaminosis D Depression GERD (gastroesophageal reflux disease) Essential hypertension Headache Dyslipidemia Type 2 diabetes mellitus, with long-term current use of insulin Autoimmune thyroiditis Surgical History History of esophagogastroduodenoscopy (EGD) Hx of colonoscopy History of arthroscopy of right knee History of tubal ligation Family History Father Diabetes Mother Hypertension Maternal Grandmother Gynecologic cancer Family/Other FH: mental illness Maternal Uncle Chronic mental illness Social History Housing: Apartment Alcohol intake: never Patient Tobacco Use Status: Never used Tobacco e-Cigarette/Vaping Use: Never Used Second Hand Smoke Exposure: No service: No Current occupational status: disabled Current occupation: rt handed Cognitive needs: Yes Hearing needs: No Vision needs: No Review of Systems Const Denies weight gain and Denies weight loss ENT Reports no additional complaints, Denies dysphagia and Denies odynophagia Card Reports no additional complaints Resp Reports no additional complaints GI Denies abdominal pain, Denies belching, Denies melena, Reports bloating (Occasional), Denies change in bowel habits, Denies dysphagia, Denies excessive flatus, Denies dyspepsia, Denies heartburn, Denies diarrhea, Denies loose stools, Denies nausea, Denies odynophagia and Denies vomiting Reports no additional complaints Musc Reports no additional complaints Neuro Reports no additional complaints Psych Reports no additional complaints Endo Reports no additional complaints Physical Exam Vital Signs: Last Vital Signs Pulse 69 11/04/24 10:54 BP 118/59 L 11/04/24 10:54 BMI result Body Mass Index 36.3 Const General: healthy appearing, no acute distress and well developed Nutritional Appearance: obese Orientation/consciousness: patient oriented x3 Resp Effort & Inspection: normal respiratory effort, able to speak in complete sentences, no tracheal deviation and symmetric chest movement Auscultation: clear to auscultation bilaterally Cardio Rate: regular rate GI Inspection: Yes normal to inspection, No distended and Yes obesity Palpation (GI): Soft to palpation, not firm, nontender and No hepatosplenomegaly present Auscultation: normal bowel sounds General: Yes no CVA tenderness Back/Spine/Pelvis Back: no CVA tenderness Skin General skin exam: elasticity normal, turgor normal and dry skin Neuro General: patient oriented x3 Psych Appearance: grossly normal Mental Status: mental status grossly normal Assessment & Plan Assessment & Plan (1) GERD (gastroesophageal reflux disease): Code(s): K21.9 - Gastro-esophageal reflux disease without esophagitis Category: Medical Qualifiers: Esophagitis presence: esophagitis presence not specified Qualified Code(s): K21.9 - Gastro-esophageal reflux disease without esophagitis (2) Helicobacter pylori (H. pylori): Code(s): A04.8 - Other specified bacterial intestinal infections Category: Medical (3) Dysphagia: Code(s): R13.10 - Dysphagia, unspecified Category: Medical Qualifiers: Dysphagia type: pharyngoesophageal phase Qualified Code(s): R13.14 - Dysphagia, pharyngoesophageal phase (4) Screen for colon cancer: Code(s): Z12.11 - Encounter for screening for malignant neoplasm of colon Plan Continue famotidine. Avoid dietary triggers only at night. Staying upright for minimal 3 hours after meals discussed with patient. Patient will continue taking senna. Increase fluid intake and activity to promote better bowel motility. Patient will be sent for upper endoscopy and colonoscopy. May book for May of 2025. What to expect before during and after procedure discussed with patient. Stressed the importance of good bowel prep and clear liquid diet day before procedure. Denies any issues with anesthesia in the past. No history of sleep apnea. Patient is on low-dose aspirin. Denies any cardiac or respiratory symptoms. She is agreeable to this plan and verbalizes understanding of instructions. She was given the opportunity to ask questions and all questions answered Thank you for allowing me to participate in her care Medications: New bisacodyl (Dulcolax (bisacodyl)) take 4 tabs at noon the day before your colonoscopy 20 mg (4 x 5 mg) PO ONCE 4 tabs 0RF constipation 1 day Z12.11 - Encounter for screening for malignant neoplasm of colon polyethylene glycol 3350 (Miralax) As directed by gastroenterology department at [facility] 238 grams PO ONCE 238 grams 0RF Z12.11 - Encounter for screening for malignant neoplasm of colon Coding Level of Care Code Est Pt Level 3 (59173) Diagnoses Gastroesophageal reflux disease, unspecified whether esophagitis present K21.9 Esophagitis presence: esophagitis presence not specified Helicobacter pylori (H. pylori) A04.8 Pharyngoesophageal dysphagia R13.14 Dysphagia type: pharyngoesophageal phase Screen for colon cancer Z12.11 Time Spent (min) 30 Comment 20 minutes spent with patient and additional 10 minutes spent reviewing her records
[2024-11-04 10:54] VITALS: BP 118/59; PULSE 69; BMI 36.3
--- OUTSIDE RECORDS SUMMARY | 2024-11-04 11:49 | XMS_ITS | Clinical Summary ---
Author Organization 175 [facility] Address [address] [place] [address] Phone Care Team Providers Care Dock Grader Name Role Phone Payal Villanueva MD Primary Care Provider Allergies No known active allergies Medications No known medications Social History Tobacco Use Types Packs/Day Years [...] 07/30/2024 8:51 AM EDT Plan of Treatment Health Maintenance Due Date Last Done Comments Breast Cancer Screening 1960 Pneumococcal Vaccine: 50+ Years (2 of 2 - PCV) 03/08/2017 03/08/2016 COVID-19 Vaccine ( season) 2023 03/02/2022, 02/28/2022, 09/12/2021, Additional history exists Colorectal Cancer Screening: Colonoscopy 05/23/2024 Depression Screening 05/23/2024 Falls Risk Assessment 05/23/2024 Hepatitis C Screening 05/23/2024 Medicare Annual Wellness Visit 05/23/2024 Osteoporosis Screening (Bone Density Screening) 05/23/2024 Social Influencers of Health Screening 05/23/2024 Influenza Vaccine (#1) 2024 , 02/04/2023, 02/23/2022, Additional history exists DTaP,Tdap,and Td Vaccines (2 - Td or Tdap) 03/08/2026 03/08/2016 Zoster Vaccines Completed 05/04/2022, 02/23/2022 RSV Immunization Adult Patients Completed 03/02/2024 HIB Vaccines Aged Out No longer eligi [...] patient's age to complete this topic Insurance [employer] MEDICARE Member Subscriber Plan / Payer (Ef fective 2023-Present) Name:GEOFF ARIAS Relation to Subscriber:Self Name:Gefof Arias Payer ID:[id number] Group ID:[id number] Type:Not on file Address: [address] [facility] [place] [id number] Care Teams Dock Grader Relationship Specialty Start Date End Date Payal Villanueva MD [address] [place] [address] , [address] [facility] D/B/A: [facility] [place] PCP - General Internal Medicine 05/22/24
--- OUTSIDE RECORDS SUMMARY | 2024-11-04 11:49 | XMS_ITS | Clinical Summary ---
Author Organization [facility] Address [address] [facility] [address] [place] [address] Care Team Providers Care Rehabilitation Supervisor Name Role Phone Unavailable Primary Care Provider [...] 09/12/2021, Additional history exists Influenza Vaccine (#1) 2024 2, 04/04/2021, 03/08/2016 DTaP/Tdap/Td Vaccines (2 - [...]
== END 2024-11-04 12:06 | disposition home or self-care (01) ==
LOC: HO.HGI 10:46
PROVIDERS: PCP Internal Medicine; Visit Provider Nurse Practitioner Family
DX: K21.9 Gastro-esophageal reflux disease without esophagitis (principal); A04.8 Other specified bacterial intestinal infections; R13.14 Dysphagia, pharyngoesophageal phase
CPT/HCPCS: 99213

== ENCOUNTER → 2024-11-04 10:46 | Outpatient (BNVA) | payer OTHER, SELFPAY | PROVIDERS: PCP Internal Medicine; Visit Provider Nurse Practitioner Family | DX: I10 Essential (primary) hypertension (principal); E11.21 Type 2 diabetes mellitus with diabetic nephropathy; K21.9 Gastro-esophageal reflux disease without esophagitis; A04.8 Other specified bacterial intestinal infections; R13.14 Dysphagia, pharyngoesophageal phase; Z12.11 Encounter for screening for malignant neoplasm of colon | CPT/HCPCS: 99212 ==

== ENCOUNTER 2024-11-04 13:41 | Outpatient (AMB) | payer OTHER, SELFPAY ==
[2024-11-04 13:43] VITALS: BP 112/64; PULSE 82; O2SAT 94; BMI 37.6
--- NOTE | 2024-11-04 13:43 | HO.NEPHOV_ITS ---
Vital Signs 11/04/24 13:43 Height 5 ft 3 in Weight 212 lb BMI 37.6 BP 112/64 Blood Pressure Location Lt brachial Position Sitting Pulse 82 Pulse Source Pulse Oximeter Pulse Oximetry (%) 94 Oxygen Delivery Method Room Air Intake Visit Reasons: 6mon follow-up w/labs-Conf Nutrition Worker Required: Yes Nutrition Worker Name: [id number] Accompanied by: Self / Same As Patient Allergies metformin Adverse Reaction (Intermediate, Verified 11/04/24 13:44) diarrhea HPI Comments Details: Cara was seen today in follow up for proteinuria. She is 64 years of age with DM and hypertension among other medical issues. Her blood sugars are controlled with her last A1c over 10.0. She denies retinopathy, neuropathy, PAD, LISA, carotid stenosis, CHF, CAD but had SAH. She has high BMI. She denies bone pain, high calcium, edema, any bisphosphonate intake, epistaxis, new skin rashes, photosensitivity, hematuria, renal calculus. Her renal functions are normal. She does not take excess NSAID's. She denies any new systemic complaints [facility] Medical History Subarachnoid hemorrhage Diabetic polyneuropathy DM2 (diabetes mellitus, type 2) Daytime somnolence Chronic pain of both knees Chronic pain of both hips Helicobacter pylori (H. 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 (acquired) shelter (current) use of insulin Diabetes type 2, uncontrolled Hypovitaminosis D Depression GERD (gastroesophageal reflux disease) Essential hypertension Headache Dyslipidemia Type 2 diabetes mellitus, with long-term current use of insulin Autoimmune thyroiditis Surgical History History of esophagogastroduodenoscopy (EGD) Hx of colonoscopy History of arthroscopy of right knee History of tubal ligation Family History Father Diabetes Mother Hypertension Maternal Grandmother Gynecologic cancer Family/Other FH: mental illness Maternal Uncle Chronic mental illness Social History Housing: Apartment Alcohol intake: never Patient Tobacco Use Status: Never used Tobacco e-Cigarette/Vaping Use: Never Used Second Hand Smoke Exposure: No service: No Current occupational status: disabled Current occupation: rt handed Cognitive needs: Yes Hearing needs: No Vision needs: No Review of Systems Const All systems reviewed & are unremarkable except as noted in HPI and below Physical Exam Vital Signs: Last Vital Signs Pulse 82 11/04/24 13:43 BP 112/64 11/04/24 13:43 Pulse Ox 94 11/04/24 13:43 Oxygen Delivery Method Room Air 11/04/24 13:43 BMI result Body Mass Index 37.6 Const General: comfortable and no acute distress Orientation/consciousness: patient oriented x3 HEENT Head: Yes normocephalic Mouth: Normal oral and palatal mucosa present Eyes EOM: EOMs intact bilaterally Neck Neck: Yes supple Resp Auscultation: clear to auscultation bilaterally Cardio Jugular venous distension: no JVD Rate: regular rate GI Palpation (GI): Soft to palpation Auscultation: normal bowel sounds General: Yes no CVA tenderness Back/Spine/Pelvis Back: no CVA tenderness Skin General skin exam: no rashes or lesions noted Neuro General: patient oriented x3 and moves all extremities Extrem General: Yes no pedal edema Results Reviewed Nephrology Results: Sodium, (135-145) 142 mmol/L 11/03/24 Potassium, (3.3-5.1) 3.9 mmol/L 11/03/24 Chloride, (96-108) 105 mmol/L 11/03/24 Carbon Dioxide, (22-29) 29 mmol/L 11/03/24 BUN, (9-16) 13 mg/dL 11/03/24 Creatinine, (0.5-1.4) 0.62 mg/dL 11/03/24 Calcium, (8.4-10.2) 9.1 mg/dL 10/12/24 Urine Creatinine 117.79 mg/dL 11/03/24 Protein/Creatinin Ratio, (<0.2) 0.11 11/03/24 Assessment & Plan Assessment & Plan (1) Essential hypertension: Code(s): I10 - Essential (primary) hypertension Category: Medical (2) Diabetic nephropathy associated with type 2 diabetes mellitus: Code(s): E11.21 - Type 2 diabetes mellitus with diabetic nephropathy Category: Medical Plan Cara had proteinuria likely from Diabetic nephropathy. She has high BMI. She is on ACEI as well as Jardiance. She has high IgA levels. She avoids NSAID's. Her renal functions are normal.There is no indication for renal biopsy now. I shall F/U IgA levels. She should lose weight and minimize NSAID's. Answered all questions Orders: Orders Protein Creatinine Ratio, Ur 8 Months E11. - Type 2 diabetes mellitus with diabetic nephropathy, I10 - Essential (primary) hypertension Creatinine 8 Months E11. - Type 2 diabetes mellitus with diabetic nephropathy, I10 - Essential (primary) hypertension Blood Urea Nitrogen 8 Months E11. - Type 2 diabetes mellitus with diabetic nephropathy, I10 - Essential (primary) hypertension Electrolytes 8 Months E11. - Type 2 diabetes mellitus with diabetic nephropa thy, I10 - Essential (primary) hypertension Protein Electrophoresis, Serum 8 Months E11. - Type 2 diabetes mellitus with diabetic nephropathy, I10 - Essential (primary) hypertension Coding Level of Care Code Est Pt Level 4 (75785) Diagnoses Essential hypertension I10 Diabetic nephropathy associated with type 2 diabetes mellitus
== END 2024-11-04 13:53 | disposition home or self-care (01) ==
LOC: HO.HKA 13:42
PROVIDERS: PCP Internal Medicine; Visit Provider Internal Medicine Nephrology
DX: I10 Essential (primary) hypertension (principal); E11.21 Type 2 diabetes mellitus with diabetic nephropathy
CPT/HCPCS: 99214

== ENCOUNTER 2024-11-17 10:33 | Outpatient (REF) | payer OTHER, SELFPAY ==
--- OUTSIDE RECORDS SUMMARY | 2024-11-17 11:43 | XMS_ITS | Clinical Summary ---
Author Organization [address] [facility] Address [address] [place] [address] Phone Care Team Providers Care Instructor Traffic Safety Name Role Phone Payal Villanueva MD Primary Care Provider [phone] Allergies No known active allergies Medications No [...] 2023 03/02/2022, 02/28/2022, 09/12/2021, Additional history exists Depression Screening 04/29/2024 Colorectal Cancer Screening: Colonoscopy 05/23/2024 Falls Risk Assessment 05/23/2024 Hepatitis C [...] fective 2023-Present) Name:GEOFF ARIAS Relation to Subscriber:Self Name:Geoff Arias Payer ID:[id number] Group ID:[id number] Type:Not on file Address: [address] [facility] [place] [phone] Care Teams Instructor Traffic Safety Relationship Specialty Start Date End Date Payal Villanueva MD [address] [place] [address] , [address] [facility] Physician [facility] D/B/A: [facility] [place] PCP - General Internal Medicine 05/22/24
--- OUTSIDE RECORDS SUMMARY | 2024-11-17 11:44 | XMS_ITS | Clinical Summary ---
Author Organization [employer] Address [address] [facility] [address] [place] [address] Care Team Providers Care Sheriffs Officer Name Role Phone Unavailable Primary Care Provider [...]
--- OUTSIDE RECORDS SUMMARY | 2024-11-17 11:44 | XMS_ITS | Data Portability ---
Author Organization [facility] [employer] [facility] [employer] Address [address] [place] [id number] Care Team Providers Care Precision Honer Name Role Phone HIM CCA OTHER Assessment No assessment recorded. Plan of Treatment Reminders Order Date Submit Date Provider Last Modified By Organization Details Last Modified Time Details Appointments None recorded. Lab rapid SARS CoV 2 Ag, QL IA, respiratory specimen 2024 [facility], [address] [place] [address], [id number] 5 13:10:36 rapid flu (A+B) [address], [phone] 5 16:02:22 rapid strep group A, throat [address], [phone] 13:10:56 Referral None recorded. Procedures None recorded. Surgeries None recorded. Imaging None recorded. Medication Orders None recorded. Patient TargetsNo targets recorded. Patient InstructionsNo instructions recorded. Reason for Referral None Reported. Results Created Date Observation Date Name Description Value Unit Range Abnormal Flag Note LastModifiedBy Organization Detail LastModifiedTime 06/23/1906/23/2024 rapid flu (A+B) Flu negati ve Not Available [facility] ed [address] [place] [address], [phone] 06/23/2024 12:15:51 06/23/1906/23/2024 rapid strep group A, throa t Strep negati ve Not Available [facility] ed [address] [place] [address], [phone] 06/23/2024 12:16:01 06/23/1906/23/2024 rapid SARS CoV 2 Ag, QL IA, respi rator y speci men rapid SARS CoV 2 Ag, QL IA, respiratory specimen negati ve Not Available Main - [facility] ed [address] [place] [address], [phone] 06/23/2024 12:15:51 Result Notes None recorded. Medical [...] Available No t Available FreeStyle Severino 3 Senath USE DAILY TO MONITOR BLOOD GLUCOSE CONTINUOUSL [...] Body height Body weight Body temperature Systolic And Diastolic Provider Name and Address Organization Details Last Updated DateTime 5 18 /min 95 % 95 % 94 /min 160.02 cm 69789.0 32 g 99.8 [degF] 115/74 mm[Hg] Not Available [employer] - production 5 [...] SNOMED-CT Code Diagnosis ICD10 Code Diagnosis Note [id number] Clare Zarate MD Main - [facility] [address] [place] [phone] 06/23/2024 11:51:12 06/24/2024 12:16:20 Viral upper respiratory tract infection [id number] J06.9 As noted, we were called to see this patient regarding concerns of URI. Evaluation in the field was performed by my die forger colleague, as noted above, I provided real-time [...] Darnell Member ID Guarantor Name 06/24/2024 1 [facility] - DOS ON OR AFTER 2022 - DUAL ELIGIBLE - PENITENTIARY OPTIONS AND ONE CARE (MEDICARE REPLACEMENT/AD VANTAGE - HMO) Cara Banegas [id number] Cara Banegas Notes Date Note Type Note Provider Name and Address Organization Details Recorded Time 06/23/2024 text/html [facility] Nurse Triage Notes (Lacy Forbes - RN): Reason For Request: Patient has stomach pain and a cough. Denies: Increased work of breathing/labored with or without fever Unable to speak in full sentences without distress Discoloration of skin -cyanosis Needs to sleep sitting up, can t catch breath Shortness of breath in setting of confusion Chief Complaints: Sore Throat PMH Reviewed at 06/23/2024 - 08:30 Allergies Reviewed at 06/23/2024 - : Comments: Patient woke up this morning with [...] s/s and seek emergency treatment if needed. [employer] Organization Information for [facility] Business Legal Name: [employer]. Address: [address] [place] [address], Instrumentation Manager: Ronak Brady MD CLIA No.: [id number] [employer] POC Test Results from [facility] Rapid COVID antigen (11:50:30) COVID: - Rapid influenza antigen (11:50:31) Flu: - Rapid strep test (11:50:32) Strep: - .................. .................. .................. .................. .................. .................. .................. ............... [employer] Note From [facility]: Sent to a [...] covid/flu test: neg; Rapid strep test: neg; [facility] consulted, pt is advised to continue symptomatic treatment. Red flags discussed. Pt has no further questions. [facility] Lab Orders: rapid SARS CoV 2 Ag, QL IA, respiratory specimen: Performed rapid flu (A+B): Performed rapid strep group A, throat: Performed .................. .................. .................. .................. .................. .................. .................. ............... [facility] Consulted: Clare Zarate .................. .................. .................. .................. .................. .................. .................. ............... Disposition: Fulfilled Claer Zarate MD [address] [facility], [place], [phone], [employer] - [place], [facility] 06/23/2024 13:54:06 OBGyn Episode No OBEpisode recorded.
== END 2024-11-17 10:34 | disposition home or self-care (01) ==
LOC: HO.MAMMO 10:33
PROVIDERS: PCP Internal Medicine; Visit Provider Internal Medicine
DX: Z12.31 Encounter for screening mammogram for malignant neoplasm of breast (principal)
CPT/HCPCS: 77063; 77067; 99397

== ENCOUNTER → 2024-11-17 11:00 | Outpatient (BNV) | payer OTHER, SELFPAY | PROVIDERS: PCP Internal Medicine; Visit Provider Internal Medicine | DX: Z12.31 Encounter for screening mammogram for malignant neoplasm of breast (principal) | CPT/HCPCS: 77063; 77067 ==

== ENCOUNTER 2024-11-17 12:40 | Outpatient (AMB) | payer OTHER, SELFPAY ==
--- NOTE | 2024-11-17 13:10 | A.OFFVIS_ITS ---
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 annual exam Validation Scientist Required: Yes Validation Scientist Services: Validation Scientist Present Information Interpreted: non-clinical & clinical Mechanical Manager: Mechanical Manager Present Allergies metformin Adverse Reaction (Intermediate, Verified 11/17/24 13:26) diarrhea Medication List - Last Reconciled 11/17/24 by Farrah Subramanian LPN acetaminophen 500 mg PO Q6H PRN 30 days alcohol swabs (BD Alcohol Swabs) 1 pad topical BID 30 days aspirin 81 mg PO DAILY 90 days atorvastatin 80 mg PO DAILY bisacodyl (Dulcolax (bisacodyl)) 20 mg (4 x 5 mg) PO ONCE 1 day blood pressure monitor As directed blood sugar diagnostic (FreeStyle Test strips) Use 1 test strip twice a day blood-glucose meter (aroundthewayStyle Lite Meter kit) As directed blood-glucose sensor (aroundthewayStyle Severino 3 Plus Sensor device) Apply 1 new sensor every 14 days as directed to monitor blood glucose continuously. blood-glucose,museum docent,cont (FreeStyle Severino 3 [place]) Use daily to monitor blood glucose continuously cholecalciferol (vitamin D3) (Vitamin D3) 50 mcg PO DAILY clotrimazole-betamethasone 1-0.05 % 1 appl topical BID 7 days doxepin 50 mg PO BEDTIME dulaglutide (Trulicity) 1.5 mg (0.5 mL) subcut QWEEK empagliflozin (Jardiance) 25 mg PO DAILY 90 days enalapril maleate 5 mg PO DAILY 90 days escitalopram oxalate 20 mg PO DAILY 90 days ezetimibe 10 mg PO DAILY 90 days famotidine 20 mg PO BEDTIME hydroxyzine HCl 25 mg PO BID 30 days incontinence pad, liner, disp Use 1 pad 6 times a day as needed lancets As directed Lantus Solostar U-100 Insulin (insulin glargine) 45 units (0.45 mL) subcut DAILY 90 days NS levothyroxine 137 mcg PO DAILY 90 days pen needle, diabetic (BD Rona 2nd Gen Pen Needle) once a day polyethylene glycol 3350 (Miralax) 17 grams PO DAILY polyethylene glycol 3350 (Miralax) 238 grams PO ONCE [right arm sling As directed] sennosides (Natural Senna Laxative) 17.2 mg (2 x 8.6 mg) PO BEDTIME Shower Chair As directed simethicone (Gas Relief (simethicone)) 125 mg PO TID-QID PRN walker rollator walker- use as directed Is last menstrual period known: No Post menopausal: Yes Patient : No HPI Comments Details: Patient is a postmenopausal woman presenting for her annual bell valet examination. She is doing well with no bell valet concerns. Currently sexually active. Denies any vaginal dryness or irritation. STI testing offered; she declines. Attempting to eat a healthy diet with calcium and vitamin D. Last pap smear; 2019, negative. Last mammogram; pending read. Denies any family history of breast, ovarian or colon cancer. [facility] Medical History Subarachnoid hemorrhage Diabetic polyneuropathy DM2 (diabetes mellitus, type 2) Daytime somnolence Chronic pain of both knees Chronic pain of both hips Helicobacter pylori (H. 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 Diabetes type 2, uncontrolled Hypovitaminosis D Depression GERD (gastroesophageal reflux disease) Essential hypertension Headache Dyslipidemia Type 2 diabetes mellitus, with long-term current use of insulin Autoimmune thyroiditis Surgical History History of esophagogastroduodenoscopy (EGD) Hx of colonoscopy History of arthroscopy of right knee History of tubal ligation Family History Father Diabetes Mother Hypertension Maternal Grandmother Gynecologic cancer Family/Other FH: mental illness Maternal Uncle Chronic mental illness Social History Housing: Apartment Alcohol intake: never Patient Tobacco Use Status: Never used Tobacco e-Cigarette/Vaping Use: Never Used Second Hand Smoke Exposure: No Patient : No service: No Current occupational status: disabled Current occupation: rt handed Cognitive needs: Yes Hearing needs: No Vision needs: No Female Reproductive History Menstrual Menopause type: natural Total pregnancies: 9 Number of Living Children: 9 History of abnormal pap smear: No History of STI: No Date of Mammogram: 11/17/24 History of abnormal mammogram: No Review of Systems Const All systems reviewed & are unremarkable except as noted in HPI and below Reports as per HPI Eyes Reports no additional complaints ENT Reports no additional complaints Card Reports no additional complaints Resp Reports no additional complaints GI Reports as per HPI and Reports no additional complaints Reports as per HPI Musc Reports no additional complaints Skin/Breast Reports as per HPI Neuro Reports no additional complaints Psych Reports no additional complaints Endo Reports no additional complaints Vincent/Lymph Reports no additional complaints Aller/Immun Reports no additional complaints Physical Exam Vital Signs: Last Vital Signs BP 122/68 11/17/24 13:21 BMI result Body Mass Index 37.8 Const General: cooperative, healthy appearing, no acute distress, well developed and alert Orientation/consciousness: patient oriented x3 HEENT Head: Yes normal to inspection Eyes General: appearance normal, both eyes and all related structures Neck Neck: Yes normal visual inspection Thyroid: Thyroid normal Chest Chest palpation & inspection: normal inspection of the chest and other (no puckering, dimpling, peau de orange, retraction, discharge, masses) Breast/axilla inspection: normal inspection of the breasts Breast/axilla palpation: normal palpation of the breasts Resp Effort & Inspection: normal respiratory effort GI Inspection: Yes normal to inspection Palpation (GI): Soft to palpation Rectal Exam - Female: deferred General: Yes bladder normal to palpation External Female Exam: normal external appearance and normal appearance of the urethra Speculum Exam - Vagina: normal appearance of the vagina, normal palpation, normal vaginal discharge and vagina atrophic Speculum Exam - Cervix: normal appearance of the cervix and normal palpation Bimanual exam- vagina & uterus: normal bimanual exam, normal palpation, uterine size normal, bladder normal to palpation, normal palpation and non-tender Bimanual Exam- Adnexa, other: no masses Skin General skin exam: no rashes or lesions noted Rashes: no rashes Neuro General: patient oriented x3 Cognition (Neuro): normal cognition Extrem General: Yes normal to inspection Psych Attitude: cooperative Thought process: Normal thought process present Assessment & Plan Assessment & Plan (1) Encounter for annual routine gynecological examination: Code(s): Z01.419 - Encounter for gynecological examination (general) (routine) without abnormal findings Category: Medical Plan Discussed: Current recommendations for pap smears per ASCCP guidelines. Pap obtained. Breast awareness, periodic self breast exams and yearly mammogram. Maintain a healthy lifestyle, well balanced diet including Calcium 1,200 mg and Vitamin D 600 IU daily, and routine exercise. Contact the office with any postmenopausal bleeding. Patient verbalizes understanding and agrees to the plan of care. She was given opportunity to ask questions and all questions were answered to the best of my ability. RTO in 1 year for annual bell valet exam. This note is constructed using voice recognition software. While every effort has been made to ensure accuracy, superintendent concrete mixing plant errors may have been included. Coding Level of Care Code Est Pt Prev Care >65y(54061) Diagnoses Encounter for annual routine gynecological examination Z01.419
[2024-11-17 13:21] VITALS: BP 122/68; BMI 37.8
== END 2024-11-17 14:31 | disposition home or self-care (01) ==
LOC: HO.HWS 12:40
PROVIDERS: PCP Internal Medicine; Visit Provider Advanced Practice Midwife
DX: Z01.419 Encounter for gynecological examination (general) (routine) without abnormal findings (principal)
CPT/HCPCS: 99397; 99459

== ENCOUNTER 2024-11-17 13:47 | Outpatient (REF) | payer OTHER, SELFPAY | END 2024-11-17 13:48 | disposition home or self-care (01) | LOC: HO.LNP 13:47 | PROVIDERS: Visit Provider Advanced Practice Midwife | DX: Z01.419 Encounter for gynecological examination (general) (routine) without abnormal findings (principal); Z11.51 Encounter for screening for human papillomavirus (HPV) | CPT/HCPCS: 87626; 88175 ==

== ENCOUNTER 2024-11-24 09:18 | Outpatient (AMB) | payer OTHER, SELFPAY ==
--- NOTE | 2024-11-24 09:33 | MHC.OFFVIS ---
Vital Signs 11/24/24 09:39 Height 5 ft 3 in Weight 216 lb 0.848 oz BMI 38.3 BP 116/70 Blood Pressure Location Rt brachial Position Sitting Pulse 70 Pulse Source Pulse Oximeter Pulse Oximetry (%) 95 Oxygen Delivery Method Room Air Intake Visit Reasons: Type II diabetes Intake Note: Patient present today to follow up on Type 2 Diabetes Mellitus. Last Diabetic Eye exam: 03/23/24 Last Podiatry Visit: Does not see a Plant Operator/Shift Supervisor Random Glucose: 377 mg/dL Most HgA1C: 8.2% 09/15/2024 Corporate Sales Trainer Required: Yes Corporate Sales Trainer Language: Service Center Assistant Services: Corporate Sales Trainer Present Corporate Sales Trainer Name: ALEXANDRA Bhagat Accompanied by: Self / Same As Patient Allergies metformin Adverse Reaction (Intermediate, Verified 11/24/24 09:41) diarrhea Medication List - Last Reconciled 11/24/24 by DEBORAH Hodges acetaminophen 500 mg PO Q6H PRN 30 days alcohol swabs (BD Alcohol Swabs) 1 pad topical BID 30 days aspirin 81 mg PO DAILY 90 days atorvastatin 80 mg PO DAILY bisacodyl (Dulcolax (bisacodyl)) 20 mg (4 x 5 mg) PO ONCE 1 day blood pressure monitor As directed blood sugar diagnostic (FreeStyle Test strips) Use 1 test strip twice a day blood-glucose meter (FreeStyle Lite Meter kit) As directed blood-glucose sensor (FreeStyle Severino 3 Plus Sensor device) Apply 1 new sensor every 14 days as directed to monitor blood glucose continuously. blood-glucose,apparel sales leader,cont (FreeStyle Severino 3 Seaboard) Use daily to monitor blood glucose continuously cholecalciferol (vitamin D3) (Vitamin D3) 50 mcg PO DAILY clotrimazole-betamethasone 1-0.05 % 1 appl topical BID 7 days doxepin 50 mg PO BEDTIME dulaglutide (Trulicity) 3 mg (0.5 mL) subcut QWEEK empagliflozin (Jardiance) 25 mg PO DAILY 90 days enalapril maleate 5 mg PO DAILY 90 days escitalopram oxalate 20 mg PO DAILY 90 days ezetimibe 10 mg PO DAILY 90 days famotidine 20 mg PO BEDTIME hydroxyzine HCl 25 mg PO BID 30 days incontinence pad, liner, disp Use 1 pad 6 times a day as needed insulin glargine (Lantus Solostar U-100 Insulin) 44 units subcut DAILY lancets As directed lancets (FreeStyle Lancets) Use to monitor blood glucose twice daily. levothyroxine 137 mcg PO DAILY 90 days pen needle, diabetic (BD Rona 2nd Gen Pen Needle) once a day polyethylene glycol 3350 (Miralax) 17 grams PO DAILY polyethylene glycol 3350 (Miralax) 238 grams PO ONCE [right arm sling As directed] sennosides (Natural Senna Laxative) 17.2 mg (2 x 8.6 mg) PO BEDTIME Shower Chair As directed simethicone (Gas Relief (simethicone)) 125 mg PO TID-QID PRN walker rollator walker- use as directed HPI Comments Details: This is a 64-year-old Ukrainian speaking female with a past medical history of type 2 diabetes, hypothyroidism, dyslipidemia, hypertension, depression and GERD presenting for diabetic management. She is accompanied by her daughter who is her CHILD DAYCARE WORKER. Hemoglobin A1c 8.2% 09/15/24. POC high this morning. She ate a slice of toast with cheese, coffee with sugar. Endorses polydipsia. Denies other symptoms of hyperglycemia. CGM data for the past 14 days. GMI 8% Average glucose 197 Very high 14% High 46% Target range 40% 0% hypoglycemia She has a pattern of hyperglycemia after breakfast and in the evening. Current medication regimen: Lantus 44 units daily and Jardiance 25 mg daily and Trulicity 1.5 mg weekly. Past medications: Ozempic stopped in December due to dizziness reported by the patient. Mounjaro caused nausea and gas. Intolerant to metformin which caused diarrhea. Hypoglycemia symptoms: None Hyperglycemia symptoms: fatigue and polydipsia Eye exam: up to date Microvascular complications: neuropathy in her toes and fingers, nephropathy (microalbumin, followed by Nephrology) Macrovascular complications: None Hypertension: treated with Enalapril 5 mg. Hyperlipidemia: treated with Zetia 10 mg and Atorvastatin 80 mg. Fib4 value 1.07 as of 06/19/2024. ROS: Constitutional: No unexplained weight loss, fever, chills, fatigue or night sweats. Eyes: No vision changes Respiratory: No shortness of breath Cardiovascular: No chest pain Gastrointestinal: No anorexia, nausea, vomiting or diarrhea. No abdominal pain. Neurologic: No headache, dizziness, syncope, + tingling in her toes. Endocrine: No cold or heat intolerance. See HPI. Physical exam: Constitutional: Alert, in no distress. Neck: Supple, Full range of motion. No lymphadenopathy. Respiratory: Clear to auscultation. Cardiovascular: S1 S2 regular. No murmurs. [facility] Medical History Subarachnoid hemorrhage Diabetic polyneuropathy DM2 (diabetes mellitus, type 2) Daytime somnolence Chronic pain of both knees Chronic pain of both hips Helicobacter pylori (H. 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 Diabetes type 2, uncontrolled Hypovitaminosis D Depression GERD (gastroesophageal reflux disease) Essential hypertension Headache Dyslipidemia Type 2 diabetes mellitus, with long-term current use of insulin Autoimmune thyroiditis Surgical History History of esophagogastroduodenoscopy (EGD) Hx of colonoscopy History of arthroscopy of right knee History of tubal ligation Family History Father Diabetes Mother Hypertension Maternal Grandmother Gynecologic cancer Family/Other FH: mental illness Maternal Uncle Chronic mental illness Social History Housing: Apartment Alcohol intake: never Patient Tobacco Use Status: Never used Tobacco e-Cigarette/Vaping Use: Never Used Second Hand Smoke Exposure: No service: No Current occupational status: disabled Current occupation: rt handed Cognitive needs: Yes Hearing needs: No Vision needs: No Physical Exam Vital Signs: Last Vital Signs Pulse 70 11/24/24 09:39 BP 116/70 11/24/24 09:39 Pulse Ox 95 11/24/24 09:39 Oxygen Delivery Method Room Air 11/24/24 09:39 BMI result Body Mass Index 38.3 Office Procedures Glucose Monitoring Details Details: see HPI 10485 - Glucose monitoring, continuous-physician I&R Procedure code (CPT) selection complete Results Reviewed Results Reviewed: Laboratory Last Values Glucose (Clinic) 377 mg/dL (60-115) H* 11/24/24 09:48 Laboratory Tests 09/08/21 10/12/24 10/12/24 09:52 09:07 09:10 Creatinine Estimated GFR AST 20 ALT 24 LDL Cholesterol Direct 99 Triglycerides 73 Cholesterol 162 LDL Cholesterol, Calc 96 HDL Cholesterol 52 Microalb/Creat Ratio 35.9 H 11/03/24 06:47 Creatinine 0.62 Estimated GFR > 60 AST ALT LDL Cholesterol Direct Triglycerides Cholesterol LDL Cholesterol, Calc HDL Cholesterol Microalb/Creat Ratio Assessment & Plan Assessment & Plan (1) Type 2 diabetes mellitus, with long-term current use of insulin: Code(s): E11.9 - Type 2 diabetes mellitus without complications; Z79.4 - long term care phlebotomist (current) use of insulin Category: Medical Qualifiers: Diabetes mellitus complication status: with hyperglycemia Qualified Code(s): E11.65 - Type 2 diabetes mellitus with hyperglycemia; Z79.4 - long term care phlebotomist (current) use of insulin Plan In summary this is a 64-year-old female with uncontrolled type 2 diabetes with microvascular complications. Complications of type 2 diabetes and diabetic diet reviewed. She has an upcoming appointment with the furniture inspector. Increase Trulicity to 3 mg weekly. Increase Lantus to 44 units every morning. Continue Jardiance 25 mg daily. If you experience low blood sugar (<70), treat this by eating a chewable fruit candy like skittles or jelly beans (about 8 pieces), 4 ounces (1/2 cup) of fruit juice (not diet), 1 tablespoon of honey or 4 glucose tablets or 1 packet of glucose gel. If your blood sugar is under 55, take double the amount of one of the above. Recheck your blood sugar in 15 minutes. Follow up in 4 weeks for type 2 diabetes. Orders: Orders AMB Glucose Monitoring Today DEBORAH Hodges E11.9 - Type 2 diabetes mellitus without complications Medications: New dulaglutide (Trulicity) 3 mg (0.5 mL) subcut QWEEK 2 mL 0RF DEBORAH Hodges lancets (FreeStyle Lancets) Use to monitor blood glucose twice daily. 200 ea 5RF DEBORAH Hodges E11.65 - Type 2 diabetes mellitus with hyperglycemia, Z79.4 - long term care phlebotomist (current) use of insulin Changed From Lantus Solostar U-100 Insulin (insulin glargine) 45 units (0.45 mL) subcut DAILY 90 days 40.5 mL 3RF NS E11.9 - Type 2 diabetes mellitus without complications To insulin glargine (Lantus Solostar U-100 Insulin) 44 units subcut DAILY E11.9 - Type 2 diabetes mellitus without complications Payal Villanueva MD Refilled lancets As directed 100 ea 11RF Diane E DEBORAH Garcia blood-glucose sensor (FreeStyle Severino 3 Plus Sensor device) Apply 1 new sensor every 14 days as directed to monitor blood glucose continuously. 2 ea 11RF Diane E DEBORAH Garcia blood sugar diagnostic (FreeStyle Test strips) Use 1 test strip twice a day 200 ea 5RF Diane E DEBORAH Garcia E11.65 - Type 2 diabetes mellitus with hyperglycemia, Z79.4 - nursing home (current) use of insulin Discontinued dulaglutide (Trulicity) Discontinued Reason: Doctor's Order 1.5 mg (0.5 mL) subcut QWEEK 2 mL 1RF Patient Instructions: Increase Trulicity to 3 mg weekly. Continue Lantus to 44 units every morning. Continue Jardiance 25 mg daily. Aumente la dosis de Trulicity a 3 mg semanales. Contin?e con Lantus hasta 44 unidades cada ma?payal. Contin?e con Jardiance 25 mg al d?a. Coding Level of Care Code Est Pt Level 4 (31845) Diagnoses Type 2 diabetes mellitus with hyperglycemia, with long-term current use of insulin E11.65; Z79.4 Diabetes mellitus complication status: with hyperglycemia CPT Codes Details - CPT: 41901 - Glucose monitoring, continuous-physician I&R ([id number])
[2024-11-24 09:39] VITALS: BP 116/70; PULSE 70; O2SAT 95; BMI 38.3
--- OUTSIDE RECORDS SUMMARY | 2024-11-24 09:46 | XMS_ITS | Clinical Summary ---
Author Organization [address] [facility] Address [address] [place] [address] Phone Care Team Providers Care Rn First Assist Name Role Phone Payal Villanueva MD Primary Care Provider [phone] Allergies No known active allergies Medications No [...] Group ID:SCO Type:Not on file Address: [facility] [place]AH MELENDEZ [address] Care Teams Rn First Assist Relationship Specialty Start Date End Date Payal Villanueva MD [address] [place] [address] , [address] [facility] Physician Associ D/B/A: [facility] [place] PCP - General Internal Medicine 05/22/24
--- OUTSIDE RECORDS SUMMARY | 2024-11-24 09:46 | XMS_ITS | Clinical Summary ---
Author Organization [employer] Address [address] [facility] [address] [place] [address] Care Team Providers Care Traffic Rate Clerk Name Role Phone Unavailable Primary Care Provider [...]
--- OUTSIDE RECORDS SUMMARY | 2024-11-24 09:46 | XMS_ITS | Data Portability ---
Author Organization [facility] [employer] [facility] [employer] Address [address] [place] [phone] Care Team Providers Care Legal Document Specialist Name Role Phone HIM CCA OTHER Assessment No assessment recorded. Plan of Treatment Reminders Order Date Submit Date Provider Last Modified By Organization Details Last Modified Time Details Appointments None recorded. Lab rapid SARS CoV 2 Ag, QL IA, respiratory specimen 2024 [facility], [address] [place] [address], [phone] 13:10:36 rapid flu (A+B) [address], [phone] 5 16:02:22 rapid strep group A, throat [address], [phone] 13:10:56 Referral None recorded. Procedures None recorded. Surgeries None recorded. Imaging None recorded. Medication Orders None recorded. Patient TargetsNo targets recorded. Patient InstructionsNo instructions recorded. Reason for Referral None Reported. Results Created Date Observation Date Name Description Value Unit Range Abnormal Flag Note LastModifiedBy Organization Detail LastModifiedTime 06/23/1906/23/2024 rapid flu (A+B) Flu negati ve Not Available [facility] - [facility] ed [address] [place] [address], [phone] 06/23/2024 12:15:51 06/23/1906/23/2024 rapid strep group A, throa t Strep negati ve Not Available [facility] ed [address] [place] [address], [phone] 06/23/2024 12:16:01 06/23/1906/23/2024 rapid SARS CoV 2 Ag, QL IA, respi rator y speci men rapid SARS CoV 2 Ag, QL IA, respiratory specimen negati ve Not Available Main - [facility] ed [address] [place] [address], [id number] 06/23/2024 12:15:51 Result Notes None recorded. Medical [...] Available No t Available FreeStyle Severino 3 Lynd USE DAILY TO MONITOR BLOOD GLUCOSE CONTINUOUSL [...] % 95 % 94 /min 160.02 cm 88623.0 32 g 99.8 [degF] 115/74 mm[Hg] Not [...] SNOMED-CT Code Diagnosis ICD10 Code Diagnosis Note [id number] Clare Zarate MD Main - [facility] [address] [place] [phone] 06/23/2024 11:51:12 06/24/2024 12:16:20 Viral upper respiratory tract infection [id number] J06.9 As noted, we were called to see this patient regarding concerns of URI. Evaluation in the field was performed by my insurance risk surveyor colleague, as noted above, I provided real-time [...] Darnell Member ID Guarantor Name 06/24/2024 1 [facility] - DOS ON OR AFTER 2022 - DUAL ELIGIBLE - CUSTODIAL OPTIONS AND ONE CARE (MEDICARE REPLACEMENT/AD VANTAGE - HMO) Cara Banegas [id number] Cara Banegas OBGyn Episode No OBEpisode recorded.
[2024-11-24 09:52] LABS: Glucose, Whole Blood 377 mg/dL (60-115)
== END 2024-11-24 10:31 | disposition home or self-care (01) ==
LOC: HO.ENCR 09:19
PROVIDERS: PCP Internal Medicine; Visit Provider Physician Assistant Medical
DX: E11.65 Type 2 diabetes mellitus with hyperglycemia (principal); Z79.4 Long term (current) use of insulin

== ENCOUNTER → 2024-11-24 09:18 | Outpatient (BNVA) | payer OTHER, SELFPAY | PROVIDERS: PCP Internal Medicine; Visit Provider Physician Assistant Medical | DX: E11.9 Type 2 diabetes mellitus without complications (principal); Z79.4 Long term (current) use of insulin | CPT/HCPCS: 82947; 99212 ==

== ENCOUNTER 2024-12-07 10:22 | Outpatient (AMB) | payer OTHER, SELFPAY ==
--- OUTSIDE RECORDS SUMMARY | 2024-12-07 10:59 | XMS_ITS | Clinical Summary ---
Author Organization [employer] Address [address] [facility] [address] [place] [address] Care Team Providers Care Picking Machine Operator Name Role Phone Unavailable Primary Care Provider [...]
--- OUTSIDE RECORDS SUMMARY | 2024-12-07 10:59 | XMS_ITS | Clinical Summary ---
Author Organization [address] [facility] Address [address] [place] [address] Phone Care Team Providers Care Metal Rolling Mill Operator Name Role Phone Payal Villanueva MD Primary [...] Group ID:SCO Type:Not on file Address: [address] [facility] DEBORAH MELENDEZ [id number] Care Teams Metal Rolling Mill Operator Relationship Specialty Start Date End Date Payal Villanueva MD [address] [place] [address] , [address] [facility] Physician Associ D/B/A: [facility] [place] PCP - General Internal Medicine 05/22/24
--- NOTE | 2024-12-07 11:38 | MHC.AMNUTRGE ---
VS Expanded 12/07/24 11:39 12/07/24 12:00 Height 5 ft 3 in 5 ft 3 in Weight 214 lb 8.156 oz 214 lb BMI 38.0 37.9 Intake Visit Reasons: Type 2 diabetes mellitus with diabetic polyneuropa Allergies metformin Adverse Reaction (Intermediate, Verified 11/24/24 09:41) diarrhea Nutrition Presentation Details: Pt presents for MNT for T2DM food frequency fruits: 0-1/d vex/wk fish : 0-1/m dairy: 1-2/d Typical meal intake B: sand ham/cheese or butter, coffee/milk L: rice/chicken/beans or potato/chicken dinner/snack: cereal with milk etoh/smoking: denies Reports concerns of increase appetite after supper BS Monitoring Most Recent Diabetes Results: Creatinine, (0.5-1.4) 0.62 mg/dL 11/03/24 BUN, (9-16) 13 mg/dL 11/03/24 Sodium, (135-145) 142 mmol/L 11/03/24 Potassium, (3.3-5.1) 3.9 mmol/L 11/03/24 Chloride, (96-108) 105 mmol/L 11/03/24 Carbon Dioxide, (22-29) 29 mmol/L 11/03/24 YUZ-Sduoopi-Xi.Jeor Equation Height: 5 ft 3 in Weight: 214 lb Resting Metabolic Rate: 1484.12 Calculated Activity Level: Sedentary Calories Needed to Maintain Weight: 1780.94 Diagnosis Nutrition problem #1: food nutri know defi As related to (etiology) #1: diagnosis As evidenced by (sign/symptom) #1: knowledge deficit of diet [facility] Medical History Subarachnoid hemorrhage Diabetic polyneuropathy DM2 (diabetes mellitus, type 2) Daytime somnolence Chronic pain of both knees Chronic pain of both hips Helicobacter pylori (H. 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 Diabetes type 2, uncontrolled Hypovitaminosis D Depression GERD (gastroesophageal reflux disease) Essential hypertension Headache Dyslipidemia Type 2 diabetes mellitus, with long-term current use of insulin Autoimmune thyroiditis Surgical History History of esophagogastroduodenoscopy (EGD) Hx of colonoscopy History of arthroscopy of right knee History of tubal ligation Family History Father Diabetes Mother Hypertension Maternal Grandmother Gynecologic cancer Family/Other FH: mental illness Maternal Uncle Chronic mental illness Social History Housing: Apartment Alcohol intake: never Patient Tobacco Use Status: Never used Tobacco e-Cigarette/Vaping Use: Never Used Second Hand Smoke Exposure: No service: No Current occupational status: disabled Current occupation: rt handed Cognitive needs: Yes Hearing needs: No Vision needs: No Assessment & Plan Assessment & Plan (1) Type 2 diabetes mellitus, with long-term current use of insulin: Code(s): E11.9 - Type 2 diabetes mellitus without complications; Z79.4 - intermediate (current) use of insulin Category: Medical Qualifiers: Diabetes mellitus complication status: with hyperglycemia Qualified Code(s): E11.65 - Type 2 diabetes mellitus with hyperglycemia; Z79.4 - intermediate (current) use of insulin Plan: Wt: 97 Kg ( 12/21 ) Est kcal needs as per MSJ: 1800 (40% carb, 30% protein/fat) Est fluid needs as per 25-30 ml/d: 3000 Est prot per day as per 1 g/kg bw: 80- 100 Recommend fiber intake : 8-10 g per day and gradually increase to 25-28 g per day for women and 35-38 g for men or as tolerated Recommend sodium intake per day : less than 2000 mg Educated patient on: ( R = reviewed V = verbalizes understanding N/R = needs review N/A = not applicable Food sources of carbohydrate, adequate serving sizes and its role in various health conditions: R Differences between complex carbohydrates a simple carbohydrates, role of fiber in diet: R Lean protein sources of foods: R Differences between types of fats and role in diet (mono on saturated fat fatty acids, saturated fatty acids, trans fats): R V N/R Food sources of sodium in salt and healthy modifications for heart health in kidney health: R V R/V Vitamins and minerals: R V N/R Healthy plate method concept: R Physical activity: Benefits a precaution: R V N/R Hypoglycemia protocol (rule of 15): R V N/R Dietary prevention of Hyperglycemia: R Patient Instructions: Choose fiber rich foods and work on reducing portion of total carbohydrate at bedtime to less than 20 g : choose a yogurt or 4-5 crackers with peanut butter or 1 slice of whole wheat bread with peanut butter or 1 cup of cheerios see list of options Coding Level of Care Code Nutr Indiv Intake (04063) Diagnoses Type 2 diabetes mellitus with hyperglycemia, with long-term current use of insulin E11.65; Z79.4 Diabetes mellitus complication status: with hyperglycemia Time Spent (min) 30
[2024-12-07 11:39] VITALS: BMI 38.0
[2024-12-08 11:36] VITALS: BMI 37.9
== END 2024-12-07 12:09 | disposition home or self-care (01) ==
LOC: HO.ENCR 10:23
PROVIDERS: PCP Internal Medicine; Visit Provider Dietitian, Registered
DX: E11.65 Type 2 diabetes mellitus with hyperglycemia (principal); Z79.4 Long term (current) use of insulin

== ENCOUNTER → 2024-12-07 10:22 | Outpatient (BNVA) | payer OTHER, SELFPAY | PROVIDERS: PCP Internal Medicine; Visit Provider Dietitian, Registered | DX: E11.65 Type 2 diabetes mellitus with hyperglycemia (principal); Z79.4 Long term (current) use of insulin | CPT/HCPCS: 97802 ==

== ENCOUNTER 2024-12-25 10:40 | Outpatient (AMB) | payer OTHER, SELFPAY ==
--- NOTE | 2024-12-25 10:45 | MHC.OFFVIS ---
Vital Signs 12/25/24 10:50 Height 5 ft 3 in Weight 211 lb 13.828 oz BMI 37.5 BP 110/62 Blood Pressure Location Rt brachial Position Sitting Pulse 91 Pulse Source Pulse Oximeter Pulse Oximetry (%) 97 Oxygen Delivery Method Room Air Intake Visit Reasons: T2DM Intake Note: Patient present today to follow up on Type 2 Diabetes Mellitus. Last Diabetic Eye exam: 03/23/24 Last Podiatry Visit: Does not see a Holder Pile Driving Random Glucose: 176 mg/dL Most HgA1C: 9.4% 12/25/2024 Associate Spa Director Required: Yes Associate Spa Director Language: Sap [employer] Consultant Services: Associate Spa Director Present Associate Spa Director Name: Mignon [id number] Information Interpreted: non-clinical & clinical Accompanied by: Daughter/ GREEN CHAIN OPERATOR Allergies metformin Adverse Reaction (Intermediate, Verified 12/25/24 10:51) diarrhea Medication List - Last Reconciled 12/25/24 by DEBORAH Hodges acetaminophen 500 mg PO Q6H PRN 30 days alcohol swabs (BD Alcohol Swabs) 1 pad topical BID 30 days aspirin 81 mg PO DAILY 90 days atorvastatin 80 mg PO DAILY bisacodyl (Dulcolax (bisacodyl)) 20 mg (4 x 5 mg) PO ONCE 1 day blood pressure monitor As directed blood sugar diagnostic (FreeStyle Test strips) Use 1 test strip twice a day blood-glucose meter (FreeStyle Lite Meter kit) As directed blood-glucose sensor (FreeStyle Severino 3 Plus Sensor device) Apply 1 new sensor every 14 days as directed to monitor blood glucose continuously. blood-glucose,supervisor baking,cont (FreeStyle Severino 3 [place]) Use daily to monitor blood glucose continuously cholecalciferol (vitamin D3) (Vitamin D3) 50 mcg PO DAILY clotrimazole-betamethasone 1-0.05 % 1 appl topical BID 7 days doxepin 50 mg PO BEDTIME dulaglutide (Trulicity) 4.5 mg (0.5 mL) subcut QWEEK empagliflozin (Jardiance) 25 mg PO DAILY 90 days enalapril maleate 5 mg PO DAILY 90 days escitalopram oxalate 20 mg PO DAILY 90 days ezetimibe 10 mg PO DAILY 90 days famotidine 20 mg PO BEDTIME hydroxyzine HCl 25 mg PO BID 30 days incontinence pad, liner, disp Use 1 pad 6 times a day as needed insulin glargine (Lantus Solostar U-100 Insulin) 44 units subcut DAILY lancets As directed lancets (FreeStyle Lancets) Use to monitor blood glucose twice daily. levothyroxine 137 mcg PO DAILY 90 days pen needle, diabetic (BD Rona 2nd Gen Pen Needle) once a day polyethylene glycol 3350 (Miralax) 17 grams PO DAILY polyethylene glycol 3350 (Miralax) 238 grams PO ONCE [right arm sling As directed] sennosides (Natural Senna Laxative) 17.2 mg (2 x 8.6 mg) PO BEDTIME Shower Chair As directed simethicone (Gas Relief (simethicone)) 125 mg PO TID-QID PRN walker rollator walker- use as directed HPI Comments Details: This is a 64-year-old Scottish speaking female with a past medical history of type 2 diabetes, hypothyroidism, dyslipidemia, hypertension, depression and GERD presenting for diabetic management. She is accompanied by her daughter who is her GREEN CHAIN OPERATOR. Hemoglobin A1c 9.4%. Reviewed CGM data for the last 14 days G MS 7.3% Very high 2% High 36% Target range 62% 0% hypoglycemia She has a pattern of hyperglycemia after breakfast and dinner and late at night Sugars are lower in the afternoon but not under 70 Current medication regimen: Lantus 44 units daily and Jardiance 25 mg daily and Trulicity 3 mg weekly. She's lost 5 pounds since increasing Trulicity. She denies side effects. Past medications: Ozempic stopped in December due to dizziness reported by the patient. Mounjaro caused nausea and gas. Intolerant to metformin which caused diarrhea. Hypoglycemia symptoms: None Hyperglycemia symptoms: fatigue and polydipsia Eye exam: up to date Microvascular complications: neuropathy in her toes and fingers, nephropathy (microalbumin, followed by Nephrology) Macrovascular complications: None Hypertension: treated with Enalapril 5 mg. Hyperlipidemia: treated with Zetia 10 mg and Atorvastatin 80 mg. Fib4 value 1.07 as of 06/19/2024. ROS: Constitutional: No unexplained weight loss, fever, chills, fatigue or night sweats. Eyes: No vision changes Respiratory: No shortness of breath Cardiovascular: No chest pain Gastrointestinal: No anorexia, nausea, vomiting or diarrhea. No abdominal pain. Neurologic: No headache, dizziness, syncope, + tingling in her toes. Endocrine: No cold or heat intolerance. See HPI. Physical exam: Constitutional: Alert, in no distress. Neck: Supple, Full range of motion. No lymphadenopathy. Respiratory: Clear to auscultation. Cardiovascular: S1 S2 regular. No murmurs. [facility] Medical History Subarachnoid hemorrhage Diabetic polyneuropathy DM2 (diabetes mellitus, type 2) Daytime somnolence Chronic pain of both knees Chronic pain of both hips Helicobacter pylori (H. 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 (acquired) manager intermediate (current) use of insulin Diabetes type 2, uncontrolled Hypovitaminosis D Depression GERD (gastroesophageal reflux disease) Essential hypertension Headache Dyslipidemia Type 2 diabetes mellitus, with long-term current use of insulin Autoimmune thyroiditis Surgical History History of esophagogastroduodenoscopy (EGD) Hx of colonoscopy History of arthroscopy of right knee History of tubal ligation Family History Father Diabetes Mother Hypertension Maternal Grandmother Gynecologic cancer Family/Other FH: mental illness Maternal Uncle Chronic mental illness Social History Housing: Apartment Alcohol intake: never Patient Tobacco Use Status: Never used Tobacco e-Cigarette/Vaping Use: Never Used Second Hand Smoke Exposure: No service: No Current occupational status: disabled Current occupation: rt handed Cognitive needs: Yes Hearing needs: No Vision needs: No Physical Exam Vital Signs: Last Vital Signs Pulse 91 12/25/24 10:50 BP 110/62 12/25/24 10:50 Pulse Ox 97 12/25/24 10:50 Oxygen Delivery Method Room Air 12/25/24 10:50 BMI result Body Mass Index 37.5 Office Procedures Glucose Monitoring Details Details: See HPI 30259 - Glucose monitoring, continuous-physician I&R Procedure code (CPT) selection complete Results AMB Hemoglobin A1c AMB Hemoglobin A1c 9.4 % Last Edit by ALEXANDRA Cano on 12/25/24 11:06 Results Reviewed Results Reviewed: Laboratory Last Values Glucose (Clinic) 176 mg/dL (60-115) H 12/25/24 10:55 Hgb A1c (Clinic) 9.4 % (4.0-6.0) H 12/25/24 10:57 Laboratory Tests 09/08/21 10/12/24 10/12/24 09:52 09:07 09:10 Creatinine Estimated GFR AST 20 ALT 24 LDL Cholesterol Direct 99 Triglycerides 73 Cholesterol 162 LDL Cholesterol, Calc 96 HDL Cholesterol 52 Microalb/Creat Ratio 35.9 H 11/03/24 06:47 Creatinine 0.62 Estimated GFR > 60 AST ALT LDL Cholesterol Direct Triglycerides Cholesterol LDL Cholesterol, Calc HDL Cholesterol Microalb/Creat Ratio Assessment & Plan Assessment & Plan (1) Type 2 diabetes mellitus, with long-term current use of insulin: Code(s): E11.9 - Type 2 diabetes mellitus without complications; Z79.4 - penitentiary (current) use of insulin Category: Medical Qualifiers: Diabetes mellitus complication status: with hyperglycemia Qualified Code(s): E11.65 - Type 2 diabetes mellitus with hyperglycemia; Z79.4 - manager intermediate (current) use of insulin Plan In summary this is a 64-year-old female with suboptimally controlled type 2 diabetes with microvascular complications. CGM shows blood sugars are improving. Complications of type 2 diabetes and diabetic diet reviewed. She has an upcoming appointment with the yeast supervisor. Increase Trulicity to 4.5 mg weekly. Continue Lantus 44 units every morning. Decrease to 42 units if you develop low blood sugars. Continue Jardiance 25 mg daily. If you experience low blood sugar (<70), treat this by eating a chewable fruit candy like skittles or jelly beans (about 8 pieces), 4 ounces (1/2 cup) of fruit juice (not diet), 1 tablespoon of honey or 4 glucose tablets or 1 packet of glucose gel. If your blood sugar is under 50, take double the amount of one of the above. Recheck your blood sugar in 15 minutes. Follow up in 6 weeks for diabetic management. Orders: Orders AMB Glucose Monitoring Today E11.9 - Type 2 diabetes mellitus without complications AMB Hemoglobin A1c Today E11.65 - Type 2 diabetes mellitus with hyperglycemia, Z79.4 - penitentiary (current) use of insulin Medications: New dulaglutide (Trulicity) 4.5 mg (0.5 mL) subcut QWEEK 2 mL 5RF Refilled blood-glucose sensor (FreeStyle Severino 3 Plus Sensor device) Apply 1 new sensor every 14 days as directed to monitor blood glucose continuously. 2 ea 11RF Discontinued dulaglutide (Trulicity) Discontinued Reason: Doctor's Order 3 mg (0.5 mL) subcut QWEEK 2 mL 0RF Patient Instructions: Increase Trulicity to 4.5 mg weekly. Continue Lantus to 44 units every morning. if you develop low blood sugars please decrease to 42 units and contact the office. Continue Jardiance 25 mg daily. If you experience low blood sugar, treat this by eating a chewable fruit candy like skittles or jelly beans (about 8 pieces), 4 ounces (1/2 cup) of fruit juice (not diet), 1 tablespoon of honey or 4 glucose tablets. If your blood sugar is under 50, take double the amount of one of the above. Recheck your blood sugar in 15 minutes. Aumente la dosis de Trulicity a 4.5 mg semanalmente. Contin?e tomando Lantus a 44 unidades cada ma?racheal. Si presenta niveles bajos de az?car, reduzca la dosis a 42 unidades y contacte con guevara m?dico. Contin?e tomando Jardiance 25 mg al d?a. Si experimenta niveles bajos de az?car, tr?telo con un caramelo masticable de fruta christopher Skittles o Jelly Beans (aproximadamente 8 piezas), 113 ml (1/2 taza) de jugo de fruta (no diet?kenny), 1 cucharada de miel o 4 tabletas de glucosa. Si guevara nivel de az?car es inferior a 50, tome el doble de la dosis de tyrell de los medicamentos mencionados. Vuelva a controlar guevara nivel de az?car en 15 minutos. Coding Level of Care Code Est Pt Level 4 (03111) Diagnoses Type 2 diabetes mellitus with hyperglycemia, with long-term current use of insulin E11.65; Z79.4 Diabetes mellitus complication status: with hyperglycemia CPT Codes Details - CPT: 90084 - Glucose monitoring, continuous-physician I&R ([id number])
[2024-12-25 10:50] VITALS: BP 110/62; PULSE 91; O2SAT 97; BMI 37.5
[2024-12-25 11:01] LABS: Glucose, Whole Blood 176 mg/dL (60-115)
--- OUTSIDE RECORDS SUMMARY | 2024-12-25 11:19 | XMS_ITS | Clinical Summary ---
Author Organization [address] [facility] Address [address] [place] [address] Phone Care Team Providers Care Shuttle Spotter Name Role Phone Payal Villanueva MD Primary Care Provider [phone] Allergies No known active allergies Medications No [...] Address: [facility] [place] [address] Care Teams Shuttle Spotter Relationship Specialty Start Date End Date Payal Villanueva MD [address] [place] [address] , [address] [facility] D/B/A: [facility] [place] PCP - General Internal Medicine 05/22/24
--- OUTSIDE RECORDS SUMMARY | 2024-12-25 11:19 | XMS_ITS | Encounter Summary ---
Author Organization [employer] Address [address] [facility] [address] [place] [address] Care Team Providers Care Construction Pit Worker Name Role Phone Unavailable Primary Care Provider Unavailabl e Encounter Details Date Type Department Care Team (Late st Contact Info) Description 05/04/2022 Abstract [facility] MEDICINE [address] [place] [address] Katelynn Toth, AnnieD [address] [place] [address] Social History Tobacco Use Types Packs/Day Years [...]
--- OUTSIDE RECORDS SUMMARY | 2024-12-25 11:19 | XMS_ITS | Clinical Summary ---
Author Organization [employer] Address [address] [facility] [address] [place] [address] Care Team Providers Care Operating Systems Programmer Name Role Phone Unavailable Primary Care Provider [...]
== END 2024-12-25 11:23 | disposition home or self-care (01) ==
LOC: HO.ENCR 10:40
PROVIDERS: PCP Internal Medicine; Visit Provider Physician Assistant Medical
DX: E11.65 Type 2 diabetes mellitus with hyperglycemia (principal); Z79.4 Long term (current) use of insulin

== ENCOUNTER → 2024-12-25 10:40 | Outpatient (BNVA) | payer OTHER, SELFPAY | PROVIDERS: PCP Internal Medicine; Visit Provider Physician Assistant Medical | DX: E11.65 Type 2 diabetes mellitus with hyperglycemia (principal); Z79.4 Long term (current) use of insulin | CPT/HCPCS: 82947; 83036; 99212 ==

== ENCOUNTER 2025-02-11 08:16 | Outpatient (AMB) | payer OTHER, SELFPAY ==
[2025-02-11 08:18] VITALS: BP 130/84; PULSE 88; TEMP 36.2; O2SAT 95; BMI 36.5
--- NOTE | 2025-02-11 08:18 | MHC.PC.OV ---
Vital Signs 02/11/25 08:18 Height 5 ft 3 in Weight 206 lb 2 oz BMI 36.5 BP 130/84 Blood Pressure Location Lt brachial Position Sitting Pulse 88 Pulse Source Pulse Oximeter Temp 97.1 F Temp Source Temporal Artery Scan Pulse Oximetry (%) 95 Oxygen Delivery Method Room Air Intake Visit Reasons: dm Transit Man Required: No Accompanied by: Spouse Allergies metformin Adverse Reaction (Intermediate, Verified 02/11/25 08:51) diarrhea Medication List - Last Reconciled 02/11/25 by Payal Villanueva MD acetaminophen 500 mg PO Q6H PRN 30 days alcohol swabs (BD Alcohol Swabs) 1 pad topical BID 30 days aspirin 81 mg PO DAILY 90 days atorvastatin 80 mg PO DAILY bisacodyl (Dulcolax (bisacodyl)) 20 mg (4 x 5 mg) PO ONCE 1 day blood pressure monitor As directed blood sugar diagnostic (FreeStyle Test strips) Use 1 test strip twice a day blood-glucose meter (FreeStyle Lite Meter kit) As directed blood-glucose sensor (FreeStyle Severino 3 Plus Sensor device) Apply 1 new sensor every 15 days as directed to monitor blood glucose continuously. blood-glucose,m1 armor crewman,cont (FreeStyle Severino 3 Conway) Use daily to monitor blood glucose continuously cholecalciferol (vitamin D3) (Vitamin D3) 50 mcg PO DAILY clotrimazole-betamethasone 1-0.05 % 1 appl topical BID 7 days doxepin 50 mg PO BEDTIME dulaglutide (Trulicity) 4.5 mg (0.5 mL) subcut QWEEK empagliflozin (Jardiance) 25 mg PO DAILY 90 days enalapril maleate 5 mg PO DAILY 90 days escitalopram oxalate 20 mg PO DAILY 90 days ezetimibe 10 mg PO DAILY 90 days famotidine 20 mg PO BEDTIME hydroxyzine HCl 25 mg PO BID 30 days incontinence pad, liner, disp Use 1 pad 6 times a day as needed insulin glargine (Lantus Solostar U-100 Insulin) 44 units subcut DAILY lancets As directed lancets (FreeStyle Lancets) Use to monitor blood glucose twice daily. levothyroxine 137 mcg PO DAILY 90 days pen needle, diabetic (BD Rona 2nd Gen Pen Needle) once a day polyethylene glycol 3350 (Miralax) 17 grams PO DAILY polyethylene glycol 3350 (Miralax) 238 grams PO ONCE [right arm sling As directed] sennosides (Natural Senna Laxative) 17.2 mg (2 x 8.6 mg) PO BEDTIME Shower Chair As directed simethicone (Gas Relief (simethicone)) 125 mg PO TID-QID PRN walker rollator walker- use as directed Tobacco use date assessed: 02/11/25 Fall risk assessment: No Falls in past year Last assessed Fall Risk: 02/11/25 Dental Screening Dental Screen Date: 02/11/25 Did you have a dental visit in the last 12 months?: Yes Did you have a dental problem in the last 6 months where you did not have access to dental care?: No Was dental information given to patient?: Patient has dentist HPI HPI Comments History of Present Illness Details The patient is a 65-year-old female presenting with follow-up of chronic conditions. Hypertension is well-controlled with current medication regimen, as blood pressure readings are within the target range. Diabetes Mellitus management includes Trulicity, Jardiance, and Lantus, with the last HbA1c recorded at 9.4% in November, indicating suboptimal control. The Lantus dosage has been increased from 44 to 48 units to improve glycemic control. The patient experiences depression with anxiety, managed with Escitalopram, and reports a PHQ-9 score of 13, indicating mild to moderate depression. Hyperlipidemia is treated with Atorvastatin and Ezetimibe, and the patient is adherent to the medication regimen. Hypothyroidism is managed with Levothyroxine, and the patient reports adherence to the prescribed dosage. The patient reports constipation, managed with MiraLAX and [place], and gastroesophageal reflux disease treated with Famotidine. The patient experiences migraines approximately once or twice a month, and a prescription for migraine medication is planned. Lumbar degenerative disease is noted, and the patient is scheduled for further evaluation. Preventative care includes receiving the influenza vaccine during this visit. [facility] Medical History Subarachnoid hemorrhage Diabetic polyneuropathy DM2 (diabetes mellitus, type 2) Daytime somnolence Chronic pain of both knees Chronic pain of both hips Helicobacter pylori (H. 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 Diabetes type 2, uncontrolled Hypovitaminosis D Depression GERD (gastroesophageal reflux disease) Essential hypertension Headache Dyslipidemia Type 2 diabetes mellitus, with long-term current use of insulin Autoimmune thyroiditis Surgical History History of esophagogastroduodenoscopy (EGD) Hx of colonoscopy History of arthroscopy of right knee History of tubal ligation Family History Father Diabetes Mother Hypertension Maternal Grandmother Gynecologic cancer Family/Other FH: mental illness Maternal Uncle Chronic mental illness Social History Housing: Apartment Alcohol intake: never Patient Tobacco Use Status: Never used Tobacco e-Cigarette/Vaping Use: Never Used Second Hand Smoke Exposure: No service: No Current occupational status: disabled Current occupation: rt handed Cognitive needs: Yes Hearing needs: No Vision needs: No Questionnaire PHQ-9 Over the last 2 weeks, how often have you been bothered by any of the following problems? 1. Little interest or pleasure in doing things: more than half the days 2. Feeling down, depressed, or hopeless: more than half the days 3. Trouble falling or staying asleep, or sleeping too much: more than half the days 4. Feeling tired or having little energy: more than half the days 5. Poor appetite or overeating: more than half the days 6. Feeling bad about yourself - or that you are a failure or have let yourself or your family down: several days 7. Trouble concentrating on things, such as reading the newspaper or watching television: several days 8. Moving or speaking so slowly that other people could have noticed. Or the opposite - being so fidgety or restless that you have been moving around a lot more than usual: several days 9. Thoughts that you would be better off or of hurting yourself in some way: not at all Total score: 13 Depression Screening Interpretation: Positive Depression Screening Follow-up: Existing condition, In treatment, Community Mental Health Worker F/U and Follow-up Visit Requested Depression Screening Done: Yes 32170 - PHQ-9 Billing: Yes Source: Developed by Drs. Liang Gao, Chip Duke and colleagues, with an educational mei from Interview. Thrive Questionnaire Date Thrive assessed: 10/12/24 I am a: Patient What is your living situation today?: I have a steady place to live Within the past 12 months, did the food you bought not last and you didn't have the money to get more?: Sometimes True Within the past 12 months, did you worry whether your food would run out before you got money to buy more?: Sometimes True Do you have trouble paying for medicines?: Yes Do you have trouble getting transportation to medical appointments?: No Do you have trouble paying your heating and electricity bill?: I choose not to answer this question Do you have trouble taking care of your child, family member or friend?: No Do you have trouble with day-to-day activities such as bathing, preparing meals, shopping, managing finances, etc.?: Yes Are you currently unemployed and looking for a job?: No Are you interested in more education?: No Currently or been in a relationship where the following occur: No concerns reported THRIVE Score: 2 AUDIT C Alcohol Use Questionnaire (AUDIT-C) 1. How often do you have a drink containing alcohol?: Never 3. How often do you have six or more drinks on one occasion?: Never Total Score: 0 Score Reviewed/Action Taken: No FRANCISCO-7 AMB Questionnaire FRANCISCO-7 Date FRANCISCO - 7 assessed: 07/13/24 Feeling nervous, anxious, or on edge: 1 = Several days Not being able to stop or control worryin = Several days Worrying too much about different things: 1 = Several days Trouble relaxin = Several days Being so restless that it is hard to sit still: 0 = Not at all Becoming easily annoyed or irritable: 2 = More than half the days Feeling afraid as if something awful might happen: 2 = More than half the days Total FRANCISCO-7 score (0-4 normal; 5-9 mild; 10-14 moderate; 15-21 severe): 8 Source: Developed by Drs. Liang Gao, Chip Duke and colleagues, with an educational mei from Interview. FRANCISCO-7 Assessment Billing FRANCISCO-7 Assessment Tool: FRANCISCO-7 Assessment 69627 Review of Systems Const All systems reviewed & are unremarkable except as noted in HPI and below Card Denies chest pain at rest, Denies chest pain with activity, Denies edema, Denies irregular heart rhythm, Denies claudication, Denies dyspnea, Denies dyspnea on exertion, Denies orthopnea, Denies paroxysmal nocturnal dyspnea and Denies slow heart rate Resp Denies cough, Denies dyspnea and Denies dyspnea on exertion Physical exam (Primary Care) Vital Signs: Last Vital Signs Temp 97.1 F 02/11/25 08:18 Pulse 88 02/11/25 08:18 BP 130/84 02/11/25 08:18 Pulse Ox 95 02/11/25 08:18 Oxygen Delivery Method Room Air 02/11/25 08:18 BMI result Body Mass Index 36.5 BMI Assessment/Plan discussion: High BMI High, discussed plan: lifestyle, weight reduction, dietary and physical activity Tobacco/Smoking Status: Tobacco use Status Tobacco use date assessed 02/11/25 02/11/25 08:22 Patient Tobacco Use Status Never used Tobacco 02/11/25 08:22 e-Cigarette/Vaping Use Never Used 02/11/25 08:22 PHQ-9: PHQ-9 Score PHQ-9: Total score 13 02/11/25 08:56 Depression Screening Interpretation: Positive Depression Screening Follow-up: Existing condition, In treatment, Community Mental Health Worker F/U and Follow-up Visit Requested Thrive Assessment: Date of Thrive Assessment Date Thrive assessed 10/12/24 02/11/25 08:22 Currently or been in a relationship where the following occur: No concerns reported Resp Effort & Inspection: normal respiratory effort Auscultation: clear to auscultation bilaterally Cardio Jugular venous distension: no JVD Rate: regular rate Rhythm: regular rhythm Heart sounds: S1 normal heart sound present and S2 normal heart sound present Extrem General: Yes full ROM Office Procedures Flu Questionnaire Does the patient have a severe egg allergy?: No Does the patient have severe life threatening allergies?: No Does the patient have a fever or illness today?: No Has the patient ever had Guillain-Anderson Syndrome?: No Has the patient ever had any past reaction to a flu shot?: No Immunizations Fluarix [id number] (PF) 45 mcg (15 mcg x 3)/0.5 mL IM syringe Performing Provider: Payal Villanueva MD [facility] Administered by: ALEXANDRA Knott on 02/11/25 09:08 Dose Route Admin Location Dispensed Lot Number Expiration Date NDC Human Machine Interface Engineer 0.5 mL IM Left Deltoid 0.5 mL [id number] 10/26/25 [id number] [employer] VIS Given Date VIS Provided VIS Publication Date 02/11/25 Single Vaccine 24 Eligibility Eligibility Date Funding Source Not [facility] Eligible 02/11/25 Private Coding Level of Care Code Est Pt Level 4 (37273) Complex EM visit Add On G2211 Diagnoses Type 2 diabetes mellitus with hyperglycemia, with long-term current use of insulin E11.65; Z79.4 Diabetes mellitus complication status: with hyperglycemia Mild depression F32.0 Essential hypertension I10 Dyslipidemia E78.5 Hypothyroidism (acquired) E03.9 Gastroesophageal reflux disease, unspecified whether esophagitis present K21.9 Esophagitis presence: esophagitis presence not specified Nonintractable episodic headache, unspecified headache type R51.9 Headache type: unspecified Headache chronicity pattern: episodic headache Intractability: not intractable Additional Codes PHQ-9 - 31349 - PHQ-9 Billing: Yes ([id number]) FRANCISCO-7 Assessment Billing - FRANCISCO-7 Assessment Tool: FRANCISCO-7 Assessment 65661 ([id number]) Time Spent (min) 23 Assessment & Plan Assessment & Plan (1) Type 2 diabetes mellitus, with long-term current use of insulin: Code(s): E11.9 - Type 2 diabetes mellitus without complications; Z79.4 - [facility] (current) use of insulin Category: Medical Qualifiers: Diabetes mellitus complication status: with hyperglycemia Qualified Code(s): E11.65 - Type 2 diabetes mellitus with hyperglycemia; Z79.4 - technician terminal and repeater (current) use of insulin (2) Mild depression: Code(s): F32.0 - Major depressive disorder, single episode, mild Category: Medical (3) Essential hypertension: Code(s): I10 - Essential (primary) hypertension Category: Medical (4) Dyslipidemia: Code(s): E78.5 - Hyperlipidemia, unspecified Category: Medical (5) Hypothyroidism (acquired): Code(s): E03.9 - Hypothyroidism, unspecified Category: Medical (6) GERD (gastroesophageal reflux disease): Code(s): K21.9 - Gastro-esophageal reflux disease without esophagitis Category: Medical Qualifiers: Esophagitis presence: esophagitis presence not specified Qualified Code(s): K21.9 - Gastro-esophageal reflux disease without esophagitis (7) Headache: Code(s): R51.9 - Headache, unspecified Category: Medical Qualifiers: Headache type: unspecified Headache chronicity pattern: episodic headache Intractability: not intractable Qualified Code(s): R51.9 - Headache, unspecified Plan Plan 1. Essential (primary) hypertension I10 Hypertension is well-controlled with current medication regimen, as blood pressure readings are within the target range. 2. Type 2 diabetes mellitus without complications E11.9 HCC 19 Diabetes Mellitus management includes Trulicity, Jardiance, and Lantus, with the last HbA1c recorded at 9.4% in November, indicating suboptimal control. The Lantus dosage has been increased from 44 to 48 units to improve glycemic control. 3. Major depressive disorder, single episode, mild F32.0 HCC 59 The patient experiences depression with anxiety, managed with Escitalopram, and reports a PHQ-9 score of 13, indicating mild to moderate depression. 4. Hyperlipidemia, unspecified E78.5 Hyperlipidemia is treated with Atorvastatin and Ezetimibe, and the patient is adherent to the medication regimen. 5. Hypothyroidism, unspecified E03.9 Hypothyroidism is managed with Levothyroxine, and the patient reports adherence to the prescribed dosage. 6. Constipation, unspecified K59.00 The patient reports constipation, managed with MiraLAX and [place]. 7. Gastro-esophageal reflux disease without esophagitis K21.9 Gastroesophageal reflux disease is treated with Famotidine. 8. Migraine, unspecified, not intractable, without status migrainosus G43.909 The patient experiences migraines approximately once or twice a month, and a prescription for migraine medication is planned. I discussed with the patient the management of her chronic conditions, including the adjustment of Lantus dosage to improve glycemic control. We also addressed her migraine frequency and planned to prescribe medication for it. The importance of preventative care was emphasized, and the patient agreed to receive the influenza vaccine today. Orders: Orders Microalbumin, Random (w Creat) Today R80.9 - Proteinuria, unspecified Vitamin D 25-OH Total Today E55.9 - Vitamin D deficiency, unspecified Comprehensive [place]. Panel Fast Today E11.65 - Type 2 diabetes mellitus with hyperglycemia, Z79.4 - technician terminal and repeater (current) use of insulin Thyroid Stimulating Hormone Today E03.9 - Hypothyroidism, unspecified Lipid Panel Today E78.5 - Hyperlipidemia, unspecified Influenza [id number] Immunization Today Z23 - Encounter for immunization Medications: New sumatriptan succinate do not exceed 8 doses per 24 hrs 25 mg PO Q2-4H PRN 9 tabs 0RF migraine headache 30 days [showerhead hand held] As directed 1 ea 0RF M51.369 - Other intervertebral disc degeneration, lumbar region without mention of lumbar back pain or lower extremity pain Changed From insulin glargine (Lantus Solostar U-100 Insulin) 44 units subcut DAILY E11.9 - Type 2 diabetes mellitus without complications To insulin glargine (Lantus Solostar U-100 Insulin) 48 units subcut DAILY E11.9 - Type 2 diabetes mellitus without complications
--- OUTSIDE RECORDS SUMMARY | 2025-02-11 08:27 | XMS_ITS | Clinical Summary ---
Author Organization [employer] Address [address] [facility] [address] [place] [address] Care Team Providers Care Chemical Plant Manager Name Role Phone Unavailable Primary Care Provider [...] 2) 04/20/2022 02/23/2022 COVID-19 Vaccine ( season) 2024 03/02/2022, 02/28/2022, 09/12/2021, Additional history exists Influenza [...]
--- OUTSIDE RECORDS SUMMARY | 2025-02-11 08:27 | XMS_ITS | Encounter Summary ---
Author Organization [employer] Address [address] [facility] [address] [place] [address] Care Team Providers Care Construction And Maintenance Inspector Name Role Phone Unavailable Primary Care Provider Unavailabl e Encounter Details Date Type Department Care Team (Late st Contact Info) Description 05/04/2022 Abstract [facility] [address] [place] [address] Katelynn Toth, AnnieD [address] [place] [address] Social History Tobacco Use Types Packs/Day Years [...]
--- OUTSIDE RECORDS SUMMARY | 2025-02-11 08:27 | XMS_ITS | Clinical Summary ---
Author Organization [address] [facility] Address [address] [place] [address] Phone Care Team Providers Care Flux Core Welder Name Role Phone Payal Villanueva MD Primary Care Provider [phone] Allergies No known active allergies Medications No [...] Last Done Comments Breast Cancer Screening 1960 Colorectal Cancer Screening: Colonoscopy 1960 Pneumococcal Vaccine: 50+ Years (2 of 2 - PCV) 03/08/2017 03/08/2016 Depression Screening 04/29/2024 Falls Risk Assessment 05/23/2024 Hepatitis C Screening 05/23/2024 Medicare Annual Wellness Visit 05/23/2024 Osteoporosis Screening (Bone Density Screening) 05/23/2024 Social Influencers of Health Screening 05/23/2024 COVID-19 Vaccine ( season) 2024 03/02/2022, 02/28/2022, 09/12/2021, Additional history exists Influenza Vaccine (#1) 2024 , 02/04/2023, 02/23/2022, [...] Group ID:[id number] Type:Not on file Address: [address] [facility] [place] [address] Care Teams Flux Core Welder Relationship Specialty Start Date End Date Payal Villanueva MD [address] [place] [address] , [address] [facility] [place] PCP - General Internal Medicine 05/22/24
== END 2025-02-11 09:08 | disposition home or self-care (01) ==
LOC: HO.HMCH 08:17
PROVIDERS: PCP Internal Medicine; Visit Provider Internal Medicine
DX: E11.65 Type 2 diabetes mellitus with hyperglycemia (principal); Z79.4 Long term (current) use of insulin; F32.0 Major depressive disorder, single episode, mild; I10 Essential (primary) hypertension; E78.5 Hyperlipidemia, unspecified; E03.9 Hypothyroidism, unspecified; K21.9 Gastro-esophageal reflux disease without esophagitis; R51.9 Headache, unspecified; Z23 Encounter for immunization

== ENCOUNTER → 2025-02-11 08:16 | Outpatient (BNVA) | payer OTHER, SELFPAY | PROVIDERS: PCP Internal Medicine; Visit Provider Internal Medicine | DX: E11.65 Type 2 diabetes mellitus with hyperglycemia (principal); I10 Essential (primary) hypertension; F32.A Depression, unspecified; F41.9 Anxiety disorder, unspecified; E78.5 Hyperlipidemia, unspecified; E03.9 Hypothyroidism, unspecified; G43.909 Migraine, unspecified, not intractable, without status migrainosus; M51.369 Other intervertebral disc degeneration, lumbar region without mention of lumbar back pain or lower extremity pain; F32.0 Major depressive disorder, single episode, mild; K21.9 Gastro-esophageal reflux disease without esophagitis; K59.00 Constipation, unspecified; R80.9 Proteinuria, unspecified; E55.9 Vitamin D deficiency, unspecified; Z79.4 Long term (current) use of insulin; Z23 Encounter for immunization | CPT/HCPCS: 90471; 90656; 96127; 99212 ==

== ENCOUNTER 2025-02-12 10:54 | Outpatient (AMB) | payer OTHER, SELFPAY ==
--- NOTE | 2025-02-12 10:56 | A.OFFVIS_ITS ---
Vital Signs 02/12/25 10:59 Height 5 ft 3 in Weight 208 lb 5.389 oz BMI 36.9 BP 104/64 Blood Pressure Location Rt brachial Position Sitting Pulse 86 Pulse Source Pulse Oximeter Pulse Oximetry (%) 98 Oxygen Delivery Method Room Air Intake Visit Reasons: Type II Diabetes Intake Note: Patient present today to follow up on Type 2 Diabetes Mellitus. Last Diabetic Eye exam: 03/23/24 Last Podiatry Visit: Does not see a Bag End Sewer Random Glucose: 216 mg/dL Most HgA1C: 9.4% 12/25/2024 Franchise Sales Representative Required: Yes Franchise Sales Representative Language: Journalism Teacher Services: Franchise Sales Representative Present Franchise Sales Representative Name: Gideon [id number] Voyce Information Interpreted: non-clinical & clinical Accompanied by: Self / Same As Patient Allergies metformin Adverse Reaction (Intermediate, Verified 02/12/25 10:59) diarrhea HPI Comments Details: This is a 65-year-old Arabic speaking female with a past medical history of type 2 diabetes, hypothyroidism, dyslipidemia, hypertension, depression and GERD presenting for diabetic management. Hemoglobin A1c 9.4% 12/26/2023. No sensor with her today. She ran out last month, and she was also our of lancets. I called the pharmacy, and they will fill this for her. She has not been checking her blood sugar. She denies symptoms of hypoglycemia/hyperglycemia. Last CGM review showed G WA 7.3%. Trulicity increased at that time. Current medication regimen: Lantus 48 units daily and Jardiance 25 mg daily and Trulicity 4.5 mg weekly. Patient has seen CDE and dietitian within the past year. She is trying to implement dietary changes. Past medications: Ozempic stopped in December due to dizziness reported by the patient. Mounjaro caused nausea and gas. Intolerant to metformin which caused diarrhea. Hypoglycemia symptoms: None Hyperglycemia symptoms: fatigue and polydipsia Eye exam: up to date Microvascular complications: neuropathy in her toes and fingers, nephropathy (microalbumin, followed by Nephrology) Macrovascular complications: None Hypertension: treated with Enalapril 5 mg. Hyperlipidemia: treated with Zetia 10 mg and Atorvastatin 80 mg. Fib4 value 1.07 as of 06/19/2024. ROS: Constitutional: No unexplained weight loss, fever, chills, fatigue or night sweats. Eyes: No vision changes Respiratory: No shortness of breath Cardiovascular: No chest pain Gastrointestinal: No anorexia, nausea, vomiting or diarrhea. No abdominal pain. Neurologic: No headache, dizziness, syncope, + tingling in her toes. Endocrine: No cold or heat intolerance. See HPI. Physical exam: Constitutional: Alert, in no distress. Neck: Supple, Full range of motion. No lymphadenopathy. No palpable thyroid masses. Respiratory: Clear to auscultation. Cardiovascular: S1 S2 regular. No murmurs. Feet: Warm and well perfused, intact DP pulses, no open wounds or fissures. [facility] Medical History Subarachnoid hemorrhage Diabetic polyneuropathy DM2 (diabetes mellitus, type 2) Daytime somnolence Chronic pain of both knees Chronic pain of both hips Helicobacter pylori (H. 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 (acquired) medical terminologist (current) use of insulin Diabetes type 2, uncontrolled Hypovitaminosis D Depression GERD (gastroesophageal reflux disease) Essential hypertension Headache Dyslipidemia Type 2 diabetes mellitus, with long-term current use of insulin Autoimmune thyroiditis Surgical History History of esophagogastroduodenoscopy (EGD) Hx of colonoscopy History of arthroscopy of right knee History of tubal ligation Family History Father Diabetes Mother Hypertension Maternal Grandmother Gynecologic cancer Family/Other FH: mental illness Maternal Uncle Chronic mental illness Social History Housing: Apartment Alcohol intake: never Patient Tobacco Use Status: Never used Tobacco e-Cigarette/Vaping Use: Never Used Second Hand Smoke Exposure: No service: No Current occupational status: disabled Current occupation: rt handed Cognitive needs: Yes Hearing needs: No Vision needs: No Physical Exam Vital Signs: Last Vital Signs Pulse 86 02/12/25 10:59 BP 104/64 02/12/25 10:59 Pulse Ox 98 02/12/25 10:59 Oxygen Delivery Method Room Air 02/12/25 10:59 BMI result Body Mass Index 36.9 Results Reviewed Results Reviewed: Laboratory Last Values Glucose (Clinic) 216 mg/dL (60-115) H 02/12/25 11:05 Laboratory Tests 09/08/21 10/12/24 10/12/24 09:52 09:07 09:10 Creatinine Estimated GFR AST 20 ALT 24 LDL Cholesterol Direct 99 Triglycerides 73 Cholesterol 162 LDL Cholesterol, Calc 96 HDL Cholesterol 52 Microalb/Creat Ratio 35.9 H 11/03/24 06:47 Creatinine 0.62 Estimated GFR > 60 AST ALT LDL Cholesterol Direct Triglycerides Cholesterol LDL Cholesterol, Calc HDL Cholesterol Microalb/Creat Ratio Assessment & Plan Assessment & Plan (1) Type 2 diabetes mellitus, with long-term current use of insulin: Code(s): E11.9 - Type 2 diabetes mellitus without complications; Z79.4 - medical terminologist (current) use of insulin Category: Medical Qualifiers: Diabetes mellitus complication status: with hyperglycemia Qualified Code(s): E11.65 - Type 2 diabetes mellitus with hyperglycemia; Z79.4 - medical terminologist (current) use of insulin (2) Essential hypertension: Code(s): I10 - Essential (primary) hypertension Category: Medical (3) Dyslipidemia: Code(s): E78.5 - Hyperlipidemia, unspecified Category: Medical Plan In summary this is a 64-year-old female with type 2 diabetes with microvascular complication. She is not due for her A1c until the end of February, and there was no data to review today due to lack of sensors and glucometer. She is going to call on Saturday if she is not able to pick them up from the pharmacy. I called the pharmacy to confirm they are filling the sensors. Complications of type 2 diabetes and diabetic diet reviewed. Continue Trulicity to 4.5 mg weekly. Continue Lantus 48 units every morning. Continue Jardiance 25 mg daily. If you experience low blood sugar (<70), treat this by eating a chewable fruit candy like skittles or jelly beans (about 8 pieces), 4 ounces (1/2 cup) of fruit juice (not diet), 1 tablespoon of honey or 4 glucose tablets or 1 packet of glucose gel. If your blood sugar is under 50, take double the amount of one of the above. Recheck your blood sugar in 15 minutes. Follow up in 6 weeks for diabetic management and to review labs. Orders: Orders Hemoglobin A1c Today R73.9 - Hyperglycemia, unspecified Medications: Changed From lancets (FreeStyle Lancets) Use to monitor blood glucose twice daily. 200 ea 5RF E11.65 - Type 2 diabetes mellitus with hyperglycemia, Z79.4 - longterm (current) use of insulin To lancets (FreeStyle Lancets) Use to monitor blood glucose three times daily. 100 ea 5RF E11.65 - Type 2 diabetes mellitus with hyperglycemia, Z79.4 - medical terminologist (current) use of insulin Patient Instructions: Lantus 48 units nightly Jardiance 25 mg daily Trulicity 4.5 mg weekly If you experience low blood sugar, treat this by eating a chewable fruit candy like skittles or jelly beans (about 8 pieces), 4 ounces (1/2 cup) of fruit juice (not diet), 1 tablespoon of honey or 4 glucose tablets. If your blood sugar is under 50, take double the amount of one of the above. Recheck your blood sugar in 15 minutes. I sent lancets to your pharmacy and called the pharmacy about the sensors. They will fill the prescription for you. Please call the pharmacy tomorrow to see if they are ready if you don't hear from them. Lantus 48 unidades por la noche Jardiance 25 mg al d?a Trulicity 4.5 mg a la semana Si tiene niveles bajos de az?car en la chris, tr?telo comiendo un caramelo masticable de fruta christopher Skittles o Jelly Beans (aproximadamente 8 piezas), 113 ml (1/2 taza) de jugo de fruta (no de dieta), 1 cucharada de miel o 4 tabletas de glucosa. Si guevara nivel de az?car en la chris es inferior a 50, tome el doble de la cantidad de tyrell de los anteriores. Vuelva a medir guevara nivel de az?car en la chris en 15 minutos. Envi? lancetas a guevara farmacia y llam? para hablar sobre los sensores. Ellos le surtir?n la receta. Si no tiene noticias suyas, llame ma?payal a la farmacia para ella si est?n disponibles. Coding Level of Care Code Est Pt Level 4 (70139) Complex EM visit Add On G2211 Diagnoses Type 2 diabetes mellitus with hyperglycemia, with long-term current use of insulin E11.65; Z79.4 Diabetes mellitus complication status: with hyperglycemia Essential hypertension I10 Dyslipidemia E78.5
[2025-02-12 10:59] VITALS: BP 104/64; PULSE 86; O2SAT 98; BMI 36.9
[2025-02-12 11:08] LABS: Glucose, Whole Blood 216 mg/dL (60-115)
--- OUTSIDE RECORDS SUMMARY | 2025-02-12 13:34 | XMS_ITS | Clinical Summary ---
Author Organization [facility] Address [address] [place] [address] Phone Care Team Providers Care Manager Inside Name Role Phone Payal Villanueva MD Primary Care Provider [phone] Allergies No known active allergies Medications No [...] Group ID:SCO Type:Not on file Address: RADHA [facility] [place] [address] Care Teams Manager Inside Relationship Specialty Start Date End Date Payal Villanueva MD [address] [place] [address] , [address] [facility] Physician Associ D/B/A: [facility] [place] PCP - General Internal Medicine 05/22/24
--- OUTSIDE RECORDS SUMMARY | 2025-02-12 13:34 | XMS_ITS | Clinical Summary ---
Author Organization [employer] Address [address] [facility] 7t [place] [address] Care Team Providers Care Auto Wheel Alignment Specialist Name Role Phone Unavailable Primary Care Provider [...]
--- OUTSIDE RECORDS SUMMARY | 2025-02-12 13:34 | XMS_ITS | Data Portability ---
Author Organization [facility] Medical [facility] Address [address] [place] [phone] Care Team Providers Care Rotary Drill Operator Name Role Phone HIM CCA OTHER Assessment No assessment recorded. Plan of Treatment Reminders Order Date Submit Date Provider Last Modified By Organization Details Last Modified Time Details Appointments None recorded. Lab rapid SARS CoV 2 Ag, QL IA, respiratory specimen 2024 [facility], [address] [place] [address], [id number] 5 13:10:36 rapid flu (A+B) [address], [phone] 5 16:02:22 rapid strep group A, throat [address], [phone] 13:10:56 Referral None recorded. Procedures None recorded. Surgeries None recorded. Imaging None recorded. Medication Orders None recorded. Patient TargetsNo targets recorded. Patient InstructionsNo instructions recorded. Reason for Referral None Reported. Results Created Date Observation Date Name Description Value Unit Range Abnormal Flag Note LastModifiedBy Organization Detail LastModifiedTime 06/23/1906/23/2024 rapid flu (A+B) Flu negati ve Not Available [facility] - [facility] ed [address] [place] [address], [phone] 06/23/2024 12:15:51 06/23/1906/23/2024 rapid strep group A, throa t Strep negati ve Not Available [facility] ed [address] [place] [address], [phone] 06/23/2024 12:16:01 06/23/1906/23/2024 rapid SARS CoV 2 Ag, QL IA, respi rator y speci men rapid SARS CoV 2 Ag, QL IA, respiratory specimen negati ve Not Available Main - [facility] ed [address] [place] [address], [phone] 06/23/2024 12:15:51 Result Notes None recorded. Medical [...] Available No t Available FreeStyle Severino 3 [place] USE DAILY TO MONITOR BLOOD GLUCOSE CONTINUOUSL [...] % 95 % 94 /min 160.02 cm 21909.0 32 g 99.8 [degF] 115/74 mm[Hg] Not [...] Diagnosis SNOMED-CT Code Diagnosis ICD10 Code Diagnosis IMO Codes Diagnosis Note [id number] Clare Zarate MD Main - [facility] [address] [place] [phone] 06/23/2024 11:51:12 06/24/2024 12:16:20 Viral upper respiratory tract infection [id number] J06.9 As noted, we were called to see this patient regarding concerns of URI. Evaluation in the field was performed by my pharmaceutical service representative colleague, as noted above, I provided real-time [...] Darnell Member ID Guarantor Name 06/24/2024 1 [facility] - DOS ON OR AFTER 2022 - DUAL ELIGIBLE - PRISON OPTIONS AND ONE CARE (MEDICARE REPLACEMENT/AD VANTAGE - HMO) Cara Banegas [id number] Cara Banegas Notes Date Note Type Note Provider Name and Address Organization Details Recorded Time 06/23/2024 text/html CRC Nurse Triage Notes (Lacy Forbes - CORBIN): Reason For Request: Patient has stomach pain and a cough. Denies: Increased work of breathing/labored with or without fever Unable to speak in full sentences without distress Discoloration of skin -cyanosis Needs to sleep sitting up, can t catch breath Shortness of breath in setting of confusion Chief Complaints: Sore Throat PMH Reviewed at 06/23/2024 - 08:30 Allergies Reviewed at 06/23/2024 - :30 Comments: [...] s/s and seek emergency treatment if needed. Bookie Organization Information for [facility] Business Legal Name: [employer]. Address: [address] [place] [address], Senior Product Development Manager: Ronak Brady MD CLIA No.: [id number] Bookie POC Test Results from [facility] Rapid COVID antigen (11:50:30) COVID: - Rapid influenza antigen (11:50:31) Flu: - Rapid strep test (11:50:32) Strep: - .................. .................. .................. .................. .................. .................. .................. ............... Bookie Note From Ramírez [facility]: Sent to a call for a pt [...] covid/flu test: neg; Rapid strep test: neg; [facility] consulted, pt is advised to continue symptomatic treatment. Red flags discussed. Pt has no further questions. [facility] Lab Orders: rapid SARS CoV 2 Ag, QL IA, respiratory specimen: Performed rapid flu (A+B): Performed rapid strep group A, throat: Performed .................. .................. .................. .................. .................. .................. .................. ............... [facility] Consulted: Clare Zarate .................. .................. .................. .................. .................. .................. .................. ............... Disposition: Fulfilled Clare Zarate MD [address] [facility],[address], [place], [address], [facility] - [employer], [facility] 06/23/2024 13:54:06 OBGyn Episode No OBEpisode recorded.
--- OUTSIDE RECORDS SUMMARY | 2025-02-12 13:34 | XMS_ITS | Encounter Summary ---
Author Organization [employer] Address [address] [facility] 7t [place] [address] Care Team Providers Care Aba Therapist Name Role Phone Unavailable Primary Care Provider Unavailabl e Encounter Details Date Type Department Care Team (Late st Contact Info) Description 05/04/2022 Abstract [facility] MEDICINE [address] [place] [address] Katelynn Toth, AnnieD [address] [place] [address] Social History Tobacco Use Types Packs/Day Years [...]
== END 2025-02-12 11:33 | disposition home or self-care (01) ==
LOC: HO.ENCR 10:55
PROVIDERS: PCP Internal Medicine; Visit Provider Physician Assistant Medical
DX: E11.65 Type 2 diabetes mellitus with hyperglycemia (principal); Z79.4 Long term (current) use of insulin; I10 Essential (primary) hypertension; E78.5 Hyperlipidemia, unspecified

== ENCOUNTER → 2025-02-12 10:54 | Outpatient (BNVA) | payer OTHER, SELFPAY | PROVIDERS: PCP Internal Medicine; Visit Provider Physician Assistant Medical | DX: E11.65 Type 2 diabetes mellitus with hyperglycemia (principal); Z79.4 Long term (current) use of insulin; I10 Essential (primary) hypertension; E78.5 Hyperlipidemia, unspecified | CPT/HCPCS: 82947; 99212 ==

== ENCOUNTER 2025-03-20 07:45 | Outpatient (REF) | payer OTHER, SELFPAY ==
--- OUTSIDE RECORDS SUMMARY | 2025-03-20 07:48 | XMS_ITS | Data Portability ---
Author Organization [facility] [employer] [facility] Medical [facility] Address [address] [place] [phone] Care Team Providers Care Acoustical Material Worker Name Role Phone HIM CCA OTHER Assessment No assessment recorded. Plan of Treatment Reminders Order Date Submit Date Provider Last Modified By Organization Details Last Modified Time Details Appointments None recorded. Lab rapid SARS CoV 2 Ag, QL IA, respiratory specimen 2024 [facility], [address] [place] [address], [phone] 5 13:10:36 rapid flu (A+B) [address], [phone] 5 16:02:22 rapid strep group A, throat [address], [phone] 13:10:56 Referral None recorded. Procedures None recorded. Surgeries None recorded. Imaging None recorded. Medication Orders None recorded. Patient TargetsNo targets recorded. Patient InstructionsNo instructions recorded. Reason for Referral None Reported. Results Created Date Observation Date Name Description Value Unit Range Abnormal Flag Note LastModifiedBy Organization Detail LastModifiedTime 06/23/1906/23/2024 rapid flu (A+B) Flu negati ve Not Available [facility] ed [address] [place] [address], [phone] 06/23/2024 12:15:51 06/23/1906/23/2024 rapid strep group A, throa t Strep negati ve Not Available [facility] ed [address] [place] [address], [phone] 06/23/2024 12:16:01 06/23/1906/23/2024 rapid SARS CoV 2 Ag, QL IA, respi rator y speci men rapid SARS CoV 2 Ag, QL IA, respiratory specimen negati ve Not Available Main - [facility] ed [address] [place] [address], [phone] 06/23/2024 12:15:51 Result Notes None recorded. Medical [...] Available No t Available FreeStyle Severino 3 [place] USE DAILY TO MONITOR BLOOD GLUCOSE CONTINUOUSL Y active Not Available Not Available No t Available FreeStyle Severino 3 Plus Sensor device APPLY 1 NEW SENSOR EVERY 14 DAYS DIRECTED TO MONITOR BLOOD GLUCOSE CONTINUOUSL Y. active Not Available Not Available No t Available Vitals Date Recorded Respiratory rate Oxygen saturation Heart rate Body height Body weight Body temperature Systolic And Diastolic Provider Name and Address Organization Details Last Updated DateTime 5 18 /min 95 % 94 /min 160.02 cm 74683.0 32 g 99.8 [degF] 115/74 mm[Hg] Not [...] ICD10 Code Diagnosis IMO Codes Diagnosis Note [id number] Clare Zarate MD Main - [facility] [address] [place] [phone] 06/23/2024 11:51:12 06/24/2024 12:16:20 Viral upper respiratory tract infection [id number] J06.9 As noted, we were called to see this patient regarding concerns of URI. Evaluation in the field was performed by my claim review medical director colleague, as noted above, I provided real-time [...] Darnell Member ID Guarantor Name 06/24/2024 1 [facility] - DOS ON OR AFTER 2022 - DUAL ELIGIBLE - CUSTODIAL OPTIONS AND ONE CARE (MEDICARE REPLACEMENT/AD VANTAGE - HMO) Cara Banegas [id number] Cara Banegas Notes Date Note Type Note [...] - :30 Allergies Reviewed at 06/23/2024 - : Comments: [...] s/s and seek emergency treatment if needed. Station Captain Organization Information for [facility] Business Legal Name: [employer]. Address: [address] [place] [address], Steel Plate Caulker: Ronak Brady MD CLIA No.: [id number] Station Captain POC Test Results from [facility] Rapid COVID antigen (11:50:30) COVID: - Rapid influenza antigen (11:50:31) Flu: - Rapid strep test (11:50:32) Strep: - .................. .................. .................. .................. .................. .................. .................. ............... Station Captain Note From [facility]: Sent to a [...] covid/flu test: neg; Rapid strep test: neg; [facility] consulted, pt is advised to continue symptomatic treatment. Red flags discussed. Pt has no further questions. [facility] Lab Orders: rapid SARS CoV 2 Ag, QL IA, respiratory specimen: Performed rapid flu (A+B): Performed rapid strep group A, throat: Performed .................. .................. .................. .................. .................. .................. .................. ............... [facility] Consulted: Clare Zarate .................. .................. .................. .................. .................. .................. .................. ............... Disposition: Fulfilled Clare Zarate MD [address] [place] [address],[address] [facility], [place], [phone], [employer] - [employer] 06/23/2024 13:54:06 OBGyn Episode No OBEpisode recorded.
--- OUTSIDE RECORDS SUMMARY | 2025-03-20 07:48 | XMS_ITS | Clinical Summary ---
Author Organization [facility] Address [address] [place] [address] Phone Care Team Providers Care Spinning Lathe Operator Hydraulic Name Role Phone Payal Villanueva MD Primary Care Provider [phone] Allergies No known active allergies Medications No [...] Group ID:SCO Type:Not on file Address: RADHA [facility] [place] [address] Care Teams Spinning Lathe Operator Hydraulic Relationship Specialty Start Date End Date Payal Villanueva MD [address] [place] [address] , [address] [facility] Physician Associ D/B/A: [facility] [place] PCP - General Internal Medicine 05/22/24
--- OUTSIDE RECORDS SUMMARY | 2025-03-20 07:48 | XMS_ITS | Clinical Summary ---
Author Organization [employer] Address [address] [facility] [address] [place] [address] Care Team Providers Care Typing Office Worker Name Role Phone Unavailable Primary Care [...]
--- OUTSIDE RECORDS SUMMARY | 2025-03-20 07:48 | XMS_ITS | Encounter Summary ---
Author Organization [email or web address] Address [address] [facility] 7t [place] [address] Care Team Providers Care Hydration Plant Operator Name Role Phone Unavailable Primary Care Provider Unavailabl e Encounter Details Date Type Department Care Team (Late st Contact Info) Description 05/04/2022 Abstract [facility] MEDICINE [address] [place] [address] Katelynn Toth, AnnieD [address] [place] [address] Social History Tobacco Use Types Packs/Day Years [...]
== END 2025-03-20 07:46 | disposition home or self-care (01) ==
LOC: HO.LAB 07:45
PROVIDERS: PCP Internal Medicine; Visit Provider Physician Assistant Medical
DX: R73.9 Hyperglycemia, unspecified (principal)
CPT/HCPCS: 36415; 83036

== ENCOUNTER 2025-04-20 10:47 | Outpatient (AMB) | payer OTHER, SELFPAY ==
[2025-04-20 10:49] VITALS: BP 132/68; PULSE 84; O2SAT 97; BMI 36.4
--- NOTE | 2025-04-20 10:49 | MHC.OFFVIS ---
Vital Signs 04/20/25 10:49 Height 5 ft 3 in Weight 205 lb 11.06 oz BMI 36.4 BP 132/68 Blood Pressure Location Lt brachial Position Sitting Pulse 84 Pulse Source Pulse Oximeter Pulse Oximetry (%) 97 Oxygen Delivery Method Room Air Intake Visit Reasons: Type II diabetes/review labs Intake Note: Patient present today to follow up on Type 2 Diabetes Mellitus. Last Diabetic Eye exam: 03/23/24 Last Podiatry Visit: Does not see a Professional Development Director Random Glucose: 125 mg/dL Most HgA1C: 6.9% 03/20/2025 Sponge Diver Required: Yes Sponge Diver Language: Buffer Chrome Services: Sponge Diver Present Sponge Diver Name: Darryl [id number] Accompanied by: Daughter Allergies metformin Adverse Reaction (Intermediate, Verified 04/20/25 10:57) diarrhea HPI Comments Details: This is a 65-year-old Danish speaking female with a past medical history of type 2 diabetes, hypothyroidism, dyslipidemia, hypertension, depression and GERD presenting for diabetic management. Hemoglobin A1c 6.9% 03/20/2025 down from 9.4%. Current medication regimen: Lantus 48 units daily and Jardiance 25 mg daily and Trulicity 4.5 mg weekly. Patient has seen CDE and dietitian within the past year. She is trying to implement dietary changes. Past medications: Ozempic stopped in December due to dizziness reported by the patient. Mounjaro caused nausea and gas. Intolerant to metformin which caused diarrhea. Hypoglycemia symptoms: None Hyperglycemia symptoms: fatigue and polydipsia Eye exam: due Microvascular complications: neuropathy in her toes and fingers, nephropathy (microalbumin, followed by Nephrology) Macrovascular complications: None Hypertension: treated with Enalapril 5 mg. Hyperlipidemia: treated with Zetia 10 mg and Atorvastatin 80 mg. Fib4 value 1.07 as of 06/19/2024. ROS: Constitutional: No unexplained weight loss, fever, chills, fatigue or night sweats. Eyes: No vision changes Respiratory: No shortness of breath Cardiovascular: No chest pain Gastrointestinal: No anorexia, nausea, vomiting or diarrhea. No abdominal pain. Neurologic: No headache, dizziness, syncope, + tingling in her toes. Endocrine: No cold or heat intolerance. See HPI. Physical exam: Constitutional: Alert, in no distress. Neck: Supple, Full range of motion. No lymphadenopathy. No palpable thyroid masses. Respiratory: Clear to auscultation. Cardiovascular: S1 S2 regular. No murmurs. Feet: Warm and well perfused, intact DP pulses, no open wounds or fissures. [facility] Medical History Subarachnoid hemorrhage Diabetic polyneuropathy DM2 (diabetes mellitus, type 2) Daytime somnolence Chronic pain of both knees Chronic pain of both hips Helicobacter pylori (H. 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 Diabetes type 2, uncontrolled Hypovitaminosis D Depression GERD (gastroesophageal reflux disease) Essential hypertension Headache Dyslipidemia Type 2 diabetes mellitus, with long-term current use of insulin Autoimmune thyroiditis Surgical History History of esophagogastroduodenoscopy (EGD) Hx of colonoscopy History of arthroscopy of right knee History of tubal ligation Family History Father Diabetes Mother Hypertension Maternal Grandmother Gynecologic cancer Family/Other FH: mental illness Maternal Uncle Chronic mental illness Social History Housing: Apartment Alcohol intake: never Patient Tobacco Use Status: Never used Tobacco e-Cigarette/Vaping Use: Never Used Second Hand Smoke Exposure: No service: No Current occupational status: disabled Current occupation: rt handed Cognitive needs: Yes Hearing needs: No Vision needs: No Physical Exam Vital Signs: Last Vital Signs Pulse 84 04/20/25 10:49 BP 132/68 04/20/25 10:49 Pulse Ox 97 04/20/25 10:49 Oxygen Delivery Method Room Air 04/20/25 10:49 BMI result Body Mass Index 36.4 Results Reviewed Results Reviewed: Laboratory Last Values Glucose (Clinic) 125 mg/dL (60-115) H 04/20/25 10:58 Laboratory Tests 09/08/21 10/12/24 10/12/24 09:52 09:07 09:10 Creatinine Estimated GFR AST 20 ALT 24 LDL Cholesterol Direct 99 Triglycerides 73 Cholesterol 162 LDL Cholesterol, Calc 96 HDL Cholesterol 52 Microalb/Creat Ratio 35.9 H 11/03/24 06:47 Creatinine 0.62 Estimated GFR > 60 AST ALT LDL Cholesterol Direct Triglycerides Cholesterol LDL Cholesterol, Calc HDL Cholesterol Microalb/Creat Ratio Assessment & Plan Assessment & Plan (1) Type 2 diabetes mellitus, with long-term current use of insulin: Code(s): E11.9 - Type 2 diabetes mellitus without complications; Z79.4 - global consumer sector vice president (current) use of insulin Category: Medical Qualifiers: Diabetes mellitus complication status: with hyperglycemia Qualified Code(s): E11.65 - Type 2 diabetes mellitus with hyperglycemia; Z79.4 - global consumer sector vice president (current) use of insulin (2) Essential hypertension: Code(s): I10 - Essential (primary) hypertension Category: Medical (3) Dyslipidemia: Code(s): E78.5 - Hyperlipidemia, unspecified Category: Medical Plan In summary this is a 65-year-old female with type 2 diabetes with microvascular complication. Complications of type 2 diabetes and diabetic diet reviewed. Continue Trulicity to 4.5 mg weekly. Continue Lantus 48 units every morning. Continue Jardiance 25 mg daily. If you experience low blood sugar (<70), treat this by eating a chewable fruit candy like skittles or jelly beans (about 8 pieces), 4 ounces (1/2 cup) of fruit juice (not diet), 1 tablespoon of honey or 4 glucose tablets or 1 packet of glucose gel. If your blood sugar is under 50, take double the amount of one of the above. Recheck your blood sugar in 15 minutes. She will have labs completed. Continue Zetia and atorvastatin for hyperlipidemia. Continue JOSE inhibitor for hypertension and renal protection. Follow up in 3 months for type 2 diabetes. Orders: Orders Lipid Panel Today E11.65 - Type 2 diabetes mellitus with hyperglycemia, E78.5 - Hyperlipidemia, unspecified, Z79.4 - global consumer sector vice president (current) use of insulin Creatinine Today E11.65 - Type 2 diabetes mellitus with hyperglycemia, E11.9 - Type 2 diabetes mellitus without complications, Z79.4 - intermediate (current) use of insulin Alanine Aminotransferase Today E11.65 - Type 2 diabetes mellitus with hyperglycemia, Z79.4 - intermediate (current) use of insulin Aspartate Amino Transferase Today E11.65 - Type 2 diabetes mellitus with hyperglycemia, Z79.4 - intermediate (current) use of insulin Microalbumin, Random (w Creat) Today E11.65 - Type 2 diabetes mellitus with hyperglycemia, E11.9 - Type 2 diabetes mellitus without complications, Z79.4 - global consumer sector vice president (current) use of insulin Coding Level of Care Code Est Pt Level 4 (23523) Add On Problem Visit Only Diagnoses Type 2 diabetes mellitus with hyperglycemia, with long-term current use of insulin E11.65; Z79.4 Diabetes mellitus complication status: with hyperglycemia Essential hypertension I10 Dyslipidemia E78.5
[2025-04-20 11:05] LABS: Glucose, Whole Blood 125 mg/dL (60-115)
--- OUTSIDE RECORDS SUMMARY | 2025-04-20 12:09 | XMS_ITS | Clinical Summary ---
Author Organization [employer] Address [address] [place] [address] Care Team Providers Care Patent Searcher Name Role Phone Unavailable Primary Care Provider [...]
--- OUTSIDE RECORDS SUMMARY | 2025-04-20 12:09 | XMS_ITS | Encounter Summary ---
Author Organization [employer] Address [address] [place] [address] Care Team Providers Care Hardware Design Engineer Name Role Phone Unavailable Primary Care Provider Unavailabl e Encounter Details Date Type Department Care Team (Late st Contact Info) Description 05/04/2022 Abstract [facility] [address] [place] [address] Katelynn Toth, AnnieD [address] [place] [address] Social History Tobacco Use Types Packs/Day Years [...]
--- OUTSIDE RECORDS SUMMARY | 2025-04-20 12:09 | XMS_ITS | Clinical Summary ---
Author Organization [address] [facility] Address [address] [place] [address] Phone Care Team Providers Care Insurance Auditor Name Role Phone Payal Villanueva MD Primary [...] Group ID:[id number] Type:Not on file Address: [address] [facility] [place] [id number] Care Teams Insurance Auditor Relationship Specialty Start Date End Date Payal Villanueva MD [address] [place] [address] , [address] [facility] D[facility]A: [facility] [place] PCP - General Internal Medicine 05/22/24
== END 2025-04-20 11:20 | disposition home or self-care (01) ==
LOC: HO.ENCR 10:47
PROVIDERS: PCP Internal Medicine; Visit Provider Physician Assistant Medical
DX: E11.65 Type 2 diabetes mellitus with hyperglycemia (principal); Z79.4 Long term (current) use of insulin; I10 Essential (primary) hypertension; E78.5 Hyperlipidemia, unspecified

== ENCOUNTER → 2025-04-20 10:47 | Outpatient (BNVA) | payer OTHER, SELFPAY | PROVIDERS: PCP Internal Medicine; Visit Provider Physician Assistant Medical | DX: E11.65 Type 2 diabetes mellitus with hyperglycemia (principal); I10 Essential (primary) hypertension; E78.5 Hyperlipidemia, unspecified; Z79.4 Long term (current) use of insulin; Z79.899 Other long term (current) drug therapy; Z79.84 Long term (current) use of oral hypoglycemic drugs; Z79.85 Long-term (current) use of injectable non-insulin antidiabetic drugs | CPT/HCPCS: 82947; 99212 ==